=== PATIENT | female | born 1950 | race Caucasian/White ===

== ENCOUNTER 2017-08-21 15:46 | Inpatient (IN) ==
--- NOTE | 2017-08-21 16:45 | DR.GENAD ---
HPI - PCP Primary Care Physician: FREDDY SILVESTRE - Complaint/Symptoms Chief Complaint Doctors Comments: Patient is complaining of right sided weakness onset last night. Spouse states she had problems last night talking out of her head like she was "crazy". Stats they have been for 30 years and she has never had problems like that before. she went to the emergency room last night and they gave her some IV fluids and something for a headache and told her she was not having a stroke according to the spouse. Patient states she has had a problem with migraines before and has headaches worst that this one. States she has been having problems moving her right hand and legs. States she has been dragging her right leg and it feels like it is not there and the right side is not working. She denies chest pain, soB, nausea or vomiting. She denies tobacco or alcohol usage. She has been having dizziness and problems swallowing last night. Chief Complaint:: PT. C/O RIGHT SIDED WEAKNESS AND A HEADACHE. PT. STATES SHE WAS SEEN IN [facility] LAST NIGHT FOR A HEADACHE. THE RIGHT SIDED WEAKNESS IS A NEW SYMPTOM. - Nurses notes reviewed Nurses Notes Review: Yes - Source History Provided: Patient - Mode of Arrival Mode of Arrival: Wheelchair - Timing Onset of Chief Complaint: 08/20/17 Came on: Gradually - Duration Duration: Constant How lon Duration: Days - Location Location: right side weakness - Severity Severity: Severe - Modifying Factors Worsens:: nothing Improves:: nothing PMH - PMH Past Medical History: Yes Past Medical History: Headaches, Hypertension Past Medical History Comment: MS, FIBROMYALGIA Past Surgical History: Yes Surgical History: Appendectomy, Cholecystectomy, Hysterectomy, Ortho Surgery, Tonsillectomy, Other - Family History History of Family Medical Conditions: No - Social History Does patient currently use any type of tobacco product: No Have you used tobacco products in the last 12 months: No Type of Tobacco Use: None Does any household member use tobacco: No Alcohol Use: None Do you use any recreational Drugs:: No Lives With: Spouse Lives Where: Home - infectious screening In the last 2 months have you had wt loss of >10#?: NO Have you had fever, night sweats or hemotysis?: No Have you traveled outside the country in the last 6 months?: No Isolation: Standard ROS - Review of Systems Constitutional: No Symptoms Reported, Weakness (right side weakness) Eyes: No Symptoms Reported ENTM: No Symptoms Reported Respiratoy: No Symptoms Reported. negative: See HPI, Productive Cough, Non- Productive Cough, Moist Cough, Dry Cough, Hacking Cough, Barking Cough, Brassy Cough, Orthopnea, Short of Breath, Stridor, Wheezing, Hemoptysis, Other Cardiovascular: No Symptoms Reported. negative: See HPI, Chest Pain, Edema, Palpitations, Syncope, Cyanosis, Skin Mottling, Other Gastrointestinal/Abdominal: No Symptoms Reported. negative: See HPI, Abdominal Pain, Constipation, Diarrhea, Nausea, Vomiting, Food Intolerance, Other Genitourinary: No Symptoms Reported Neurological: No Symptoms Reported, Headache, Numbness (right side), Paresthesia , Dizziness, Problems Walking (dragging right leg) Musculoskeletal: No Symptoms Reported Integumentary: No Symptoms Reported. negative: See HPI, Change in Color, Change in Hair/Nails, Dryness, Lesions, Lumps, Rash, Itching, Wound, Bruises, Juandice, Other Hematologic/Lymphatic: No Symptoms Reported. negative: See HPI, Anemia, Blood Clots, Easy Bleeding, Easy Bruising, Swollen Glands, Lymphadenopathy, Other Endocrine: No Symptoms Reported Psychiatric: No Symptoms Reported. negative: See HPI, Anxiety, Depression, Hallucinations, Excessive crying, Suicidal, Other PE - General Limitations: No Limitations General Appearance: Alert, In Distress (moderate) - Head Head Exam: Normal Inspection, Atraumatic, Normocephalic (right carotid bruit 3+) - Eyes Eye exam: Normal Appearance, PERRL, EOMI. negative: Scleral Icterus, Conjunctival Injection, Nystagmus, Miosis, Mydrasis, Periorbital Swelling, Periorbital Tenderness, Other - ENT ENT Exam: Normal Exam, Normal Oropharynx, Normal External Ear Exam, Mucous Membranes Moist, TM's Normal Bilaterally External Ear Exam: Normal External Inspection TM/Canal Exam: Bilateral Normal Nose Exam: Normal Nose Exam Mouth Exam: Normal Inspection. negative: Drooling (tongue protrude to the right side), Trismus, Lip Swelling, Tongue Elevation, Tongue Swelling, Laceration, Other Throat Exam: Normal Inspection - Neck Neck Exam: Normal Inspection, Full ROM, Trachea Midline - Chest Chest Inspection: Normal Inspection, Symmetric Chest Wall Rise - Respiratory Respiratory Exam: Normal Lung Sounds Bilat Respiratory Exam: Bilateral Clear to Auscultation - Cardiovascular Cardiovascular Exam: Regular Rate, Normal Rhythm, Normal Heart Sounds - Abdominal Exam Abdominal Exam: Normal Inspection, Normal Bowel Sounds, Soft Abdominal Tenderness: negative: RUQ, RLQ, LUQ, LLQ, Epigastrium, Suprapubic, Diffuse, Mild, Moderate, Severe, Other - Extremities Extremities Exam: Normal Inspection, Full ROM, Normal Capillary Refill. negative: Tenderness (right sided weakness) - Back Back Exam: Normal Inspection, Full ROM. negative: Tenderness, (R) CVA Tenderness, (L) CVA Tenderness, Muscle Spasm, Paraspinal Tenderness, Vertebral Tenderness, Rashes, (R) Sciatic Notch Tenderness, (L) Sciatic Notch Tendern, (R ) Straight Leg Raise, (L) Straight Leg Raise, Other - Neurologic Neurological Exam: Alert, Oriented X3, Motor Sensory Deficit (decreased pin prick right leg). negative: CN II-XII Intact (right hemiplegia; decreased sensation right legs; abnormal propriception right leg), Normal Gait (gait not tested), Reflexes Normal - Psychiatric Psychiatric Exam: Normal Affect, Normal Mood - Skin Skin Exam: Warm, Dry, Intact, Normal Color - Vital Signs Vitals: Temperature 98.7 F Pulse Rate [Left Brachial] 63 Pulse Rate 66 Respiratory Rate 20 Blood Pressure [Right Arm] 116/61 Blood Pressure [Left Arm] 141/65 Blood Pressure 182/87 O2 Sat by Pulse Oximetry 98 Course - Consultation Called: 19:07 Call Returned: 19:07 (Dr. Rawls to admit) - Education/Counseling Education/Counseling: Patient, Family Educated On: Treatment, Diagnosis, Needs for Follow Up ROR - Labs Reviewed Laboratory Results Reviewed?: Yes (All labs and x-ray results reviewed and discussed with patient and spouse ) Result Diagrams: 08/21/17 16:48 08/21/17 16:48 - XRAY XRAY Interpreted by: Radiologist (CT head: No acute intracranial process can be identified.) - EKG Rate: 66 [place]: Normal Rhythm: NSR Hypertrophy: LAE ST: Old, Inf, Infarct - Labs Reviewed Laboratory: WBC 11.1 X10^3/uL (3.6-10.0) H 08/21/17 16:48 RBC 4.33 X10^6/uL (3.5-5.4) 08/21/17 16:48 Hgb 13.8 g/dL (12.0-16.0) 08/21/17 16:48 Hct 40.3 % (36.0-47.0) 08/21/17 16:48 MCV 93.1 fL (80.0-100.0) 08/21/17 16:48 MCH 31.9 pg (27.0-34.0) 08/21/17 16:48 MCHC 34.3 g/dL (33.0-35.0) 08/21/17 16:48 RDW 12.5 % (11.6-16.5) 08/21/17 16:48 Plt Count 288 X10^3/uL (150.0-450.0) 08/21/17 16:48 MPV 8.8 fL (7.4-11.0) 08/21/17 16:48 Neut % (Auto) 74.1 % (42.0-75.0) 08/21/17 16:48 Lymph % (Auto) 17.1 % (21.0-51.0) L 08/21/17 16:48 [place] % (Auto) 8.5 % (0.0-13.0) 08/21/17 16:48 Eos % (Auto) 0.1 % (0.9-2.9) L 08/21/17 16:48 Baso % (Auto) 0.2 % (0.2-1.0) 08/21/17 16:48 Neut # (Auto) 8.2 x10^3/uL (2.2-4.8) H 08/21/17 16:48 Lymph # (Auto) 1.9 X10^3/uL (1.3-2.9) 08/21/17 16:48 [place] # (Auto) 0.9 x10^3/uL (0.3-0.8) H 08/21/17 16:48 Eos # (Auto) 0.0 x10^3/uL (0.0-0.2) 08/21/17 16:48 Baso # (Auto) 0.0 X10^3/uL (0.0-0.1) 08/21/17 16:48 Absolute Nucleated RBC 0.0 /100WBC 08/21/17 16:48 INR Target Range - 08/21/17 16:48 INR 0.93 (0.8-1.3) 08/21/17 16:48 APTT 23.1 SECONDS (22.9-36.5) 08/21/17 16:48 PTT Comment - 08/21/17 16:48 Sodium 139 mmol/L (136-145) 08/21/17 16:48 Corrected Sodium TNP 08/21/17 16:48 Potassium 4.2 mmol/L (3.5-5.1) 08/21/17 16:48 Chloride 105 mmol/L (98-107) 08/21/17 16:48 Carbon Dioxide 25.5 mmol/L (21-32) 08/21/17 16:48 BUN 12 mg/dL (7-18) 08/21/17 16:48 Creatinine 0.90 mg/dL (0.55-1.02) 08/21/17 16:48 Est GFR (MDRD) Af Amer > 60 (>60) 08/21/17 16:48 Est GFR (MDRD) Non-Af > 60 (>60) 08/21/17 16:48 Glucose 102 mg/dL (65-99) H 08/21/17 16:48 Calcium 9.6 mg/dL (8.5-10.1) 08/21/17 16:48 Corrected Calcium TNP 08/21/17 16:48 Magnesium 1.9 mg/dL (1.7-2.9) 08/21/17 16:48 Total Bilirubin 0.30 mg/dL (0.2-1.0) 08/21/17 16:48 AST 24 Units/L (15-37) 08/21/17 16:48 ALT 18 Units/L (12-78) 08/21/17 16:48 Alkaline Phosphatase 87 Units/L (46-116) 08/21/17 16:48 Creatine Kinase 77 Units/L (26-192) 08/21/17 16:48 CK-MB (CK-2) < 1.0 ng/mL (0-4.0) 08/21/17 16:48 CK/CKMB % Calc 1.3 % (<4) 08/21/17 16:48 Troponin I < 0.02 ng/mL (0-1.5) 08/21/17 16:48 Total Protein 8.0 g/dL (6.4-8.2) 08/21/17 16:48 Albumin 3.6 g/dL (3.4-5.0) 08/21/17 16:48 Globulin 4.4 g/dL (2.5-4.5) 08/21/17 16:48 Albumin/Globulin Ratio 0.8 Ratio (1.1-2.1) L 08/21/17 16:48 - Diagnosis Discharge Problem: Acute CVA (cerebrovascular accident), Right hemiparesis, Old inferior wall myocardial infarction, Multiple sclerosis Headache Qualifiers: Headache chronicity pattern: acute headache - Discharge Plan Disposition: ADMITTED INPATIENT Condition: Stable - Follow ups/Referrals Follow ups/Referrals: CORINA DUARTE [Primary Care Provider] - 3 days - Instructions
[2017-08-21 16:57] LABS: BASOPHILS % (AUTO) 0.2 % (0.2-1.0); EOSINOPHILS % (AUTO) 0.1 % (0.9-2.9); HEMATOCRIT 40.3 % (36.0-47.0); HEMOGLOBIN 13.8 g/dL (12.0-16.0); LYMPHOCYTES # (AUTO) 1.9 X10^3/uL (1.3-2.9); LYMPHOCYTES % (AUTO) 17.1 % (21.0-51.0); MEAN CORPUSCULAR HEMOGLOBIN 31.9 pg (27.0-34.0); MEAN CORPUSCULAR HGB CONC 34.3 g/dL (33.0-35.0); MEAN CORPUSCULAR VOLUME 93.1 fL (80.0-100.0); MEAN PLATELET VOLUME 8.8 fL (7.4-11.0); MONOCYTES # (AUTO) 0.9 x10^3/uL (0.3-0.8); MONOCYTES % (AUTO) 8.5 % (0.0-13.0); NEUTROPHILS # (AUTO) 8.2 x10^3/uL (2.2-4.8); NEUTROPHILS % (AUTO) 74.1 % (42.0-75.0); PLATELET COUNT 288 X10^3/uL (150.0-450.0); RED BLOOD COUNT 4.33 X10^6/uL (3.5-5.4); RED CELL DISTRIBUTION WIDTH 12.5 % (11.6-16.5); WHITE BLOOD COUNT 11.1 X10^3/uL (3.6-10.0)
--- NOTE | 2017-08-21 17:14 | CT ---
HISTORY: Right hemiplegia. Study: CT brain without contrast. Comparison: MR brain dated 11/24/2015. Technique: Multiple axial images of the brain were obtained from the skull base to the vertex without administra tion of IV contrast. Findings: No acute intraparenchymal hemorrhage or mass can be identified. No extra-axial fluid collections are seen. No alteration in the attenuation of the brain parenchyma can be identified to suggest acute o r subacute ischemic change. The ventricular system is symmetric and nondilated. The extracranial st ructures are grossly unremarkable. IMPRESSION: No acute intracranial process can be identified. Reported By:
--- NOTE | 2017-08-21 17:15 | RAD ---
HISTORY: Chest pain. Study: Single-view chest. Comparison: None. Findings: The trachea is midline. The cardiac silhouette is within normal limits. The lungs are clear without focal infiltrate or effusion. The bony thorax is unremarkable. IMPRESSION: No acute cardiopulmonary disease. Reported By:
[2017-08-21 17:21] LABS: BLOOD UREA NITROGEN 12 mg/dL (7-18); CALCIUM 9.6 mg/dL (8.5-10.1); CARBON DIOXIDE 25.5 mmol/L (21-32); CHLORIDE 105 mmol/L (98-107); SODIUM 139 mmol/L (136-145); TROPONIN I < 0.02 ng/mL (0-1.5); eGFR NON BLACK RACES > 60 (>60)
[2017-08-21 17:25] LABS: ALANINE AMINOTRANSFERASE 18 Units/L (12-78); ALBUMIN 3.6 g/dL (3.4-5.0); ALKALINE PHOSPHATASE 87 Units/L (46-116); ASPARTATE AMINO TRANSFERASE 24 Units/L (15-37); CREATINE KINASE 77 Units/L (26-192); CREATINE KINASE MB < 1.0 ng/mL (0-4.0); MAGNESIUM 1.9 mg/dL (1.7-2.9)
[2017-08-21 17:27] LABS: CKMB % 1.3 % (<4)
[2017-08-21] MEDS ORDERED: MORPHINE SULFATE INJ 2 MG INJ IVP ONE (18:35)
[2017-08-21] MEDS ORDERED: MORPHINE SULFATE INJ 2 MG INJ ONE (18:42)
[2017-08-21] MEDS: NS 1000 ML 1,000 ML IV SCH (18:51)
[2017-08-21] MEDS ORDERED: MORPHINE SULFATE INJ 2 MG INJ IVP PRN (19:10)
[2017-08-21 20:11] LABS: ALANINE AMINOTRANSFERASE 16 Units/L (12-78); ALBUMIN 3.2 g/dL (3.4-5.0); ALKALINE PHOSPHATASE 79 Units/L (46-116); ASPARTATE AMINO TRANSFERASE 13 Units/L (15-37); BLOOD UREA NITROGEN 12 mg/dL (7-18); CALCIUM 9.2 mg/dL (8.5-10.1); CARBON DIOXIDE 25.6 mmol/L (21-32); CHLORIDE 106 mmol/L (98-107); CHOL/HDL RATIO 8.5 (0.0-5.0); CHOLESTEROL 281 mg/dL (0-200); COR CA(FOR HYPOALB) 9.8 mg/dL (8.5-10.1); CREATININE 0.89 mg/dL (0.55-1.02); HDL CHOLESTEROL 33 mg/dL (40-60); SODIUM 141 mmol/L (136-145); TOTAL PROTEIN 7.3 g/dL (6.4-8.2); TRIGLYCERIDES 156 mg/dL (0-150); eGFR NON BLACK RACES > 60 (>60)
[2017-08-21 20:19] LABS: CREATINE KINASE 66 Units/L (26-192); CREATINE KINASE MB < 1.0 ng/mL (0-4.0); TROPONIN I < 0.02 ng/mL (0-1.5)
[2017-08-21 20:21] LABS: CKMB % 1.5 % (<4)
[2017-08-21] MEDS: PLAVIX PO SCH (20:28)
[2017-08-21 23:35] LABS: BILIRUBIN,URINE NEGATIVE (NEGATIVE); BLOOD/HEMOGLOBIN,URINE NEGATIVE (NEGATIVE); GLUCOSE, URINE NEGATIVE (NEGATIVE); KETONES,URINE NEGATIVE (NEGATIVE); LEUKOCYTE ESTERASE ,URINE NEGATIVE (NEGATIVE); NITRITES,URINE NEGATIVE (NEGATIVE); PROTEIN,URINE NEGATIVE (NEGATIVE); UROBILINOGEN,URINE NORMAL (NORMAL)
[2017-08-21 23:46] LABS: APPEARANCE,URINE CLEAR (CLEAR); COLOR,URINE PALE YELLOW (YELLOW)
[2017-08-22] MEDS ORDERED: ULTRAM ONE (00:29)
[2017-08-22] MEDS: ULTRAM PO PRN (00:34)
[2017-08-22 01:52] LABS: CKMB % 1.8 % (<4); CREATINE KINASE 55 Units/L (26-192); CREATINE KINASE MB < 1.0 ng/mL (0-4.0); TROPONIN I < 0.02 ng/mL (0-1.5)
[2017-08-22] MEDS: NORCO 5/325 MG TAB PO PRN (02:16)
[2017-08-22] MEDS ORDERED: IMITREX TAB PO ONE (03:50)
[2017-08-22] MEDS ORDERED: ZOFRAN INJ 4 MG VIAL IVP PRN (07:21)
[2017-08-22] MEDS: NS 1000 ML 1,000 ML IV SCH ×2 (07:36→20:23)
[2017-08-22] MEDS: VISTARIL PO PRN ×2 (07:37→20:24)
[2017-08-22 07:44] LABS: BASOPHILS # (AUTO) 0.1 X10^3/uL (0.0-0.1); BASOPHILS % (AUTO) 0.7 % (0.2-1.0); EOSINOPHILS # (AUTO) 0.1 x10^3/uL (0.0-0.2); EOSINOPHILS % (AUTO) 0.8 % (0.9-2.9); HEMATOCRIT 37.5 % (36.0-47.0); HEMOGLOBIN 12.9 g/dL (12.0-16.0); LYMPHOCYTES # (AUTO) 2.4 X10^3/uL (1.3-2.9); LYMPHOCYTES % (AUTO) 26.9 % (21.0-51.0); MEAN CORPUSCULAR HEMOGLOBIN 32.4 pg (27.0-34.0); MEAN CORPUSCULAR HGB CONC 34.4 g/dL (33.0-35.0); MEAN CORPUSCULAR VOLUME 94.2 fL (80.0-100.0); MEAN PLATELET VOLUME 8.5 fL (7.4-11.0); MONOCYTES # (AUTO) 0.8 x10^3/uL (0.3-0.8); MONOCYTES % (AUTO) 8.9 % (0.0-13.0); NEUTROPHILS # (AUTO) 5.5 x10^3/uL (2.2-4.8); NEUTROPHILS % (AUTO) 62.7 % (42.0-75.0); PLATELET COUNT 236 X10^3/uL (150.0-450.0); RED BLOOD COUNT 3.98 X10^6/uL (3.5-5.4); RED CELL DISTRIBUTION WIDTH 12.8 % (11.6-16.5); WHITE BLOOD COUNT 8.8 X10^3/uL (3.6-10.0)
[2017-08-22] MEDS: ASPIRIN PO SCH (08:39)
[2017-08-22] MEDS: PLAVIX PO SCH (08:39)
[2017-08-22] MEDS ORDERED: PROTONIX INJ 40 MG VIAL IVP SCH (09:00)
[2017-08-22 10:43] LABS: CKMB % 1.1 % (<4); CREATINE KINASE 53 Units/L (26-192); CREATINE KINASE MB 0.6 ng/mL (0-4.0)
[2017-08-22 12:44] LABS: CHOL/HDL RATIO 9.6 (0.0-5.0)
[2017-08-22 14:08] LABS: TROPONIN I < 0.02 ng/mL (0-1.5)
[2017-08-22] MEDS ORDERED: FIORICET TAB PO PRN (17:13)
[2017-08-22] MEDS ORDERED: PHENERGAN TAB 25 MG PO PRN (17:13)
[2017-08-22] MEDS: FIORICET TAB PO PRN (19:02)
[2017-08-22] MEDS: LIORESAL PO SCH (20:24)
[2017-08-22] MEDS: ZANTAC PO SCH (20:24)
[2017-08-22] MEDS: DESMOPRESSIN PO SCH (20:24)
--- NOTE | 2017-08-22 22:18 | DR.H&P ---
H&P - History & Physical for Day of: H&P Date: 08/21/17 - Chief Complaint Chief Complaint: PT. C/O RIGHT SIDED WEAKNESS AND A HEADACHE. PT. STATES SHE WAS SEEN IN [facility] ER LAST NIGHT FOR A HEADACHE. - History of Present Illness History of Present Illness: Patient is complaining of right sided weakness onset last night. Spouse states she had problems last night talking out of her head like she was "crazy". Stats they have been for 30 years and she has never had problems like that before. she went to the emergency room last night and they gave her some IV fluids and something for a headache and told her she was not having a stroke according to the spouse. Patient states she has had a problem with migraines before and has headaches worst that this one. States she has been having problems moving her right hand and legs. States she has been dragging her right leg and it feels like it is not there and the right side is not working. She denies chest pain, sob, nausea or vomiting. She denies tobacco or alcohol usage. She has been having dizziness and problems swallowing last night. - Past Medical History Past Medical History: Headaches, Hypertension Additional Medical History: Multiple Sclerosis, Fibromyalgia - Past Surgical History Surgical History: Appendectomy, Cholecystectomy, Hysterectomy, Ortho Surgery, Tonsillectomy, Other Additional Surgical History: Back surgery x 3 - Social History Does patient currently use any type of tobacco product: No Have you used tobacco products in the last 12 months: No Type of Tobacco Use: None Does any household member use tobacco: No Alcohol Use: None Drug Use: None - Medications Home Medications: No Known Drug Allergies Allergy (Verified 08/21/17 17:43) CONTINUE taking the following medications [id number] 1 tab PO Q4-6H PRN 08/21/17 [History] desmopressin 1 tab PO BID 08/21/17 [History] ergocalciferol (vitamin D2) 1 tab PO WEEKLY 08/21/17 [History] escitalopram oxalate 1 tab PO DAILY 08/21/17 [History] estradiol 1 tab PO DAILY 08/21/17 [History] promethazine 1 tab PO Q4-6H PRN 08/21/17 [History] ranitidine HCl 1 tab PO BID 08/21/17 [History] - Review of Systems Constitutional: Weakness Eyes: Vision Change (blurred vision) ENT: No Symptoms Reported Respiratory: No Symptoms Reported Cardiovascular: No Symptoms Reported Gastrointestinal: No Symptoms Reported Genitourinary: No Symptoms Reported Musculoskeletal: See HPI Skin: No Symptoms Reported Neurological: Weakness, Numbness, Incoordination, Confusion - Physical Exam Vital Signs: Temperature 97.5 F Pulse Rate [Left Brachial] 56 Pulse Rate 66 Respiratory Rate 18 Blood Pressure [Right Arm] 116/61 Blood Pressure [Left Arm] 173/72 Blood Pressure 182/87 O2 Sat by Pulse Oximetry 100 Oriented: Normal Eyes: Normal Ear: Normal Nose: Normal Throat: Normal Respiratory: Clear Throughout Cardiovascular: Normal : Normal Auscultation: Bowel Sounds: Normal Palpation: Normal Tenderness: Normal Skin: Normal Musculoskeletal: Right, Arm, Leg, Motor Deficit Psychiatric: Normal Mood Description: Calm, Flat Affect: Normal Speech Pattern: Clear - Assessment/Plan (1) Multiple sclerosis Status: Chronic Plan: Assist with ADLS, Monitor. (2) Acute CVA (cerebrovascular accident) Status: Acute Plan: Neuro checks, Lipid (3) Right hemiparesis Status: Acute Plan: Neuro checks, PT (4) Headache Qualifiers: Headache chronicity pattern: acute headache Status: Acute Plan: Medicate as needed (5) Hypertension Qualifiers: Hypertension type: essential hypertension Qualified Code(s): I10 - Essential (primary) hypertension Status: Chronic Plan: Monitor BP and administer Home meds. - Allergies Allergies/Adverse Reactions: Allergies Allergy/AdvReac Type Severity Reaction Status Date / Time No Known Drug Allergies Allergy Verified 08/21/17 17:43
--- NOTE | 2017-08-22 22:27 | PCM.PROG ---
Progress Note - Progress Note for Day of Date of Exam: 08/22/17 - Subjective Subjective: 66YO WF ADMITTED WITH ACUTE CVA. PATIENT ALERT AND ANSWERS QUESTIONS APPROPRIATELY. IS UNABLE TO MOVE RIGHT ARM OR LEG. IS NOTED TO LIFT RIGHT RING FINGER. COMPLAINS OF HEADACHE TO TOP OF HEAD AND BLURRED VISION. AND GRANDDAUGHTER PRESENT. DOES ASK NUMEROUS QUESTIONS REGARDING CAUSE AND PROGNOSIS. PATIENT STATES THAT SHE LOSS CONTROL OF HER RIGHT ARM AND IT WAS "JUST HANGING." DENIES DYSPHAGIA. NOTE: GRANDDAUGHTER CAME TO DESK ASKING IF HAND COULD MOVE UNINTENTIONALLY. STATES EARLIER TODAY SHE WAS ABLE TO PICK TAPE OF HER LEFT FINGERS USING HER RIGHT HAND. DOES ADMIT TO HIST OF PSYCH ISSUES. DOES NOT KNOW DIAGNOSIS OTHER THAN DEPRESSION. STATES THAT PATIENT IS NORMALLY VERY ACTIVE WITH A KENNEL. - Past Medical Family Social History Past Med/Fam/Surg Hx: No changes since H&P Allergies: Allergies No Known Drug Allergies Allergy (Verified 08/21/17 17:43) - Review of Systems ROS: No change since H&P - Vital Signs and I&O's Vital Signs: Temperature 97.5 F Pulse Rate [Left Brachial] 56 Pulse Rate 66 Respiratory Rate 18 Blood Pressure [Right Arm] 116/61 Blood Pressure [Left Arm] 173/72 Blood Pressure 182/87 O2 Sat by Pulse Oximetry 100 Intake and Output: Intake & Output 08/20/17 08/21/17 08/22/17 08/23/17 11:59 11:59 11:59 11:59 Intake Total 1342 / 1342 1335 / 1335 Output Total 1100 / 1100 Balance 1342 / 1342 235 / 235 - Physical Exam Oriented: Normal Eyes: Normal Ear: Normal Nose: Normal Throat: Normal Respiratory: Normal Cardiovascular: Normal : Normal Auscultation: Bowel Sounds: Normal Palpation: Normal Tenderness: Normal Skin: Normal Musculoskeletal: Right, Arm, Leg, Motor Deficit Psychiatric: Normal Mood Description: Calm, Flat Affect: Normal Speech Pattern: Clear - Laboratory and Diagnostics Result Diagrams: 08/22/17 07:32 08/21/17 19:35 Labs: Laboratory WBC 8.8 X10^3/uL (3.6-10.0) 08/22/17 07:32 RBC 3.98 X10^6/uL (3.5-5.4) 08/22/17 07:32 Hgb 12.9 g/dL (12.0-16.0) 08/22/17 07:32 Hct 37.5 % (36.0-47.0) 08/22/17 07:32 MCV 94.2 fL (80.0-100.0) 08/22/17 07:32 MCH 32.4 pg (27.0-34.0) 08/22/17 07:32 MCHC 34.4 g/dL (33.0-35.0) 08/22/17 07:32 RDW 12.8 % (11.6-16.5) 08/22/17 07:32 Plt Count 236 X10^3/uL (150.0-450.0) 08/22/17 07:32 MPV 8.5 fL (7.4-11.0) 08/22/17 07:32 Neut % (Auto) 62.7 % (42.0-75.0) 08/22/17 07:32 Lymph % (Auto) 26.9 % (21.0-51.0) 08/22/17 07:32 [place] % (Auto) 8.9 % (0.0-13.0) 08/22/17 07:32 Eos % (Auto) 0.8 % (0.9-2.9) L 08/22/17 07:32 Baso % (Auto) 0.7 % (0.2-1.0) 08/22/17 07:32 Neut # (Auto) 5.5 x10^3/uL (2.2-4.8) H 08/22/17 07:32 Lymph # (Auto) 2.4 X10^3/uL (1.3-2.9) 08/22/17 07:32 [place] # (Auto) 0.8 x10^3/uL (0.3-0.8) 08/22/17 07:32 Eos # (Auto) 0.1 x10^3/uL (0.0-0.2) 08/22/17 07:32 Baso # (Auto) 0.1 X10^3/uL (0.0-0.1) 08/22/17 07:32 Absolute Nucleated RBC 0.1 /100WBC 08/22/17 07:32 INR Target Range - 08/21/17 16:48 INR 0.93 (0.8-1.3) 08/21/17 16:48 APTT 23.1 SECONDS (22.9-36.5) 08/21/17 16:48 PTT Comment - 08/21/17 16:48 Fibrinogen 261 mg/dL (239-489) 08/21/17 19:35 Sodium 141 mmol/L (136-145) 08/21/17 19:35 Corrected Sodium TNP 08/21/17 19:35 Potassium 3.7 mmol/L (3.5-5.1) 08/21/17 19:35 Chloride 106 mmol/L (98-107) 08/21/17 19:35 Carbon Dioxide 25.6 mmol/L (21-32) 08/21/17 19:35 BUN 12 mg/dL (7-18) 08/21/17 19:35 Creatinine 0.89 mg/dL (0.55-1.02) 08/21/17 19:35 Est GFR (MDRD) Af Amer > 60 (>60) 08/21/17 19:35 Est GFR (MDRD) Non-Af > 60 (>60) 08/21/17 19:35 Glucose 94 mg/dL (65-99) 08/21/17 19:35 Calcium 9.2 mg/dL (8.5-10.1) 08/21/17 19:35 Corrected Calcium 9.8 mg/dL (8.5-10.1) 08/21/17 19:35 Magnesium 1.9 mg/dL (1.7-2.9) 08/21/17 16:48 Total Bilirubin 0.40 mg/dL (0.2-1.0) 08/21/17 19:35 AST 13 Units/L (15-37) L 08/21/17 19:35 ALT 16 Units/L (12-78) 08/21/17 19:35 Alkaline Phosphatase 79 Units/L (46-116) 08/21/17 19:35 Creatine Kinase 53 Units/L (26-192) 08/22/17 07:32 CK-MB (CK-2) 0.6 ng/mL (0-4.0) 08/22/17 07:32 CK/CKMB % Calc 1.1 % (<4) 08/22/17 07:32 Troponin I < 0.02 ng/mL (0-1.5) 08/22/17 07:32 Total Protein 7.3 g/dL (6.4-8.2) 08/21/17 19:35 Albumin 3.2 g/dL (3.4-5.0) L 08/21/17 19:35 Globulin 4.1 g/dL (2.5-4.5) 08/21/17 19:35 Albumin/Globulin Ratio 0.8 Ratio (1.1-2.1) L 08/21/17 19:35 Triglycerides 219 mg/dL (0-150) H 08/22/17 07:32 Cholesterol 277 mg/dL (0-200) H 08/22/17 07:32 LDL Cholesterol, Calc 204 mg/dL (0-100) H 08/22/17 07:32 HDL Cholesterol 29 mg/dL (40-60) L 08/22/17 07:32 Cholesterol/HDL Ratio 9.6 (0.0-5.0) H 08/22/17 07:32 Specimen Type Catherized urine 08/21/17 22:37 Urine Color Pale yellow (YELLOW) 08/21/17 22:37 Urine Appearance Clear (CLEAR) 08/21/17 22:37 Urine pH 6.0 (5.0 - 8.0) 08/21/17 22:37 Ur Specific [place] 1.015 (1.000-1.030) 08/21/17 22:37 Urine Protein Negative (NEGATIVE) 08/21/17 22:37 Urine Glucose (UA) Negative (NEGATIVE) 08/21/17 22:37 Urine Ketones Negative (NEGATIVE) 08/21/17 22:37 Urine Occult Blood Negative (NEGATIVE) 08/21/17 22:37 Urine Nitrite Negative (NEGATIVE) 08/21/17 22:37 Urine Bilirubin Negative (NEGATIVE) 08/21/17 22:37 Urine Urobilinogen Normal (NORMAL) 08/21/17 22:37 Ur Leukocyte Esterase Negative (NEGATIVE) 08/21/17 22:37 - Plan (1) Multiple sclerosis Status: Chronic Plan: Assist with ADLS, Monitor. (2) Acute CVA (cerebrovascular accident) Status: Acute Plan: Neuro checks, MRI BRAIN, CAROTID US (3) Right hemiparesis Status: Acute Plan: Neuro checks, PT (4) Headache Status: Acute Qualifiers: Headache chronicity pattern: acute headache Plan: Medicate as needed (5) Hypertension Status: Chronic Qualifiers: Hypertension type: essential hypertension Qualified Code(s): I10 - Essential (primary) hypertension Plan: Monitor BP and administer Home meds. (6) Dyslipidemia Status: Acute Plan: LOW FAT DIET. ADD ZOCOR.
[2017-08-23] MEDS: FIORICET TAB PO PRN (04:46)
[2017-08-23 05:14] LABS: BASOPHILS # (AUTO) 0.1 X10^3/uL (0.0-0.1); BASOPHILS % (AUTO) 1.2 % (0.2-1.0); EOSINOPHILS # (AUTO) 0.1 x10^3/uL (0.0-0.2); EOSINOPHILS % (AUTO) 1.6 % (0.9-2.9); HEMATOCRIT 36.2 % (36.0-47.0); HEMOGLOBIN 12.4 g/dL (12.0-16.0); LYMPHOCYTES # (AUTO) 2.3 X10^3/uL (1.3-2.9); LYMPHOCYTES % (AUTO) 34.6 % (21.0-51.0); MEAN CORPUSCULAR HEMOGLOBIN 32.3 pg (27.0-34.0); MEAN CORPUSCULAR HGB CONC 34.4 g/dL (33.0-35.0); MONOCYTES # (AUTO) 0.6 x10^3/uL (0.3-0.8); MONOCYTES % (AUTO) 8.7 % (0.0-13.0); NEUTROPHILS # (AUTO) 3.6 x10^3/uL (2.2-4.8); NEUTROPHILS % (AUTO) 53.9 % (42.0-75.0); PLATELET COUNT 229 X10^3/uL (150.0-450.0); RED BLOOD COUNT 3.85 X10^6/uL (3.5-5.4); RED CELL DISTRIBUTION WIDTH 12.9 % (11.6-16.5); WHITE BLOOD COUNT 6.6 X10^3/uL (3.6-10.0)
[2017-08-23 05:41] LABS: ALANINE AMINOTRANSFERASE 35 Units/L (12-78); ALBUMIN 2.8 g/dL (3.4-5.0); ALKALINE PHOSPHATASE 77 Units/L (46-116); ASPARTATE AMINO TRANSFERASE 29 Units/L (15-37); BLOOD UREA NITROGEN 11 mg/dL (7-18); CALCIUM 7.9 mg/dL (8.5-10.1); CARBON DIOXIDE 25.5 mmol/L (21-32); CHLORIDE 107 mmol/L (98-107); COR CA(FOR HYPOALB) 8.9 mg/dL (8.5-10.1); CREATININE 0.78 mg/dL (0.55-1.02); SODIUM 140 mmol/L (136-145); TOTAL PROTEIN 6.4 g/dL (6.4-8.2); eGFR NON BLACK RACES > 60 (>60)
[2017-08-23] MEDS ORDERED: POTASSIUM CHLORIDE LIQ 20 MEQ UDC PO PRN (06:41)
[2017-08-23] MEDS ORDERED: POTASSIUM CHL 40 MEQ/NS 0.45% 500 ML IV PRN (06:41)
[2017-08-23] MEDS ORDERED: POTASSIUM CHL 60 MEQ/NS 0.45% 500 ML IV PRN (06:41)
[2017-08-23] MEDS ORDERED: K-RIDER 10 MEQ/NS 100 ML 10 MEQ/100 ML BAG IV PRN (06:41)
[2017-08-23] MEDS ORDERED: MAGNESIUM SULFATE 1 GRAM/100 mL PREMIX 1 GM/100 ML BAG IV PRN (06:41)
[2017-08-23 08:13] VITALS: BMI 26.3
[2017-08-23] MEDS ORDERED: LEXAPRO ONE (08:42)
[2017-08-23] MEDS: ASPIRIN PO SCH (08:52)
[2017-08-23] MEDS: ESTRACE PO SCH (08:52)
[2017-08-23] MEDS: PLAVIX PO SCH (08:52)
[2017-08-23] MEDS: PROTONIX TAB 40 MG PO SCH (08:53)
[2017-08-23] MEDS: LEXAPRO PO SCH (08:53)
[2017-08-23] MEDS: ZANTAC PO SCH ×2 (08:53→20:31)
[2017-08-23] MEDS ORDERED: PATIENT'S HOME MEDICATION (Escitalopram Oxalate [Escitalopram Oxalate] 1 TAB) PO SCH (09:00)
[2017-08-23] MEDS ORDERED: ESTRADIOL PO SCH (09:00)
[2017-08-23] MEDS: VITAMIN D (1.25MG) PO SCH (09:01)
[2017-08-23] MEDS: DESMOPRESSIN PO SCH ×2 (09:01→20:32)
[2017-08-23] MEDS: NS 1000 ML 1,000 ML IV SCH ×2 (09:52→11:46)
--- NOTE | 2017-08-23 13:00 | MRI ---
HISTORY: Acute CVA symptoms, right sided weakness Study: MRI brain without contrast Comparison: CT performed on 08/21/2017 Technique: Multisequence, multiplanar imaging of the brain was performed without the administration o f IV contrast. Findings: Imaging of the brain demonstrates focal restricted diffusion within the posterior limb of the left in ternal capsule, consistent with acute to early subacute infarct. Small acute to early subacute infarc ts are also identified scattered within the left occipital lobe. There is also an acute to early suba cute infarct present medial to the occipital and temporal horns of the left lateral ventricle. The re stricted diffusion appears to possibly extends into the left lateral ventricle for which a small chor oid plexus infarct cannot be excluded. There is no intracranial hemorrhage, mass effect, or midline s hift. The ventricular system is nondilated. No extra-axial fluid collection is identified. The basila r cisterns are patent. The bilateral cerebellopontine angles are unremarkable. IMPRESSION: 1. Acute to early subacute infarcts as described above. Reported By:
--- NOTE | 2017-08-23 13:03 | MRI ---
HISTORY: CVA, right hemiparesis, slurred speech Study: MRA neck without contrast Comparison: None Technique: 2-D and 3-D [id number] imaging of the cervical carotid and vertebral arteries was perf ormed. Findings: MRA of the neck demonstrates no flow limiting stenosis within the bilateral internal carotid arteries . There is suggestion of atherosclerotic plaque within the left carotid bulb without significant sten osis. Normal flow related signal is identified within the bilateral vertebral arteries. No occlusion or significant stenosis is identified. IMPRESSION: 1. Unremarkable MRA of the neck Reported By:
[2017-08-23] MEDS: NORCO 5/325 MG TAB PO PRN ×2 (15:54→22:37)
--- NOTE | 2017-08-23 20:21 | PCM.PROG ---
Progress Note - Progress Note for Day of Date of Exam: 08/23/17 - Subjective Subjective: WAS ADMITTED FOR A SUSPECTED LEFT SIDED CVA. TODAY, SHE IS ALERT AND ORIENTED, SITTING UP IN BED ON MORNING ROUNDS. SHE COMPLAINTS OF RIGHT SIDED WEAKNESS TODAY. SHE REPORTS THAT SHE IS UNABLE TO MOVE HER RIGHT ARM OR LEG. SHE DOES SLIGHTLY MOVE HER FINGERS ON THE RIGHT HAND. NO SPEECH DEFICITS OR DYSPHAGIA NOTED. ON EXAMINATION, HEART IS REGULAR IN RATE AND RHYTHM. BILATERAL LUNGS ARE CLEAR TO AUSCULTATION. ABDOMEN IS ROUND, SOFT, AND NON-TENDER WITH NORMAL BOWEL SOUNDS NOTED IN ALL QUADRANTS. HER VITALS TODAY ARE 97.4-60-17-95%-174/76. SHE IS HEMODYNAMICALLY STABLE TODAY. CARDIAC ENZYMES AND EKGS WITHIN NORMAL LIMITS. YESTERDAYS LABS REVEALED TRIGLYCERIDES 219, CHOLESTEROL 277, LDL 204, HDL 29, CHOLESTEROL 9.6. SHE WAS STARTED ON ZOCOR YESTERDAY. WE WILL DISCONTINUE THE ZOCOR TODAY AND START CRESTOR 20MG PO AT BEDTIME. SHE IS SCHEDULED FOR A BRAIN MRI AND A NECK MRI/MRA TODAY. OTHERWISE, WE WILL FOLLOW UP WITH AM LABS AND CONTINUE TO MONITOR NEURO CHECKS. - Past Medical Family Social History Past Med/Fam/Surg Hx: No changes since H&P Allergies: Allergies No Known Drug Allergies Allergy (Verified 08/21/17 17:43) - Review of Systems ROS: No change since H&P - Vital Signs and I&O's Vital Signs: Temperature 97.5 F Pulse Rate [Left Brachial] 67 Pulse Rate 66 Respiratory Rate 18 Blood Pressure [Right Arm] 116/61 Blood Pressure [Left Arm] 178/76 Blood Pressure 182/87 O2 Sat by Pulse Oximetry 98 Intake and Output: Intake & Output 08/21/17 08/22/17 08/23/17 08/24/17 11:59 11:59 11:59 11:59 Intake Total 1342 / 1342 2805 / 2805 1374 / 1374 Output Total 3000 / 3000 1300 / 1300 Balance 1342 / 1342 -195 / -195 74 / 74 - Physical Exam Oriented: Normal Eyes: Normal Ear: Normal Nose: Normal Throat: Normal Respiratory: Normal Cardiovascular: Normal : Normal Auscultation: Bowel Sounds: Normal Palpation: Normal Tenderness: Normal Skin: Normal Musculoskeletal: Right, Arm, Leg, Motor Deficit Psychiatric: Normal Mood Description: Calm Affect: Normal Speech Pattern: Clear, Appropriate - Laboratory and Diagnostics Result Diagrams: 08/23/17 04:30 08/23/17 04:30 Labs: Laboratory WBC 6.6 X10^3/uL (3.6-10.0) 08/23/17 04:30 RBC 3.85 X10^6/uL (3.5-5.4) 08/23/17 04:30 Hgb 12.4 g/dL (12.0-16.0) 08/23/17 04:30 Hct 36.2 % (36.0-47.0) 08/23/17 04:30 MCV 94.0 fL (80.0-100.0) 08/23/17 04:30 MCH 32.3 pg (27.0-34.0) 08/23/17 04:30 MCHC 34.4 g/dL (33.0-35.0) 08/23/17 04:30 RDW 12.9 % (11.6-16.5) 08/23/17 04:30 Plt Count 229 X10^3/uL (150.0-450.0) 08/23/17 04:30 MPV 9.0 fL (7.4-11.0) 08/23/17 04:30 Neut % (Auto) 53.9 % (42.0-75.0) 08/23/17 04:30 Lymph % (Auto) 34.6 % (21.0-51.0) 08/23/17 04:30 [place] % (Auto) 8.7 % (0.0-13.0) 08/23/17 04:30 Eos % (Auto) 1.6 % (0.9-2.9) 08/23/17 04:30 Baso % (Auto) 1.2 % (0.2-1.0) H 08/23/17 04:30 Neut # (Auto) 3.6 x10^3/uL (2.2-4.8) 08/23/17 04:30 Lymph # (Auto) 2.3 X10^3/uL (1.3-2.9) 08/23/17 04:30 [place] # (Auto) 0.6 x10^3/uL (0.3-0.8) 08/23/17 04:30 Eos # (Auto) 0.1 x10^3/uL (0.0-0.2) 08/23/17 04:30 Baso # (Auto) 0.1 X10^3/uL (0.0-0.1) 08/23/17 04:30 Absolute Nucleated RBC 0.3 /100WBC 08/23/17 04:30 INR Target Range - 08/21/17 16:48 INR 0.93 (0.8-1.3) 08/21/17 16:48 APTT 23.1 SECONDS (22.9-36.5) 08/21/17 16:48 PTT Comment - 08/21/17 16:48 Fibrinogen 261 mg/dL (239-489) 08/21/17 19:35 Sodium 140 mmol/L (136-145) 08/23/17 04:30 Corrected Sodium TNP 08/23/17 04:30 Potassium 3.6 mmol/L (3.5-5.1) 08/23/17 04:30 Chloride 107 mmol/L (98-107) 08/23/17 04:30 Carbon Dioxide 25.5 mmol/L (21-32) 08/23/17 04:30 BUN 11 mg/dL (7-18) 08/23/17 04:30 Creatinine 0.78 mg/dL (0.55-1.02) 08/23/17 04:30 Est GFR (MDRD) Af Amer > 60 (>60) 08/23/17 04:30 Est GFR (MDRD) Non-Af > 60 (>60) 08/23/17 04:30 Glucose 89 mg/dL (65-99) 08/23/17 04:30 Calcium 7.9 mg/dL (8.5-10.1) L 08/23/17 04:30 Corrected Calcium 8.9 mg/dL (8.5-10.1) 08/23/17 04:30 Magnesium 1.9 mg/dL (1.7-2.9) 08/23/17 04:30 Total Bilirubin 0.30 mg/dL (0.2-1.0) 08/23/17 04:30 AST 29 Units/L (15-37) 08/23/17 04:30 ALT 35 Units/L (12-78) 08/23/17 04:30 Alkaline Phosphatase 77 Units/L (46-116) 08/23/17 04:30 Creatine Kinase 53 Units/L (26-192) 08/22/17 07:32 CK-MB (CK-2) 0.6 ng/mL (0-4.0) 08/22/17 07:32 CK/CKMB % Calc 1.1 % (<4) 08/22/17 07:32 Troponin I < 0.02 ng/mL (0-1.5) 08/22/17 07:32 Total Protein 6.4 g/dL (6.4-8.2) 08/23/17 04:30 Albumin 2.8 g/dL (3.4-5.0) L 08/23/17 04:30 Globulin 3.6 g/dL (2.5-4.5) 08/23/17 04:30 Albumin/Globulin Ratio 0.8 Ratio (1.1-2.1) L 08/23/17 04:30 Triglycerides 219 mg/dL (0-150) H 08/22/17 07:32 Cholesterol 277 mg/dL (0-200) H 08/22/17 07:32 LDL Cholesterol, Calc 204 mg/dL (0-100) H 08/22/17 07:32 HDL Cholesterol 29 mg/dL (40-60) L 08/22/17 07:32 Cholesterol/HDL Ratio 9.6 (0.0-5.0) H 08/22/17 07:32 Specimen Type Catherized urine 08/21/17 22:37 Urine Color Pale yellow (YELLOW) 08/21/17 22:37 Urine Appearance Clear (CLEAR) 08/21/17 22:37 Urine pH 6.0 (5.0 - 8.0) 08/21/17 22:37 Ur Specific [place] 1.015 (1.000-1.030) 08/21/17 22:37 Urine Protein Negative (NEGATIVE) 08/21/17 22:37 Urine Glucose (UA) Negative (NEGATIVE) 08/21/17 22:37 Urine Ketones Negative (NEGATIVE) 08/21/17 22:37 Urine Occult Blood Negative (NEGATIVE) 08/21/17 22:37 Urine Nitrite Negative (NEGATIVE) 08/21/17 22:37 Urine Bilirubin Negative (NEGATIVE) 08/21/17 22:37 Urine Urobilinogen Normal (NORMAL) 08/21/17 22:37 Ur Leukocyte Esterase Negative (NEGATIVE) 08/21/17 22:37
[2017-08-23] MEDS: CRESTOR TAB 10 MG PO SCH (20:31)
[2017-08-23] MEDS: LIORESAL PO SCH (20:31)
[2017-08-23] MEDS: COLACE CAP 100 MG PO SCH (20:31)
[2017-08-23] MEDS: VISTARIL PO PRN (20:32)
[2017-08-23] MEDS ORDERED: ZOCOR TAB 40 MG PO SCH (21:00)
[2017-08-24] MEDS: ULTRAM PO PRN ×3 (00:59→17:00)
[2017-08-24] MEDS: FIORICET TAB PO PRN ×3 (02:37→19:21)
[2017-08-24] MEDS: NS 1000 ML 1,000 ML IV SCH ×2 (04:07→15:05)
[2017-08-24] MEDS: NORCO 5/325 MG TAB PO PRN (05:30)
[2017-08-24 06:14] LABS: BASOPHILS # (AUTO) 0.1 X10^3/uL (0.0-0.1); BASOPHILS % (AUTO) 1.3 % (0.2-1.0); EOSINOPHILS # (AUTO) 0.2 x10^3/uL (0.0-0.2); EOSINOPHILS % (AUTO) 2.3 % (0.9-2.9); HEMATOCRIT 35.9 % (36.0-47.0); HEMOGLOBIN 12.5 g/dL (12.0-16.0); LYMPHOCYTES # (AUTO) 2.4 X10^3/uL (1.3-2.9); MEAN CORPUSCULAR HEMOGLOBIN 32.4 pg (27.0-34.0); MEAN CORPUSCULAR HGB CONC 34.8 g/dL (33.0-35.0); MEAN CORPUSCULAR VOLUME 93.2 fL (80.0-100.0); MEAN PLATELET VOLUME 8.9 fL (7.4-11.0); MONOCYTES # (AUTO) 0.7 x10^3/uL (0.3-0.8); MONOCYTES % (AUTO) 10.4 % (0.0-13.0); NEUTROPHILS # (AUTO) 3.5 x10^3/uL (2.2-4.8); PLATELET COUNT 243 X10^3/uL (150.0-450.0); RED BLOOD COUNT 3.85 X10^6/uL (3.5-5.4); RED CELL DISTRIBUTION WIDTH 12.7 % (11.6-16.5); WHITE BLOOD COUNT 6.9 X10^3/uL (3.6-10.0)
[2017-08-24 06:45] LABS: ALANINE AMINOTRANSFERASE 25 Units/L (12-78); ALBUMIN 2.8 g/dL (3.4-5.0); ALKALINE PHOSPHATASE 90 Units/L (46-116); ASPARTATE AMINO TRANSFERASE 16 Units/L (15-37); BLOOD UREA NITROGEN 12 mg/dL (7-18); CARBON DIOXIDE 24.4 mmol/L (21-32); CHLORIDE 100 mmol/L (98-107); CREATININE 0.68 mg/dL (0.55-1.02); SODIUM 133 mmol/L (136-145); TOTAL PROTEIN 6.5 g/dL (6.4-8.2); eGFR NON BLACK RACES > 60 (>60)
[2017-08-24] MEDS ORDERED: LEXAPRO ONE (08:16)
[2017-08-24] MEDS: LEXAPRO PO SCH (08:31)
[2017-08-24] MEDS: ZANTAC PO SCH ×2 (08:31→20:17)
[2017-08-24] MEDS: PROTONIX TAB 40 MG PO SCH (08:31)
[2017-08-24] MEDS: ASPIRIN PO SCH (08:31)
[2017-08-24] MEDS: ESTRACE PO SCH (08:32)
[2017-08-24] MEDS: PLAVIX PO SCH (08:32)
[2017-08-24] MEDS: DESMOPRESSIN PO SCH ×2 (09:47→20:19)
[2017-08-24] MEDS: XARELTO PO SCH ×2 (09:58→20:18)
[2017-08-24] MEDS: ZOFRAN INJ 4 MG VIAL IVP PRN (10:00)
[2017-08-24] MEDS: COLACE CAP 100 MG PO SCH (20:17)
[2017-08-24] MEDS: LIORESAL PO SCH (20:18)
[2017-08-24] MEDS: CRESTOR TAB 10 MG PO SCH (20:18)
[2017-08-25] MEDS: ULTRAM PO PRN ×2 (01:30→09:21)
[2017-08-25] MEDS: NS 1000 ML 1,000 ML IV SCH ×2 (05:33→23:06)
[2017-08-25] MEDS: ZOFRAN INJ 4 MG VIAL IVP PRN ×2 (05:53→11:03)
[2017-08-25] MEDS: FIORICET TAB PO PRN (05:54)
[2017-08-25 06:02] LABS: BASOPHILS # (AUTO) 0.1 X10^3/uL (0.0-0.1); BASOPHILS % (AUTO) 1.4 % (0.2-1.0); EOSINOPHILS # (AUTO) 0.1 x10^3/uL (0.0-0.2); EOSINOPHILS % (AUTO) 2.1 % (0.9-2.9); HEMATOCRIT 35.1 % (36.0-47.0); HEMOGLOBIN 12.4 g/dL (12.0-16.0); LYMPHOCYTES % (AUTO) 29.5 % (21.0-51.0); MEAN CORPUSCULAR HEMOGLOBIN 32.4 pg (27.0-34.0); MEAN CORPUSCULAR HGB CONC 35.4 g/dL (33.0-35.0); MEAN CORPUSCULAR VOLUME 91.5 fL (80.0-100.0); MEAN PLATELET VOLUME 9.1 fL (7.4-11.0); MONOCYTES # (AUTO) 0.6 x10^3/uL (0.3-0.8); MONOCYTES % (AUTO) 8.9 % (0.0-13.0); NEUTROPHILS # (AUTO) 3.8 x10^3/uL (2.2-4.8); NEUTROPHILS % (AUTO) 58.1 % (42.0-75.0); PLATELET COUNT 243 X10^3/uL (150.0-450.0); RED BLOOD COUNT 3.84 X10^6/uL (3.5-5.4); RED CELL DISTRIBUTION WIDTH 12.5 % (11.6-16.5); WHITE BLOOD COUNT 6.6 X10^3/uL (3.6-10.0)
[2017-08-25 06:32] LABS: ALANINE AMINOTRANSFERASE 23 Units/L (12-78); ALBUMIN 2.9 g/dL (3.4-5.0); ALKALINE PHOSPHATASE 78 Units/L (46-116); ASPARTATE AMINO TRANSFERASE 17 Units/L (15-37); BLOOD UREA NITROGEN 8 mg/dL (7-18); CALCIUM 7.8 mg/dL (8.5-10.1); CARBON DIOXIDE 24.9 mmol/L (21-32); CHLORIDE 93 mmol/L (98-107); COR CA(FOR HYPOALB) 8.7 mg/dL (8.5-10.1); CREATININE 0.65 mg/dL (0.55-1.02); TOTAL PROTEIN 6.5 g/dL (6.4-8.2); eGFR NON BLACK RACES > 60 (>60)
[2017-08-25 06:43] LABS: SODIUM 124 mmol/L (136-145)
[2017-08-25] MEDS ORDERED: LEXAPRO ONE (08:58)
[2017-08-25] MEDS: ASPIRIN PO SCH (09:21)
[2017-08-25] MEDS: LEXAPRO PO SCH (09:22)
[2017-08-25] MEDS: DESMOPRESSIN PO SCH ×2 (09:22→20:43)
[2017-08-25] MEDS: ESTRACE PO SCH (09:22)
[2017-08-25] MEDS: PROTONIX TAB 40 MG PO SCH (09:23)
[2017-08-25] MEDS: PLAVIX PO SCH (09:23)
[2017-08-25] MEDS: XARELTO PO SCH ×2 (09:23→20:44)
[2017-08-25] MEDS: ZANTAC PO SCH ×2 (09:24→20:45)
[2017-08-25 10:24] LABS: BILIRUBIN,URINE NEGATIVE (NEGATIVE); BLOOD/HEMOGLOBIN,URINE 1+ (NEGATIVE); GLUCOSE, URINE NEGATIVE (NEGATIVE); KETONES,URINE NEGATIVE (NEGATIVE); LEUKOCYTE ESTERASE ,URINE NEGATIVE (NEGATIVE); NITRITES,URINE NEGATIVE (NEGATIVE); PROTEIN,URINE NEGATIVE (NEGATIVE); UROBILINOGEN,URINE NORMAL (NORMAL)
[2017-08-25 10:25] LABS: APPEARANCE,URINE CLEAR (CLEAR); COLOR,URINE YELLOW (YELLOW)
[2017-08-25 10:42] LABS: BACTERIA,URINE TRACE /HPF (NEGATIVE); SQUAMOUS EPITHELIAL CELL,UR FEW /HPF (NEGATIVE)
--- NOTE | 2017-08-25 11:26 | PCM.PROG ---
Progress Note - Progress Note for Day of Date of Exam: 08/24/17 - Subjective Subjective: WAS ADMITTED SUSPECTED LEFT SIDED CVA. A BRAIN MRI WAS OBTAINED YESTERDAY AND REVEALED: Imaging of the brain demonstrates focal restricted diffusion within the posterior limb of the left internal capsule, consistent with acute to early subacute infarct. Small acute to early subacute infarcts are also identified scattered within the left occipital lobe. There is also an acute to early subacute infarct present medial to the occipital and temporal horns of the left lateral ventricle. TODAY, SHE IS LYING IN BED WITH EYES CLOSED ON MORNING ROUNDS. SHE IS DIFFICULT TO AROUSE, BUT DOES MOAN TO PAINFUL STIMULI. SPOUSE REPORTS THAT SHE WAS SHOWING SIGNS OF IMPROVEMENT YESTERDAY AND WAS ABLE TO TRANSFER TO THE BEDSIDE COMMODE AND PLACE WEIGHT ON HER RIGHT LEG WITH ASSISTANCE. HOWEVER, HE REPORTS THAT FOR THE PAST FEW HOURS, SHE HAS BEEN DROWSY AND WILL NOT WAKE UP. ON EXAMINATION, HEART IS REGULAR IN RATE AND RHYTHM. BILATERAL LUNGS ARE CLEAR TO AUSCULTATION. ABDOMEN IS ROUND, SOFT, AND NON-TENDER WITH NORMAL BOWEL SOUNDS NOTED IN ALL QUADRANTS. HER VITALS TODAY ARE 97.5-66-20-97%-137/61. LABS WERE OBTAINED. ABNORMAL LAB VALUES INCLUDE THE FOLLOWING: HCT 35.9, SODIUM 133, POTASSIUM 3.2, CALCIUM 8.0, ALBUMIN 2.8. YESTERDAYS LABS REVEALED TRIGLYCERIDES 219, CHOLESTEROL 277, LDL 204, HDL 29, CHOLESTEROL 9.6. TODAY, WE WILL START XARELTO 10MG PO BID, OBTAIN AN ECHOCARDIOGRAM, AND PERFORM NEURO CHECKS EVERY TWO HOURS. OTHERWISE, WE WILL FOLLOW UP WITH AM LABS AND CONTINUE TO MONITOR PATIENT. - Past Medical Family Social History Past Med/Fam/Surg Hx: No changes since H&P Allergies: Allergies No Known Drug Allergies Allergy (Verified 08/21/17 17:43) - Review of Systems ROS: No change since H&P - Vital Signs and I&O's Vital Signs: Temperature 97.8 F Pulse Rate [Left Brachial] 54 Pulse Rate 66 Respiratory Rate 15 Blood Pressure [Right Arm] 116/61 Blood Pressure [Left Arm] 175/81 Blood Pressure 182/87 O2 Sat by Pulse Oximetry 97 Intake and Output: Intake & Output 08/22/17 08/23/17 08/24/17 08/25/17 11:59 11:59 11:59 11:59 Intake Total 1342 / 1342 2805 / 2805 2482 / 2482 2695 / 2695 Output Total 3000 / 3000 2200 / 2200 1999 / 1999 Balance 1342 / 1342 -195 / -195 282 / 282 695 / 695 - Physical Exam Oriented: Normal Eyes: Normal Ear: Normal Nose: Normal Throat: Normal Respiratory: Normal Cardiovascular: Normal : Normal Auscultation: Bowel Sounds: Normal Palpation: Normal Tenderness: Normal Skin: Normal Musculoskeletal: Right, Arm, Leg, Motor Deficit Psychiatric: Normal Mood Description: Calm Affect: Normal Speech Pattern: Clear - Laboratory and Diagnostics Result Diagrams: 08/25/17 05:23 08/25/17 05:32 Labs: Laboratory WBC 6.6 X10^3/uL (3.6-10.0) 08/25/17 05:23 RBC 3.84 X10^6/uL (3.5-5.4) 08/25/17 05:23 Hgb 12.4 g/dL (12.0-16.0) 08/25/17 05:23 Hct 35.1 % (36.0-47.0) L 08/25/17 05:23 MCV 91.5 fL (80.0-100.0) 08/25/17 05:23 MCH 32.4 pg (27.0-34.0) 08/25/17 05:23 MCHC 35.4 g/dL (33.0-35.0) H 08/25/17 05:23 RDW 12.5 % (11.6-16.5) 08/25/17 05:23 Plt Count 243 X10^3/uL (150.0-450.0) 08/25/17 05:23 MPV 9.1 fL (7.4-11.0) 08/25/17 05:23 Neut % (Auto) 58.1 % (42.0-75.0) 08/25/17 05:23 Lymph % (Auto) 29.5 % (21.0-51.0) 08/25/17 05:23 [place] % (Auto) 8.9 % (0.0-13.0) 08/25/17 05:23 Eos % (Auto) 2.1 % (0.9-2.9) 08/25/17 05:23 Baso % (Auto) 1.4 % (0.2-1.0) H 08/25/17 05:23 Neut # (Auto) 3.8 x10^3/uL (2.2-4.8) 08/25/17 05:23 Lymph # (Auto) 2.0 X10^3/uL (1.3-2.9) 08/25/17 05:23 [place] # (Auto) 0.6 x10^3/uL (0.3-0.8) 08/25/17 05:23 Eos # (Auto) 0.1 x10^3/uL (0.0-0.2) 08/25/17 05:23 Baso # (Auto) 0.1 X10^3/uL (0.0-0.1) 08/25/17 05:23 Absolute Nucleated RBC 0.0 /100WBC 08/25/17 05:23 INR Target Range - 08/21/17 16:48 INR 0.93 (0.8-1.3) 08/21/17 16:48 APTT 23.1 SECONDS (22.9-36.5) 08/21/17 16:48 PTT Comment - 08/21/17 16:48 Fibrinogen 261 mg/dL (239-489) 08/21/17 19:35 Sodium 124 mmol/L (136-145) L* 08/25/17 05:32 Corrected Sodium TNP 08/25/17 05:32 Potassium 3.6 mmol/L (3.5-5.1) 08/25/17 05:32 Chloride 93 mmol/L (98-107) L 08/25/17 05:32 Carbon Dioxide 24.9 mmol/L (21-32) 08/25/17 05:32 BUN 8 mg/dL (7-18) 08/25/17 05:32 Creatinine 0.65 mg/dL (0.55-1.02) 08/25/17 05:32 Est GFR (MDRD) Af Amer > 60 (>60) 08/25/17 05:32 Est GFR (MDRD) Non-Af > 60 (>60) 08/25/17 05:32 Glucose 97 mg/dL (65-99) 08/25/17 05:32 Calcium 7.8 mg/dL (8.5-10.1) L 08/25/17 05:32 Corrected Calcium 8.7 mg/dL (8.5-10.1) 08/25/17 05:32 Magnesium 1.9 mg/dL (1.7-2.9) 08/23/17 04:30 Total Bilirubin 0.40 mg/dL (0.2-1.0) 08/25/17 05:32 AST 17 Units/L (15-37) 08/25/17 05:32 ALT 23 Units/L (12-78) 08/25/17 05:32 Alkaline Phosphatase 78 Units/L (46-116) 08/25/17 05:32 Creatine Kinase 53 Units/L (26-192) 08/22/17 07:32 CK-MB (CK-2) 0.6 ng/mL (0-4.0) 08/22/17 07:32 CK/CKMB % Calc 1.1 % (<4) 08/22/17 07:32 Troponin I < 0.02 ng/mL (0-1.5) 08/22/17 07:32 Total Protein 6.5 g/dL (6.4-8.2) 08/25/17 05:32 Albumin 2.9 g/dL (3.4-5.0) L 08/25/17 05:32 Globulin 3.6 g/dL (2.5-4.5) 08/25/17 05:32 Albumin/Globulin Ratio 0.8 Ratio (1.1-2.1) L 08/25/17 05:32 Triglycerides 219 mg/dL (0-150) H 08/22/17 07:32 Cholesterol 277 mg/dL (0-200) H 08/22/17 07:32 LDL Cholesterol, Calc 204 mg/dL (0-100) H 08/22/17 07:32 HDL Cholesterol 29 mg/dL (40-60) L 08/22/17 07:32 Cholesterol/HDL Ratio 9.6 (0.0-5.0) H 08/22/17 07:32 Specimen Type Clean catch urine 08/25/17 09:43 Urine Color Yellow (YELLOW) 08/25/17 09:43 Urine Appearance Clear (CLEAR) 08/25/17 09:43 Urine pH 7.0 (5.0 - 8.0) 08/25/17 09:43 Ur Specific [place] 1.010 (1.000-1.030) 08/25/17 09:43 Urine Protein Negative (NEGATIVE) 08/25/17 09:43 Urine Glucose (UA) Negative (NEGATIVE) 08/25/17 09:43 Urine Ketones Negative (NEGATIVE) 08/25/17 09:43 Urine Occult Blood 1+ (NEGATIVE) 08/25/17 09:43 Urine Nitrite Negative (NEGATIVE) 08/25/17 09:43 Urine Bilirubin Negative (NEGATIVE) 08/25/17 09:43 Urine Urobilinogen Normal (NORMAL) 08/25/17 09:43 Ur Leukocyte Esterase Negative (NEGATIVE) 08/25/17 09:43 Urine RBC 3-5 /HPF (NONE SEEN) 08/25/17 09:43 Urine WBC 0-2 /HPF (NONE SEEN) 08/25/17 09:43 Ur Squamous Epith Cells Few /HPF (NEGATIVE) 08/25/17 09:43 Urine Bacteria Trace /HPF (NEGATIVE) 08/25/17 09:43 Ur Culture Indicated? No/not indicated 08/25/17 09:43 - Plan (1) Acute CVA (cerebrovascular accident) Status: Acute Plan: Neuro checks, OBTAIN ECHO, XARELTO 10MG PO BID, ASPIRIN, PLAVIX, CONTINUE TO MONITOR
--- NOTE | 2017-08-25 19:40 | PCM.PROG ---
Progress Note - Progress Note for Day of Date of Exam: 08/25/17 - Subjective Subjective: IS BEING TREATED FOR AN ACUTE CVA. PATIENTS SPOUSE REPORTS THAT SHE HAD A GOOD DAY YESTERDAY AND WAS ABLE TO PUT WEIGHT ON RIGHT LEG AND ARM, BUT REPORTS THAT SHE WENT TO SLEEP AND IS NOW DIFFICULT TO AROUSE. ON EXAMINATION, HEART IS REGULAR IN RATE AND RHYTHM. BILATERAL LUNGS ARE CLEAR TO AUSCULTATION. ABDOMEN IS ROUND, SOFT, AND NON-TENDER WITH NORMAL BOWEL SOUNDS NOTED IN ALL QUADRANTS. HER VITALS TODAY ARE 97.5-50-13-96%-179/77. LABS WERE OBTAINED. ABNORMAL LAB VALUES INCLUDE THE FOLLOWING: HCT 35.1, SODIUM 124, CHLORIDE 93, CALCIUM 7.8, ALBUMIN 2.9. AN ECHO WAS OBTAINED YESTERDAY AND REVEALED AN EJECTION FRACTION OF 73%. PHYSICAL THERAPY REPORTS THAT PATIENT REQUIRES EXTENSIVE ASSISTANCE WITH FUNCTIONAL MOBILITY TASKS. SPOUSE REQUEST THAT PATIENT RECEIVE EXTENDED PHYSICAL THERAPY IN [place], [place] AFTER DISCHARGE. WE WILL DISCUSS THIS WITH CASE MANAGEMENT. WE WILL CONTINUE WITH PHYSICAL THERAPY AND CURRENT PLAN OF CARE TODAY. OTHERWISE, WE WILL FOLLOW UP WITH AM LABS AND CONTINUE TO MONITOR PATIENT. - Past Medical Family Social History Past Med/Fam/Surg Hx: No changes since H&P Allergies: Allergies No Known Drug Allergies Allergy (Verified 08/21/17 17:43) - Review of Systems ROS: No change since H&P - Vital Signs and I&O's Vital Signs: Temperature 97.3 F Pulse Rate [Left Brachial] 61 Pulse Rate 66 Respiratory Rate 19 Blood Pressure [Right Arm] 116/61 Blood Pressure [Left Arm] 131/77 Blood Pressure 182/87 O2 Sat by Pulse Oximetry 96 Intake and Output: Intake & Output 08/23/17 08/24/17 08/25/17 08/26/17 11:59 11:59 11:59 11:59 Intake Total 2805 / 2805 2482 / 2482 2695 / 2695 939 / 939 Output Total 3000 / 3000 2200 / 2200 1999 / 1999 1850 / 1850 Balance -195 / -195 282 / 282 695 / 695 -911 / -911 - Physical Exam Oriented: Unable to test Eyes: Normal Ear: Normal Nose: Normal Throat: Normal Respiratory: Normal Cardiovascular: Normal : Normal Auscultation: Bowel Sounds: Normal Palpation: Normal Tenderness: Normal Skin: Normal Musculoskeletal: Right, Arm, Leg, Motor Deficit Psychiatric: Normal Mood Description: Calm Affect: Normal Speech Pattern: Clear - Laboratory and Diagnostics Result Diagrams: 08/25/17 05:23 08/25/17 05:32 Labs: Laboratory WBC 6.6 X10^3/uL (3.6-10.0) 08/25/17 05:23 RBC 3.84 X10^6/uL (3.5-5.4) 08/25/17 05:23 Hgb 12.4 g/dL (12.0-16.0) 08/25/17 05:23 Hct 35.1 % (36.0-47.0) L 08/25/17 05:23 MCV 91.5 fL (80.0-100.0) 08/25/17 05:23 MCH 32.4 pg (27.0-34.0) 08/25/17 05:23 MCHC 35.4 g/dL (33.0-35.0) H 08/25/17 05:23 RDW 12.5 % (11.6-16.5) 08/25/17 05:23 Plt Count 243 X10^3/uL (150.0-450.0) 08/25/17 05:23 MPV 9.1 fL (7.4-11.0) 08/25/17 05:23 Neut % (Auto) 58.1 % (42.0-75.0) 08/25/17 05:23 Lymph % (Auto) 29.5 % (21.0-51.0) 08/25/17 05:23 [place] % (Auto) 8.9 % (0.0-13.0) 08/25/17 05:23 Eos % (Auto) 2.1 % (0.9-2.9) 08/25/17 05:23 Baso % (Auto) 1.4 % (0.2-1.0) H 08/25/17 05:23 Neut # (Auto) 3.8 x10^3/uL (2.2-4.8) 08/25/17 05:23 Lymph # (Auto) 2.0 X10^3/uL (1.3-2.9) 08/25/17 05:23 [place] # (Auto) 0.6 x10^3/uL (0.3-0.8) 08/25/17 05:23 Eos # (Auto) 0.1 x10^3/uL (0.0-0.2) 08/25/17 05:23 Baso # (Auto) 0.1 X10^3/uL (0.0-0.1) 08/25/17 05:23 Absolute Nucleated RBC 0.0 /100WBC 08/25/17 05:23 INR Target Range - 08/21/17 16:48 INR 0.93 (0.8-1.3) 08/21/17 16:48 APTT 23.1 SECONDS (22.9-36.5) 08/21/17 16:48 PTT Comment - 08/21/17 16:48 Fibrinogen 261 mg/dL (239-489) 08/21/17 19:35 Sodium 124 mmol/L (136-145) L* 08/25/17 05:32 Corrected Sodium TNP 08/25/17 05:32 Potassium 3.6 mmol/L (3.5-5.1) 08/25/17 05:32 Chloride 93 mmol/L (98-107) L 08/25/17 05:32 Carbon Dioxide 24.9 mmol/L (21-32) 08/25/17 05:32 BUN 8 mg/dL (7-18) 08/25/17 05:32 Creatinine 0.65 mg/dL (0.55-1.02) 08/25/17 05:32 Est GFR (MDRD) Af Amer > 60 (>60) 08/25/17 05:32 Est GFR (MDRD) Non-Af > 60 (>60) 08/25/17 05:32 Glucose 97 mg/dL (65-99) 08/25/17 05:32 Calcium 7.8 mg/dL (8.5-10.1) L 08/25/17 05:32 Corrected Calcium 8.7 mg/dL (8.5-10.1) 08/25/17 05:32 Magnesium 1.9 mg/dL (1.7-2.9) 08/23/17 04:30 Total Bilirubin 0.40 mg/dL (0.2-1.0) 08/25/17 05:32 AST 17 Units/L (15-37) 08/25/17 05:32 ALT 23 Units/L (12-78) 08/25/17 05:32 Alkaline Phosphatase 78 Units/L (46-116) 08/25/17 05:32 Creatine Kinase 53 Units/L (26-192) 08/22/17 07:32 CK-MB (CK-2) 0.6 ng/mL (0-4.0) 08/22/17 07:32 CK/CKMB % Calc 1.1 % (<4) 08/22/17 07:32 Troponin I < 0.02 ng/mL (0-1.5) 08/22/17 07:32 Total Protein 6.5 g/dL (6.4-8.2) 08/25/17 05:32 Albumin 2.9 g/dL (3.4-5.0) L 08/25/17 05:32 Globulin 3.6 g/dL (2.5-4.5) 08/25/17 05:32 Albumin/Globulin Ratio 0.8 Ratio (1.1-2.1) L 08/25/17 05:32 Triglycerides 219 mg/dL (0-150) H 08/22/17 07:32 Cholesterol 277 mg/dL (0-200) H 08/22/17 07:32 LDL Cholesterol, Calc 204 mg/dL (0-100) H 08/22/17 07:32 HDL Cholesterol 29 mg/dL (40-60) L 08/22/17 07:32 Cholesterol/HDL Ratio 9.6 (0.0-5.0) H 08/22/17 07:32 Specimen Type Clean catch urine 08/25/17 09:43 Urine Color Yellow (YELLOW) 08/25/17 09:43 Urine Appearance Clear (CLEAR) 08/25/17 09:43 Urine pH 7.0 (5.0 - 8.0) 08/25/17 09:43 Ur Specific [place] 1.010 (1.000-1.030) 08/25/17 09:43 Urine Protein Negative (NEGATIVE) 08/25/17 09:43 Urine Glucose (UA) Negative (NEGATIVE) 08/25/17 09:43 Urine Ketones Negative (NEGATIVE) 08/25/17 09:43 Urine Occult Blood 1+ (NEGATIVE) 08/25/17 09:43 Urine Nitrite Negative (NEGATIVE) 08/25/17 09:43 Urine Bilirubin Negative (NEGATIVE) 08/25/17 09:43 Urine Urobilinogen Normal (NORMAL) 08/25/17 09:43 Ur Leukocyte Esterase Negative (NEGATIVE) 08/25/17 09:43 Urine RBC 3-5 /HPF (NONE SEEN) 08/25/17 09:43 Urine WBC 0-2 /HPF (NONE SEEN) 08/25/17 09:43 Ur Squamous Epith Cells Few /HPF (NEGATIVE) 08/25/17 09:43 Urine Bacteria Trace /HPF (NEGATIVE) 08/25/17 09:43 Ur Culture Indicated? No/not indicated 08/25/17 09:43 - Plan (1) Acute CVA (cerebrovascular accident) Status: Acute Plan: Neuro checks, OBTAIN ECHO, XARELTO 10MG PO BID, ASPIRIN, PLAVIX, CONTINUE TO MONITOR
[2017-08-25] MEDS: CRESTOR TAB 10 MG PO SCH (20:42)
[2017-08-25] MEDS: COLACE CAP 100 MG PO SCH (20:42)
[2017-08-25] MEDS: LIORESAL PO SCH (20:44)
[2017-08-26 06:10] LABS: BASOPHILS # (AUTO) 0.1 X10^3/uL (0.0-0.1); BASOPHILS % (AUTO) 1.1 % (0.2-1.0); EOSINOPHILS # (AUTO) 0.1 x10^3/uL (0.0-0.2); EOSINOPHILS % (AUTO) 1.3 % (0.9-2.9); HEMATOCRIT 37.1 % (36.0-47.0); HEMOGLOBIN 12.9 g/dL (12.0-16.0); LYMPHOCYTES # (AUTO) 1.5 X10^3/uL (1.3-2.9); LYMPHOCYTES % (AUTO) 24.9 % (21.0-51.0); MEAN CORPUSCULAR HEMOGLOBIN 32.2 pg (27.0-34.0); MEAN CORPUSCULAR HGB CONC 34.9 g/dL (33.0-35.0); MEAN CORPUSCULAR VOLUME 92.4 fL (80.0-100.0); MONOCYTES # (AUTO) 0.7 x10^3/uL (0.3-0.8); MONOCYTES % (AUTO) 12.2 % (0.0-13.0); NEUTROPHILS # (AUTO) 3.7 x10^3/uL (2.2-4.8); NEUTROPHILS % (AUTO) 60.5 % (42.0-75.0); PLATELET COUNT 257 X10^3/uL (150.0-450.0); RED BLOOD COUNT 4.02 X10^6/uL (3.5-5.4); RED CELL DISTRIBUTION WIDTH 12.6 % (11.6-16.5); WHITE BLOOD COUNT 6.1 X10^3/uL (3.6-10.0)
[2017-08-26 06:29] LABS: ALANINE AMINOTRANSFERASE 21 Units/L (12-78); ALKALINE PHOSPHATASE 80 Units/L (46-116); ASPARTATE AMINO TRANSFERASE 14 Units/L (15-37); BLOOD UREA NITROGEN 7 mg/dL (7-18); CALCIUM 8.6 mg/dL (8.5-10.1); CARBON DIOXIDE 24.3 mmol/L (21-32); CHLORIDE 108 mmol/L (98-107); COR CA(FOR HYPOALB) 9.4 mg/dL (8.5-10.1); CREATININE 0.67 mg/dL (0.55-1.02); SODIUM 140 mmol/L (136-145); TOTAL PROTEIN 6.7 g/dL (6.4-8.2); eGFR NON BLACK RACES > 60 (>60)
[2017-08-26] MEDS ORDERED: LEXAPRO ONE (09:11)
[2017-08-26] MEDS: PLAVIX PO SCH (09:18)
[2017-08-26] MEDS: XARELTO PO SCH ×2 (09:18→20:28)
[2017-08-26] MEDS: PROTONIX TAB 40 MG PO SCH (09:18)
[2017-08-26] MEDS: ASPIRIN PO SCH (09:18)
[2017-08-26] MEDS: ESTRACE PO SCH (09:19)
[2017-08-26] MEDS: LEXAPRO PO SCH ×2 (09:19→09:20)
[2017-08-26] MEDS: ZANTAC PO SCH ×2 (09:19→20:30)
[2017-08-26] MEDS: DESMOPRESSIN PO SCH ×2 (09:20→20:29)
[2017-08-26] MEDS: ULTRAM PO PRN ×2 (09:22→13:03)
[2017-08-26] MEDS: FIORICET TAB PO PRN ×2 (10:19→20:28)
[2017-08-26] MEDS: NS 1000 ML 1,000 ML IV SCH (11:21)
--- NOTE | 2017-08-26 16:40 | MRI ---
MRI brain without contrast Indication: Worsened right-sided weakness, recent acute CVA Comparison: 08/23/2017 Technique: Multiplanar multi sequence MR images of the brain were obtained without contrast. Findings: Multiple sequences were degraded by motion. There are stable to slightly less conspicuous a reas of restricted diffusion within the left thalamus, medial left temporal lobe, and left occipital lobe. There is no new area of abnormal restricted diffusion. There is edema in these regions of subac [place] infarct, without evidence for acute bleed. The major intracranial flow voids are noted. The ventr icles are not significantly dilated. Impression: Subacute left-sided infarcts as above. No evidence for hemorrhagic transformation or new infarct sinc e the previous MRI. Reported By:
[2017-08-26] MEDS: ZOFRAN INJ 4 MG VIAL IVP PRN (16:57)
[2017-08-26] MEDS: CRESTOR TAB 10 MG PO SCH (20:27)
[2017-08-26] MEDS: COLACE CAP 100 MG PO SCH (20:28)
[2017-08-26] MEDS: LIORESAL PO SCH (20:28)
[2017-08-27] MEDS: NS 1000 ML 1,000 ML IV SCH ×2 (02:44→15:59)
[2017-08-27 06:21] LABS: BASOPHILS # (AUTO) 0.1 X10^3/uL (0.0-0.1); EOSINOPHILS # (AUTO) 0.1 x10^3/uL (0.0-0.2); EOSINOPHILS % (AUTO) 1.9 % (0.9-2.9); HEMATOCRIT 33.3 % (36.0-47.0); HEMOGLOBIN 11.7 g/dL (12.0-16.0); LYMPHOCYTES # (AUTO) 2.1 X10^3/uL (1.3-2.9); LYMPHOCYTES % (AUTO) 33.9 % (21.0-51.0); MEAN CORPUSCULAR HEMOGLOBIN 32.7 pg (27.0-34.0); MEAN CORPUSCULAR VOLUME 93.4 fL (80.0-100.0); MONOCYTES # (AUTO) 0.9 x10^3/uL (0.3-0.8); MONOCYTES % (AUTO) 14.2 % (0.0-13.0); PLATELET COUNT 226 X10^3/uL (150.0-450.0); RED BLOOD COUNT 3.57 X10^6/uL (3.5-5.4); RED CELL DISTRIBUTION WIDTH 13.1 % (11.6-16.5); WHITE BLOOD COUNT 6.2 X10^3/uL (3.6-10.0)
[2017-08-27 06:29] LABS: ALANINE AMINOTRANSFERASE 17 Units/L (12-78); ALBUMIN 2.6 g/dL (3.4-5.0); ALKALINE PHOSPHATASE 77 Units/L (46-116); ASPARTATE AMINO TRANSFERASE 14 Units/L (15-37); BLOOD UREA NITROGEN 11 mg/dL (7-18); CALCIUM 8.1 mg/dL (8.5-10.1); CARBON DIOXIDE 24.1 mmol/L (21-32); CHLORIDE 108 mmol/L (98-107); COR CA(FOR HYPOALB) 9.2 mg/dL (8.5-10.1); CREATININE 0.67 mg/dL (0.55-1.02); SODIUM 140 mmol/L (136-145); TOTAL PROTEIN 6.1 g/dL (6.4-8.2); eGFR NON BLACK RACES > 60 (>60)
[2017-08-27] MEDS: ULTRAM PO PRN (07:30)
[2017-08-27] MEDS ORDERED: LEXAPRO ONE (08:41)
[2017-08-27] MEDS: PROTONIX TAB 40 MG PO SCH (09:39)
[2017-08-27] MEDS: ZANTAC PO SCH ×2 (09:39→21:19)
[2017-08-27] MEDS: ESTRACE PO SCH (09:39)
[2017-08-27] MEDS: ASPIRIN PO SCH (09:40)
[2017-08-27] MEDS: PLAVIX PO SCH (09:40)
[2017-08-27] MEDS: XARELTO PO SCH ×2 (09:40→21:19)
[2017-08-27] MEDS: DESMOPRESSIN PO SCH ×2 (09:41→21:19)
[2017-08-27] MEDS: LEXAPRO PO SCH (09:41)
[2017-08-27] MEDS: NORVASC TAB 5 MG PO SCH (11:19)
[2017-08-27] MEDS: ZOFRAN INJ 4 MG VIAL IVP PRN (11:20)
[2017-08-27] MEDS: FIORICET TAB PO PRN ×2 (11:20→22:01)
[2017-08-27] MEDS: COLACE CAP 100 MG PO SCH (21:18)
[2017-08-27] MEDS: CRESTOR TAB 10 MG PO SCH (21:18)
[2017-08-27] MEDS: LIORESAL PO SCH (21:19)
[2017-08-27] MEDS: K-LYTE EFFERVESCENT PO PRN (21:21)
[2017-08-28] MEDS: FIORICET TAB PO PRN ×4 (05:39→23:44)
[2017-08-28] MEDS: ZOFRAN INJ 4 MG VIAL IVP PRN ×3 (05:40→19:30)
[2017-08-28] MEDS: NS 1000 ML 1,000 ML IV SCH ×2 (05:45→19:03)
[2017-08-28 06:39] LABS: BASOPHILS # (AUTO) 0.1 X10^3/uL (0.0-0.1); BASOPHILS % (AUTO) 1.3 % (0.2-1.0); EOSINOPHILS # (AUTO) 0.1 x10^3/uL (0.0-0.2); EOSINOPHILS % (AUTO) 1.6 % (0.9-2.9); HEMOGLOBIN 12.8 g/dL (12.0-16.0); LYMPHOCYTES # (AUTO) 2.3 X10^3/uL (1.3-2.9); LYMPHOCYTES % (AUTO) 26.4 % (21.0-51.0); MEAN CORPUSCULAR HEMOGLOBIN 32.4 pg (27.0-34.0); MEAN CORPUSCULAR HGB CONC 34.7 g/dL (33.0-35.0); MEAN CORPUSCULAR VOLUME 93.5 fL (80.0-100.0); MEAN PLATELET VOLUME 9.2 fL (7.4-11.0); MONOCYTES # (AUTO) 0.9 x10^3/uL (0.3-0.8); MONOCYTES % (AUTO) 10.8 % (0.0-13.0); NEUTROPHILS # (AUTO) 5.2 x10^3/uL (2.2-4.8); NEUTROPHILS % (AUTO) 59.9 % (42.0-75.0); PLATELET COUNT 255 X10^3/uL (150.0-450.0); RED BLOOD COUNT 3.96 X10^6/uL (3.5-5.4); RED CELL DISTRIBUTION WIDTH 12.7 % (11.6-16.5); WHITE BLOOD COUNT 8.6 X10^3/uL (3.6-10.0)
[2017-08-28 06:49] LABS: ALANINE AMINOTRANSFERASE 23 Units/L (12-78); ALBUMIN 3.1 g/dL (3.4-5.0); ALKALINE PHOSPHATASE 79 Units/L (46-116); ASPARTATE AMINO TRANSFERASE 15 Units/L (15-37); BLOOD UREA NITROGEN 9 mg/dL (7-18); CALCIUM 8.6 mg/dL (8.5-10.1); CARBON DIOXIDE 27.6 mmol/L (21-32); CHLORIDE 104 mmol/L (98-107); COR CA(FOR HYPOALB) 9.3 mg/dL (8.5-10.1); CREATININE 0.81 mg/dL (0.55-1.02); SODIUM 139 mmol/L (136-145); TOTAL PROTEIN 6.9 g/dL (6.4-8.2); eGFR NON BLACK RACES > 60 (>60)
[2017-08-28] MEDS ORDERED: LEXAPRO ONE (09:18)
[2017-08-28] MEDS: ASPIRIN PO SCH (09:21)
[2017-08-28] MEDS: ESTRACE PO SCH (09:21)
[2017-08-28] MEDS: NORVASC TAB 5 MG PO SCH (09:22)
[2017-08-28] MEDS: LEXAPRO PO SCH ×2 (09:22→09:39)
[2017-08-28] MEDS: XARELTO PO SCH ×2 (09:23→21:13)
[2017-08-28] MEDS: PLAVIX PO SCH (09:23)
[2017-08-28] MEDS: PROTONIX TAB 40 MG PO SCH (09:23)
[2017-08-28] MEDS: ZANTAC PO SCH ×2 (09:23→21:12)
[2017-08-28] MEDS: K-LYTE EFFERVESCENT PO PRN (09:24)
[2017-08-28] MEDS: DESMOPRESSIN PO SCH ×2 (09:56→22:55)
[2017-08-28] MEDS: ULTRAM PO PRN (11:53)
--- NOTE | 2017-08-28 16:26 | PCM.PROG ---
Progress Note - Progress Note for Day of Date of Exam: 08/26/17 - Subjective Subjective: IS BEING TREATED FOR AN ACUTE CVA. PATIENTS CONDITION REMAINS UNCHANGED FROM YESTERDAY. 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 SHE DOES MOAN TO PAINFUL STIMULI. ON EXAMINATION, HEART IS REGULAR IN RATE AND RHYTHM. BILATERAL LUNGS ARE CLEAR TO AUSCULTATION. ABDOMEN IS ROUND, SOFT, AND NON-TENDER WITH NORMAL BOWEL SOUNDS NOTED IN ALL QUADRANTS. HER VITALS TODAY ARE 97.2-61-22-98%-165/70. LABS WERE OBTAINED. SHE IS HEMODYNAMICALLY STABLE TODAY. PHYSICAL THERAPY REPORTS THAT PATIENT CONTINUES TO REQUIRE EXTENSIVE ASSISTANCE WITH FUNCTIONAL MOBILITY TASKS. WE WILL CONTINUE WITH PHYSICAL THERAPY AND CURRENT PLAN OF CARE TODAY. WE PLAN TO OBTAIN A REPEAT BRAIN MRI. OTHERWISE, WE WILL FOLLOW UP WITH AM LABS AND CONTINUE TO MONITOR PATIENT. - Past Medical Family Social History Past Med/Fam/Surg Hx: No changes since H&P Allergies: Allergies No Known Drug Allergies Allergy (Verified 08/21/17 17:43) - Review of Systems ROS: No change since H&P - Vital Signs and I&O's Vital Signs: Temperature 97.5 F Pulse Rate [Left Brachial] 53 Pulse Rate 66 Respiratory Rate 14 Blood Pressure [Right Arm] 116/61 Blood Pressure [Left Arm] 128/61 Blood Pressure 182/87 O2 Sat by Pulse Oximetry 95 Intake and Output: Intake & Output 08/26/17 08/27/17 08/28/17 08/29/17 11:59 11:59 11:59 11:59 Intake Total 1684 / 1684 2424 / 2424 2795 / 2795 1311 / 1311 Output Total 3750 / 3750 1350 / 1350 5600 / 5600 1000 / 1000 Balance -2066 / -2066 1074 / 1074 -2805 / -2805 311 / 311 - Physical Exam Oriented: Unable to test Eyes: Normal Ear: Normal Nose: Normal Throat: Normal Respiratory: Normal Cardiovascular: Normal : Normal Auscultation: Bowel Sounds: Normal Palpation: Normal Tenderness: Normal Skin: Normal Musculoskeletal: Right, Arm, Leg, Motor Deficit Psychiatric: Normal Mood Description: Calm Affect: Normal Speech Pattern: Clear, Appropriate - Laboratory and Diagnostics Result Diagrams: 08/28/17 06:05 08/28/17 06:05 Labs: Laboratory WBC 8.6 X10^3/uL (3.6-10.0) 08/28/17 06:05 RBC 3.96 X10^6/uL (3.5-5.4) 08/28/17 06:05 Hgb 12.8 g/dL (12.0-16.0) 08/28/17 06:05 Hct 37.0 % (36.0-47.0) 08/28/17 06:05 MCV 93.5 fL (80.0-100.0) 08/28/17 06:05 MCH 32.4 pg (27.0-34.0) 08/28/17 06:05 MCHC 34.7 g/dL (33.0-35.0) 08/28/17 06:05 RDW 12.7 % (11.6-16.5) 08/28/17 06:05 Plt Count 255 X10^3/uL (150.0-450.0) 08/28/17 06:05 MPV 9.2 fL (7.4-11.0) 08/28/17 06:05 Neut % (Auto) 59.9 % (42.0-75.0) 08/28/17 06:05 Lymph % (Auto) 26.4 % (21.0-51.0) 08/28/17 06:05 [place] % (Auto) 10.8 % (0.0-13.0) 08/28/17 06:05 Eos % (Auto) 1.6 % (0.9-2.9) 08/28/17 06:05 Baso % (Auto) 1.3 % (0.2-1.0) H 08/28/17 06:05 Neut # (Auto) 5.2 x10^3/uL (2.2-4.8) H 08/28/17 06:05 Lymph # (Auto) 2.3 X10^3/uL (1.3-2.9) 08/28/17 06:05 [place] # (Auto) 0.9 x10^3/uL (0.3-0.8) H 08/28/17 06:05 Eos # (Auto) 0.1 x10^3/uL (0.0-0.2) 08/28/17 06:05 Baso # (Auto) 0.1 X10^3/uL (0.0-0.1) 08/28/17 06:05 Absolute Nucleated RBC 0.1 /100WBC 08/28/17 06:05 INR Target Range - 08/21/17 16:48 INR 0.93 (0.8-1.3) 08/21/17 16:48 APTT 23.1 SECONDS (22.9-36.5) 08/21/17 16:48 PTT Comment - 08/21/17 16:48 Fibrinogen 261 mg/dL (239-489) 08/21/17 19:35 Sodium 139 mmol/L (136-145) 08/28/17 06:05 Corrected Sodium TNP 08/28/17 06:05 Potassium 3.6 mmol/L (3.5-5.1) 08/28/17 06:05 Chloride 104 mmol/L (98-107) 08/28/17 06:05 Carbon Dioxide 27.6 mmol/L (21-32) 08/28/17 06:05 BUN 9 mg/dL (7-18) 08/28/17 06:05 Creatinine 0.81 mg/dL (0.55-1.02) 08/28/17 06:05 Est GFR (MDRD) Af Amer > 60 (>60) 08/28/17 06:05 Est GFR (MDRD) Non-Af > 60 (>60) 08/28/17 06:05 Glucose 92 mg/dL (65-99) 08/28/17 06:05 Calcium 8.6 mg/dL (8.5-10.1) 08/28/17 06:05 Corrected Calcium 9.3 mg/dL (8.5-10.1) 08/28/17 06:05 Magnesium 1.9 mg/dL (1.7-2.9) 08/23/17 04:30 Total Bilirubin 0.20 mg/dL (0.2-1.0) 08/28/17 06:05 AST 15 Units/L (15-37) 08/28/17 06:05 ALT 23 Units/L (12-78) 08/28/17 06:05 Alkaline Phosphatase 79 Units/L (46-116) 08/28/17 06:05 Creatine Kinase 53 Units/L (26-192) 08/22/17 07:32 CK-MB (CK-2) 0.6 ng/mL (0-4.0) 08/22/17 07:32 CK/CKMB % Calc 1.1 % (<4) 08/22/17 07:32 Troponin I < 0.02 ng/mL (0-1.5) 08/22/17 07:32 Total Protein 6.9 g/dL (6.4-8.2) 08/28/17 06:05 Albumin 3.1 g/dL (3.4-5.0) L 08/28/17 06:05 Globulin 3.8 g/dL (2.5-4.5) 08/28/17 06:05 Albumin/Globulin Ratio 0.8 Ratio (1.1-2.1) L 08/28/17 06:05 Triglycerides 219 mg/dL (0-150) H 08/22/17 07:32 Cholesterol 277 mg/dL (0-200) H 08/22/17 07:32 LDL Cholesterol, Calc 204 mg/dL (0-100) H 08/22/17 07:32 HDL Cholesterol 29 mg/dL (40-60) L 08/22/17 07:32 Cholesterol/HDL Ratio 9.6 (0.0-5.0) H 08/22/17 07:32 Specimen Type Clean catch urine 08/25/17 09:43 Urine Color Yellow (YELLOW) 08/25/17 09:43 Urine Appearance Clear (CLEAR) 08/25/17 09:43 Urine pH 7.0 (5.0 - 8.0) 08/25/17 09:43 Ur Specific [place] 1.010 (1.000-1.030) 08/25/17 09:43 Urine Protein Negative (NEGATIVE) 08/25/17 09:43 Urine Glucose (UA) Negative (NEGATIVE) 08/25/17 09:43 Urine Ketones Negative (NEGATIVE) 08/25/17 09:43 Urine Occult Blood 1+ (NEGATIVE) 08/25/17 09:43 Urine Nitrite Negative (NEGATIVE) 08/25/17 09:43 Urine Bilirubin Negative (NEGATIVE) 08/25/17 09:43 Urine Urobilinogen Normal (NORMAL) 08/25/17 09:43 Ur Leukocyte Esterase Negative (NEGATIVE) 08/25/17 09:43 Urine RBC 3-5 /HPF (NONE SEEN) 08/25/17 09:43 Urine WBC 0-2 /HPF (NONE SEEN) 08/25/17 09:43 Ur Squamous Epith Cells Few /HPF (NEGATIVE) 08/25/17 09:43 Urine Bacteria Trace /HPF (NEGATIVE) 08/25/17 09:43 Ur Culture Indicated? No/not indicated 08/25/17 09:43 - Plan (1) Acute CVA (cerebrovascular accident) Status: Acute Plan: REPEAT BRAIN MRI, Neuro checks, XARELTO 10MG PO BID, ASPIRIN, PLAVIX, CONTINUE TO MONITOR
--- NOTE | 2017-08-28 18:42 | PCM.PROG ---
Progress Note - Progress Note for Day of Date of Exam: 08/27/17 - Subjective Subjective: IS BEING TREATED FOR AN ACUTE CVA. SHE IS MORE ALERT TODAY THAN SHE HAS BEEN. SHE IS SHOWING SLIGHT IMPROVEMENT TODAY WITH STRENGTH TO RIGHT HAND. SHE IS ABLE TO SLIGHTLY STARCH DUMPER. ON EXAMINATION, HEART IS REGULAR IN RATE AND RHYTHM. BILATERAL LUNGS ARE CLEAR TO AUSCULTATION. ABDOMEN IS ROUND , SOFT, AND NON-TENDER WITH NORMAL BOWEL SOUNDS NOTED IN ALL QUADRANTS. HER VITALS TODAY ARE 98.2-60-19-97%-164/72. LABS WERE OBTAINED. SHE IS HEMODYNAMICALLY STABLE TODAY. A REPEAT BRAIN MRI WAS OBTAINED AND REVEALED: Multiple sequences were degraded by motion. There are stable to slightly less conspicuous areas of restricted diffusion within the left thalamus, medial left temporal lobe, and left occipital lobe. There is no new area of abnormal restricted diffusion. There is edema in these regions of subacute infarct, without evidence for acute bleed. The major intracranial flow voids are noted. The ventricles are not significantly dilated. PHYSICAL THERAPY REPORTS THAT PATIENT CONTINUES TO REQUIRE EXTENSIVE ASSISTANCE WITH FUNCTIONAL MOBILITY TASKS. WE WILL CONTINUE WITH PHYSICAL THERAPY AND CURRENT PLAN OF CARE TODAY. WE WILL ALSO START AMLODIPINE 5MG PO DAILY FOR INCREASED BLOOD PRESSURE AND XARELTO 15MG PO BID. CASE MANAGEMENT IS ARRANGING OPTIONS FOR PHYSICAL THERAPY FOLLOWING DISCHARGE. OTHERWISE, WE WILL FOLLOW UP WITH AM LABS AND CONTINUE TO MONITOR PATIENT. - Past Medical Family Social History Past Med/Fam/Surg Hx: No changes since H&P Allergies: Allergies No Known Drug Allergies Allergy (Verified 08/21/17 17:43) - Review of Systems ROS: No change since H&P - Vital Signs and I&O's Vital Signs: Temperature 97.5 F Pulse Rate [Left Brachial] 60 Pulse Rate 66 Respiratory Rate 27 Blood Pressure [Right Arm] 116/61 Blood Pressure [Left Arm] 141/67 Blood Pressure 182/87 O2 Sat by Pulse Oximetry 96 Intake and Output: Intake & Output 08/26/17 08/27/17 08/28/17 08/29/17 11:59 11:59 11:59 11:59 Intake Total 1684 / 1684 2424 / 2424 2795 / 2795 1311 / 1311 Output Total 3750 / 3750 1350 / 1350 5600 / 5600 1000 / 1000 Balance -2066 / -2066 1074 / 1074 -2805 / -2805 311 / 311 - Physical Exam Oriented: Unable to test Eyes: Normal Ear: Normal Nose: Normal Throat: Normal Respiratory: Normal Cardiovascular: Normal : Normal Auscultation: Bowel Sounds: Normal Palpation: Normal Tenderness: Normal Skin: Normal Musculoskeletal: Right, Arm, Leg, Motor Deficit Psychiatric: Normal Mood Description: Calm Affect: Normal Speech Pattern: Clear, Appropriate - Laboratory and Diagnostics Result Diagrams: 08/28/17 06:05 08/28/17 06:05 Labs: Laboratory WBC 8.6 X10^3/uL (3.6-10.0) 08/28/17 06:05 RBC 3.96 X10^6/uL (3.5-5.4) 08/28/17 06:05 Hgb 12.8 g/dL (12.0-16.0) 08/28/17 06:05 Hct 37.0 % (36.0-47.0) 08/28/17 06:05 MCV 93.5 fL (80.0-100.0) 08/28/17 06:05 MCH 32.4 pg (27.0-34.0) 08/28/17 06:05 MCHC 34.7 g/dL (33.0-35.0) 08/28/17 06:05 RDW 12.7 % (11.6-16.5) 08/28/17 06:05 Plt Count 255 X10^3/uL (150.0-450.0) 08/28/17 06:05 MPV 9.2 fL (7.4-11.0) 08/28/17 06:05 Neut % (Auto) 59.9 % (42.0-75.0) 08/28/17 06:05 Lymph % (Auto) 26.4 % (21.0-51.0) 08/28/17 06:05 [place] % (Auto) 10.8 % (0.0-13.0) 08/28/17 06:05 Eos % (Auto) 1.6 % (0.9-2.9) 08/28/17 06:05 Baso % (Auto) 1.3 % (0.2-1.0) H 08/28/17 06:05 Neut # (Auto) 5.2 x10^3/uL (2.2-4.8) H 08/28/17 06:05 Lymph # (Auto) 2.3 X10^3/uL (1.3-2.9) 08/28/17 06:05 [place] # (Auto) 0.9 x10^3/uL (0.3-0.8) H 08/28/17 06:05 Eos # (Auto) 0.1 x10^3/uL (0.0-0.2) 08/28/17 06:05 Baso # (Auto) 0.1 X10^3/uL (0.0-0.1) 08/28/17 06:05 Absolute Nucleated RBC 0.1 /100WBC 08/28/17 06:05 INR Target Range - 08/21/17 16:48 INR 0.93 (0.8-1.3) 08/21/17 16:48 APTT 23.1 SECONDS (22.9-36.5) 08/21/17 16:48 PTT Comment - 08/21/17 16:48 Fibrinogen 261 mg/dL (239-489) 08/21/17 19:35 Sodium 139 mmol/L (136-145) 08/28/17 06:05 Corrected Sodium TNP 08/28/17 06:05 Potassium 3.6 mmol/L (3.5-5.1) 08/28/17 06:05 Chloride 104 mmol/L (98-107) 08/28/17 06:05 Carbon Dioxide 27.6 mmol/L (21-32) 08/28/17 06:05 BUN 9 mg/dL (7-18) 08/28/17 06:05 Creatinine 0.81 mg/dL (0.55-1.02) 08/28/17 06:05 Est GFR (MDRD) Af Amer > 60 (>60) 08/28/17 06:05 Est GFR (MDRD) Non-Af > 60 (>60) 08/28/17 06:05 Glucose 92 mg/dL (65-99) 08/28/17 06:05 Calcium 8.6 mg/dL (8.5-10.1) 08/28/17 06:05 Corrected Calcium 9.3 mg/dL (8.5-10.1) 08/28/17 06:05 Magnesium 1.9 mg/dL (1.7-2.9) 08/23/17 04:30 Total Bilirubin 0.20 mg/dL (0.2-1.0) 08/28/17 06:05 AST 15 Units/L (15-37) 08/28/17 06:05 ALT 23 Units/L (12-78) 08/28/17 06:05 Alkaline Phosphatase 79 Units/L (46-116) 08/28/17 06:05 Creatine Kinase 53 Units/L (26-192) 08/22/17 07:32 CK-MB (CK-2) 0.6 ng/mL (0-4.0) 08/22/17 07:32 CK/CKMB % Calc 1.1 % (<4) 08/22/17 07:32 Troponin I < 0.02 ng/mL (0-1.5) 08/22/17 07:32 Total Protein 6.9 g/dL (6.4-8.2) 08/28/17 06:05 Albumin 3.1 g/dL (3.4-5.0) L 08/28/17 06:05 Globulin 3.8 g/dL (2.5-4.5) 08/28/17 06:05 Albumin/Globulin Ratio 0.8 Ratio (1.1-2.1) L 08/28/17 06:05 Triglycerides 219 mg/dL (0-150) H 08/22/17 07:32 Cholesterol 277 mg/dL (0-200) H 08/22/17 07:32 LDL Cholesterol, Calc 204 mg/dL (0-100) H 08/22/17 07:32 HDL Cholesterol 29 mg/dL (40-60) L 08/22/17 07:32 Cholesterol/HDL Ratio 9.6 (0.0-5.0) H 08/22/17 07:32 Specimen Type Clean catch urine 08/25/17 09:43 Urine Color Yellow (YELLOW) 08/25/17 09:43 Urine Appearance Clear (CLEAR) 08/25/17 09:43 Urine pH 7.0 (5.0 - 8.0) 08/25/17 09:43 Ur Specific [place] 1.010 (1.000-1.030) 08/25/17 09:43 Urine Protein Negative (NEGATIVE) 08/25/17 09:43 Urine Glucose (UA) Negative (NEGATIVE) 08/25/17 09:43 Urine Ketones Negative (NEGATIVE) 08/25/17 09:43 Urine Occult Blood 1+ (NEGATIVE) 08/25/17 09:43 Urine Nitrite Negative (NEGATIVE) 08/25/17 09:43 Urine Bilirubin Negative (NEGATIVE) 08/25/17 09:43 Urine Urobilinogen Normal (NORMAL) 08/25/17 09:43 Ur Leukocyte Esterase Negative (NEGATIVE) 08/25/17 09:43 Urine RBC 3-5 /HPF (NONE SEEN) 08/25/17 09:43 Urine WBC 0-2 /HPF (NONE SEEN) 08/25/17 09:43 Ur Squamous Epith Cells Few /HPF (NEGATIVE) 08/25/17 09:43 Urine Bacteria Trace /HPF (NEGATIVE) 08/25/17 09:43 Ur Culture Indicated? No/not indicated 08/25/17 09:43 - Plan (1) Acute CVA (cerebrovascular accident) Status: Acute Plan: Neuro checks, XARELTO 15MG PO BID, ASPIRIN, PLAVIX, CONTINUE TO MONITOR (2) Right hemiparesis Status: Acute Plan: Neuro checks, PT (3) Hypertension Status: Chronic Qualifiers: Hypertension type: essential hypertension Qualified Code(s): I10 - Essential (primary) hypertension Plan: Monitor BP, CONTINUE HOME MEDS, START AMLODIPINE 5MG PO DAILY.
[2017-08-28] MEDS: CRESTOR TAB 10 MG PO SCH (21:12)
[2017-08-28] MEDS: LIORESAL PO SCH (21:12)
[2017-08-28] MEDS: COLACE CAP 100 MG PO SCH (21:12)
--- NOTE | 2017-08-29 00:40 | PCM.PROG ---
Progress Note - Progress Note for Day of Date of Exam: 08/28/17 - Subjective Subjective: IS BEING TREATED FOR AN ACUTE CVA. 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 ON EXAMINATION, HEART IS REGULAR IN RATE AND RHYTHM. BILATERAL LUNGS ARE CLEAR TO AUSCULTATION. ABDOMEN IS ROUND, SOFT, AND NON-TENDER WITH NORMAL BOWEL SOUNDS NOTED IN ALL QUADRANTS. HER VITALS TODAY ARE 97.6-53-12-98%-147/67. LABS WERE OBTAINED. SHE REMAINS HEMODYNAMICALLY STABLE TODAY. PHYSICAL THERAPY CONTINUES TO WORK WITH PATIENT. SHE CONTINUES TO REQUIRE EXTENSIVE ASSISTANCE FOR ADLS. WE WILL CONTINUE WITH PHYSICAL THERAPY AND CURRENT PLAN OF CARE TODAY. OTHERWISE, WE WILL FOLLOW UP WITH AM LABS AND CONTINUE TO MONITOR PATIENT. - Past Medical Family Social History Past Med/Fam/Surg Hx: No changes since H&P Allergies: Allergies No Known Drug Allergies Allergy (Verified 08/21/17 17:43) - Review of Systems ROS: No change since H&P - Vital Signs and I&O's Vital Signs: Temperature 97.9 F Pulse Rate [Left Brachial] 56 Pulse Rate 66 Respiratory Rate 15 Blood Pressure [Right Arm] 116/61 Blood Pressure [Left Arm] 168/77 Blood Pressure 182/87 O2 Sat by Pulse Oximetry 96 Intake and Output: Intake & Output 08/26/17 08/27/17 08/28/17 08/29/17 11:59 11:59 11:59 11:59 Intake Total 1684 / 1684 2424 / 2424 2795 / 2795 2220 / 2220 Output Total 3750 / 3750 1350 / 1350 5600 / 5600 2500 / 2500 Balance -2066 / -2066 1074 / 1074 -2805 / -2805 -280 / -280 - Physical Exam Oriented: Normal Eyes: Normal Ear: Normal Nose: Normal Throat: Normal Respiratory: Normal Cardiovascular: Normal : Normal Auscultation: Bowel Sounds: Normal Tenderness: Normal Skin: Normal Musculoskeletal: Right, Arm, Leg, Motor Deficit Psychiatric: Normal Mood Description: Calm Affect: Normal Speech Pattern: Clear, Appropriate - Laboratory and Diagnostics Result Diagrams: 08/28/17 06:05 08/28/17 06:05 Labs: Laboratory WBC 8.6 X10^3/uL (3.6-10.0) 08/28/17 06:05 RBC 3.96 X10^6/uL (3.5-5.4) 08/28/17 06:05 Hgb 12.8 g/dL (12.0-16.0) 08/28/17 06:05 Hct 37.0 % (36.0-47.0) 08/28/17 06:05 MCV 93.5 fL (80.0-100.0) 08/28/17 06:05 MCH 32.4 pg (27.0-34.0) 08/28/17 06:05 MCHC 34.7 g/dL (33.0-35.0) 08/28/17 06:05 RDW 12.7 % (11.6-16.5) 08/28/17 06:05 Plt Count 255 X10^3/uL (150.0-450.0) 08/28/17 06:05 MPV 9.2 fL (7.4-11.0) 08/28/17 06:05 Neut % (Auto) 59.9 % (42.0-75.0) 08/28/17 06:05 Lymph % (Auto) 26.4 % (21.0-51.0) 08/28/17 06:05 [place] % (Auto) 10.8 % (0.0-13.0) 08/28/17 06:05 Eos % (Auto) 1.6 % (0.9-2.9) 08/28/17 06:05 Baso % (Auto) 1.3 % (0.2-1.0) H 08/28/17 06:05 Neut # (Auto) 5.2 x10^3/uL (2.2-4.8) H 08/28/17 06:05 Lymph # (Auto) 2.3 X10^3/uL (1.3-2.9) 08/28/17 06:05 [place] # (Auto) 0.9 x10^3/uL (0.3-0.8) H 08/28/17 06:05 Eos # (Auto) 0.1 x10^3/uL (0.0-0.2) 08/28/17 06:05 Baso # (Auto) 0.1 X10^3/uL (0.0-0.1) 08/28/17 06:05 Absolute Nucleated RBC 0.1 /100WBC 08/28/17 06:05 INR Target Range - 08/21/17 16:48 INR 0.93 (0.8-1.3) 08/21/17 16:48 APTT 23.1 SECONDS (22.9-36.5) 08/21/17 16:48 PTT Comment - 08/21/17 16:48 Fibrinogen 261 mg/dL (239-489) 08/21/17 19:35 Sodium 139 mmol/L (136-145) 08/28/17 06:05 Corrected Sodium TNP 08/28/17 06:05 Potassium 3.6 mmol/L (3.5-5.1) 08/28/17 06:05 Chloride 104 mmol/L (98-107) 08/28/17 06:05 Carbon Dioxide 27.6 mmol/L (21-32) 08/28/17 06:05 BUN 9 mg/dL (7-18) 08/28/17 06:05 Creatinine 0.81 mg/dL (0.55-1.02) 08/28/17 06:05 Est GFR (MDRD) Af Amer > 60 (>60) 08/28/17 06:05 Est GFR (MDRD) Non-Af > 60 (>60) 08/28/17 06:05 Glucose 92 mg/dL (65-99) 08/28/17 06:05 Calcium 8.6 mg/dL (8.5-10.1) 08/28/17 06:05 Corrected Calcium 9.3 mg/dL (8.5-10.1) 08/28/17 06:05 Magnesium 1.9 mg/dL (1.7-2.9) 08/23/17 04:30 Total Bilirubin 0.20 mg/dL (0.2-1.0) 08/28/17 06:05 AST 15 Units/L (15-37) 08/28/17 06:05 ALT 23 Units/L (12-78) 08/28/17 06:05 Alkaline Phosphatase 79 Units/L (46-116) 08/28/17 06:05 Creatine Kinase 53 Units/L (26-192) 08/22/17 07:32 CK-MB (CK-2) 0.6 ng/mL (0-4.0) 08/22/17 07:32 CK/CKMB % Calc 1.1 % (<4) 08/22/17 07:32 Troponin I < 0.02 ng/mL (0-1.5) 08/22/17 07:32 Total Protein 6.9 g/dL (6.4-8.2) 08/28/17 06:05 Albumin 3.1 g/dL (3.4-5.0) L 08/28/17 06:05 Globulin 3.8 g/dL (2.5-4.5) 08/28/17 06:05 Albumin/Globulin Ratio 0.8 Ratio (1.1-2.1) L 08/28/17 06:05 Triglycerides 219 mg/dL (0-150) H 08/22/17 07:32 Cholesterol 277 mg/dL (0-200) H 08/22/17 07:32 LDL Cholesterol, Calc 204 mg/dL (0-100) H 08/22/17 07:32 HDL Cholesterol 29 mg/dL (40-60) L 08/22/17 07:32 Cholesterol/HDL Ratio 9.6 (0.0-5.0) H 08/22/17 07:32 Specimen Type Clean catch urine 08/25/17 09:43 Urine Color Yellow (YELLOW) 08/25/17 09:43 Urine Appearance Clear (CLEAR) 08/25/17 09:43 Urine pH 7.0 (5.0 - 8.0) 08/25/17 09:43 Ur Specific [place] 1.010 (1.000-1.030) 08/25/17 09:43 Urine Protein Negative (NEGATIVE) 08/25/17 09:43 Urine Glucose (UA) Negative (NEGATIVE) 08/25/17 09:43 Urine Ketones Negative (NEGATIVE) 08/25/17 09:43 Urine Occult Blood 1+ (NEGATIVE) 08/25/17 09:43 Urine Nitrite Negative (NEGATIVE) 08/25/17 09:43 Urine Bilirubin Negative (NEGATIVE) 08/25/17 09:43 Urine Urobilinogen Normal (NORMAL) 08/25/17 09:43 Ur Leukocyte Esterase Negative (NEGATIVE) 08/25/17 09:43 Urine RBC 3-5 /HPF (NONE SEEN) 08/25/17 09:43 Urine WBC 0-2 /HPF (NONE SEEN) 08/25/17 09:43 Ur Squamous Epith Cells Few /HPF (NEGATIVE) 08/25/17 09:43 Urine Bacteria Trace /HPF (NEGATIVE) 08/25/17 09:43 Ur Culture Indicated? No/not indicated 08/25/17 09:43 - Plan (1) Acute CVA (cerebrovascular accident) Status: Acute Plan: Neuro checks, XARELTO 15MG PO BID, ASPIRIN, PLAVIX, CONTINUE TO MONITOR (2) Right hemiparesis Status: Acute Plan: Neuro checks, PT (3) Hypertension Status: Chronic Qualifiers: Hypertension type: essential hypertension Qualified Code(s): I10 - Essential (primary) hypertension Plan: Monitor BP, CONTINUE HOME MEDS, START AMLODIPINE 5MG PO DAILY.
[2017-08-29] MEDS: NS 1000 ML 1,000 ML IV SCH ×4 (05:59→20:48)
[2017-08-29] MEDS: ULTRAM PO PRN (06:18)
[2017-08-29 06:21] LABS: BASOPHILS # (AUTO) 0.1 X10^3/uL (0.0-0.1); BASOPHILS % (AUTO) 0.9 % (0.2-1.0); EOSINOPHILS # (AUTO) 0.2 x10^3/uL (0.0-0.2); EOSINOPHILS % (AUTO) 2.1 % (0.9-2.9); HEMATOCRIT 36.4 % (36.0-47.0); HEMOGLOBIN 12.6 g/dL (12.0-16.0); LYMPHOCYTES # (AUTO) 2.1 X10^3/uL (1.3-2.9); LYMPHOCYTES % (AUTO) 28.6 % (21.0-51.0); MEAN CORPUSCULAR HEMOGLOBIN 32.3 pg (27.0-34.0); MEAN CORPUSCULAR HGB CONC 34.5 g/dL (33.0-35.0); MEAN CORPUSCULAR VOLUME 93.7 fL (80.0-100.0); MEAN PLATELET VOLUME 9.3 fL (7.4-11.0); MONOCYTES # (AUTO) 0.7 x10^3/uL (0.3-0.8); MONOCYTES % (AUTO) 9.4 % (0.0-13.0); NEUTROPHILS # (AUTO) 4.4 x10^3/uL (2.2-4.8); PLATELET COUNT 253 X10^3/uL (150.0-450.0); RED BLOOD COUNT 3.89 X10^6/uL (3.5-5.4); RED CELL DISTRIBUTION WIDTH 12.9 % (11.6-16.5); WHITE BLOOD COUNT 7.4 X10^3/uL (3.6-10.0)
[2017-08-29 07:19] LABS: ALANINE AMINOTRANSFERASE 23 Units/L (12-78); ALKALINE PHOSPHATASE 76 Units/L (46-116); ASPARTATE AMINO TRANSFERASE 20 Units/L (15-37); BLOOD UREA NITROGEN 13 mg/dL (7-18); CALCIUM 8.7 mg/dL (8.5-10.1); CARBON DIOXIDE 24.9 mmol/L (21-32); CHLORIDE 104 mmol/L (98-107); COR CA(FOR HYPOALB) 9.5 mg/dL (8.5-10.1); SODIUM 138 mmol/L (136-145); TOTAL PROTEIN 6.7 g/dL (6.4-8.2); eGFR NON BLACK RACES > 60 (>60)
[2017-08-29] MEDS: ZOFRAN INJ 4 MG VIAL IVP PRN (07:50)
[2017-08-29] MEDS: ESTRACE PO SCH (09:24)
[2017-08-29] MEDS: NORVASC TAB 5 MG PO SCH (09:24)
[2017-08-29] MEDS: PLAVIX PO SCH (09:24)
[2017-08-29] MEDS: ZANTAC PO SCH ×2 (09:24→21:05)
[2017-08-29] MEDS: ASPIRIN PO SCH (09:24)
[2017-08-29] MEDS: PROTONIX TAB 40 MG PO SCH (09:24)
[2017-08-29] MEDS: XARELTO PO SCH ×2 (09:24→21:05)
[2017-08-29] MEDS: DESMOPRESSIN PO SCH ×2 (09:27→23:05)
[2017-08-29] MEDS: LEXAPRO PO SCH (09:27)
--- NOTE | 2017-08-29 17:22 | PCM.PROG ---
Progress Note - Progress Note for Day of Date of Exam: 08/29/17 - Subjective Subjective: IS BEING TREATED FOR AN ACUTE CVA. ON MORNING ROUNDS, SHE IS HOLDING HER PHONE AND OPERATING IT WITH THE RIGHT HAND. SHE CONTINUES TO REPORT ONLY MINIMAL MOVEMENT OF THE RIGHT LEG. ON EXAMINATION, HEART IS REGULAR IN RATE AND RHYTHM. BILATERAL LUNGS ARE CLEAR TO AUSCULTATION. ABDOMEN IS ROUND , SOFT, AND NON-TENDER WITH NORMAL BOWEL SOUNDS NOTED IN ALL QUADRANTS. HER VITALS TODAY ARE 97.5-73-27-96%-136/63. LABS WERE OBTAINED. SHE REMAINS HEMODYNAMICALLY STABLE TODAY. PHYSICAL THERAPY CONTINUES TO WORK WITH PATIENT. WE WILL CONTINUE WITH PHYSICAL THERAPY AND CURRENT PLAN OF CARE TODAY. OTHERWISE , WE WILL FOLLOW UP WITH AM LABS AND CONTINUE TO MONITOR PATIENT. - Past Medical Family Social History Past Med/Fam/Surg Hx: No changes since H&P Allergies: Allergies No Known Drug Allergies Allergy (Verified 08/21/17 17:43) - Review of Systems ROS: No change since H&P - Vital Signs and I&O's Vital Signs: Temperature 97.9 F Pulse Rate [Left Brachial] 55 Pulse Rate 66 Respiratory Rate 17 Blood Pressure [Right Arm] 116/61 Blood Pressure [Left Arm] 139/65 Blood Pressure 182/87 O2 Sat by Pulse Oximetry 96 Intake and Output: Intake & Output 08/27/17 08/28/17 08/29/17 08/30/17 11:59 11:59 11:59 11:59 Intake Total 2424 / 2424 2795 / 2795 3226 / 3226 800 / 800 Output Total 1350 / 1350 5600 / 5600 4000 / 4000 Balance 1074 / 1074 -2805 / -2805 -774 / -774 800 / 800 - Physical Exam Oriented: Normal Eyes: Normal Ear: Normal Nose: Normal Throat: Normal Respiratory: Normal Cardiovascular: Normal : Normal Auscultation: Bowel Sounds: Normal Tenderness: Normal Skin: Normal Musculoskeletal: Right, Arm, Leg, Motor Deficit Psychiatric: Normal Mood Description: Calm Affect: Normal Speech Pattern: Clear, Appropriate - Laboratory and Diagnostics Result Diagrams: 08/29/17 05:43 08/29/17 05:43 Labs: Laboratory WBC 7.4 X10^3/uL (3.6-10.0) 08/29/17 05:43 RBC 3.89 X10^6/uL (3.5-5.4) 08/29/17 05:43 Hgb 12.6 g/dL (12.0-16.0) 08/29/17 05:43 Hct 36.4 % (36.0-47.0) 08/29/17 05:43 MCV 93.7 fL (80.0-100.0) 08/29/17 05:43 MCH 32.3 pg (27.0-34.0) 08/29/17 05:43 MCHC 34.5 g/dL (33.0-35.0) 08/29/17 05:43 RDW 12.9 % (11.6-16.5) 08/29/17 05:43 Plt Count 253 X10^3/uL (150.0-450.0) 08/29/17 05:43 MPV 9.3 fL (7.4-11.0) 08/29/17 05:43 Neut % (Auto) 59.0 % (42.0-75.0) 08/29/17 05:43 Lymph % (Auto) 28.6 % (21.0-51.0) 08/29/17 05:43 [place] % (Auto) 9.4 % (0.0-13.0) 08/29/17 05:43 Eos % (Auto) 2.1 % (0.9-2.9) 08/29/17 05:43 Baso % (Auto) 0.9 % (0.2-1.0) 08/29/17 05:43 Neut # (Auto) 4.4 x10^3/uL (2.2-4.8) 08/29/17 05:43 Lymph # (Auto) 2.1 X10^3/uL (1.3-2.9) 08/29/17 05:43 [place] # (Auto) 0.7 x10^3/uL (0.3-0.8) 08/29/17 05:43 Eos # (Auto) 0.2 x10^3/uL (0.0-0.2) 08/29/17 05:43 Baso # (Auto) 0.1 X10^3/uL (0.0-0.1) 08/29/17 05:43 Absolute Nucleated RBC 0.1 /100WBC 08/29/17 05:43 INR Target Range - 08/21/17 16:48 INR 0.93 (0.8-1.3) 08/21/17 16:48 APTT 23.1 SECONDS (22.9-36.5) 08/21/17 16:48 PTT Comment - 08/21/17 16:48 Fibrinogen 261 mg/dL (239-489) 08/21/17 19:35 Sodium 138 mmol/L (136-145) 08/29/17 05:43 Corrected Sodium TNP 08/29/17 05:43 Potassium 3.9 mmol/L (3.5-5.1) 08/29/17 05:43 Chloride 104 mmol/L (98-107) 08/29/17 05:43 Carbon Dioxide 24.9 mmol/L (21-32) 08/29/17 05:43 BUN 13 mg/dL (7-18) 08/29/17 05:43 Creatinine 0.80 mg/dL (0.55-1.02) 08/29/17 05:43 Est GFR (MDRD) Af Amer > 60 (>60) 08/29/17 05:43 Est GFR (MDRD) Non-Af > 60 (>60) 08/29/17 05:43 Glucose 93 mg/dL (65-99) 08/29/17 05:43 Calcium 8.7 mg/dL (8.5-10.1) 08/29/17 05:43 Corrected Calcium 9.5 mg/dL (8.5-10.1) 08/29/17 05:43 Magnesium 1.9 mg/dL (1.7-2.9) 08/23/17 04:30 Total Bilirubin 0.20 mg/dL (0.2-1.0) 08/29/17 05:43 AST 20 Units/L (15-37) 08/29/17 05:43 ALT 23 Units/L (12-78) 08/29/17 05:43 Alkaline Phosphatase 76 Units/L (46-116) 08/29/17 05:43 Creatine Kinase 53 Units/L (26-192) 08/22/17 07:32 CK-MB (CK-2) 0.6 ng/mL (0-4.0) 08/22/17 07:32 CK/CKMB % Calc 1.1 % (<4) 08/22/17 07:32 Troponin I < 0.02 ng/mL (0-1.5) 08/22/17 07:32 Total Protein 6.7 g/dL (6.4-8.2) 08/29/17 05:43 Albumin 3.0 g/dL (3.4-5.0) L 08/29/17 05:43 Globulin 3.7 g/dL (2.5-4.5) 08/29/17 05:43 Albumin/Globulin Ratio 0.8 Ratio (1.1-2.1) L 08/29/17 05:43 Triglycerides 219 mg/dL (0-150) H 08/22/17 07:32 Cholesterol 277 mg/dL (0-200) H 08/22/17 07:32 LDL Cholesterol, Calc 204 mg/dL (0-100) H 08/22/17 07:32 HDL Cholesterol 29 mg/dL (40-60) L 08/22/17 07:32 Cholesterol/HDL Ratio 9.6 (0.0-5.0) H 08/22/17 07:32 Specimen Type Clean catch urine 08/25/17 09:43 Urine Color Yellow (YELLOW) 08/25/17 09:43 Urine Appearance Clear (CLEAR) 08/25/17 09:43 Urine pH 7.0 (5.0 - 8.0) 08/25/17 09:43 Ur Specific [place] 1.010 (1.000-1.030) 08/25/17 09:43 Urine Protein Negative (NEGATIVE) 08/25/17 09:43 Urine Glucose (UA) Negative (NEGATIVE) 08/25/17 09:43 Urine Ketones Negative (NEGATIVE) 08/25/17 09:43 Urine Occult Blood 1+ (NEGATIVE) 08/25/17 09:43 Urine Nitrite Negative (NEGATIVE) 08/25/17 09:43 Urine Bilirubin Negative (NEGATIVE) 08/25/17 09:43 Urine Urobilinogen Normal (NORMAL) 08/25/17 09:43 Ur Leukocyte Esterase Negative (NEGATIVE) 08/25/17 09:43 Urine RBC 3-5 /HPF (NONE SEEN) 08/25/17 09:43 Urine WBC 0-2 /HPF (NONE SEEN) 08/25/17 09:43 Ur Squamous Epith Cells Few /HPF (NEGATIVE) 08/25/17 09:43 Urine Bacteria Trace /HPF (NEGATIVE) 08/25/17 09:43 Ur Culture Indicated? No/not indicated 08/25/17 09:43 - Plan (1) Acute CVA (cerebrovascular accident) Status: Acute Plan: Neuro checks, XARELTO 15MG PO BID, ASPIRIN, PLAVIX, CONTINUE TO MONITOR (2) Right hemiparesis Status: Acute Plan: Neuro checks, PT (3) Hypertension Status: Chronic Qualifiers: Hypertension type: essential hypertension Qualified Code(s): I10 - Essential (primary) hypertension Plan: Monitor BP, CONTINUE HOME MEDS, START AMLODIPINE 5MG PO DAILY.
[2017-08-29] MEDS: CRESTOR TAB 10 MG PO SCH (21:04)
[2017-08-29] MEDS: COLACE CAP 100 MG PO SCH (21:04)
[2017-08-29] MEDS: LIORESAL PO SCH (21:05)
[2017-08-30 05:53] LABS: BASOPHILS # (AUTO) 0.1 X10^3/uL (0.0-0.1); EOSINOPHILS # (AUTO) 0.2 x10^3/uL (0.0-0.2); EOSINOPHILS % (AUTO) 2.2 % (0.9-2.9); HEMATOCRIT 36.6 % (36.0-47.0); HEMOGLOBIN 12.7 g/dL (12.0-16.0); LYMPHOCYTES # (AUTO) 2.2 X10^3/uL (1.3-2.9); LYMPHOCYTES % (AUTO) 27.8 % (21.0-51.0); MEAN CORPUSCULAR HEMOGLOBIN 32.3 pg (27.0-34.0); MEAN CORPUSCULAR HGB CONC 34.5 g/dL (33.0-35.0); MEAN CORPUSCULAR VOLUME 93.4 fL (80.0-100.0); MEAN PLATELET VOLUME 9.3 fL (7.4-11.0); MONOCYTES # (AUTO) 0.9 x10^3/uL (0.3-0.8); MONOCYTES % (AUTO) 11.5 % (0.0-13.0); NEUTROPHILS # (AUTO) 4.6 x10^3/uL (2.2-4.8); NEUTROPHILS % (AUTO) 57.5 % (42.0-75.0); PLATELET COUNT 252 X10^3/uL (150.0-450.0); RED BLOOD COUNT 3.92 X10^6/uL (3.5-5.4); RED CELL DISTRIBUTION WIDTH 13.1 % (11.6-16.5); WHITE BLOOD COUNT 8.1 X10^3/uL (3.6-10.0)
[2017-08-30 06:17] LABS: ALANINE AMINOTRANSFERASE 18 Units/L (12-78); ALBUMIN 3.1 g/dL (3.4-5.0); ALKALINE PHOSPHATASE 82 Units/L (46-116); ASPARTATE AMINO TRANSFERASE 12 Units/L (15-37); BLOOD UREA NITROGEN 16 mg/dL (7-18); CALCIUM 8.6 mg/dL (8.5-10.1); CARBON DIOXIDE 25.1 mmol/L (21-32); CHLORIDE 105 mmol/L (98-107); COR CA(FOR HYPOALB) 9.3 mg/dL (8.5-10.1); CREATININE 0.87 mg/dL (0.55-1.02); SODIUM 139 mmol/L (136-145); TOTAL PROTEIN 6.8 g/dL (6.4-8.2); eGFR NON BLACK RACES > 60 (>60)
[2017-08-30] MEDS: NS 1000 ML 1,000 ML IV SCH ×3 (06:27→21:00)
[2017-08-30] MEDS ORDERED: LEXAPRO ONE (08:46)
[2017-08-30] MEDS: ESTRACE PO SCH (09:04)
[2017-08-30] MEDS: ZANTAC PO SCH ×2 (09:04→21:04)
[2017-08-30] MEDS: PROTONIX TAB 40 MG PO SCH (09:04)
[2017-08-30] MEDS: LEXAPRO PO SCH ×2 (09:04→09:05)
[2017-08-30] MEDS: ASPIRIN PO SCH (09:05)
[2017-08-30] MEDS: XARELTO PO SCH ×2 (09:06→21:04)
[2017-08-30] MEDS: NORVASC TAB 5 MG PO SCH (09:06)
[2017-08-30] MEDS: DESMOPRESSIN PO SCH ×2 (09:06→21:03)
[2017-08-30] MEDS: VITAMIN D (1.25MG) PO SCH ×2 (09:07→21:02)
[2017-08-30] MEDS: PLAVIX PO SCH (09:11)
[2017-08-30] MEDS: ULTRAM PO PRN ×2 (09:36→17:09)
--- NOTE | 2017-08-30 10:33 | RAD ---
HISTORY: Shortness of breath. Cough. Study: AP portable chest Comparison: 08/21/2017 Findings: The lungs are clear. The heart size is normal. No acute bony abnormalities are identified. IMPRESSION: 1. No radiographic evidence of acute cardiopulmonary disease or significant change is noted when co mpared to the prior examination. Reported By:
[2017-08-30] MEDS: MILK OF MAGNESIA PO PRN (21:00)
[2017-08-30] MEDS: K-LYTE EFFERVESCENT PO PRN (21:01)
[2017-08-30] MEDS: LIORESAL PO SCH (21:02)
[2017-08-30] MEDS: CRESTOR TAB 10 MG PO SCH (21:03)
[2017-08-30] MEDS: FIORICET TAB PO PRN (21:04)
[2017-08-30] MEDS: COLACE CAP 100 MG PO SCH (21:04)
[2017-08-31] MEDS: ZOFRAN INJ 4 MG VIAL IVP PRN ×2 (01:20→23:10)
[2017-08-31] MEDS: NS 1000 ML 1,000 ML IV SCH ×3 (01:20→21:31)
[2017-08-31 06:11] LABS: BASOPHILS # (AUTO) 0.1 X10^3/uL (0.0-0.1); BASOPHILS % (AUTO) 0.9 % (0.2-1.0); EOSINOPHILS # (AUTO) 0.2 x10^3/uL (0.0-0.2); HEMATOCRIT 36.1 % (36.0-47.0); HEMOGLOBIN 12.4 g/dL (12.0-16.0); LYMPHOCYTES # (AUTO) 2.1 X10^3/uL (1.3-2.9); LYMPHOCYTES % (AUTO) 27.5 % (21.0-51.0); MEAN CORPUSCULAR HEMOGLOBIN 32.3 pg (27.0-34.0); MEAN CORPUSCULAR HGB CONC 34.4 g/dL (33.0-35.0); MEAN PLATELET VOLUME 9.4 fL (7.4-11.0); MONOCYTES # (AUTO) 0.9 x10^3/uL (0.3-0.8); MONOCYTES % (AUTO) 12.1 % (0.0-13.0); NEUTROPHILS # (AUTO) 4.4 x10^3/uL (2.2-4.8); NEUTROPHILS % (AUTO) 57.5 % (42.0-75.0); PLATELET COUNT 239 X10^3/uL (150.0-450.0); RED BLOOD COUNT 3.85 X10^6/uL (3.5-5.4); RED CELL DISTRIBUTION WIDTH 12.9 % (11.6-16.5); WHITE BLOOD COUNT 7.6 X10^3/uL (3.6-10.0)
[2017-08-31 06:42] LABS: ALANINE AMINOTRANSFERASE 22 Units/L (12-78); ALKALINE PHOSPHATASE 82 Units/L (46-116); ASPARTATE AMINO TRANSFERASE 18 Units/L (15-37); BLOOD UREA NITROGEN 12 mg/dL (7-18); CALCIUM 8.3 mg/dL (8.5-10.1); CARBON DIOXIDE 26.8 mmol/L (21-32); CHLORIDE 105 mmol/L (98-107); COR CA(FOR HYPOALB) 9.1 mg/dL (8.5-10.1); SODIUM 137 mmol/L (136-145); TOTAL PROTEIN 6.6 g/dL (6.4-8.2); eGFR NON BLACK RACES > 60 (>60)
[2017-08-31] MEDS ORDERED: LEXAPRO ONE (07:48)
--- NOTE | 2017-08-31 08:20 | PCM.PROG ---
Progress Note - Progress Note for Day of Date of Exam: 08/30/17 - Subjective Subjective: IS BEING TREATED FOR AN ACUTE CVA. SHE IS ALERT AND ORIENTED, LYING IN BED ON MORNING ROUNDS. SHE DENIES COMPLAINTS THIS MORNING. SHE CONTINUES WITH RIGHT SIDED WEAKNESS, BUT CONTINUES TO SHOW DAILY IMPROVEMENT. HAND FURNACE FILLER IS SLIGHTLY STRONGER TODAY. ON EXAMINATION, HEART IS REGULAR IN RATE AND RHYTHM. BILATERAL LUNGS ARE CLEAR TO AUSCULTATION. ABDOMEN IS ROUND, SOFT, AND NON-TENDER WITH NORMAL BOWEL SOUNDS NOTED IN ALL QUADRANTS. HER VITALS TODAY ARE 97.2-69-20-95%-129/61. LABS WERE OBTAINED. SHE REMAINS HEMODYNAMICALLY STABLE TODAY. PHYSICAL THERAPY CONTINUES TO WORK WITH PATIENT AND REPORTS Pt requires frequent redirection to task at hand as well as to improve overall safety awareness. Pt exhibits narrow FRANCIA with standing and ambulation requiring VC/TC for increased FRANCIA to decrease fall risk. Noted increased quad contraction this date. Pt exhibits 3+/5 quads this date. Pt has no increased c/o during or after Rx. WE WILL CONTINUE WITH PHYSICAL THERAPY AND CURRENT PLAN OF CARE TODAY. OTHERWISE, WE WILL FOLLOW UP WITH AM LABS AND CONTINUE TO MONITOR PATIENT. - Past Medical Family Social History Past Med/Fam/Surg Hx: No changes since H&P Allergies: Allergies No Known Drug Allergies Allergy (Verified 08/21/17 17:43) - Review of Systems ROS: No change since H&P - Vital Signs and I&O's Vital Signs: Temperature 97.3 F Pulse Rate [Left Brachial] 57 Pulse Rate 66 Respiratory Rate 21 Blood Pressure [Right Arm] 116/61 Blood Pressure [Left Arm] 124/59 Blood Pressure 182/87 O2 Sat by Pulse Oximetry 97 Intake and Output: Intake & Output 08/28/17 08/29/17 08/30/17 08/31/17 11:59 11:59 11:59 11:59 Intake Total 2795 / 2795 3226 / 3226 2570 / 2570 2605 / 2605 Output Total 5600 / 5600 4000 / 4000 2300 / 2300 2600 / 2600 Balance -2805 / -2805 -774 / -774 270 / 270 5 / 5 - Physical Exam Oriented: Normal Eyes: Normal Ear: Normal Nose: Normal Throat: Normal Respiratory: Normal Cardiovascular: Normal : Normal Auscultation: Bowel Sounds: Normal Tenderness: Normal Skin: Normal Musculoskeletal: Right, Arm, Leg, Motor Deficit Psychiatric: Normal Mood Description: Calm Affect: Normal Speech Pattern: Clear, Appropriate - Laboratory and Diagnostics Result Diagrams: 08/31/17 05:30 08/31/17 05:30 Labs: Laboratory WBC 7.6 X10^3/uL (3.6-10.0) 08/31/17 05:30 RBC 3.85 X10^6/uL (3.5-5.4) 08/31/17 05:30 Hgb 12.4 g/dL (12.0-16.0) 08/31/17 05:30 Hct 36.1 % (36.0-47.0) 08/31/17 05:30 MCV 94.0 fL (80.0-100.0) 08/31/17 05:30 MCH 32.3 pg (27.0-34.0) 08/31/17 05:30 MCHC 34.4 g/dL (33.0-35.0) 08/31/17 05:30 RDW 12.9 % (11.6-16.5) 08/31/17 05:30 Plt Count 239 X10^3/uL (150.0-450.0) 08/31/17 05:30 MPV 9.4 fL (7.4-11.0) 08/31/17 05:30 Neut % (Auto) 57.5 % (42.0-75.0) 08/31/17 05:30 Lymph % (Auto) 27.5 % (21.0-51.0) 08/31/17 05:30 Adams % (Auto) 12.1 % (0.0-13.0) 08/31/17 05:30 Eos % (Auto) 2.0 % (0.9-2.9) 08/31/17 05:30 Baso % (Auto) 0.9 % (0.2-1.0) 08/31/17 05:30 Neut # (Auto) 4.4 x10^3/uL (2.2-4.8) 08/31/17 05:30 Lymph # (Auto) 2.1 X10^3/uL (1.3-2.9) 08/31/17 05:30 Adams # (Auto) 0.9 x10^3/uL (0.3-0.8) H 08/31/17 05:30 Eos # (Auto) 0.2 x10^3/uL (0.0-0.2) 08/31/17 05:30 Baso # (Auto) 0.1 X10^3/uL (0.0-0.1) 08/31/17 05:30 Absolute Nucleated RBC 0.0 /100WBC 08/31/17 05:30 INR Target Range - 08/21/17 16:48 INR 0.93 (0.8-1.3) 08/21/17 16:48 APTT 23.1 SECONDS (22.9-36.5) 08/21/17 16:48 PTT Comment - 08/21/17 16:48 Fibrinogen 261 mg/dL (239-489) 08/21/17 19:35 Sodium 137 mmol/L (136-145) 08/31/17 05:30 Corrected Sodium TNP 08/31/17 05:30 Potassium 4.1 mmol/L (3.5-5.1) 08/31/17 05:30 Chloride 105 mmol/L (98-107) 08/31/17 05:30 Carbon Dioxide 26.8 mmol/L (21-32) 08/31/17 05:30 BUN 12 mg/dL (7-18) 08/31/17 05:30 Creatinine 0.80 mg/dL (0.55-1.02) 08/31/17 05:30 Est GFR (MDRD) Af Amer > 60 (>60) 08/31/17 05:30 Est GFR (MDRD) Non-Af > 60 (>60) 08/31/17 05:30 Glucose 90 mg/dL (65-99) 08/31/17 05:30 Calcium 8.3 mg/dL (8.5-10.1) L 08/31/17 05:30 Corrected Calcium 9.1 mg/dL (8.5-10.1) 08/31/17 05:30 Magnesium 2.1 mg/dL (1.7-2.9) 08/30/17 05:15 Total Bilirubin 0.20 mg/dL (0.2-1.0) 08/31/17 05:30 AST 18 Units/L (15-37) 08/31/17 05:30 ALT 22 Units/L (12-78) 08/31/17 05:30 Alkaline Phosphatase 82 Units/L (46-116) 08/31/17 05:30 Creatine Kinase 53 Units/L (26-192) 08/22/17 07:32 CK-MB (CK-2) 0.6 ng/mL (0-4.0) 08/22/17 07:32 CK/CKMB % Calc 1.1 % (<4) 08/22/17 07:32 Troponin I < 0.02 ng/mL (0-1.5) 08/22/17 07:32 Total Protein 6.6 g/dL (6.4-8.2) 08/31/17 05:30 Albumin 3.0 g/dL (3.4-5.0) L 08/31/17 05:30 Globulin 3.6 g/dL (2.5-4.5) 08/31/17 05:30 Albumin/Globulin Ratio 0.8 Ratio (1.1-2.1) L 08/31/17 05:30 Triglycerides 219 mg/dL (0-150) H 08/22/17 07:32 Cholesterol 277 mg/dL (0-200) H 08/22/17 07:32 LDL Cholesterol, Calc 204 mg/dL (0-100) H 08/22/17 07:32 HDL Cholesterol 29 mg/dL (40-60) L 08/22/17 07:32 Cholesterol/HDL Ratio 9.6 (0.0-5.0) H 08/22/17 07:32 Specimen Type Clean catch urine 08/25/17 09:43 Urine Color Yellow (YELLOW) 08/25/17 09:43 Urine Appearance Clear (CLEAR) 08/25/17 09:43 Urine pH 7.0 (5.0 - 8.0) 08/25/17 09:43 Ur Specific [place] 1.010 (1.000-1.030) 08/25/17 09:43 Urine Protein Negative (NEGATIVE) 08/25/17 09:43 Urine Glucose (UA) Negative (NEGATIVE) 08/25/17 09:43 Urine Ketones Negative (NEGATIVE) 08/25/17 09:43 Urine Occult Blood 1+ (NEGATIVE) 08/25/17 09:43 Urine Nitrite Negative (NEGATIVE) 08/25/17 09:43 Urine Bilirubin Negative (NEGATIVE) 08/25/17 09:43 Urine Urobilinogen Normal (NORMAL) 08/25/17 09:43 Ur Leukocyte Esterase Negative (NEGATIVE) 08/25/17 09:43 Urine RBC 3-5 /HPF (NONE SEEN) 08/25/17 09:43 Urine WBC 0-2 /HPF (NONE SEEN) 08/25/17 09:43 Ur Squamous Epith Cells Few /HPF (NEGATIVE) 08/25/17 09:43 Urine Bacteria Trace /HPF (NEGATIVE) 08/25/17 09:43 Ur Culture Indicated? No/not indicated 08/25/17 09:43 - Plan (1) Acute CVA (cerebrovascular accident) Status: Acute Plan: Neuro checks, XARELTO 15MG PO BID, ASPIRIN, PLAVIX, CONTINUE TO MONITOR (2) Right hemiparesis Status: Acute Plan: Neuro checks, PT (3) Hypertension Status: Chronic Qualifiers: Hypertension type: essential hypertension Qualified Code(s): I10 - Essential (primary) hypertension Plan: Monitor BP, CONTINUE HOME MEDS, START AMLODIPINE 5MG PO DAILY.
[2017-08-31] MEDS: ASPIRIN PO SCH (08:32)
[2017-08-31] MEDS: DESMOPRESSIN PO SCH ×2 (08:32→21:30)
[2017-08-31] MEDS: ESTRACE PO SCH (08:32)
[2017-08-31] MEDS: NORVASC TAB 5 MG PO SCH (08:34)
[2017-08-31] MEDS: LEXAPRO PO SCH (08:34)
[2017-08-31] MEDS: PLAVIX PO SCH (08:35)
[2017-08-31] MEDS: XARELTO PO SCH ×2 (08:36→21:25)
[2017-08-31] MEDS: PROTONIX TAB 40 MG PO SCH (08:36)
[2017-08-31] MEDS: ZANTAC PO SCH ×2 (08:36→21:26)
[2017-08-31] MEDS: FIORICET TAB PO PRN ×2 (09:35→21:32)
[2017-08-31] MEDS ORDERED: MILK OF MAGNESIA PO PRN (19:54)
[2017-08-31] MEDS: COLACE CAP 100 MG PO SCH (21:25)
[2017-08-31] MEDS: MILK OF MAGNESIA PO PRN (21:25)
[2017-08-31] MEDS: LIORESAL PO SCH (21:25)
[2017-08-31] MEDS: CRESTOR TAB 10 MG PO SCH (21:26)
[2017-09-01] MEDS ORDERED: ROBITUSSIN DM PO PRN (05:21)
[2017-09-01 05:26] LABS: BASOPHILS # (AUTO) 0.1 X10^3/uL (0.0-0.1); BASOPHILS % (AUTO) 0.8 % (0.2-1.0); EOSINOPHILS # (AUTO) 0.2 x10^3/uL (0.0-0.2); HEMATOCRIT 35.3 % (36.0-47.0); HEMOGLOBIN 12.2 g/dL (12.0-16.0); LYMPHOCYTES # (AUTO) 2.3 X10^3/uL (1.3-2.9); LYMPHOCYTES % (AUTO) 28.4 % (21.0-51.0); MEAN CORPUSCULAR HEMOGLOBIN 32.5 pg (27.0-34.0); MEAN CORPUSCULAR HGB CONC 34.5 g/dL (33.0-35.0); MEAN CORPUSCULAR VOLUME 94.2 fL (80.0-100.0); MEAN PLATELET VOLUME 9.3 fL (7.4-11.0); MONOCYTES # (AUTO) 0.9 x10^3/uL (0.3-0.8); MONOCYTES % (AUTO) 11.2 % (0.0-13.0); NEUTROPHILS # (AUTO) 4.7 x10^3/uL (2.2-4.8); NEUTROPHILS % (AUTO) 57.6 % (42.0-75.0); PLATELET COUNT 237 X10^3/uL (150.0-450.0); RED BLOOD COUNT 3.75 X10^6/uL (3.5-5.4); RED CELL DISTRIBUTION WIDTH 12.9 % (11.6-16.5); WHITE BLOOD COUNT 8.1 X10^3/uL (3.6-10.0)
[2017-09-01 05:44] LABS: ALANINE AMINOTRANSFERASE 30 Units/L (12-78); ALKALINE PHOSPHATASE 84 Units/L (46-116); ASPARTATE AMINO TRANSFERASE 24 Units/L (15-37); BLOOD UREA NITROGEN 12 mg/dL (7-18); CALCIUM 8.3 mg/dL (8.5-10.1); CARBON DIOXIDE 27.9 mmol/L (21-32); CHLORIDE 105 mmol/L (98-107); COR CA(FOR HYPOALB) 9.1 mg/dL (8.5-10.1); CREATININE 0.77 mg/dL (0.55-1.02); SODIUM 137 mmol/L (136-145); TOTAL PROTEIN 6.6 g/dL (6.4-8.2); eGFR NON BLACK RACES > 60 (>60)
[2017-09-01] MEDS: FIORICET TAB PO PRN ×2 (05:55→19:20)
[2017-09-01] MEDS: NS 1000 ML 1,000 ML IV SCH ×3 (05:58→20:34)
[2017-09-01] MEDS ORDERED: LEXAPRO ONE (08:55)
[2017-09-01] MEDS: NORVASC TAB 5 MG PO SCH (09:52)
[2017-09-01] MEDS: LEXAPRO PO SCH ×2 (09:52→09:55)
[2017-09-01] MEDS: ZANTAC PO SCH ×2 (09:53→20:35)
[2017-09-01] MEDS: ASPIRIN PO SCH (09:53)
[2017-09-01] MEDS: ESTRACE PO SCH (09:53)
[2017-09-01] MEDS: PROTONIX TAB 40 MG PO SCH (09:53)
[2017-09-01] MEDS: XARELTO PO SCH ×2 (09:56→20:35)
[2017-09-01] MEDS: DESMOPRESSIN PO SCH ×2 (09:56→22:00)
[2017-09-01] MEDS: PLAVIX PO SCH (10:01)
[2017-09-01] MEDS: ZOFRAN INJ 4 MG VIAL IVP PRN (19:25)
--- NOTE | 2017-09-01 19:57 | PCM.PROG ---
Progress Note - Progress Note for Day of Date of Exam: 08/31/17 - Subjective Subjective: IS BEING TREATED FOR AN ACUTE CVA. TODAY, SHE IS ALERT AND ORIENTED, LYING IN BED ON MORNING ROUNDS. SHE DENIES COMPLAINTS THIS MORNING. SHE CONTINUES TO SHOW PROGRESS WITH SLIGHTLY MORE MOVEMENT TO RIGHT ARM AND LEG. HAND NURSE WOUND CARE IS SLIGHTLY STRONGER TODAY. ON EXAMINATION, HEART IS REGULAR IN RATE AND RHYTHM. BILATERAL LUNGS ARE CLEAR TO AUSCULTATION. ABDOMEN IS ROUND, SOFT, AND NON-TENDER WITH NORMAL BOWEL SOUNDS NOTED IN ALL QUADRANTS. HER VITALS TODAY ARE 97.6-62-12-95%-146/71. LABS WERE OBTAINED. SHE REMAINS HEMODYNAMICALLY STABLE TODAY. PHYSICAL THERAPY CONTINUES TO WORK WITH PATIENT AND REPORTS THAT PATIENT IS MAKING GOOD PROGRESS. [facility] IN [place], [place] HAS ACCEPTED PATIENT, PENDING PRECERT. WE WILL CONTINUE WITH PHYSICAL THERAPY AND CURRENT PLAN OF CARE TODAY. OTHERWISE, WE WILL FOLLOW UP WITH AM LABS AND CONTINUE TO MONITOR PATIENT. - Past Medical Family Social History Past Med/Fam/Surg Hx: No changes since H&P Allergies: Allergies No Known Drug Allergies Allergy (Verified 08/21/17 17:43) - Review of Systems ROS: No change since H&P - Vital Signs and I&O's Vital Signs: Temperature 98.1 F Pulse Rate [Right Brachial] 64 Pulse Rate [Left Brachial] 67 Pulse Rate 66 Respiratory Rate 20 Blood Pressure [Right Arm] 134/64 Blood Pressure [Left Arm] 141/60 Blood Pressure 182/87 O2 Sat by Pulse Oximetry 94 Intake and Output: Intake & Output 08/30/17 08/31/17 09/01/17 09/02/17 11:59 11:59 11:59 11:59 Intake Total 2570 / 2570 2605 / 2605 2160 / 2160 1260 / 1260 Output Total 2300 / 2300 2600 / 2600 Balance 270 / 270 5 / 5 2160 / 2160 1260 / 1260 - Physical Exam Oriented: Normal Eyes: Normal Ear: Normal Nose: Normal Throat: Normal Respiratory: Normal Cardiovascular: Normal : Normal Auscultation: Bowel Sounds: Normal Palpation: Normal Tenderness: Normal Skin: Normal Musculoskeletal: Right, Arm, Leg, Motor Deficit Psychiatric: Normal Mood Description: Calm Affect: Normal Speech Pattern: Clear, Appropriate - Laboratory and Diagnostics Result Diagrams: 09/01/17 04:30 07/18/18 04:30 Labs: Laboratory WBC 8.1 X10^3/uL (3.6-10.0) 09/01/17 04:30 RBC 3.75 X10^6/uL (3.5-5.4) 09/01/17 04:30 Hgb 12.2 g/dL (12.0-16.0) 09/01/17 04:30 Hct 35.3 % (36.0-47.0) L 09/01/17 04:30 MCV 94.2 fL (80.0-100.0) 09/01/17 04:30 MCH 32.5 pg (27.0-34.0) 09/01/17 04:30 MCHC 34.5 g/dL (33.0-35.0) 09/01/17 04:30 RDW 12.9 % (11.6-16.5) 09/01/17 04:30 Plt Count 237 X10^3/uL (150.0-450.0) 09/01/17 04:30 MPV 9.3 fL (7.4-11.0) 09/01/17 04:30 Neut % (Auto) 57.6 % (42.0-75.0) 09/01/17 04:30 Lymph % (Auto) 28.4 % (21.0-51.0) 09/01/17 04:30 Dane % (Auto) 11.2 % (0.0-13.0) 09/01/17 04:30 Eos % (Auto) 2.0 % (0.9-2.9) 09/01/17 04:30 Baso % (Auto) 0.8 % (0.2-1.0) 09/01/17 04:30 Neut # (Auto) 4.7 x10^3/uL (2.2-4.8) 09/01/17 04:30 Lymph # (Auto) 2.3 X10^3/uL (1.3-2.9) 09/01/17 04:30 Dane # (Auto) 0.9 x10^3/uL (0.3-0.8) H 09/01/17 04:30 Eos # (Auto) 0.2 x10^3/uL (0.0-0.2) 09/01/17 04:30 Baso # (Auto) 0.1 X10^3/uL (0.0-0.1) 09/01/17 04:30 Absolute Nucleated RBC 0.0 /100WBC 09/01/17 04:30 INR Target Range - 08/21/17 16:48 INR 0.93 (0.8-1.3) 08/21/17 16:48 APTT 23.1 SECONDS (22.9-36.5) 08/21/17 16:48 PTT Comment - 08/21/17 16:48 Fibrinogen 261 mg/dL (239-489) 08/21/17 19:35 Sodium 137 mmol/L (136-145) 09/01/17 04:30 Corrected Sodium TNP 09/01/17 04:30 Potassium 4.0 mmol/L (3.5-5.1) 09/01/17 04:30 Chloride 105 mmol/L (98-107) 09/01/17 04:30 Carbon Dioxide 27.9 mmol/L (21-32) 09/01/17 04:30 BUN 12 mg/dL (7-18) 09/01/17 04:30 Creatinine 0.77 mg/dL (0.55-1.02) 09/01/17 04:30 Est GFR (MDRD) Af Amer > 60 (>60) 09/01/17 04:30 Est GFR (MDRD) Non-Af > 60 (>60) 09/01/17 04:30 Glucose 91 mg/dL (65-99) 09/01/17 04:30 Calcium 8.3 mg/dL (8.5-10.1) L 09/01/17 04:30 Corrected Calcium 9.1 mg/dL (8.5-10.1) 09/01/17 04:30 Magnesium 2.1 mg/dL (1.7-2.9) 08/30/17 05:15 Total Bilirubin 0.20 mg/dL (0.2-1.0) 09/01/17 04:30 AST 24 Units/L (15-37) 09/01/17 04:30 ALT 30 Units/L (12-78) 09/01/17 04:30 Alkaline Phosphatase 84 Units/L (46-116) 09/01/17 04:30 Creatine Kinase 53 Units/L (26-192) 08/22/17 07:32 CK-MB (CK-2) 0.6 ng/mL (0-4.0) 08/22/17 07:32 CK/CKMB % Calc 1.1 % (<4) 08/22/17 07:32 Troponin I < 0.02 ng/mL (0-1.5) 08/22/17 07:32 Total Protein 6.6 g/dL (6.4-8.2) 09/01/17 04:30 Albumin 3.0 g/dL (3.4-5.0) L 09/01/17 04:30 Globulin 3.6 g/dL (2.5-4.5) 09/01/17 04:30 Albumin/Globulin Ratio 0.8 Ratio (1.1-2.1) L 09/01/17 04:30 Triglycerides 219 mg/dL (0-150) H 08/22/17 07:32 Cholesterol 277 mg/dL (0-200) H 08/22/17 07:32 LDL Cholesterol, Calc 204 mg/dL (0-100) H 08/22/17 07:32 HDL Cholesterol 29 mg/dL (40-60) L 08/22/17 07:32 Cholesterol/HDL Ratio 9.6 (0.0-5.0) H 08/22/17 07:32 Specimen Type Clean catch urine 08/25/17 09:43 Urine Color Yellow (YELLOW) 08/25/17 09:43 Urine Appearance Clear (CLEAR) 08/25/17 09:43 Urine pH 7.0 (5.0 - 8.0) 08/25/17 09:43 Ur Specific [place] 1.010 (1.000-1.030) 08/25/17 09:43 Urine Protein Negative (NEGATIVE) 08/25/17 09:43 Urine Glucose (UA) Negative (NEGATIVE) 08/25/17 09:43 Urine Ketones Negative (NEGATIVE) 08/25/17 09:43 Urine Occult Blood 1+ (NEGATIVE) 08/25/17 09:43 Urine Nitrite Negative (NEGATIVE) 08/25/17 09:43 Urine Bilirubin Negative (NEGATIVE) 08/25/17 09:43 Urine Urobilinogen Normal (NORMAL) 08/25/17 09:43 Ur Leukocyte Esterase Negative (NEGATIVE) 08/25/17 09:43 Urine RBC 3-5 /HPF (NONE SEEN) 08/25/17 09:43 Urine WBC 0-2 /HPF (NONE SEEN) 08/25/17 09:43 Ur Squamous Epith Cells Few /HPF (NEGATIVE) 08/25/17 09:43 Urine Bacteria Trace /HPF (NEGATIVE) 08/25/17 09:43 Ur Culture Indicated? No/not indicated 08/25/17 09:43 - Plan (1) Acute CVA (cerebrovascular accident) Status: Acute Plan: Neuro checks, XARELTO 15MG PO BID, ASPIRIN, PLAVIX, CONTINUE TO MONITOR (2) Right hemiparesis Status: Acute Plan: Neuro checks, PT (3) Hypertension Status: Chronic Qualifiers: Hypertension type: essential hypertension Qualified Code(s): I10 - Essential (primary) hypertension Plan: Monitor BP, CONTINUE HOME MEDS, START AMLODIPINE 5MG PO DAILY.
[2017-09-01] MEDS: CRESTOR TAB 10 MG PO SCH (20:34)
[2017-09-01] MEDS: COLACE CAP 100 MG PO SCH (20:35)
[2017-09-01] MEDS: LIORESAL PO SCH (20:35)
[2017-09-02] MEDS: FIORICET TAB PO PRN ×3 (01:59→16:13)
[2017-09-02] MEDS: ULTRAM PO PRN (05:09)
[2017-09-02 05:22] LABS: BASOPHILS # (AUTO) 0.1 X10^3/uL (0.0-0.1); BASOPHILS % (AUTO) 0.9 % (0.2-1.0); EOSINOPHILS # (AUTO) 0.2 x10^3/uL (0.0-0.2); EOSINOPHILS % (AUTO) 2.2 % (0.9-2.9); HEMATOCRIT 35.3 % (36.0-47.0); HEMOGLOBIN 12.3 g/dL (12.0-16.0); LYMPHOCYTES % (AUTO) 24.1 % (21.0-51.0); MEAN CORPUSCULAR HEMOGLOBIN 32.7 pg (27.0-34.0); MEAN CORPUSCULAR HGB CONC 34.9 g/dL (33.0-35.0); MEAN CORPUSCULAR VOLUME 93.8 fL (80.0-100.0); MEAN PLATELET VOLUME 9.5 fL (7.4-11.0); MONOCYTES # (AUTO) 0.8 x10^3/uL (0.3-0.8); MONOCYTES % (AUTO) 9.6 % (0.0-13.0); NEUTROPHILS # (AUTO) 5.3 x10^3/uL (2.2-4.8); NEUTROPHILS % (AUTO) 63.2 % (42.0-75.0); PLATELET COUNT 240 X10^3/uL (150.0-450.0); RED BLOOD COUNT 3.77 X10^6/uL (3.5-5.4); RED CELL DISTRIBUTION WIDTH 12.8 % (11.6-16.5); WHITE BLOOD COUNT 8.4 X10^3/uL (3.6-10.0)
[2017-09-02 05:29] LABS: ALANINE AMINOTRANSFERASE 25 Units/L (12-78); ALBUMIN 3.1 g/dL (3.4-5.0); ALKALINE PHOSPHATASE 76 Units/L (46-116); ASPARTATE AMINO TRANSFERASE 18 Units/L (15-37); BLOOD UREA NITROGEN 9 mg/dL (7-18); CALCIUM 8.4 mg/dL (8.5-10.1); CARBON DIOXIDE 24.7 mmol/L (21-32); CHLORIDE 104 mmol/L (98-107); COR CA(FOR HYPOALB) 9.1 mg/dL (8.5-10.1); CREATININE 0.76 mg/dL (0.55-1.02); SODIUM 137 mmol/L (136-145); TOTAL PROTEIN 6.7 g/dL (6.4-8.2); eGFR NON BLACK RACES > 60 (>60)
[2017-09-02] MEDS ORDERED: LEXAPRO ONE (08:41)
[2017-09-02] MEDS: XARELTO PO SCH (08:43)
[2017-09-02] MEDS: NORVASC TAB 5 MG PO SCH (08:43)
[2017-09-02] MEDS: PROTONIX TAB 40 MG PO SCH (08:43)
[2017-09-02] MEDS: ESTRACE PO SCH (08:43)
[2017-09-02] MEDS: ZANTAC PO SCH (08:43)
[2017-09-02] MEDS: LEXAPRO PO SCH ×2 (08:43→08:45)
[2017-09-02] MEDS: ASPIRIN PO SCH (08:43)
[2017-09-02] MEDS: PLAVIX PO SCH (08:44)
[2017-09-02] MEDS: DESMOPRESSIN PO SCH ×2 (08:44→09:38)
[2017-09-02 16:35] VITALS: BP 116/60
--- NOTE | 2017-09-08 11:07 | DR.CARTERD ---
- Discharge Summary for: Discharge Summary for Date of:: 09/02/17 - Admission Date Date of Admission: 08/21/17 - Admission Diagnoses Admission Diagnosis: (1) Acute CVA (cerebrovascular accident) (2) Right hemiparesis (3) Headache (4) Multiple sclerosis (5) Hypertension - Discharge Date Discharge Date: 09/02/17 - Discharge Diagnoses Discharge Diagnosis: (1) Acute CVA (cerebrovascular accident) (2) Right hemiparesis (3) Headache (4) Multiple sclerosis (5) Hypertension - Hospital Course Hospital Course: DAY ONE, MS. ALVAREZ PRESENTED TO THE EMERGENCY ROOM WITH COMPLAINTS OF RIGHT SIDED WEAKNESS. PATIENT REPORTED SYMPTOMS STARTED OVERNIGHT. PATIENT'S CAREGIVER STATED SHE HAD BEEN TALKING OUT OF HER HEAD AND WAS TAKEN TO THE [facility] EMERGENCY ROOM WITH COMPLAINTS OF SEVERE HEADACHE AND DISCHARGED HOME. SPOUSE REPORTED SYMPTOMS WORSENED AFTER RETURNING HOME AND PRESENTED TO OUR EMERGENCY ROOM WITH NEW ONSET RIGHT SIDED WEAKNESS ALONG WITH HEADACHE. UPON NEURO EXAM PATIENT NOTED WITH MOTOR SENSORY DEFICIT TO RIGHT LEG. PATIENT REPORTED SEVERE HEADACHE AND HAD RECEIVED MORPHINE SULFATE 2MG IV X2. CT OF HEAD OBTAINED WHICH REVEALED NO ACUTE INTRACRANIAL PROCESS. 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 PATIENT STARTED ON IV FLUIDS ALSO. WE CONTINUED TO MONITOR. DAY TWO, PATIENT CONTINUED TREATMENT FOR ACUTE CVA. PATIENT ALERT AND ANSWERED QUESTIONS APPROPRIATELY. SHE WAS UNABLE TO MOVE RIGHT ARM OR LEG. SHE WAS NOTED TO LIFT RIGHT RING FINGER. PATIENT COMPLAINED OF HEADACHE TO TOP OF HEAD AND BLURRED VISION. AND GRANDDAUGHTER PRESENT. ASKED NUMEROUS QUESTIONS REGARDING CAUSE AND PROGNOSIS. PATIENT STATED THAT SHE LOST CONTROL OF HER RIGHT ARM AND IT WAS "JUST HANGING." SHE DENIED DYSPHAGIA. GRANDDAUGHTER CAME TO DESK ASKING IF HAND COULD MOVE UNINTENTIONALLY. GRANDDAUGHTER STATED EARLIER, PATIENT WAS ABLE TO PICK TAPE OF HER LEFT FINGERS USING HER RIGHT HAND. PATIENT ADMITTED TO HISTORY OF PSYCH ISSUES. SHE DID NOT KNOW DIAGNOSIS OTHER THAN DEPRESSION. GRANDDAUGHTER STATED THAT PATIENT WAS NORMALLY VERY ACTIVE WITH A KENNEL. DAY THREE, SHE WAS ALERT AND ORIENTED, SITTING UP IN BED ON MORNING ROUNDS. SHE COMPLAINED OF RIGHT SIDED WEAKNESS. SHE REPORTED THAT SHE WAS UNABLE TO MOVE HER RIGHT ARM OR LEG. SHE DID SLIGHTLY MOVE HER FINGERS ON THE RIGHT HAND. NO SPEECH DEFICITS OR DYSPHAGIA NOTED. ON EXAMINATION, HEART WAS REGULAR IN RATE AND RHYTHM. BILATERAL LUNGS WERE CLEAR TO AUSCULTATION. ABDOMEN WAS ROUND, SOFT , AND NON-TENDER WITH NORMAL BOWEL SOUNDS NOTED IN ALL QUADRANTS. HER VITALS WERE 97.4-60-17-95%-174/76. LABS NORMAL. CARDIAC ENZYMES AND EKGS WITHIN NORMAL LIMITS. FASTING LIPID PANEL REVEALED TRIGLYCERIDES 219, CHOLESTEROL 277, LDL 204 , HDL 29, CHOLESTEROL 9.6. SHE WAS STARTED ON ZOCOR THE DAY BEFORE. WE DISCONTINUED THE ZOCOR AND STARTED CRESTOR 20MG PO AT BEDTIME. WE CONTINUE TO MONITOR NEURO CHECKS. DAY FOUR, A BRAIN MRI WAS OBTAINED AND REVEALED: IMAGING OF THE BRAIN DEMONSTRATES FOCAL RESTRICTED DIFFUSION WITHIN THE POSTERIOR LIMB OF THE LEFT INTERNAL CAPSULE, CONSISTENT WITH ACUTE TO EARLY SUBACUTE INFARCT; SMALL ACUTE TO EARLY SUBACUTE INFARCTS ARE ALSO IDENTIFIED SCATTERED WITHIN THE LEFT OCCIPITAL LOBE; THERE WAS ALSO AN ACUTE TO EARLY SUBACUTE INFARCT PRESENT MEDIAL TO THE OCCIPITAL AND TEMPORAL HORNS OF THE LEFT LATERAL VENTRICLE. PATIENT WAS LYING IN BED WITH EYES CLOSED ON MORNING ROUNDS. SHE WAS DIFFICULT TO AROUSE, BUT MOANED TO PAINFUL STIMULI. SPOUSE REPORTED THAT SHE WAS SHOWING SIGNS OF IMPROVEMENT THE DAY BEFORE AND WAS ABLE TO TRANSFER TO THE BEDSIDE COMMODE AND PLACED WEIGHT ON HER RIGHT LEG WITH ASSISTANCE. HOWEVER, HE REPORTED THAT FOR THE PAST FEW HOURS, SHE HAD BEEN DROWSY AND WOULDN'T WAKE UP. ON EXAMINATION, HEART WAS REGULAR IN RATE AND RHYTHM. BILATERAL LUNGS WERE CLEAR TO AUSCULTATION. ABDOMEN WAS ROUND, SOFT, AND NON-TENDER WITH NORMAL BOWEL SOUNDS NOTED IN ALL QUADRANTS. HER VITALS WERE 97.5-66-20-97%-137/61. LABS WERE OBTAINED. ABNORMAL LAB VALUES INCLUDED THE FOLLOWING: HCT 35.9, SODIUM 133, POTASSIUM 3.2, CALCIUM 8.0, ALBUMIN 2.8. WE STARTED XARELTO 10MG PO BID AND PERFORMED NEURO CHECKS EVERY TWO HOURS. DAY FIVE, CONTINUED TREATMENT FOR AN ACUTE CVA. PATIENTS SPOUSE REPORTED THAT SHE HAD A GOOD DAY THE DAY BEFORE AND WAS ABLE TO PUT WEIGHT ON RIGHT LEG AND ARM, BUT REPORTED THAT SHE WENT TO SLEEP AND WAS DIFFICULT TO AROUSE. ON EXAMINATION, HEART WAS REGULAR IN RATE AND RHYTHM. BILATERAL LUNGS WERE CLEAR TO AUSCULTATION. ABDOMEN WAS ROUND, SOFT, AND NON-TENDER WITH NORMAL BOWEL SOUNDS NOTED IN ALL QUADRANTS. HER VITALS WERE 97.5-50-13-96%-179/77. LABS WERE OBTAINED. ABNORMAL LAB VALUES INCLUDED THE FOLLOWING: HCT 35.1, SODIUM 124, CHLORIDE 93, CALCIUM 7.8, ALBUMIN 2.9. AN ECHO WAS OBTAINED AND REVEALED AN EJECTION FRACTION OF 73%. PHYSICAL THERAPY REPORTED THAT PATIENT REQUIRED EXTENSIVE ASSISTANCE WITH FUNCTIONAL MOBILITY TASKS. SPOUSE REQUESTED THAT PATIENT RECEIVE EXTENDED PHYSICAL THERAPY IN [place], [place] AFTER DISCHARGE. WE DISCUSSED THIS WITH CASE MANAGEMENT. WE CONTINUED WITH PHYSICAL THERAPY AND TREATMENT. DAY SIX, PATIENTS CONDITION REMAINED UNCHANGED. SHE WAS DROWSY AND DID NOT OPTICAL FABRICATOR HANDS WHEN INSTRUCTED TO. SHE DID MOAN TO PAINFUL STIMULI. ON EXAMINATION, HEART WAS REGULAR IN RATE AND RHYTHM. BILATERAL LUNGS WERE CLEAR TO AUSCULTATION. ABDOMEN WAS ROUND, SOFT, AND NON-TENDER WITH NORMAL BOWEL SOUNDS NOTED IN ALL QUADRANTS. HER VITALS WERE 97.2-61-22-98%-165/70. LABS NORMAL. PHYSICAL THERAPY REPORTED THAT PATIENT CONTINUED TO REQUIRE EXTENSIVE ASSISTANCE WITH FUNCTIONAL MOBILITY TASKS. WE CONTINUED WITH PHYSICAL THERAPY AND TREATMENT. DAY SEVEN, SHE WAS MORE ALERT THAN SHE HAD BEEN. SHE WAS SHOWING SLIGHT IMPROVEMENT WITH STRENGTH TO RIGHT HAND. SHE WAS ABLE TO SLIGHTLY OPTICAL FABRICATOR. ON EXAMINATION, HEART WAS REGULAR IN RATE AND RHYTHM. BILATERAL LUNGS WERE CLEAR TO AUSCULTATION. ABDOMEN WAS ROUND, SOFT, AND NON-TENDER WITH NORMAL BOWEL SOUNDS NOTED IN ALL QUADRANTS. HER VITALS WERE 98.2-60-19-97%-164/72. LABS NORMAL. A REPEAT BRAIN MRI WAS OBTAINED AND REVEALED: MULTIPLE SEQUENCES WERE DEGRADED BY MOTION; THERE ARE STABLE TO SLIGHTLY LESS CONSPICUOUS AREAS OF RESTRICTED DIFFUSION WITHIN THE LEFT THALAMUS, MEDIAL LEFT TEMPORAL LOBE, AND LEFT OCCIPITAL LOBE; THERE WAS NO NEW AREA OF ABNORMAL RESTRICTED DIFFUSION; THERE WAS EDEMA IN THESE REGIONS OF SUBACUTE INFARCT, WITHOUT EVIDENCE FOR ACUTE BLEED; THE MAJOR INTRACRANIAL FLOW VOIDS WERE NOTED; THE VENTRICLES WERE NOT SIGNIFICANTLY DILATED. PHYSICAL THERAPY REPORTED THAT PATIENT CONTINUED TO REQUIRE EXTENSIVE ASSISTANCE WITH FUNCTIONAL MOBILITY TASKS. WE CONTINUED WITH PHYSICAL THERAPY AND TREATMENT. WE ALSO STARTED AMLODIPINE 5MG PO DAILY FOR INCREASED BLOOD PRESSURE AND XARELTO 15MG PO BID. CASE MANAGEMENT WAS ARRANGING OPTIONS FOR PHYSICAL THERAPY FOLLOWING DISCHARGE. 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 ON EXAMINATION, HEART WAS REGULAR IN RATE AND RHYTHM. BILATERAL LUNGS WERE CLEAR TO AUSCULTATION. ABDOMEN WAS ROUND, SOFT, AND NON-TENDER WITH NORMAL BOWEL SOUNDS NOTED IN ALL QUADRANTS. HER VITALS WERE 97.6-53-12-98%-147/ 67. LABS NORMAL. PHYSICAL THERAPY CONTINUED TO WORK WITH PATIENT. SHE CONTINUED TO REQUIRE EXTENSIVE ASSISTANCE FOR ADLS. WE CONTINUE WITH TREATMENT AND CONTINUED TO MONITOR PATIENT. DAY NINE, ON MORNING ROUNDS, SHE WAS HOLDING HER PHONE AND OPERATING IT WITH THE RIGHT HAND. SHE CONTINUED TO REPORT ONLY MINIMAL MOVEMENT OF THE RIGHT LEG. ON EXAMINATION, HEART WAS REGULAR IN RATE AND RHYTHM. BILATERAL LUNGS WERE CLEAR TO AUSCULTATION. ABDOMEN WAS ROUND, SOFT, AND NON-TENDER WITH NORMAL BOWEL SOUNDS NOTED IN ALL QUADRANTS. HER VITALS WERE 97.5-73-27-96%-136/63. LABS NORMAL. PHYSICAL THERAPY CONTINUED TO WORK WITH PATIENT. WE CONTINUE TREATMENT AND CONTINUED TO MONITOR PATIENT. DAY TEN, SHE WAS ALERT AND ORIENTED, LYING IN BED ON MORNING ROUNDS. SHE DENIED COMPLAINTS. SHE CONTINUED WITH RIGHT SIDED WEAKNESS, BUT CONTINUED TO SHOW DAILY IMPROVEMENT. HAND OPTICAL FABRICATOR WAS SLIGHTLY STRONGER. ON EXAMINATION, HEART WAS REGULAR IN RATE AND RHYTHM. BILATERAL LUNGS WERE CLEAR TO AUSCULTATION. ABDOMEN WAS ROUND, SOFT, AND NON-TENDER WITH NORMAL BOWEL SOUNDS NOTED IN ALL QUADRANTS. HER VITALS WERE 97.2-69-20-95%-129/61. PHYSICAL THERAPY CONTINUED TO WORK WITH PATIENT AND REPORTED Pt requires frequent redirection to task at hand as well as to improve overall safety awareness. Pt exhibits narrow FRANCIA with standing and ambulation requiring VC/TC for increased FRANCIA to decrease fall risk. Noted increased quad contraction this date. Pt exhibits 3+/5 quads this date. Pt has no increased c/o during or after Rx. WE CONTINUED WITH PHYSICAL THERAPY. WE CONTINUED TO MONITOR PATIENT. DAY ELEVEN AND TWELVE, SHE WAS ALERT AND ORIENTED, LYING IN BED ON MORNING ROUNDS. SHE DENIED COMPLAINTS. SHE CONTINUED TO SHOW PROGRESS WITH SLIGHTLY MORE MOVEMENT TO RIGHT ARM AND LEG. HAND OPTICAL FABRICATOR WAS SLIGHTLY STRONGER. ON EXAMINATION, HEART WAS REGULAR IN RATE AND RHYTHM. BILATERAL LUNGS WERE CLEAR TO AUSCULTATION. ABDOMEN WAS ROUND, SOFT, AND NON-TENDER WITH NORMAL BOWEL SOUNDS NOTED IN ALL QUADRANTS. HER VITALS WERE 97.6-62-12-95%-146/71. PHYSICAL THERAPY CONTINUED TO WORK WITH PATIENT. PATIENT WAS MAKING GOOD PROGRESS. [facility] IN [place], [place] HAS ACCEPTED PATIENT, PENDING PRECERT. WE CONTINUED WITH PHYSICAL THERAPY. DAY THIRTEEN, PATIENT CONTINUED TO DO WELL WITH PHYSICAL THERAPY. PATIENT REPORTED SHE WAS FEELING WELL. VITAL SIGNS STABLE. LABS NORMAL. WE PLANNED FOR DISCHARGE. INSTRUCTIONS FOR MEDICATIONS AND FOLLOW UP WERE DISCUSSED WITH PATIENT AND FAMILY, BOTH VOICED UNDERSTANDING. PATIENT DISCHARGED TO [facility] IN [place], [place] IN STABLE CONDITION WITH EMS. - Discharge Medications Discharge Medications: Home Medication List desmopressin 1 tab PO BID 08/21/17 [History] ergocalciferol (vitamin D2) 1 tab PO WEEKLY 08/21/17 [History] escitalopram oxalate 1 tab PO DAILY 08/21/17 [History] estradiol 1 tab PO DAILY 08/21/17 [History] promethazine 1 tab PO Q4-6H PRN 08/21/17 [History] ranitidine HCl 1 tab PO BID 08/21/17 [History] aspirin 325 mg PO DAILY tab 09/02/17 [Rx] clopidogrel [Plavix] 75 mg PO DAILY tab 09/02/17 [Rx] docusate sodium 200 mg PO HS cap 09/02/17 [Rx] rivaroxaban [Xarelto] 15 mg PO BID tab 09/02/17 [Rx] rosuvastatin [Crestor] 20 mg PO HS tab 09/02/17 [Rx] Prescriptions: Home medications baclofen 1 tab PO HS 12/01/15 [id number] 1 tab PO Q4-6H PRN 12/01/15 pantoprazole [Protonix] 40 mg PO DAILY #30 tab 12/06/15 - Discharge Disposition Discharge Disposition: PATIENT IS TO FOLLOW UP IN OUR OFFICE IN ONE WEEK.
--- NOTE | 2017-10-28 19:27 | PCM.PROG ---
Progress Note - Progress Note for Day of Date of Exam: 09/01/17 - Subjective Subjective: IS BEING TREATED FOR AN ACUTE CVA. TODAY, SHE IS ALERT AND ORIENTED, LYING IN BED ON MORNING ROUNDS. SHE DENIES COMPLAINTS THIS MORNING. SHE CONTINUES TO SHOW PROGRESS WITH SLIGHTLY MORE MOVEMENT TO RIGHT ARM AND LEG. HAND SCIENCE LIAISON IS SLIGHTLY STRONGER TODAY. ON EXAMINATION, HEART IS REGULAR IN RATE AND RHYTHM. BILATERAL LUNGS ARE CLEAR TO AUSCULTATION. ABDOMEN IS ROUND, SOFT, AND NON-TENDER WITH NORMAL BOWEL SOUNDS NOTED IN ALL QUADRANTS. HER VITALS TODAY ARE 98.1-68-20-96%-134/64. LABS WERE OBTAINED. SHE REMAINS HEMODYNAMICALLY STABLE TODAY. PHYSICAL THERAPY CONTINUES TO WORK WITH PATIENT AND REPORTS THAT PATIENT IS MAKING GOOD PROGRESS. [facility] IN [place], [place] HAS ACCEPTED PATIENT, PENDING PRECERT. WE WILL CONTINUE WITH PHYSICAL THERAPY AND CURRENT PLAN OF CARE TODAY. OTHERWISE, WE WILL FOLLOW UP WITH AM LABS AND CONTINUE TO MONITOR PATIENT. - Past Medical Family Social History Past Med/Fam/Surg Hx: No changes since H&P Allergies: Allergies No Known Drug Allergies Allergy (Verified 10/25/17 16:57) - Review of Systems ROS: No change since H&P - Vital Signs and I&O's Vital Signs: Temperature 98.5 F Pulse Rate [Right Brachial] 61 Pulse Rate [Left Brachial] 63 Pulse Rate 66 Respiratory Rate 20 Blood Pressure [Right Arm] 116/60 Blood Pressure [Left Arm] 162/68 Blood Pressure 182/87 O2 Sat by Pulse Oximetry 98 - Physical Exam Oriented: Normal Eyes: Normal Ear: Normal Nose: Normal Throat: Normal Respiratory: Normal Cardiovascular: Normal : Normal Auscultation: Bowel Sounds: Normal Tenderness: Normal Skin: Normal Musculoskeletal: Right, Arm, Leg, Motor Deficit Psychiatric: Normal Mood Description: Calm Affect: Normal Speech Pattern: Clear, Appropriate - Laboratory and Diagnostics Result Diagrams: 09/02/17 04:30 09/02/17 04:30 Labs: Laboratory WBC 8.4 X10^3/uL (3.6-10.0) 09/02/17 04:30 RBC 3.77 X10^6/uL (3.5-5.4) 09/02/17 04:30 Hgb 12.3 g/dL (12.0-16.0) 09/02/17 04:30 Hct 35.3 % (36.0-47.0) L 09/02/17 04:30 MCV 93.8 fL (80.0-100.0) 09/02/17 04:30 MCH 32.7 pg (27.0-34.0) 09/02/17 04:30 MCHC 34.9 g/dL (33.0-35.0) 09/02/17 04:30 RDW 12.8 % (11.6-16.5) 09/02/17 04:30 Plt Count 240 X10^3/uL (150.0-450.0) 09/02/17 04:30 MPV 9.5 fL (7.4-11.0) 09/02/17 04:30 Neut % (Auto) 63.2 % (42.0-75.0) 09/02/17 04:30 Lymph % (Auto) 24.1 % (21.0-51.0) 09/02/17 04:30 [place] % (Auto) 9.6 % (0.0-13.0) 09/02/17 04:30 Eos % (Auto) 2.2 % (0.9-2.9) 09/02/17 04:30 Baso % (Auto) 0.9 % (0.2-1.0) 09/02/17 04:30 Neut # (Auto) 5.3 x10^3/uL (2.2-4.8) H 09/02/17 04:30 Lymph # (Auto) 2.0 X10^3/uL (1.3-2.9) 09/02/17 04:30 [place] # (Auto) 0.8 x10^3/uL (0.3-0.8) 09/02/17 04:30 Eos # (Auto) 0.2 x10^3/uL (0.0-0.2) 09/02/17 04:30 Baso # (Auto) 0.1 X10^3/uL (0.0-0.1) 09/02/17 04:30 Absolute Nucleated RBC 0.0 /100WBC 09/02/17 04:30 INR Target Range - 08/21/17 16:48 INR 0.93 (0.8-1.3) 08/21/17 16:48 APTT 23.1 SECONDS (22.9-36.5) 08/21/17 16:48 PTT Comment - 08/21/17 16:48 Fibrinogen 261 mg/dL (239-489) 08/21/17 19:35 Sodium 137 mmol/L (136-145) 09/02/17 04:30 Corrected Sodium TNP 09/02/17 04:30 Potassium 4.2 mmol/L (3.5-5.1) 09/02/17 04:30 Chloride 104 mmol/L (98-107) 09/02/17 04:30 Carbon Dioxide 24.7 mmol/L (21-32) 09/02/17 04:30 BUN 9 mg/dL (7-18) 09/02/17 04:30 Creatinine 0.76 mg/dL (0.55-1.02) 09/02/17 04:30 Est GFR (MDRD) Af Amer > 60 (>60) 09/02/17 04:30 Est GFR (MDRD) Non-Af > 60 (>60) 09/02/17 04:30 Glucose 102 mg/dL (65-99) H 09/02/17 04:30 Calcium 8.4 mg/dL (8.5-10.1) L 09/02/17 04:30 Corrected Calcium 9.1 mg/dL (8.5-10.1) 09/02/17 04:30 Magnesium 2.1 mg/dL (1.7-2.9) 08/30/17 05:15 Total Bilirubin 0.10 mg/dL (0.2-1.0) L 09/02/17 04:30 AST 18 Units/L (15-37) 09/02/17 04:30 ALT 25 Units/L (12-78) 09/02/17 04:30 Alkaline Phosphatase 76 Units/L (46-116) 09/02/17 04:30 Creatine Kinase 53 Units/L (26-192) 08/22/17 07:32 CK-MB (CK-2) 0.6 ng/mL (0-4.0) 08/22/17 07:32 CK/CKMB % Calc 1.1 % (<4) 08/22/17 07:32 Troponin I < 0.02 ng/mL (0-1.5) 08/22/17 07:32 Total Protein 6.7 g/dL (6.4-8.2) 09/02/17 04:30 Albumin 3.1 g/dL (3.4-5.0) L 09/02/17 04:30 Globulin 3.6 g/dL (2.5-4.5) 09/02/17 04:30 Albumin/Globulin Ratio 0.9 Ratio (1.1-2.1) L 09/02/17 04:30 Triglycerides 219 mg/dL (0-150) H 08/22/17 07:32 Cholesterol 277 mg/dL (0-200) H 08/22/17 07:32 LDL Cholesterol, Calc 204 mg/dL (0-100) H 08/22/17 07:32 HDL Cholesterol 29 mg/dL (40-60) L 08/22/17 07:32 Cholesterol/HDL Ratio 9.6 (0.0-5.0) H 08/22/17 07:32 Specimen Type Clean catch urine 08/25/17 09:43 Urine Color Yellow (YELLOW) 08/25/17 09:43 Urine Appearance Clear (CLEAR) 08/25/17 09:43 Urine pH 7.0 (5.0 - 8.0) 08/25/17 09:43 Ur Specific [place] 1.010 (1.000-1.030) 08/25/17 09:43 Urine Protein Negative (NEGATIVE) 08/25/17 09:43 Urine Glucose (UA) Negative (NEGATIVE) 08/25/17 09:43 Urine Ketones Negative (NEGATIVE) 08/25/17 09:43 Urine Occult Blood 1+ (NEGATIVE) 08/25/17 09:43 Urine Nitrite Negative (NEGATIVE) 08/25/17 09:43 Urine Bilirubin Negative (NEGATIVE) 08/25/17 09:43 Urine Urobilinogen Normal (NORMAL) 08/25/17 09:43 Ur Leukocyte Esterase Negative (NEGATIVE) 08/25/17 09:43 Urine RBC 3-5 /HPF (NONE SEEN) 08/25/17 09:43 Urine WBC 0-2 /HPF (NONE SEEN) 08/25/17 09:43 Ur Squamous Epith Cells Few /HPF (NEGATIVE) 08/25/17 09:43 Urine Bacteria Trace /HPF (NEGATIVE) 08/25/17 09:43 Ur Culture Indicated? No/not indicated 08/25/17 09:43 - Plan (1) Acute CVA (cerebrovascular accident) Status: Acute Plan: Neuro checks, XARELTO 15MG PO BID, ASPIRIN, PLAVIX, CONTINUE TO MONITOR (2) Right hemiparesis Status: Acute Plan: Neuro checks, PT (3) Hypertension Status: Chronic Qualifiers: Hypertension type: essential hypertension Qualified Code(s): I10 - Essential (primary) hypertension Plan: Monitor BP, CONTINUE HOME MEDS, START AMLODIPINE 5MG PO DAILY.
== END 2017-09-02 18:27 | DRG 65 ==
LOC: ICU 15:46 → ER 15:46 → ICU 19:47 → MED/SURG 08-31 14:18
PROVIDERS: ADMIT Internal Medicine; ATTEND Internal Medicine
DX: G81.91 Hemiplegia, unspecified affecting right dominant side; R42 Dizziness and giddiness; I63.8 Other cerebral infarction; R13.11 Dysphagia, oral phase; G35 Multiple sclerosis; R94.31 Abnormal electrocardiogram [ECG] [EKG]; E78.2 Mixed hyperlipidemia; M79.7 Fibromyalgia; R53.1 Weakness; I10 Essential (primary) hypertension; R51 Headache
CPT/HCPCS: 36415; 70450; 70547; 70551; 71010; 71045; 80053; 80061; 81001; 81003; 82550; 82553; 83735; 84484; 85025; 85384; 85610; 85730; 92507; 92523; 93005; 93010; 93306; 96365; 97110; 97112; 97116; 97163; 97167; 97530; 97535; 99218; 99284; A4216; A4222; C9113; Q0169; Q0177; G0378; J2270; J2405; J3480; J7030; J8499

== ENCOUNTER 2018-01-31 14:57 | Observation (INO) ==
[2018-01-31 18:34] LABS: BASOPHILS # (AUTO) 0.1 X10^3/uL (0.0-0.1); BASOPHILS % (AUTO) 0.9 % (0.2-1.0); EOSINOPHILS # (AUTO) 0.2 x10^3/uL (0.0-0.2); EOSINOPHILS % (AUTO) 2.5 % (0.9-2.9); HEMATOCRIT 39.1 % (36.0-47.0); HEMOGLOBIN 13.4 g/dL (12.0-16.0); LYMPHOCYTES # (AUTO) 2.3 X10^3/uL (1.3-2.9); LYMPHOCYTES % (AUTO) 31.7 % (21.0-51.0); MEAN CORPUSCULAR HGB CONC 34.4 g/dL (33.0-35.0); MEAN CORPUSCULAR VOLUME 92.9 fL (80.0-100.0); MEAN PLATELET VOLUME 8.9 fL (7.4-11.0); MONOCYTES # (AUTO) 0.8 x10^3/uL (0.3-0.8); MONOCYTES % (AUTO) 11.3 % (0.0-13.0); NEUTROPHILS # (AUTO) 3.8 x10^3/uL (2.2-4.8); NEUTROPHILS % (AUTO) 53.6 % (42.0-75.0); PLATELET COUNT 248 X10^3/uL (150.0-450.0); RED CELL DISTRIBUTION WIDTH 12.9 % (11.6-16.5); WHITE BLOOD COUNT 7.1 X10^3/uL (3.6-10.0)
[2018-01-31 19:00] LABS: ALANINE AMINOTRANSFERASE 38 Units/L (12-78); ALBUMIN 3.9 g/dL (3.4-5.0); ALKALINE PHOSPHATASE 91 Units/L (46-116); ASPARTATE AMINO TRANSFERASE 29 Units/L (15-37); BLOOD UREA NITROGEN 14 mg/dL (7-18); CALCIUM 9.3 mg/dL (8.5-10.1); CARBON DIOXIDE 24.9 mmol/L (21-32); CHLORIDE 108 mmol/L (98-107); CKMB % 1.3 % (<4); CREATINE KINASE 77 Units/L (26-192); CREATINE KINASE MB < 1.0 ng/mL (0-4.0); CREATININE 1.01 mg/dL (0.55-1.02); SODIUM 143 mmol/L (136-145); TROPONIN I < 0.02 ng/mL (0-1.5); eGFR NON BLACK RACES 58 (>60)
[2018-01-31] MEDS: NORCO 5/325 MG TAB PO PRN (19:57)
[2018-01-31] MEDS: NS 1000 ML 1,000 ML IV SCH (21:46)
[2018-01-31 22:37] LABS: CKMB % 1.4 % (<4); CREATINE KINASE 72 Units/L (26-192); CREATINE KINASE MB < 1.0 ng/mL (0-4.0); TROPONIN I < 0.02 ng/mL (0-1.5)
--- NOTE | 2018-01-31 22:53 | RAD ---
HISTORY: Shortness of breath, cough Study: Single-view of the chest Comparison: August 30, 2017 Findings: The patient is rotated. The cardiac silhouette is unremarkable. Mild interstitial changes are again seen within both lungs predominantly the lower lobes similar to prior exam. No evidence of focal consolidation is appreciated. IMPRESSION: 1. No acute cardiopulmonary disease. Reported By:
[2018-01-31 23:38] VITALS: BMI 25.2
[2018-02-01] MEDS: NORCO 5/325 MG TAB PO PRN ×4 (02:58→23:41)
[2018-02-01 03:15] LABS: CKMB % 1.7 % (<4); CREATINE KINASE 58 Units/L (26-192); CREATINE KINASE MB < 1.0 ng/mL (0-4.0); TROPONIN I < 0.02 ng/mL (0-1.5)
[2018-02-01 06:14] LABS: BASOPHILS # (AUTO) 0.1 X10^3/uL (0.0-0.1); BASOPHILS % (AUTO) 1.1 % (0.2-1.0); EOSINOPHILS # (AUTO) 0.2 x10^3/uL (0.0-0.2); EOSINOPHILS % (AUTO) 3.7 % (0.9-2.9); HEMATOCRIT 36.2 % (36.0-47.0); HEMOGLOBIN 12.3 g/dL (12.0-16.0); LYMPHOCYTES # (AUTO) 2.4 X10^3/uL (1.3-2.9); LYMPHOCYTES % (AUTO) 47.7 % (21.0-51.0); MEAN CORPUSCULAR HEMOGLOBIN 31.5 pg (27.0-34.0); MEAN CORPUSCULAR VOLUME 92.6 fL (80.0-100.0); MEAN PLATELET VOLUME 8.9 fL (7.4-11.0); MONOCYTES # (AUTO) 0.6 x10^3/uL (0.3-0.8); MONOCYTES % (AUTO) 11.1 % (0.0-13.0); NEUTROPHILS # (AUTO) 1.9 x10^3/uL (2.2-4.8); NEUTROPHILS % (AUTO) 36.4 % (42.0-75.0); PLATELET COUNT 217 X10^3/uL (150.0-450.0); RED BLOOD COUNT 3.92 X10^6/uL (3.5-5.4); RED CELL DISTRIBUTION WIDTH 13.1 % (11.6-16.5); WHITE BLOOD COUNT 5.1 X10^3/uL (3.6-10.0)
[2018-02-01 06:20] LABS: ALANINE AMINOTRANSFERASE 32 Units/L (12-78); ALBUMIN 3.2 g/dL (3.4-5.0); ALKALINE PHOSPHATASE 80 Units/L (46-116); ASPARTATE AMINO TRANSFERASE 22 Units/L (15-37); BLOOD UREA NITROGEN 13 mg/dL (7-18); CALCIUM 8.7 mg/dL (8.5-10.1); CARBON DIOXIDE 25.7 mmol/L (21-32); CHLORIDE 108 mmol/L (98-107); COR CA(FOR HYPOALB) 9.3 mg/dL (8.5-10.1); CREATININE 0.86 mg/dL (0.55-1.02); SODIUM 142 mmol/L (136-145); TOTAL PROTEIN 6.8 g/dL (6.4-8.2); eGFR NON BLACK RACES > 60 (>60)
[2018-02-01] MEDS ORDERED: POTASSIUM CHL 40 MEQ/NS 0.45% 500 ML IV PRN (10:08)
[2018-02-01] MEDS ORDERED: K-RIDER 10 MEQ/NS 100 ML 10 MEQ/100 ML BAG IV PRN (10:08)
[2018-02-01] MEDS ORDERED: KLOR-CON PO PRN (10:08)
[2018-02-01] MEDS ORDERED: MICRO K EXTEN CAP 10 MEQ PO PRN (10:08)
[2018-02-01] MEDS ORDERED: POTASSIUM CHLORIDE LIQ 20 MEQ UDC PO PRN (10:08)
[2018-02-01] MEDS ORDERED: K-DUR TAB 20 MEQ PO PRN (10:08)
[2018-02-01] MEDS ORDERED: POTASSIUM CHL 60 MEQ/NS 0.45% 500 ML IV PRN (10:08)
[2018-02-01] MEDS ORDERED: MAGNESIUM SULFATE 1 GRAM/100 mL PREMIX 1 GM/100 ML BAG IV PRN (10:09)
[2018-02-01] MEDS: NS 1000 ML 1,000 ML IV SCH ×2 (10:44→22:24)
[2018-02-01] MEDS ORDERED: LEXAPRO ONE (11:30)
[2018-02-01] MEDS: XARELTO PO SCH ×2 (11:32→21:05)
[2018-02-01] MEDS: ZANTAC PO SCH ×2 (11:32→21:04)
[2018-02-01] MEDS: LEXAPRO PO SCH (11:32)
[2018-02-01] MEDS: FIORICET TAB PO PRN ×2 (13:50→19:08)
[2018-02-01] MEDS ORDERED: ASPIRIN EC 81 MG PO SCH (21:00)
[2018-02-01] MEDS ORDERED: CRESTOR TAB 10 MG PO SCH (21:00)
[2018-02-01] MEDS ORDERED: LIORESAL PO SCH (21:00)
[2018-02-01] MEDS ORDERED: DESMOPRESSIN 0.1 MG PO SCH (21:00)
[2018-02-01] MEDS ORDERED: PROTONIX TAB 40 MG PO SCH (21:00)
[2018-02-01] MEDS: ANTIVERT TAB 25 MG PO PRN (21:15)
[2018-02-02] MEDS: FIORICET TAB PO PRN ×2 (05:02→08:24)
[2018-02-02 05:20] LABS: BASOPHILS # (AUTO) 0.1 X10^3/uL (0.0-0.1); BASOPHILS % (AUTO) 1.4 % (0.2-1.0); EOSINOPHILS # (AUTO) 0.2 x10^3/uL (0.0-0.2); EOSINOPHILS % (AUTO) 3.3 % (0.9-2.9); HEMATOCRIT 39.4 % (36.0-47.0); HEMOGLOBIN 13.3 g/dL (12.0-16.0); LYMPHOCYTES # (AUTO) 2.5 X10^3/uL (1.3-2.9); LYMPHOCYTES % (AUTO) 44.7 % (21.0-51.0); MEAN CORPUSCULAR HEMOGLOBIN 31.8 pg (27.0-34.0); MEAN CORPUSCULAR HGB CONC 33.6 g/dL (33.0-35.0); MEAN CORPUSCULAR VOLUME 94.4 fL (80.0-100.0); MEAN PLATELET VOLUME 9.3 fL (7.4-11.0); MONOCYTES # (AUTO) 0.5 x10^3/uL (0.3-0.8); MONOCYTES % (AUTO) 9.8 % (0.0-13.0); NEUTROPHILS # (AUTO) 2.3 x10^3/uL (2.2-4.8); NEUTROPHILS % (AUTO) 40.8 % (42.0-75.0); PLATELET COUNT 215 X10^3/uL (150.0-450.0); RED BLOOD COUNT 4.17 X10^6/uL (3.5-5.4); RED CELL DISTRIBUTION WIDTH 13.1 % (11.6-16.5); WHITE BLOOD COUNT 5.6 X10^3/uL (3.6-10.0)
[2018-02-02 05:21] LABS: ALANINE AMINOTRANSFERASE 30 Units/L (12-78); ALBUMIN 3.4 g/dL (3.4-5.0); ALKALINE PHOSPHATASE 90 Units/L (46-116); ASPARTATE AMINO TRANSFERASE 19 Units/L (15-37); BLOOD UREA NITROGEN 15 mg/dL (7-18); CALCIUM 8.7 mg/dL (8.5-10.1); CARBON DIOXIDE 26.6 mmol/L (21-32); CHLORIDE 109 mmol/L (98-107); MAGNESIUM 2.2 mg/dL (1.7-2.9); SODIUM 144 mmol/L (136-145); TOTAL PROTEIN 7.2 g/dL (6.4-8.2); eGFR NON BLACK RACES > 60 (>60)
[2018-02-02] MEDS ORDERED: LEXAPRO ONE (08:11)
[2018-02-02] MEDS: ZANTAC PO SCH (08:22)
[2018-02-02] MEDS: XARELTO PO SCH (08:22)
[2018-02-02] MEDS: LEXAPRO PO SCH (08:22)
[2018-02-02] MEDS: ANTIVERT TAB 25 MG PO PRN (11:17)
[2018-02-02] MEDS: NORCO 5/325 MG TAB PO PRN (11:24)
--- NOTE | 2018-02-02 12:09 | CT ---
HISTORY: Severe headache, history of CVA Study: CT brain without contrast Comparison: 08/26/2017 Technique: Multiple axial images of the brain were obtained from the skull base to the vertex without administration of IV contrast. Findings: Imaging of the brain demonstrates no intracranial hemorrhage, mass effect, or midline shift. No extra-axial fluid collection is identified. There is no CT evidence to suggest acute or early subacute infarct. Prior remote small infarct is identified within the posterior limb of the left internal capsule. There is mild global atrophy. The ventricular system is nondilated. The basilar cisterns are patent. The bony structures are intact. IMPRESSION: 1. No acute intracranial process evident. 2. Prior remote infarct involving the posterior limb of the left internal capsule. Reported By:
[2018-02-02] MEDS ORDERED: TYLENOL 325 MG TAB PO PRN (12:43)
[2018-02-02 12:52] VITALS: BP 152/70
[2018-02-03] MEDS ORDERED: XARELTO PO SCH (09:00)
--- NOTE | 2018-02-15 22:36 | PCM.PROG ---
Progress Note - Progress Note for Day of Date of Exam: 02/01/18 - Subjective Subjective: WAS ADMITTED FOR CHEST PAIN, SHORTNESS OF BREATH, AND FATIGUE. TODAY, SHE IS ALERT AND ORIENTED, LYING IN BED ON MORNING ROUNDS. SHE CONTINUES WITH COMPLAINTS OF SHORTNESS OF BREATH AND WEAKNESS. SHE ALSO REPORTS A HEADACHE TODAY. ON EXAMINATION, HEART IS REGULAR IN RHYTHM, SHE IS SLIGHTLY BRADYCARDIC. BILATERAL LUNGS ARE NOTED WITH DIMINISHED LUNG SOUNDS THROUGHOUT. ABDOMEN IS ROUND, SOFT, AND NON-TENDER WITH NORMAL BOWEL SOUNDS NOTED IN ALL QUADRANTS. HER VITALS THIS MORNING ARE 97.4-52-20-97%-129/59. LABS WERE OBTAINED. ABNORMAL LAB VALUES INCLUDE THE FOLLOWING: CHLORIDE 108, ALBUMIN 3.2. CARDIAC ENZYMES HAVE BEEN WITHIN NORMAL LIMITS. MOST RECENT EKG REVEALS SINUS BRADYCARDIA WITH HR 46. WE OBTAINED HER MOST RECENT ECHO FROM THE OFFICE TODAY. IT REVEALED AN EJECTION FRACTION OF 73%. MITRAL VALVE THICKENED WITH A TRACE OF MITRAL REGURGITATION. MILD PULMONARY HTN. TODAY, WE WILL CONTINUE WITH CURRENT PLAN OF CARE AND CONTINUE TO MONITOR. OTHERWISE, WE WILL FOLLOW UP WITH AM LABS AND CONTINUE TO MONITOR. - Past Medical Family Social History Past Med/Fam/Surg Hx: No changes since H&P Allergies: Allergies No Known Drug Allergies Allergy (Verified 10/25/17 16:57) - Review of Systems ROS: No change since H&P - Vital Signs and I&O's Vital Signs: Temperature 98.0 F Pulse Rate [Left Radial] 53 Respiratory Rate 20 Blood Pressure [Right Arm] 174/73 Blood Pressure [Left Arm] 152/70 Blood Pressure 126/60 O2 Sat by Pulse Oximetry 97 - Physical Exam Oriented: Normal Eyes: Normal Ear: Normal Nose: Normal Throat: Normal Respiratory: Normal Cardiovascular: Bradycardia. negative: S3, S4, Murmur : Normal Auscultation: Bowel Sounds: Normal Palpation: Normal Tenderness: Normal Skin: Normal Musculoskeletal: Normal Psychiatric: Normal Mood Description: Calm Affect: Normal Speech Pattern: Clear, Appropriate - Laboratory and Diagnostics Result Diagrams: 02/02/18 04:45 02/02/18 04:45 Labs: Laboratory WBC 5.6 X10^3/uL (3.6-10.0) 02/02/18 04:45 RBC 4.17 X10^6/uL (3.5-5.4) 02/02/18 04:45 Hgb 13.3 g/dL (12.0-16.0) 02/02/18 04:45 Hct 39.4 % (36.0-47.0) 02/02/18 04:45 MCV 94.4 fL (80.0-100.0) 02/02/18 04:45 MCH 31.8 pg (27.0-34.0) 02/02/18 04:45 MCHC 33.6 g/dL (33.0-35.0) 02/02/18 04:45 RDW 13.1 % (11.6-16.5) 02/02/18 04:45 Plt Count 215 X10^3/uL (150.0-450.0) 02/02/18 04:45 MPV 9.3 fL (7.4-11.0) 02/02/18 04:45 Neut % (Auto) 40.8 % (42.0-75.0) L 02/02/18 04:45 Lymph % (Auto) 44.7 % (21.0-51.0) 02/02/18 04:45 [place] % (Auto) 9.8 % (0.0-13.0) 02/02/18 04:45 Eos % (Auto) 3.3 % (0.9-2.9) H 02/02/18 04:45 Baso % (Auto) 1.4 % (0.2-1.0) H 02/02/18 04:45 Neut # (Auto) 2.3 x10^3/uL (2.2-4.8) 02/02/18 04:45 Lymph # (Auto) 2.5 X10^3/uL (1.3-2.9) 02/02/18 04:45 [place] # (Auto) 0.5 x10^3/uL (0.3-0.8) 02/02/18 04:45 Eos # (Auto) 0.2 x10^3/uL (0.0-0.2) 02/02/18 04:45 Baso # (Auto) 0.1 X10^3/uL (0.0-0.1) 02/02/18 04:45 Absolute Nucleated RBC 0.1 /100WBC 02/02/18 04:45 Sodium 144 mmol/L (136-145) 02/02/18 04:45 Corrected Sodium TNP 02/02/18 04:45 Potassium 4.5 mmol/L (3.5-5.1) 02/02/18 04:45 Chloride 109 mmol/L (98-107) H 02/02/18 04:45 Carbon Dioxide 26.6 mmol/L (21-32) 02/02/18 04:45 BUN 15 mg/dL (7-18) 02/02/18 04:45 Creatinine 0.90 mg/dL (0.55-1.02) 02/02/18 04:45 Est GFR (MDRD) Af Amer > 60 (>60) 02/02/18 04:45 Est GFR (MDRD) Non-Af > 60 (>60) 02/02/18 04:45 Glucose 95 mg/dL (65-99) 02/02/18 04:45 Calcium 8.7 mg/dL (8.5-10.1) 02/02/18 04:45 Corrected Calcium TNP 02/02/18 04:45 Magnesium 2.2 mg/dL (1.7-2.9) 02/02/18 04:45 Total Bilirubin 0.10 mg/dL (0.2-1.0) L 02/02/18 04:45 AST 19 Units/L (15-37) 02/02/18 04:45 ALT 30 Units/L (12-78) 02/02/18 04:45 Alkaline Phosphatase 90 Units/L (46-116) 02/02/18 04:45 Creatine Kinase 58 Units/L (26-192) 02/01/18 02:45 CK-MB (CK-2) < 1.0 ng/mL (0-4.0) 02/01/18 02:45 CK/CKMB % Calc 1.7 % (<4) 02/01/18 02:45 Troponin I < 0.02 ng/mL (0-1.5) 02/01/18 02:45 Total Protein 7.2 g/dL (6.4-8.2) 02/02/18 04:45 Albumin 3.4 g/dL (3.4-5.0) 02/02/18 04:45 Globulin 3.8 g/dL (2.5-4.5) 02/02/18 04:45 Albumin/Globulin Ratio 0.9 Ratio (1.1-2.1) L 02/02/18 04:45 - Plan (1) Chest pain Status: Acute Qualifiers: Chest pain type: unspecified Qualified Code(s): R07.9 - Chest pain, unspec ified Plan: TELEMETRY, SUPPLEMENTAL OXYGEN, CONTINUE TO MONITOR (2) Fatigue Status: Acute Qualifiers: Fatigue type: unspecified Qualified Code(s): R53.83 - Other fatigue (3) Shortness of breath Status: Acute Plan: SUPPLEMENTAL OXYGEN, CONTINUE TO MONITOR
== END 2018-02-02 15:07 | disposition home or self-care (01) ==
LOC: MED/SURG
PROVIDERS: ADMIT Internal Medicine; ATTEND Internal Medicine
DX: R06.02 Shortness of breath; R53.83 Other fatigue; R51 Headache; Z86.73 Personal history of transient ischemic attack (TIA), and cerebral infarction without residual deficits; R07.89 Other chest pain
CPT/HCPCS: 36415; 70450; 71010; 71045; 80053; 82550; 82553; 83735; 84132; 84484; 85025; 93005; 96367; 96374; A4222; G0378; J3475; J3490; J7030

== ENCOUNTER 2018-06-29 14:55 | Observation (INO) ==
[2018-06-29 17:14] LABS: BASOPHILS # (AUTO) 0.1 X10^3/uL (0.0-0.1); BASOPHILS % (AUTO) 1.9 % (0.2-1.0); EOSINOPHILS # (AUTO) 0.1 x10^3/uL (0.0-0.2); EOSINOPHILS % (AUTO) 2.1 % (0.9-2.9); HEMATOCRIT 40.2 % (36.0-47.0); HEMOGLOBIN 13.6 g/dL (12.0-16.0); LYMPHOCYTES # (AUTO) 1.1 X10^3/uL (1.3-2.9); LYMPHOCYTES % (AUTO) 25.5 % (21.0-51.0); MEAN CORPUSCULAR HEMOGLOBIN 31.5 pg (27.0-34.0); MEAN CORPUSCULAR HGB CONC 33.9 g/dL (33.0-35.0); MEAN PLATELET VOLUME 8.2 fL (7.4-11.0); MONOCYTES # (AUTO) 0.5 x10^3/uL (0.3-0.8); MONOCYTES % (AUTO) 10.2 % (0.0-13.0); NEUTROPHILS # (AUTO) 2.7 x10^3/uL (2.2-4.8); NEUTROPHILS % (AUTO) 60.3 % (42.0-75.0); PLATELET COUNT 290 X10^3/uL (150.0-450.0); RED BLOOD COUNT 4.32 X10^6/uL (3.5-5.4); RED CELL DISTRIBUTION WIDTH 13.2 % (11.6-16.5); WHITE BLOOD COUNT 4.5 X10^3/uL (3.6-10.0)
[2018-06-29 17:27] LABS: ALANINE AMINOTRANSFERASE 36 Units/L (12-78); ALBUMIN 4.2 g/dL (3.4-5.0); ALKALINE PHOSPHATASE 114 Units/L (46-116); ASPARTATE AMINO TRANSFERASE 32 Units/L (15-37); BLOOD UREA NITROGEN 16 mg/dL (7-18); CALCIUM 10.1 mg/dL (8.5-10.1); CARBON DIOXIDE 27.2 mmol/L (21-32); CHLORIDE 103 mmol/L (98-107); CREATININE 1.13 mg/dL (0.55-1.02); SODIUM 139 mmol/L (136-145); TOTAL PROTEIN 8.6 g/dL (6.4-8.2); eGFR NON BLACK RACES 51 (>60)
--- NOTE | 2018-06-29 17:41 | CT ---
CT HEAD WITHOUT CONTRAST CLINICAL HISTORY: 67-year-old female with headache and nausea. Prior stroke. COMPARISON: CT head 02/02/2018. TECHNIQUE: Multiple, non-contrasted axial CT images were obtained from the skull base to the cranial vertex. Coronal and sagittal reformats were performed. Dose reduction techniques including Automated Exposure Control (AEC) and adjustment of mA and kV were utilized. FINDINGS: There are no abnormal intra- or extra-axial fluid collections, midline shift, or mass effect. Hennessy-white differentiation is normal. Global cortical involutional changes are present that are advanced for the patient's stated age. The ventricular system is mildly enlarged but commensurate with the degree of sulcal prominence. Chronic infarction posterior limb left internal capsule. Periventricular and supraventricular white matter hypodensity is present that is nonspecific in appearance, but most likely to represent microvascular ischemic changes. Atherosclerotic vascular calcification is present within the carotid siphons and distal vertebral arteries. Arrested pneumatization of the frontal sinuses. The remaining imaged paranasal sinuses, mastoid air cells, and tympanic spaces are clear. IMPRESSION: 1. No definite evidence of an acute intracranial process. If clinical concern persists for acute stroke and it would alter patient management, consider MRI/MRA brain. 2. Chronic ischemic insult posterior limb left internal capsule. 3. Mild microvascular white matter ischemic changes, with associated volume loss. Reported By:
[2018-06-29] MEDS ORDERED: ZOFRAN INJ 4 MG VIAL IVP ONE ×2 (18:23→18:54)
[2018-06-29] MEDS ORDERED: NUBAIN INJ 10 IVP ONE (18:23)
[2018-06-29] MEDS ORDERED: ZOFRAN INJ 4 MG VIAL ONE (18:34)
--- NOTE | 2018-06-29 18:34 | DR.HEADACH ---
HPI Time Seen Time Seen by Provider: 06/29/18 18:00 Primary Care Physician Primary Care Physician: Brenda DUARTE STONEMASON SUPERVISOR Complaint/Symptoms Chief Complaint Doctors Comments: A 67 y/o female presenting with Rt. sided h/a onset about 1 week ago. It is throbbing in nature. She has photophobia and sound sensitivity + nausea. She saw her PCP 2 days ago and was given some IM meds in the office. Her neurologist is titrating her Topamax upwards. Chief Complaint:: PT C/O SIMMONS, AND NOT FEELING WELL PT HAS HX OF STROKE WITH BLEED, PT HAS HX OF MIGRAINES PT CALLED HER PCP AND SHE WAS TOLD TO COME TO THE ER,BR Pertinent History: Headache and Nausea/Vomitting Self Treatment fo Chief Complaint: PT WAS GIVEN IVF PER HER PCP ON WEDNESDAY,,BR Reviewed Nurses Notes Reviewed: Yes Source History Provided: Patient Mode of Arrival Mode of Arrival: Ambulatory Timing Onset of Chief Complaint: 06/22/18 Duration How lon Duration: Weeks Location Headache Location: Temporal Quality Quality: Throbbing Severity Headache Severity: Moderate and Severe Context Headache Onset Circumstances: Spontaneous History of: None Prior Work Up: CT and Neurologist Modifying Factors Improves With: Nothing Worsens: Light Associated Signs and Symptoms Associated Symptoms: Nausea and Photophobia PMH PMH Past Medical History: Yes Past Medical History: Headaches and Hypertension Past Medical History Comment: CVA Past Surgical History: Yes Surgical History: Appendectomy, Cholecystectomy, Hysterectomy and Tonsillectomy Family History History of Family Medical Conditions: Yes Social History Does patient currently use any type of tobacco product: No Have you used tobacco products in the last 12 months: No Type of Tobacco Use: None Does any household member use tobacco: No Alcohol Use: None Do you use any recreational Drugs:: No Lives With: Family Lives Where: Home infectious screening In the last 2 months have you had wt loss of >10#?: NO Have you had fever, night sweats or hemotysis?: No Have you traveled outside the country in the last 6 months?: No Isolation: Standard ROS Review of Systems Constitutional: No Symptoms Reported Eyes: No Symptoms Reported ENTM: No Symptoms Reported Respiratoy: No Symptoms Reported Cardiovascular: No Symptoms Reported Gastrointestinal/Abdominal: Nausea Genitourinary: No Symptoms Reported Neurological: Headache Musculoskeletal: No Symptoms Reported Integumentary: No Symptoms Reported Hematologic/Lymphatic: No Symptoms Reported Endocrine: No Symptoms Reported Psychiatric: No Symptoms Reported PE Vital Signs Vitals: Temperature 98.0 F Pulse Rate [Left] 55 Pulse Rate 70 Respiratory Rate 18 Blood Pressure [Right Arm] 174/73 Blood Pressure [Left Arm] 140/62 Blood Pressure 147/70 O2 Sat by Pulse Oximetry 98 General Limitations: No Limitations General Appearance: Alert and In No Apparent Distress Head Head Exam: Normal Inspection, Atraumatic and Normocephalic Eyes Eye exam: Normal Appearance, PERRL and EOMI ENT ENT Exam: Normal Oropharynx and Mucous Membranes Moist Neck Neck Exam: Normal Inspection, Full ROM and Trachea Midline Chest Chest Inspection: Normal Inspection and Symmetric Chest Wall Rise Respiratory Respiratory Exam: Normal Lung Sounds Bilat Cardiovascular Cardiovascular Exam: Regular Rate, Normal Rhythm, +S1 and +S2 Abdominal Exam Abdominal Exam: Normal Inspection, Normal Bowel Sounds and Soft Extremities Extremities Exam: Normal Inspection Back Back Exam: Normal Inspection Neurologic Neurological Exam: Alert and Oriented X3 Psychiatric Psychiatric Exam: Normal Affect and Normal Mood Skin Skin Exam: Warm, Dry and Normal Color COURSE Education/Counseling Education/Counseling: Patient, Family, Education and Counseling Educated On: Treatment, Diagnosis, Prognosis and Needs for Follow Up ROR Labs Reviewed Laboratory Results Reviewed?: Yes Result Diagrams: 06/29/18 17:06 06/29/18 17:06 Laboratory: WBC 4.5 X10^3/uL (3.6-10.0) 06/29/18 17:06 RBC 4.32 X10^6/uL (3.5-5.4) 06/29/18 17:06 Hgb 13.6 g/dL (12.0-16.0) 06/29/18 17:06 Hct 40.2 % (36.0-47.0) 06/29/18 17:06 MCV 93.0 fL (80.0-100.0) 06/29/18 17:06 MCH 31.5 pg (27.0-34.0) 06/29/18 17:06 MCHC 33.9 g/dL (33.0-35.0) 06/29/18 17:06 RDW 13.2 % (11.6-16.5) 06/29/18 17:06 Plt Count 290 X10^3/uL (150.0-450.0) 06/29/18 17:06 MPV 8.2 fL (7.4-11.0) 06/29/18 17:06 Neut % (Auto) 60.3 % (42.0-75.0) 06/29/18 17:06 Lymph % (Auto) 25.5 % (21.0-51.0) 06/29/18 17:06 [place] % (Auto) 10.2 % (0.0-13.0) 06/29/18 17:06 Eos % (Auto) 2.1 % (0.9-2.9) 06/29/18 17:06 Baso % (Auto) 1.9 % (0.2-1.0) H 06/29/18 17:06 Neut # (Auto) 2.7 x10^3/uL (2.2-4.8) 06/29/18 17:06 Lymph # (Auto) 1.1 X10^3/uL (1.3-2.9) L 06/29/18 17:06 [place] # (Auto) 0.5 x10^3/uL (0.3-0.8) 06/29/18 17:06 Eos # (Auto) 0.1 x10^3/uL (0.0-0.2) 06/29/18 17:06 Baso # (Auto) 0.1 X10^3/uL (0.0-0.1) 06/29/18 17:06 Absolute Nucleated RBC 0.0 /100WBC 06/29/18 17:06 Sodium 139 mmol/L (136-145) 06/29/18 17:06 Corrected Sodium TNP 06/29/18 17:06 Potassium 4.0 mmol/L (3.5-5.1) 06/29/18 17:06 Chloride 103 mmol/L (98-107) 06/29/18 17:06 Carbon Dioxide 27.2 mmol/L (21-32) 06/29/18 17:06 BUN 16 mg/dL (7-18) 06/29/18 17:06 Creatinine 1.13 mg/dL (0.55-1.02) H 06/29/18 17:06 Est GFR (MDRD) Af Amer > 60 (>60) 06/29/18 17:06 Est GFR (MDRD) Non-Af 51 (>60) L 06/29/18 17:06 Glucose 88 mg/dL (65-99) 06/29/18 17:06 Calcium 10.1 mg/dL (8.5-10.1) 06/29/18 17:06 Corrected Calcium TNP 06/29/18 17:06 Total Bilirubin 1.00 mg/dL (0.2-1.0) 06/29/18 17:06 AST 32 Units/L (15-37) 06/29/18 17:06 ALT 36 Units/L (12-78) 06/29/18 17:06 Alkaline Phosphatase 114 Units/L (46-116) 06/29/18 17:06 Total Protein 8.6 g/dL (6.4-8.2) H 06/29/18 17:06 Albumin 4.2 g/dL (3.4-5.0) 06/29/18 17:06 Globulin 4.4 g/dL (2.5-4.5) 06/29/18 17:06 Albumin/Globulin Ratio 1.0 Ratio (1.1-2.1) L 06/29/18 17:06 Other Results Comments: Report of CT head w/o contrast: No definite evidence of an acute intracranial process. Chronic ischemic insult posterior limb of left internal capsule. Diagnosis Discharge Problem: Benign essential HTN Intractable migraine Qualifiers: Migraine type: without aura Status migrainosus presence: with status migrainosus Qualified Code(s): G43.011 - Migraine without aura, intractable, with status migrainosus Depression Qualifiers: Depression Type: major depressive disorder Major depression recurrence: unspecified whether recurrent Active/Remission status: remission status unspecified Qualified Code(s): F32.9 - Major depressive disorder, single episode, unspecified
[2018-06-29] MEDS ORDERED: NUBAIN INJ 10 ONE (18:35)
[2018-06-29] MEDS ORDERED: NUBAIN INJ 10 IM ONE (18:54)
[2018-06-29] MEDS ORDERED: ZOFRAN INJ 4 MG VIAL IM ONE (18:54)
[2018-06-29] MEDS ORDERED: ZOFRAN INJ 4 MG VIAL IVP PRN (20:47)
[2018-06-29 21:32] VITALS: BMI 25.2
[2018-06-29] MEDS: ZANTAC PO SCH (22:00)
[2018-06-29] MEDS: CRESTOR TAB 10 MG PO SCH (22:00)
[2018-06-29] MEDS: TOPAMAX PO SCH (22:00)
[2018-06-30 05:21] LABS: BASOPHILS # (AUTO) 0.1 X10^3/uL (0.0-0.1); BASOPHILS % (AUTO) 1.7 % (0.2-1.0); EOSINOPHILS # (AUTO) 0.1 x10^3/uL (0.0-0.2); EOSINOPHILS % (AUTO) 2.4 % (0.9-2.9); HEMATOCRIT 36.9 % (36.0-47.0); HEMOGLOBIN 12.5 g/dL (12.0-16.0); LYMPHOCYTES # (AUTO) 1.7 X10^3/uL (1.3-2.9); LYMPHOCYTES % (AUTO) 36.8 % (21.0-51.0); MEAN CORPUSCULAR HEMOGLOBIN 31.7 pg (27.0-34.0); MEAN CORPUSCULAR HGB CONC 33.9 g/dL (33.0-35.0); MEAN CORPUSCULAR VOLUME 93.6 fL (80.0-100.0); MEAN PLATELET VOLUME 9.1 fL (7.4-11.0); MONOCYTES # (AUTO) 0.7 x10^3/uL (0.3-0.8); NEUTROPHILS % (AUTO) 43.1 % (42.0-75.0); PLATELET COUNT 262 X10^3/uL (150.0-450.0); RED BLOOD COUNT 3.95 X10^6/uL (3.5-5.4); RED CELL DISTRIBUTION WIDTH 13.2 % (11.6-16.5); WHITE BLOOD COUNT 4.7 X10^3/uL (3.6-10.0)
[2018-06-30 05:32] LABS: ALANINE AMINOTRANSFERASE 27 Units/L (12-78); ALBUMIN 3.4 g/dL (3.4-5.0); ALKALINE PHOSPHATASE 93 Units/L (46-116); ASPARTATE AMINO TRANSFERASE 22 Units/L (15-37); BLOOD UREA NITROGEN 16 mg/dL (7-18); CALCIUM 9.5 mg/dL (8.5-10.1); CARBON DIOXIDE 27.8 mmol/L (21-32); CHLORIDE 106 mmol/L (98-107); CREATININE 1.04 mg/dL (0.55-1.02); SODIUM 142 mmol/L (136-145); TOTAL PROTEIN 7.1 g/dL (6.4-8.2); eGFR NON BLACK RACES 57 (>60)
[2018-06-30] MEDS: TOPAMAX PO SCH ×4 (05:51→21:02)
[2018-06-30] MEDS ORDERED: LEXAPRO ONE (08:43)
[2018-06-30] MEDS: LEXAPRO PO SCH (08:54)
[2018-06-30] MEDS: XARELTO PO SCH (08:56)
[2018-06-30] MEDS: CATAPRES TAB 0.1 MG PO SCH (08:56)
[2018-06-30] MEDS: ASPIRIN 81 MG CHEWTAB PO SCH (08:56)
[2018-06-30] MEDS: DILAUDID INJ IVP PRN ×2 (08:57→15:01)
[2018-06-30] MEDS ORDERED: LIORESAL PO SCH ×2 (09:00→21:00)
[2018-06-30] MEDS ORDERED: XARELTO PO SCH (09:00)
[2018-06-30] MEDS: PROPRANOLOL 60 MG PO SCH (09:03)
[2018-06-30] MEDS ORDERED: PHENERGAN INJ 25 MG IM PRN (11:04)
--- NOTE | 2018-06-30 11:15 | DR.H&P ---
H&P - History & Physical for Day of: H&P Date: 06/29/18 - Chief Complaint Chief Complaint: SEVERE HEADACHE - History of Present Illness History of Present Illness: IS A 67 YEAR OLD PATIENT OF OURS WHO PRESENTED TO THE ER WITH COMPLAINTS OF SEVERE HEADACHE. SHE REPORTS A RIGHT SIDED, THROBBING HEADACHE THAT HAS BEEN PRESENT X 1 WEEK. SHE HAS PHOTOPHOBIA AND SOUND SENSITIVITY WITH NAUSEA. SHE HAS BEEN FOLLOWED BY A NEUROLOGIST WHO IS TIRATING HER TOPAMAX UPWARDS. SHE HAS A HISTORY OF A CVA. ON ARRIVAL, VITALS WERE 98.0-70-20-98%-147/70. LABS WERE OBTAINED. ABNORMAL LAB VALUES INCLUDE THE FOLLOWING: CREATININE 1.13, GFR 51, TOTAL PROTEIN 8.6. A BRAIN CT WAS OBTAINED AND REVEALED: No definite evidence of an acute intracranial process. If clinical concern persists for acute stroke and it would alter patient management, consid er MRI/MRA brain. Chronic ischemic insult posterior limb left internal capsule. Mild microvascular white matter ischemic changes, with associated volume loss. SHE WAS GIVEN ZOFRAN 4MG IV X 1 AND NUBAIN 10MG IM X 1. NO SIGNIFICANT IMPROVEMENT IN SYMPTOMS NOTED. SHE WAS ADMITTED FOR INTRACTABLE HEADACHE. SHE WAS STARTED ON DILAUDID 2MG IV Q4H PRN, ZOFRAN 4MG IV Q4H PRN, AND HOME MEDICATIONS WERE RESUMED. WE PLAN TO FOLLOW UP WITH AM LABS AND CONTINUE TO MONITOR. - Past Medical History Past Medical History: Hypertension, Headaches Additional Medical History: Multiple Sclerosis, Fibromyalgia - Past Surgical History Surgical History: Appendectomy, Cholecystectomy, Hysterectomy, Tonsillectomy Additional Surgical History: Back surgery x 3 - Social History Does patient currently use any type of tobacco product: No Have you used tobacco products in the last 12 months: No Type of Tobacco Use: None Does any household member use tobacco: No Alcohol Use: None Drug Use: None - Medications Home Medications: No Known Drug Allergies Allergy (Verified 06/29/18 15:07) CONTINUE taking the following medications aspirin 81 mg PO DAILY 06/29/18 [History] baclofen 20 mg PO DAILY 06/29/18 [History] clonidine HCl 0.1 mg PO DAILY 06/29/18 [History] escitalopram oxalate 10 mg PO DAILY 06/29/18 [History] propranolol 60 mg PO DAILY 06/29/18 [History] ranitidine HCl 150 mg PO BID 06/29/18 [History] rivaroxaban [Xarelto] 20 mg PO DAILY 06/29/18 [History] rosuvastatin 20 mg PO HS 06/29/18 [History] topiramate 25 mg PO TID 06/29/18 [History] - Review of Systems Constitutional: Weakness Eyes: No Symptoms Reported ENT: No Symptoms Reported Respiratory: No Symptoms Reported Cardiovascular: No Symptoms Reported Gastrointestinal: No Symptoms Reported Genitourinary: No Symptoms Reported Musculoskeletal: No Symptoms Reported Skin: No Symptoms Reported Neurological: See HPI, Weakness, Other (SEVERE HEADACHE ) - Physical Exam Vital Signs: Temperature 97.7 F Pulse Rate [Left] 55 Pulse Rate 70 Respiratory Rate 18 Blood Pressure [Right Arm] 174/73 Blood Pressure [Left Arm] 98/54 Blood Pressure 147/70 O2 Sat by Pulse Oximetry 98 Oriented: Normal Eyes: Normal Ear: Normal Nose: Normal Throat: Normal Respiratory: Diminished Throughout Cardiovascular: Normal. negative: S3, S4, Murmur : Normal Auscultation: Bowel Sounds: Normal Palpation: Normal Tenderness: Normal Skin: Normal Musculoskeletal: Normal Psychiatric: Normal Mood Description: Calm Affect: Normal Speech Pattern: Clear - Assessment/Plan (1) Intractable migraine Qualifiers: Migraine type: without aura Status migrainosus presence: with status migrainosus Qualified Code(s): G43.011 - Migraine without aura, intractable, with status migrainosus Status: Acute Plan: DILAUDID 2MG IV Q4H PRN, CONTINUE HOME MEDS - Allergies Allergies/Adverse Reactions: Allergies Allergy/AdvReac Type Severity Reaction Status Date / Time No Known Drug Allergies Allergy Verified 06/29/18 15:07
[2018-06-30] MEDS: CRESTOR TAB 10 MG PO SCH (21:01)
[2018-06-30] MEDS: ZANTAC PO SCH (21:02)
[2018-07-01 05:24] LABS: BASOPHILS # (AUTO) 0.1 X10^3/uL (0.0-0.1); BASOPHILS % (AUTO) 1.1 % (0.2-1.0); EOSINOPHILS # (AUTO) 0.1 x10^3/uL (0.0-0.2); EOSINOPHILS % (AUTO) 2.2 % (0.9-2.9); HEMATOCRIT 37.3 % (36.0-47.0); HEMOGLOBIN 12.6 g/dL (12.0-16.0); LYMPHOCYTES # (AUTO) 1.6 X10^3/uL (1.3-2.9); LYMPHOCYTES % (AUTO) 23.9 % (21.0-51.0); MEAN CORPUSCULAR HEMOGLOBIN 31.8 pg (27.0-34.0); MEAN CORPUSCULAR HGB CONC 33.8 g/dL (33.0-35.0); MEAN CORPUSCULAR VOLUME 94.2 fL (80.0-100.0); MONOCYTES % (AUTO) 15.2 % (0.0-13.0); NEUTROPHILS # (AUTO) 3.9 x10^3/uL (2.2-4.8); NEUTROPHILS % (AUTO) 57.6 % (42.0-75.0); PLATELET COUNT 285 X10^3/uL (150.0-450.0); RED BLOOD COUNT 3.96 X10^6/uL (3.5-5.4); RED CELL DISTRIBUTION WIDTH 13.4 % (11.6-16.5); WHITE BLOOD COUNT 6.7 X10^3/uL (3.6-10.0)
[2018-07-01 05:40] LABS: ALANINE AMINOTRANSFERASE 24 Units/L (12-78); ALBUMIN 3.4 g/dL (3.4-5.0); ALKALINE PHOSPHATASE 112 Units/L (46-116); ASPARTATE AMINO TRANSFERASE 17 Units/L (15-37); BLOOD UREA NITROGEN 18 mg/dL (7-18); CALCIUM 9.3 mg/dL (8.5-10.1); CHLORIDE 107 mmol/L (98-107); COR NA(FOR HYPERGLY) 143 mmol/L (136-145); CREATININE 1.18 mg/dL (0.55-1.02); SODIUM 142 mmol/L (136-145); TOTAL PROTEIN 7.3 g/dL (6.4-8.2); eGFR NON BLACK RACES 49 (>60)
[2018-07-01] MEDS: TOPAMAX PO SCH ×2 (05:59→13:28)
[2018-07-01] MEDS: DILAUDID INJ IVP PRN (07:35)
[2018-07-01] MEDS ORDERED: MILK OF MAGNESIA PO PRN (07:52)
[2018-07-01] MEDS ORDERED: LEXAPRO ONE (08:39)
[2018-07-01] MEDS: ASPIRIN 81 MG CHEWTAB PO SCH (08:57)
[2018-07-01] MEDS: XARELTO PO SCH (08:58)
[2018-07-01] MEDS: PROPRANOLOL 60 MG PO SCH (08:58)
[2018-07-01] MEDS: CATAPRES TAB 0.1 MG PO SCH (08:58)
[2018-07-01] MEDS: LEXAPRO PO SCH (08:59)
[2018-07-01 12:01] VITALS: BP 120/60
[2018-07-01] MEDS ORDERED: COLACE CAP 100 MG PO SCH (21:00)
== END 2018-07-01 13:30 | disposition home or self-care (01) ==
LOC: MED/SURG 15:02 → ER 15:02 → MED/SURG 21:09
PROVIDERS: ADMIT Internal Medicine; ATTEND Internal Medicine
DX: G43.011 Migraine without aura, intractable, with status migrainosus; I10 Essential (primary) hypertension; Z86.73 Personal history of transient ischemic attack (TIA), and cerebral infarction without residual deficits; F32.89 Other specified depressive episodes; R53.1 Weakness; Z79.899 Other long term (current) drug therapy; R26.89 Other abnormalities of gait and mobility
CPT/HCPCS: 36415; 70450; 80053; 85025; 96365; 96372; 96374; 97162; 97166; 99284; A4222; G0378; J1170; J2300; J2405; J2550

== ENCOUNTER 2018-09-08 16:12 | Observation (INO) ==
[2018-09-08] MEDS ORDERED: NS 1000 ML ONE (23:05)
[2018-09-09] MEDS ORDERED: NORCO 5/325 MG TAB PO PRN (05:52)
[2018-09-09 06:10] LABS: BASOPHILS # (AUTO) 0.1 X10^3/uL (0.0-0.1); BASOPHILS % (AUTO) 1.1 % (0.2-1.0); EOSINOPHILS % (AUTO) 0.8 % (0.9-2.9); HEMATOCRIT 34.5 % (36.0-47.0); HEMOGLOBIN 11.8 g/dL (12.0-16.0); LYMPHOCYTES % (AUTO) 31.8 % (21.0-51.0); MEAN CORPUSCULAR HEMOGLOBIN 31.5 pg (27.0-34.0); MEAN CORPUSCULAR HGB CONC 34.2 g/dL (33.0-35.0); MEAN CORPUSCULAR VOLUME 92.2 fL (80.0-100.0); MEAN PLATELET VOLUME 9.4 fL (7.4-11.0); MONOCYTES # (AUTO) 0.8 x10^3/uL (0.3-0.8); MONOCYTES % (AUTO) 12.7 % (0.0-13.0); NEUTROPHILS # (AUTO) 3.4 x10^3/uL (2.2-4.8); NEUTROPHILS % (AUTO) 53.6 % (42.0-75.0); PLATELET COUNT 213 X10^3/uL (150.0-450.0); RED BLOOD COUNT 3.74 X10^6/uL (3.5-5.4); RED CELL DISTRIBUTION WIDTH 12.8 % (11.6-16.5); WHITE BLOOD COUNT 6.4 X10^3/uL (3.6-10.0)
[2018-09-09 06:20] LABS: ALANINE AMINOTRANSFERASE 7 Units/L (12-78); ALBUMIN 3.2 g/dL (3.4-5.0); ALKALINE PHOSPHATASE 63 Units/L (46-116); ASPARTATE AMINO TRANSFERASE 17 Units/L (15-37); BLOOD UREA NITROGEN 22 mg/dL (7-18); CALCIUM 8.6 mg/dL (8.5-10.1); CARBON DIOXIDE 24.6 mmol/L (21-32); CHLORIDE 110 mmol/L (98-107); COR CA(FOR HYPOALB) 9.2 mg/dL (8.5-10.1); COR NA(FOR HYPERGLY) 143 mmol/L (136-145); SODIUM 142 mmol/L (136-145); TOTAL PROTEIN 6.7 g/dL (6.4-8.2); eGFR NON BLACK RACES 59 (>60)
[2018-09-09 10:03] LABS: BLOOD UREA NITROGEN 28 mg/dL (7-18); CARBON DIOXIDE 19.5 mmol/L (21-32); CHLORIDE 102 mmol/L (98-107); SODIUM 138 mmol/L (136-145)
[2018-09-09 10:04] LABS: CALCIUM 9.4 mg/dL (8.5-10.1); CREATININE 1.18 mg/dL (0.55-1.02); LACTIC ACID 1.7 mmol/L (0.4-2.0); MAGNESIUM 1.8 mg/dL (1.7-2.9); eGFR NON BLACK RACES 49 (>60)
[2018-09-09 10:05] LABS: BASOPHILS # (AUTO) 0.1 X10^3/uL (0.0-0.1); BASOPHILS % (AUTO) 0.7 % (0.2-1.0); EOSINOPHILS % (AUTO) 0.1 % (0.9-2.9); HEMATOCRIT 39.7 % (36.0-47.0); HEMOGLOBIN 13.7 g/dL (12.0-16.0); LYMPHOCYTES # (AUTO) 1.2 X10^3/uL (1.3-2.9); LYMPHOCYTES % (AUTO) 12.1 % (21.0-51.0); MEAN CORPUSCULAR HEMOGLOBIN 31.7 pg (27.0-34.0); MEAN CORPUSCULAR HGB CONC 34.5 g/dL (33.0-35.0); MEAN CORPUSCULAR VOLUME 91.9 fL (80.0-100.0); MEAN PLATELET VOLUME 8.9 fL (7.4-11.0); MONOCYTES # (AUTO) 0.8 x10^3/uL (0.3-0.8); MONOCYTES % (AUTO) 8.1 % (0.0-13.0); NEUTROPHILS # (AUTO) 7.6 x10^3/uL (2.2-4.8); PLATELET COUNT 240 X10^3/uL (150.0-450.0); RED BLOOD COUNT 4.32 X10^6/uL (3.5-5.4); RED CELL DISTRIBUTION WIDTH 12.9 % (11.6-16.5); WHITE BLOOD COUNT 9.6 X10^3/uL (3.6-10.0)
[2018-09-09] MEDS ORDERED: DILAUDID INJ IVP PRN (11:03)
[2018-09-09] MEDS: NS 1000 ML 1,000 ML IV SCH ×2 (13:57→16:55)
[2018-09-09] MEDS: ELAVIL PO SCH (13:57)
[2018-09-09] MEDS: XARELTO PO SCH (13:57)
[2018-09-09] MEDS: ZANTAC PO SCH ×2 (13:58→20:36)
[2018-09-09] MEDS: DILAUDID INJ IVP PRN (16:30)
--- NOTE | 2018-09-09 18:04 | PCM.PROG ---
Progress Note - Progress Note for Day of Date of Exam: 09/09/18 - Subjective Subjective: the patient is a 68-year-old white female who presented to the emergency department secondary to a syncopal episode that occurred earlier in the day. Patient was directed by Dr. Maynard's office. Patient gives a one-week history of nausea and vomiting and diarrhea. States that she is not able to keep anything down. Patient does complain on headache as well. States that she gets migraines frequently. Does ask for Dilaudid. Denies maintenance medications for migraines. Patient denies any other complaints. - Past Medical Family Social History Past Med/Fam/Surg Hx: No changes since H&P Allergies: Allergies No Known Drug Allergies Allergy (Verified 06/29/18 15:07) - Review of Systems ROS: No change since H&P - Vital Signs and I&O's Vital Signs: Temperature 99.1 F Respiratory Rate 22 Blood Pressure [Right Arm] 137/76 Blood Pressure [Left Arm] 103/50 Blood Pressure 120/60 O2 Sat by Pulse Oximetry 95 Intake and Output: Intake & Output 09/06/18 09/07/18 09/08/18 09/09/18 23:59 23:59 23:59 23:59 Intake Total 600 / 600 Balance 600 / 600 - Physical Exam Oriented: Normal Eyes: Normal Ear: Normal Nose: Normal Throat: Normal Respiratory: Normal Cardiovascular: Normal : Normal Auscultation: Bowel Sounds: Normal Palpation: Normal Tenderness: Diffuse Skin: Normal Musculoskeletal: Normal Psychiatric: Normal Mood Description: Calm Affect: Depressed Speech Pattern: Clear - Laboratory and Diagnostics Result Diagrams: 09/09/18 04:11 09/09/18 04:11 Labs: Laboratory WBC 6.4 X10^3/uL (3.6-10.0) 09/09/18 04:11 RBC 3.74 X10^6/uL (3.5-5.4) 09/09/18 04:11 Hgb 11.8 g/dL (12.0-16.0) L 09/09/18 04:11 Hct 34.5 % (36.0-47.0) L 09/09/18 04:11 MCV 92.2 fL (80.0-100.0) 09/09/18 04:11 MCH 31.5 pg (27.0-34.0) 09/09/18 04:11 MCHC 34.2 g/dL (33.0-35.0) 09/09/18 04:11 RDW 12.8 % (11.6-16.5) 09/09/18 04:11 Plt Count 213 X10^3/uL (150.0-450.0) 09/09/18 04:11 MPV 9.4 fL (7.4-11.0) 09/09/18 04:11 Neut % (Auto) 53.6 % (42.0-75.0) 09/09/18 04:11 Lymph % (Auto) 31.8 % (21.0-51.0) 09/09/18 04:11 Bureau % (Auto) 12.7 % (0.0-13.0) 09/09/18 04:11 Eos % (Auto) 0.8 % (0.9-2.9) L 09/09/18 04:11 Baso % (Auto) 1.1 % (0.2-1.0) H 09/09/18 04:11 Neut # (Auto) 3.4 x10^3/uL (2.2-4.8) 09/09/18 04:11 Lymph # (Auto) 2.0 X10^3/uL (1.3-2.9) 09/09/18 04:11 Bureau # (Auto) 0.8 x10^3/uL (0.3-0.8) 09/09/18 04:11 Eos # (Auto) 0.0 x10^3/uL (0.0-0.2) 09/09/18 04:11 Baso # (Auto) 0.1 X10^3/uL (0.0-0.1) 09/09/18 04:11 Absolute Nucleated RBC 0.2 /100WBC 09/09/18 04:11 INR Target Range - 09/08/18 17:12 INR 1.09 (0.8-1.3) 09/08/18 17:12 APTT 25.3 SECONDS (22.9-36.5) 09/08/18 17:12 PTT Comment - 09/08/18 17:12 Sodium 142 mmol/L (136-145) 09/09/18 04:11 Corrected Sodium 143 mmol/L (136-145) 09/09/18 04:11 Potassium 3.6 mmol/L (3.5-5.1) 09/09/18 04:11 Chloride 110 mmol/L (98-107) H 09/09/18 04:11 Carbon Dioxide 24.6 mmol/L (21-32) 09/09/18 04:11 BUN 22 mg/dL (7-18) H 09/09/18 04:11 Creatinine 1.00 mg/dL (0.55-1.02) 09/09/18 04:11 Est GFR (MDRD) Af Amer > 60 (>60) 09/09/18 04:11 Est GFR (MDRD) Non-Af 59 (>60) 09/09/18 04:11 Glucose 126 mg/dL (65-99) H 09/09/18 04:11 Lactic Acid 1.7 mmol/L (0.4-2.0) 09/08/18 17:12 Calcium 8.6 mg/dL (8.5-10.1) 09/09/18 04:11 Corrected Calcium 9.2 mg/dL (8.5-10.1) 09/09/18 04:11 Magnesium 1.8 mg/dL (1.7-2.9) 09/08/18 17:12 Total Bilirubin 0.60 mg/dL (0.2-1.0) 09/09/18 04:11 AST 17 Units/L (15-37) 09/09/18 04:11 ALT 7 Units/L (12-78) L 09/09/18 04:11 Alkaline Phosphatase 63 Units/L (46-116) 09/09/18 04:11 Total Protein 6.7 g/dL (6.4-8.2) 09/09/18 04:11 Albumin 3.2 g/dL (3.4-5.0) L 09/09/18 04:11 Globulin 3.5 g/dL (2.5-4.5) 09/09/18 04:11 Albumin/Globulin Ratio 0.9 Ratio (1.1-2.1) L 09/09/18 04:11 - Plan (1) Near syncope Status: Acute Plan: Monitor BP (2) Dehydration Status: Acute Plan: IV hydration (3) Headache Status: Acute Qualifiers: Headache chronicity pattern: acute headache Intractability: intractable Plan: Dilaudid 0.5mg IV Q 6hrs prn
--- NOTE | 2018-09-09 18:07 | DR.H&P ---
H&P - History & Physical for Day of: H&P Date: 09/08/18 - Chief Complaint Chief Complaint: Near syncopal episode - History of Present Illness History of Present Illness: the patient is a 68-year-old white female who presented to the emergency department secondary to a syncopal episode that occurred earlier in the day. Patient was directed by Dr. Maynard's office to the ED. Patient states she passed out in the bathroom. Patient gives a one-week history of nausea and vomiting and diarrhea. States that she is not able to keep anything down. Denies fever. - Past Medical History Past Medical History: Hypertension, Headaches Additional Medical History: Multiple Sclerosis, Fibromyalgia - Past Surgical History Surgical History: Appendectomy, Cholecystectomy, Hysterectomy, Tonsillectomy Additional Surgical History: Back surgery x 3 - Family History Family Medical History: denies: Diabetes Mellitus, Cancer, [place], Coronary Artery Disease, Heart Failure, Sudden Cardiac , Hypertension - Social History Does patient currently use any type of tobacco product: No Have you used tobacco products in the last 12 months: No Type of Tobacco Use: None Does any household member use tobacco: No Alcohol Use: None Drug Use: None - Medications Home Medications: No Known Drug Allergies Allergy (Verified 06/29/18 15:07) CONTINUE taking the following medications amitriptyline 20 mg PO DAILY 09/09/18 [History] baclofen 20 mg PO HS 09/09/18 [History] clonidine HCl 0.1 mg PO HS 09/09/18 [History] ranitidine HCl 150 mg PO BID 09/09/18 [History] rivaroxaban [Xarelto] 20 mg PO DAILY 09/09/18 [History] rosuvastatin [Crestor] 20 mg PO HS 09/09/18 [History] - Review of Systems Constitutional: Weakness, Malaise Eyes: No Symptoms Reported ENT: No Symptoms Reported Respiratory: No Symptoms Reported Cardiovascular: No Symptoms Reported Gastrointestinal: Nausea, Vomiting, Abdominal Pain, Diarrhea Genitourinary: No Symptoms Reported Musculoskeletal: No Symptoms Reported Skin: No Symptoms Reported Neurological: No Symptoms Reported - Physical Exam Vital Signs: Temperature 99.1 F Respiratory Rate 22 Blood Pressure [Right Arm] 137/76 Blood Pressure [Left Arm] 103/50 Blood Pressure 120/60 O2 Sat by Pulse Oximetry 95 Oriented: Normal Eyes: Normal Ear: Normal Nose: Normal Throat: Normal Respiratory: Clear Throughout Cardiovascular: Normal : Normal Auscultation: Bowel Sounds: Normal Palpation: Normal Tenderness: Diffuse, Epigastric Skin: Normal Musculoskeletal: Normal Psychiatric: Normal Mood Description: Calm Affect: Depressed Speech Pattern: Clear - Assessment/Plan (1) Near syncope Status: Acute Plan: Monitor BP, IV Hydration (2) Dehydration Status: Acute Plan: IV hydration. Labs (3) Headache Qualifiers: Headache chronicity pattern: acute headache Intractability: intractable Status: Acute - Allergies Allergies/Adverse Reactions: Allergies Allergy/AdvReac Type Severity Reaction Status Date / Time No Known Drug Allergies Allergy Verified 06/29/18 15:07
[2018-09-09] MEDS: ZOFRAN INJ 4 MG VIAL IVP PRN (20:36)
[2018-09-09] MEDS ORDERED: LIORESAL PO SCH (21:00)
[2018-09-09] MEDS ORDERED: CRESTOR TAB 10 MG PO SCH (21:00)
[2018-09-09] MEDS ORDERED: DILAUDID INJ ONE (23:44)
[2018-09-10] MEDS: NS 1000 ML 1,000 ML IV SCH ×2 (01:33→12:43)
[2018-09-10 05:20] LABS: BASOPHILS # (AUTO) 0.1 X10^3/uL (0.0-0.1); BASOPHILS % (AUTO) 1.1 % (0.2-1.0); EOSINOPHILS # (AUTO) 0.1 x10^3/uL (0.0-0.2); EOSINOPHILS % (AUTO) 1.8 % (0.9-2.9); HEMATOCRIT 34.3 % (36.0-47.0); HEMOGLOBIN 11.7 g/dL (12.0-16.0); LYMPHOCYTES % (AUTO) 27.6 % (21.0-51.0); MEAN CORPUSCULAR HEMOGLOBIN 32.1 pg (27.0-34.0); MEAN CORPUSCULAR VOLUME 94.5 fL (80.0-100.0); MEAN PLATELET VOLUME 9.5 fL (7.4-11.0); MONOCYTES % (AUTO) 13.5 % (0.0-13.0); PLATELET COUNT 201 X10^3/uL (150.0-450.0); RED BLOOD COUNT 3.63 X10^6/uL (3.5-5.4); RED CELL DISTRIBUTION WIDTH 13.1 % (11.6-16.5); WHITE BLOOD COUNT 7.2 X10^3/uL (3.6-10.0)
[2018-09-10 05:28] LABS: ALANINE AMINOTRANSFERASE 14 Units/L (12-78); ALBUMIN 3.3 g/dL (3.4-5.0); ALKALINE PHOSPHATASE 76 Units/L (46-116); ASPARTATE AMINO TRANSFERASE 12 Units/L (15-37); BLOOD UREA NITROGEN 11 mg/dL (7-18); CALCIUM 8.6 mg/dL (8.5-10.1); CHLORIDE 111 mmol/L (98-107); COR CA(FOR HYPOALB) 9.2 mg/dL (8.5-10.1); COR NA(FOR HYPERGLY) 148 mmol/L (136-145); CREATININE 1.06 mg/dL (0.55-1.02); SODIUM 147 mmol/L (136-145); TOTAL PROTEIN 6.7 g/dL (6.4-8.2); eGFR NON BLACK RACES 55 (>60)
[2018-09-10] MEDS ORDERED: POTASSIUM CHLORIDE LIQ 20 MEQ UDC PO PRN (05:50)
[2018-09-10] MEDS ORDERED: K-RIDER 10 MEQ/NS 100 ML 10 MEQ/100 ML BAG IV PRN (05:50)
[2018-09-10] MEDS ORDERED: MICRO K EXTEN CAP 10 MEQ PO PRN (05:50)
[2018-09-10] MEDS ORDERED: K-DUR TAB 20 MEQ PO PRN (05:50)
[2018-09-10] MEDS ORDERED: POTASSIUM CHL 60 MEQ/NS 0.45% 500 ML IV PRN (05:50)
[2018-09-10] MEDS ORDERED: POTASSIUM CHL 40 MEQ/NS 0.45% 500 ML IV PRN (05:50)
[2018-09-10] MEDS ORDERED: KLOR-CON PO PRN (05:50)
[2018-09-10] MEDS ORDERED: MAGNESIUM SULFATE 1 GRAM/100 mL PREMIX 1 G/100 ML BAG IV ONE (06:22)
[2018-09-10] MEDS: MAGNESIUM SULFATE 1 GRAM/100 mL PREMIX 1 GM/100 ML BAG IV PRN ×2 (06:39→09:09)
[2018-09-10] MEDS: DILAUDID INJ IVP PRN ×2 (06:41→12:43)
[2018-09-10] MEDS: ELAVIL PO SCH (08:27)
[2018-09-10] MEDS: ZANTAC PO SCH (08:27)
[2018-09-10] MEDS: XARELTO PO SCH (08:28)
[2018-09-10 12:02] VITALS: BP 145/59
[2018-09-10] MEDS: ZOFRAN INJ 4 MG VIAL IVP PRN (12:43)
[2018-09-10] MEDS ORDERED: NS 1000 ML IV ONE ×2 (15:42)
[2018-09-10] MEDS ORDERED: TYLENOL 325 MG TAB PO ONE (15:42)
[2018-09-10] MEDS ORDERED: ZOFRAN INJ 4 MG VIAL IVP ONE (20:12)
== END 2018-09-10 15:40 | disposition home or self-care (01) ==
LOC: ER 16:12 → MED/SURG 16:12 → OBS 21:36 → MED/SURG 21:37 → UNDODISOB 09-10 15:40
PROVIDERS: ADMIT Internal Medicine; ATTEND Internal Medicine
DX: R19.7 Diarrhea, unspecified; F32.89 Other specified depressive episodes; E78.2 Mixed hyperlipidemia; I10 Essential (primary) hypertension; R55 Syncope and collapse; E86.0 Dehydration; R51 Headache; I95.89 Other hypotension; G35 Multiple sclerosis; M79.7 Fibromyalgia; R26.89 Other abnormalities of gait and mobility; F41.8 Other specified anxiety disorders
CPT/HCPCS: 36415; 70450; 71010; 71045; 80048; 80053; 82270; 83605; 83735; 85025; 85610; 85730; 93005; 96365; 96367; 96374; 97162; 99284; A4222; G0378; J1170; J2405; J3475; J3490; J7030

== ENCOUNTER 2019-02-23 15:00 | Inpatient (IN) ==
--- NOTE | 2019-02-23 15:42 | CT ---
HISTORYHEADACHE AND VISION CHANGES. HX OF A BRAIN BLEEDSTUDYBRAIN W/O CONCOMPARISONJuly 2018TECHNIQUESerial axial images were obtained from the skull base to the vertex without infusion of IV contrast. Coronal and sagittal images were also submitted. Dose reduction techniques including Automated Exposure Control (AEC) and adjustment of mA and kV were utilized.FINDINGSNo definite evidence of acute intracranial hemorrhage or mass is identified. The ventricles, sulci, and cisterns demonstrate an appearance consistent with a mild degree of generalized atrophy. Patchy areas of decreased attenuation within the periventricular, subcortical, and subinsular white matter suggest changes of chronic small vessel ischemic disease.. No evidence of significant midline shift is identified. No definite abnormal extra axial fluid collections are appreciated. The visualized paranasal sinuses are grossly unremarkable. If symptoms or clinical concerns persist recommend continued follow up for further evaluation.IMPRESSIONNo CT evidence of acute intracranial abnormality is appreciated.Mild generalized atrophy with findings consistent with changes of chronic small vessel ischemic disease.Electronically signed by: BK MACIEL (Feb 23, 2019 15:40:57)
--- NOTE | 2019-02-23 16:08 | DR.HEADACH ---
HPI Time Seen Time Seen by Provider: 02/23/19 15:52 Primary Care Physician Primary Care Physician: KATIE HPI Comment HPI Comment: left sided headache. 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 Complaint/Symptoms Chief Complaint Doctors Comments: She says some weakness on right side, same as with CVA. This sometimes occurs but not frequently. Pt not a very good historian. Medically anisa. No known hx of hemiplegic migraines as best I can elicit. Chief Complaint:: HEADACHE THAT STARTED WEDNESDAY NIGHT GRADUALLY AND HAS INCREASED AND RIGHT SIDE IS DRAGGING MORE AND HAS INCREASED NUMBNESS. PT HAS A HX OF CVA AND TAKES XARELTO DAILY AND SHE HAS TAKEN IT TODAY. 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 Pertinent History: Headache and Hypertension Reviewed Nurses Notes Reviewed: Yes Source History Provided: Patient and Significant Other Mode of Arrival Mode of Arrival: Ambulatory Timing Onset of Chief Complaint: 02/21/19 Duration Since Onset: Since Onset Location Headache Location: Temporal (left sided) Quality Quality: Sharp Severity Headache Severity: Severe and Like Previous Headaches Context Headache Onset Circumstances: Spontaneous History of: Hypertension and Bleeding Diathesis Prior Work Up: CT Modifying Factors Improves With: Nothing Worsens: Nothing Associated Signs and Symptoms Associated Symptoms: Weakness and Blurred Vision Other History Other History: Today she felt the headache was getting worse so came to the hospital. PMH PMH Past Medical History: Yes Past Medical History: CVA, Dyslipidemia, Headaches and Hypertension Past Medical History Comment: migraines. Past Surgical History: Yes Surgical History: Appendectomy, Cholecystectomy, Hysterectomy and Tonsillectomy Past Surgical History Comment: BACK X 3 Family History History of Family Medical Conditions: No (PT WAS ADOPTED) Social History Does patient currently use any type of tobacco product: No Does any household member use tobacco: No Alcohol Use: None Do you use any recreational Drugs:: No Lives With: Spouse and Family Lives Where: Home infectious screening In the last 2 months have you had wt loss of >10#?: NO Have you had fever, night sweats or hemotysis?: No Have you traveled outside the country in the last 6 months?: No Isolation: Standard ROS Review of Systems Constitutional: No Symptoms Reported; negative Fever Eyes: Blurred Vision Respiratoy: No Symptoms Reported Cardiovascular: No Symptoms Reported Gastrointestinal/Abdominal: See HPI; negative Vomiting Neurological: See HPI, Weakness, Dizziness and Other (weaknwess right arm and leg) Musculoskeletal: No Symptoms Reported Integumentary: negative Rash All Other Systems: Reviewed and Negative PE Vital Signs Vitals: Temperature 97.6 F Pulse Rate 70 Respiratory Rate 16 Blood Pressure [Right Arm] 145/59 Blood Pressure [Left Arm] 147/76 Blood Pressure 131/65 O2 Sat by Pulse Oximetry 96 General Limitations: No Limitations General Appearance: Alert, In No Apparent Distress and Anxious Head Head Exam: Normal Inspection Eyes Eye exam: Normal Appearance and EOMI; negative Scleral Icterus and Nystagmus Neck Neck Exam: Normal Inspection and Full ROM; negative Tenderness and Meningismus Chest Chest Inspection: Normal Inspection Respiratory Respiratory Exam: Normal Lung Sounds Bilat Cardiovascular Cardiovascular Exam: Regular Rate, Normal Rhythm and Normal Heart Sounds Abdominal Exam Abdominal Exam: Normal Inspection; negative Tenderness Extremities Extremities Exam: Full ROM Neurologic Neurological Exam: Alert, Oriented X3 and Other (weak solar site assessment specialist on right. no drift. Weakness right leg. No clonus, neg babinski) Psychiatric Psychiatric Exam: Normal Affect and Anxious Skin Skin Exam: Warm and Normal Color; negative Rash and Diaphoresis MDM Additional Information Obtained Additional Information Obtained From: Old Records and PCP Differential Diagnosis Differential Diagnosis: Considerations may include:: Migraine, CVA, Intracerebral Hemorrhage and Mass Lesion Differential Diagnosis Comment: Pt initially said she had ICH in past. PCP says no, CVA instead. ROR Labs Reviewed Result Diagrams: 02/23/19 17:34 02/23/19 17:34 Laboratory: WBC 7.1 X10^3/uL (3.6-10.0) 02/23/19 17:34 RBC 4.10 X10^6/uL (3.5-5.4) 02/23/19 17:34 Hgb 13.3 g/dL (12.0-16.0) 02/23/19 17:34 Hct 38.5 % (36.0-47.0) 02/23/19 17:34 MCV 94.0 fL (80.0-100.0) 02/23/19 17:34 MCH 32.4 pg (27.0-34.0) 02/23/19 17:34 MCHC 34.5 g/dL (33.0-35.0) 02/23/19 17:34 RDW 12.9 % (11.6-16.5) 02/23/19 17:34 Plt Count 269 X10^3/uL (150.0-450.0) 02/23/19 17:34 MPV 8.4 fL (7.4-11.0) 02/23/19 17:34 Neut % (Auto) 57.5 % (42.0-75.0) 02/23/19 17:34 Lymph % (Auto) 28.8 % (21.0-51.0) 02/23/19 17:34 Glenn % (Auto) 11.1 % (0.0-13.0) 02/23/19 17:34 Eos % (Auto) 1.4 % (0.9-2.9) 02/23/19 17:34 Baso % (Auto) 1.2 % (0.2-1.0) H 02/23/19 17:34 Neut # (Auto) 4.1 x10^3/uL (2.2-4.8) 02/23/19 17:34 Lymph # (Auto) 2.0 X10^3/uL (1.3-2.9) 02/23/19 17:34 Glenn # (Auto) 0.8 x10^3/uL (0.3-0.8) 02/23/19 17:34 Eos # (Auto) 0.1 x10^3/uL (0.0-0.2) 02/23/19 17:34 Baso # (Auto) 0.1 X10^3/uL (0.0-0.1) 02/23/19 17:34 Absolute Nucleated RBC 0.0 /100WBC 02/23/19 17:34 XRAY XRAY Interpreted by: Radiologist XRAY Findings: CT brain shows no bleed or acute CVA Opioid Opioid Risk Tool Age (Flo box if 16-45): No History of Preadolescent Sexual Abuse: No Total: 0 Total Score Risk Category: Low Risk Copyright: [facility] predicting aberrant behaviors Diagnosis Discharge Problem: Intractable migraine Qualifiers: Migraine type: unspecified Status migrainosus presence: with status migrainosus Qualified Code(s): G43.911 - Migraine, unspecified, intractable, with status migrainosus CVA (cerebral vascular accident) Qualifiers: CVA mechanism: unspecified Qualified Code(s): I63.9 - Cerebral infarction, unspecified Instructions Forms: Excuse From Work Patient Portal
[2019-02-23] MEDS ORDERED: TORADOL 30 MG VIAL IVP ONE (17:35)
[2019-02-23 17:49] LABS: BASOPHILS # (AUTO) 0.1 X10^3/uL (0.0-0.1); BASOPHILS % (AUTO) 1.2 % (0.2-1.0); EOSINOPHILS # (AUTO) 0.1 x10^3/uL (0.0-0.2); EOSINOPHILS % (AUTO) 1.4 % (0.9-2.9); HEMATOCRIT 38.5 % (36.0-47.0); HEMOGLOBIN 13.3 g/dL (12.0-16.0); LYMPHOCYTES % (AUTO) 28.8 % (21.0-51.0); MEAN CORPUSCULAR HEMOGLOBIN 32.4 pg (27.0-34.0); MEAN CORPUSCULAR HGB CONC 34.5 g/dL (33.0-35.0); MEAN PLATELET VOLUME 8.4 fL (7.4-11.0); MONOCYTES # (AUTO) 0.8 x10^3/uL (0.3-0.8); MONOCYTES % (AUTO) 11.1 % (0.0-13.0); NEUTROPHILS # (AUTO) 4.1 x10^3/uL (2.2-4.8); NEUTROPHILS % (AUTO) 57.5 % (42.0-75.0); PLATELET COUNT 269 X10^3/uL (150.0-450.0); RED CELL DISTRIBUTION WIDTH 12.9 % (11.6-16.5); WHITE BLOOD COUNT 7.1 X10^3/uL (3.6-10.0)
[2019-02-23] MEDS ORDERED: TORADOL 30 MG VIAL ONE (17:54)
[2019-02-23] MEDS ORDERED: NS 1000 ML 1,000 ML ONE (17:55)
[2019-02-23 18:01] LABS: ALANINE AMINOTRANSFERASE 21 Units/L (12-78); ALBUMIN 3.7 g/dL (3.4-5.0); ALKALINE PHOSPHATASE 101 Units/L (46-116); ASPARTATE AMINO TRANSFERASE 16 Units/L (15-37); BLOOD UREA NITROGEN 13 mg/dL (7-18); CHLORIDE 105 mmol/L (98-107); CREATININE 0.99 mg/dL (0.55-1.02); SODIUM 141 mmol/L (136-145); TOTAL PROTEIN 7.5 g/dL (6.4-8.2); eGFR NON BLACK RACES 60 (>60)
[2019-02-23] MEDS: NS 1000 ML 1,000 ML IV SCH (18:03)
[2019-02-23] MEDS ORDERED: ZOFRAN INJ 4 MG VIAL ONE (20:08)
[2019-02-23] MEDS ORDERED: DEMEROL INJ ONE (20:08)
[2019-02-23] MEDS: DEMEROL INJ IVP PRN (20:30)
[2019-02-23] MEDS: ZOFRAN INJ 4 MG VIAL IVP PRN (20:53)
[2019-02-23] MEDS ORDERED: POTASSIUM CHLORIDE LIQ 20 MEQ UDC PO PRN (21:22)
[2019-02-23] MEDS ORDERED: K-DUR TAB 20 MEQ PO PRN (21:22)
[2019-02-23] MEDS ORDERED: POTASSIUM CHL 40 MEQ/NS 0.45% 500 ML IV PRN (21:22)
[2019-02-23] MEDS ORDERED: MICRO K EXTEN CAP 10 MEQ PO PRN (21:22)
[2019-02-23] MEDS ORDERED: POTASSIUM CHL 60 MEQ/NS 0.45% 500 ML IV PRN (21:22)
[2019-02-23] MEDS ORDERED: KLOR-CON PO PRN (21:22)
[2019-02-23] MEDS ORDERED: K-RIDER 10 MEQ/NS 100 ML 10 MEQ/100 ML BAG IV PRN (21:22)
[2019-02-23] MEDS ORDERED: MICRO K EXTEN CAP 10 MEQ PO ONE (21:30)
[2019-02-24 00:12] VITALS: BMI 25.0
[2019-02-24] MEDS: NS 1000 ML 1,000 ML IV SCH ×4 (02:35→19:05)
[2019-02-24] MEDS ORDERED: DEMEROL INJ ONE ×3 (02:38→14:49)
[2019-02-24] MEDS: DEMEROL INJ IVP PRN ×3 (02:40→15:04)
[2019-02-24 05:29] LABS: BASOPHILS # (AUTO) 0.1 X10^3/uL (0.0-0.1); BASOPHILS % (AUTO) 1.3 % (0.2-1.0); EOSINOPHILS # (AUTO) 0.1 x10^3/uL (0.0-0.2); EOSINOPHILS % (AUTO) 2.3 % (0.9-2.9); HEMATOCRIT 33.8 % (36.0-47.0); HEMOGLOBIN 11.6 g/dL (12.0-16.0); LYMPHOCYTES # (AUTO) 1.8 X10^3/uL (1.3-2.9); LYMPHOCYTES % (AUTO) 35.7 % (21.0-51.0); MEAN CORPUSCULAR HEMOGLOBIN 32.7 pg (27.0-34.0); MEAN CORPUSCULAR HGB CONC 34.4 g/dL (33.0-35.0); MEAN CORPUSCULAR VOLUME 95.2 fL (80.0-100.0); MEAN PLATELET VOLUME 8.3 fL (7.4-11.0); MONOCYTES # (AUTO) 0.7 x10^3/uL (0.3-0.8); MONOCYTES % (AUTO) 12.7 % (0.0-13.0); NEUTROPHILS # (AUTO) 2.5 x10^3/uL (2.2-4.8); PLATELET COUNT 231 X10^3/uL (150.0-450.0); RED BLOOD COUNT 3.55 X10^6/uL (3.5-5.4); WHITE BLOOD COUNT 5.1 X10^3/uL (3.6-10.0)
[2019-02-24 05:41] LABS: ALANINE AMINOTRANSFERASE 21 Units/L (12-78); ALKALINE PHOSPHATASE 85 Units/L (46-116); ASPARTATE AMINO TRANSFERASE 17 Units/L (15-37); BLOOD UREA NITROGEN 15 mg/dL (7-18); CARBON DIOXIDE 29.4 mmol/L (21-32); CHLORIDE 109 mmol/L (98-107); COR CA(FOR HYPOALB) 8.8 mg/dL (8.5-10.1); CREATININE 0.98 mg/dL (0.55-1.02); SODIUM 143 mmol/L (136-145); TOTAL PROTEIN 6.2 g/dL (6.4-8.2); eGFR NON BLACK RACES > 60 (>60)
--- NOTE | 2019-02-24 10:25 | DR.H&P ---
H&P - History & Physical for Day of: H&P Date: 02/23/19 - Chief Complaint Chief Complaint: HEADACHE, RIGHT SIDED FACIAL DROOPING, RIGHT SIDED WEAKNESS - History of Present Illness History of Present Illness: IS A 68 YEAR OLD PATIENT OF OURS WHO PRESENTED TO THE ER WITH COMPLAINTS OF A HEADACHE THAT STARTED TWO DAYS PRIOR AND HAS PROGRESSIVELY GOTTEN WORSE. FAMILY REPORTS RIGHT SIDED FACIAL DROOPING AND RIGHT SIDED NUMBNESS. PATIENT HAS A PMH OF A HTN AND CVA AND IS CURRENTLY ON XARELTO DAILY. ON ARRIVAL, VITALS WERE 97.6-70-16-96%-131/65. LABS WERE OBTAINED. SHE IS HEMODYNAMICALLY STABLE. A BRAIN CT WAS OBTAINED AND REVEALED: No CT evidence of acute intracranial abnormality is appreciated. Mild generalized atrophy with findings consistent with changes of chronic small vessel ischemic disease. SHE WAS GIVEN TORADOL 30MG IV X 1 DOSE IN THE ER. SHE WAS ADMITTED TO THE HOSPITAL FOR FURTHER EVALUATION AND TREATMENT TO RULE OUT CVA. SHE WAS STARTED ON DEMEROL 25MG IV Q6H PRN PAIN, ZOFRAN 4MG IV Q8H PRN NAUSEA, NORMAL SALINE AT 125ML/HR, AND THE POTASSIUM PROTOCOL. WE WILL REVIEW HER HOME MEDICATIONS. WE PLAN TO OBTAIN A BRAIN MRI WITH AND WITHOUT CONTRAST. OTHERWISE, WE WILL FOLLOW UP WITH AM LABS AND CONTINUE TO MONITOR. - Past Medical History Past Medical History: Hypertension, Dyslipidemia, CVA, Headaches Additional Medical History: Multiple Sclerosis, Fibromyalgia - Past Surgical History Surgical History: Appendectomy, Cholecystectomy, Hysterectomy, Tonsillectomy Additional Surgical History: Back surgery x 3 - Family History Family Medical History: denies: Diabetes Mellitus, Cancer, [place], Coronary Artery Disease, Heart Failure, Sudden Cardiac , Hypertension - Social History Does patient currently use any type of tobacco product: No Have you used tobacco products in the last 12 months: No Type of Tobacco Use: None Does any household member use tobacco: No Alcohol Use: None Drug Use: None Prescription drug monitoring program results: PDMP was not reviewed - Medications Home Medications: No Known Drug Allergies Allergy (Verified 02/23/19 15:04) - Review of Systems Constitutional: Weakness Eyes: No Symptoms Reported ENT: No Symptoms Reported Respiratory: No Symptoms Reported Cardiovascular: No Symptoms Reported Gastrointestinal: No Symptoms Reported Genitourinary: No Symptoms Reported Musculoskeletal: No Symptoms Reported Skin: No Symptoms Reported Neurological: See HPI, Weakness, Numbness, Other (RIGHT SIDED FACIAL DROPPING ) - Physical Exam Vital Signs: Temperature 98.0 F Pulse Rate [Brachial] 53 Pulse Rate 70 Respiratory Rate 22 Blood Pressure [Right Arm] 156/70 Blood Pressure [Left Arm] 158/72 Blood Pressure 131/65 O2 Sat by Pulse Oximetry 97 Oriented: Normal Eyes: Normal Ear: Normal Nose: Normal Throat: Normal Respiratory: Diminished Throughout Cardiovascular: Normal : Normal Auscultation: Bowel Sounds: Normal Palpation: Normal Tenderness: Normal Skin: Normal Musculoskeletal: Normal Psychiatric: Normal Mood Description: Calm Affect: Normal Speech Pattern: Clear - Assessment/Plan (1) Intractable migraine Qualifiers: Migraine type: unspecified Status migrainosus presence: with status migrainosus Qualified Code(s): G43.911 - Migraine, unspecified, intractable, with status migrainosus Status: Acute Plan: OBTAIN BRAIN MRI WITH AND WITHOUT CONTRAST, DEMEROL 25MG IV Q6H PRN PAIN, ZOFRAN 4MG IV Q8H PRN NAUSEA, NORMAL SALINE AT 125ML/HR (2) Right sided weakness Status: Acute (3) History of CVA (cerebrovascular accident) Status: Acute - Allergies Allergies/Adverse Reactions: Allergies Allergy/AdvReac Type Severity Reaction Status Date / Time No Known Drug Allergies Allergy Verified 02/23/19 15:04
[2019-02-24] MEDS ORDERED: TORADOL 30 MG VIAL ONE (10:41)
[2019-02-24] MEDS: TORADOL 30 MG VIAL IVP PRN ×2 (10:50→21:40)
--- NOTE | 2019-02-24 12:57 | MRI ---
BRAIN W W/O CONCLINICAL INDICATION: Headache and vision changes.TECHNIQUE: Pre-contrast T1-w, T2, and diffusion-w sequences of the brain with ADC maps.COMPARISON:NoneFINDINGS:There is no abnormal brain parenchymal signal . There is no mass or mass-effect, or abnormal extra-axial fluid collection . Diffusion imaging shows no hyperacute, acute, or early subacute infarction . The ventricles are normal in size, shape and position . There are normal signal voids in the larger intracranial vessels . The paranasal sinuses and mastoid air cells are predominantly clear . The marrow signal pattern is within normal limits .IMPRESSION:1. No acute intracranial abnormality.Electronically signed by: BAR ORTIZ (Feb 24, 2019 12:55:57)
--- NOTE | 2019-02-24 13:07 | DR.HEADACH ---
HPI Time Seen Time Seen by Provider: 02/23/19 15:52 Primary Care Physician Primary Care Physician: DEBORAH TURNER HPI Comment HPI Comment: HEADACHE THAT STARTED YANA NIGHT GRADUALLY AND HAS INCREASED AND RIGHT SIDE IS DRAGGING MORE AND HAS INCREASED NUMBNESS. PT HAS A HX OF CVA in August 2017. 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 She is on Xarelto DAILY AND SHE HAS TAKEN IT TODAY. 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 Also weak right leg. Pt is poor historian, medically naive. Complaint/Symptoms Chief Complaint Doctors Comments: she initially told us she had 3 head bleeds in August 2017. She also has significant hx of frequent migraines and says her headache today feels like a migraine. She admits to being stressed out. Chief Complaint:: HEADACHE THAT STARTED YANA NIGHT GRADUALLY AND HAS INCREASED AND RIGHT SIDE IS DRAGGING MORE AND HAS INCREASED NUMBNESS. PT HAS A HX OF CVA AND TAKES XARELTO DAILY AND SHE HAS TAKEN IT TODAY. 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 Pertinent History: Headache, Hypertension and Stroke/TIA Self Treatment fo Chief Complaint: migraines Reviewed Nurses Notes Reviewed: Yes Source History Provided: Patient, Significant Other and Other (PCP Deborah Turner) Mode of Arrival Mode of Arrival: Ambulatory Timing Onset of Chief Complaint: 02/21/19 Location Headache Location: Temporal (left sided) Quality Quality: Throbbing and Aching Severity Headache Severity: Severe and Like Previous Headaches Context Headache Onset Circumstances: Spontaneous and Recent Stress Known headache disorder (dx):: migraine Prior Work Up: CT and MRI Modifying Factors Improves With: Nothing Worsens: Nothing Associated Signs and Symptoms Associated Symptoms: Nausea, Photophobia and Blurred Vision; denies Fever and Vomitting PMH PMH Past Medical History: Yes Past Medical History: CVA, Depression, Dyslipidemia, Migraines and Hypertension Past Medical History Comment: MS Past Surgical History: Yes Surgical History: Appendectomy, Cholecystectomy, Hysterectomy and Tonsillectomy Past Surgical History Comment: BACK X 3 Family History History of Family Medical Conditions: No (PT WAS ADOPTED) Social History Does patient currently use any type of tobacco product: No Have you used tobacco products in the last 12 months: No Type of Tobacco Use: None Does any household member use tobacco: No Alcohol Use: None Do you use any recreational Drugs:: No Lives With: Spouse Lives Where: Home infectious screening In the last 2 months have you had wt loss of >10#?: NO Have you had fever, night sweats or hemotysis?: No Have you traveled outside the country in the last 6 months?: No Isolation: Standard ROS Review of Systems Constitutional: No Symptoms Reported; negative Chills, Diaphoresis and Fever Eyes: Blurred Vision ENTM: No Symptoms Reported Respiratoy: No Symptoms Reported Cardiovascular: No Symptoms Reported Gastrointestinal/Abdominal: Nausea; negative Abdominal Pain Neurological: Depressed, Headache, Weakness and Problems Walking Musculoskeletal: No Symptoms Reported Integumentary: No Symptoms Reported; negative Rash All Other Systems: Reviewed and Negative PE Vital Signs Vitals: Temperature 97.6 F Pulse Rate 70 Respiratory Rate 20 Blood Pressure [Right Arm] 145/59 Blood Pressure [Left Arm] 147/76 Blood Pressure 131/65 O2 Sat by Pulse Oximetry 96 General Limitations: Other (not a good historian. 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 weak right leg, can't hold it up w/o drift to bed) Psychiatric Psychiatric Exam: Anxious Skin Skin Exam: Warm and Normal Color; negative Rash MDM Additional Information Obtained Additional Information Obtained From: PCP Additional Findings:: This is likely a CVA plus migraine. Or hemiplegic migraine Differential Diagnosis Differential Diagnosis: Considerations may include:: Migraine, CVA and Intracerebral Hemorrhage Differential Diagnosis Comment: if CT normal, will admit for MRI in am. COURSE Treatment Treatment: IV pain meds and antiemetics. Reevaluation 1st: Unchanged Consultation Consultation Comments: admit for MRI in am. Dr. Caesar HANEY Labs Reviewed Laboratory Results Reviewed?: Yes Result Diagrams: 02/24/19 05:20 02/24/19 05:20 Laboratory: WBC 7.1 X10^3/uL (3.6-10.0) 02/23/19 17:34 RBC 4.10 X10^6/uL (3.5-5.4) 02/23/19 17:34 Hgb 13.3 g/dL (12.0-16.0) 02/23/19 17:34 Hct 38.5 % (36.0-47.0) 02/23/19 17:34 MCV 94.0 fL (80.0-100.0) 02/23/19 17:34 MCH 32.4 pg (27.0-34.0) 02/23/19 17:34 MCHC 34.5 g/dL (33.0-35.0) 02/23/19 17:34 RDW 12.9 % (11.6-16.5) 02/23/19 17:34 Plt Count 269 X10^3/uL (150.0-450.0) 02/23/19 17:34 MPV 8.4 fL (7.4-11.0) 02/23/19 17:34 Neut % (Auto) 57.5 % (42.0-75.0) 02/23/19 17:34 Lymph % (Auto) 28.8 % (21.0-51.0) 02/23/19 17:34 [place] % (Auto) 11.1 % (0.0-13.0) 02/23/19 17:34 Eos % (Auto) 1.4 % (0.9-2.9) 02/23/19 17:34 Baso % (Auto) 1.2 % (0.2-1.0) H 02/23/19 17:34 Neut # (Auto) 4.1 x10^3/uL (2.2-4.8) 02/23/19 17:34 Lymph # (Auto) 2.0 X10^3/uL (1.3-2.9) 02/23/19 17:34 [place] # (Auto) 0.8 x10^3/uL (0.3-0.8) 02/23/19 17:34 Eos # (Auto) 0.1 x10^3/uL (0.0-0.2) 02/23/19 17:34 Baso # (Auto) 0.1 X10^3/uL (0.0-0.1) 02/23/19 17:34 Absolute Nucleated RBC 0.0 /100WBC 02/23/19 17:34 Sodium 141 mmol/L (136-145) 02/23/19 17:34 Corrected Sodium TNP 02/23/19 17:34 Potassium 3.7 mmol/L (3.5-5.1) 02/23/19 17:34 Chloride 105 mmol/L (98-107) 02/23/19 17:34 Carbon Dioxide 29.0 mmol/L (21-32) 02/23/19 17:34 BUN 13 mg/dL (7-18) 02/23/19 17:34 Creatinine 0.99 mg/dL (0.55-1.02) 02/23/19 17:34 Est GFR (MDRD) Af Amer > 60 (>60) 02/23/19 17:34 Est GFR (MDRD) Non-Af 60 (>60) 02/23/19 17:34 Glucose 100 mg/dL (65-99) H 02/23/19 17:34 Calcium 9.0 mg/dL (8.5-10.1) 02/23/19 17:34 Corrected Calcium TNP 02/23/19 17:34 Magnesium 2.2 mg/dL (1.7-2.9) 02/23/19 17:34 Total Bilirubin 0.30 mg/dL (0.2-1.0) 02/23/19 17:34 AST 16 Units/L (15-37) 02/23/19 17:34 ALT 21 Units/L (12-78) 02/23/19 17:34 Alkaline Phosphatase 101 Units/L (46-116) 02/23/19 17:34 Total Protein 7.5 g/dL (6.4-8.2) 02/23/19 17:34 Albumin 3.7 g/dL (3.4-5.0) 02/23/19 17:34 Globulin 3.8 g/dL (2.5-4.5) 02/23/19 17:34 Albumin/Globulin Ratio 1.0 Ratio (1.1-2.1) L 02/23/19 17:34 XRAY XRAY Interpreted by: Radiologist XRAY Findings: CT brain shows no bleed or acute infarct. CXR normal Opioid Opioid Risk Tool Age (Flo box if 16-45): No History of Preadolescent Sexual Abuse: No Total: 0 Total Score Risk Category: Low Risk Copyright: Davi BAEZA predicting aberrant behaviors Diagnosis Discharge Problem: Intractable migraine Qualifiers: Migraine type: unspecified Status migrainosus presence: with status migrainosus Qualified Code(s): G43.911 - Migraine, unspecified, intractable, with status migrainosus CVA (cerebral vascular accident) Qualifiers: CVA mechanism: unspecified Qualified Code(s): I63.9 - Cerebral infarction, unspecified Instructions Forms: Excuse From Work Patient Portal ADDITIONAL NOTES Additional Notes Additional Notes: This could be a hemiplegic migraine or a migraine plus a stroke. She needs an MRI which will be obtained tomorrow. Will place in obs
[2019-02-24] MEDS ORDERED: XARELTO PO ONE (17:38)
[2019-02-24] MEDS: ELAVIL PO SCH (17:45)
[2019-02-24] MEDS: XARELTO PO SCH (17:45)
[2019-02-24] MEDS: ZANTAC PO SCH (21:40)
[2019-02-24] MEDS: ZOFRAN INJ 4 MG VIAL IVP PRN (21:40)
[2019-02-24] MEDS: CRESTOR TAB 10 MG PO SCH (21:40)
[2019-02-24] MEDS: CATAPRES TAB 0.1 MG PO SCH (21:40)
[2019-02-24] MEDS: LIORESAL PO SCH (21:40)
[2019-02-25] MEDS: NS 1000 ML 1,000 ML IV SCH ×4 (02:41→21:00)
[2019-02-25] MEDS ORDERED: DEMEROL INJ ONE (02:46)
[2019-02-25] MEDS: DEMEROL INJ IVP PRN ×2 (02:50→20:59)
[2019-02-25 06:30] LABS: BASOPHILS # (AUTO) 0.1 X10^3/uL (0.0-0.1); BASOPHILS % (AUTO) 1.4 % (0.2-1.0); EOSINOPHILS # (AUTO) 0.1 x10^3/uL (0.0-0.2); EOSINOPHILS % (AUTO) 2.5 % (0.9-2.9); HEMATOCRIT 32.1 % (36.0-47.0); LYMPHOCYTES # (AUTO) 1.8 X10^3/uL (1.3-2.9); MEAN CORPUSCULAR HEMOGLOBIN 32.9 pg (27.0-34.0); MEAN CORPUSCULAR HGB CONC 34.2 g/dL (33.0-35.0); MEAN CORPUSCULAR VOLUME 96.2 fL (80.0-100.0); MEAN PLATELET VOLUME 8.9 fL (7.4-11.0); MONOCYTES # (AUTO) 0.7 x10^3/uL (0.3-0.8); MONOCYTES % (AUTO) 11.8 % (0.0-13.0); NEUTROPHILS # (AUTO) 2.8 x10^3/uL (2.2-4.8); NEUTROPHILS % (AUTO) 51.3 % (42.0-75.0); PLATELET COUNT 210 X10^3/uL (150.0-450.0); RED BLOOD COUNT 3.33 X10^6/uL (3.5-5.4); RED CELL DISTRIBUTION WIDTH 12.8 % (11.6-16.5); WHITE BLOOD COUNT 5.5 X10^3/uL (3.6-10.0)
[2019-02-25 06:41] LABS: ALANINE AMINOTRANSFERASE 20 Units/L (12-78); ALBUMIN 2.8 g/dL (3.4-5.0); ALKALINE PHOSPHATASE 96 Units/L (46-116); ASPARTATE AMINO TRANSFERASE 12 Units/L (15-37); BLOOD UREA NITROGEN 15 mg/dL (7-18); CALCIUM 8.1 mg/dL (8.5-10.1); CARBON DIOXIDE 28.6 mmol/L (21-32); CHLORIDE 110 mmol/L (98-107); COR CA(FOR HYPOALB) 9.1 mg/dL (8.5-10.1); CREATININE 0.87 mg/dL (0.55-1.02); SODIUM 142 mmol/L (136-145); TOTAL PROTEIN 5.9 g/dL (6.4-8.2); eGFR NON BLACK RACES > 60 (>60)
[2019-02-25] MEDS: XARELTO PO SCH (10:00)
[2019-02-25] MEDS: MILK OF MAGNESIA PO SCH (10:00)
[2019-02-25] MEDS: ZANTAC PO SCH ×2 (10:00→21:00)
[2019-02-25] MEDS: ELAVIL PO SCH (13:40)
[2019-02-25] MEDS: CYMBALTA PO SCH (13:42)
[2019-02-25] MEDS: NEURONTIN CAP 300 MG PO SCH ×2 (13:42→20:59)
[2019-02-25] MEDS: LIORESAL PO SCH (20:59)
[2019-02-25] MEDS: CRESTOR TAB 10 MG PO SCH (20:59)
[2019-02-25] MEDS: COLACE CAP 100 MG PO SCH (20:59)
[2019-02-25] MEDS: CATAPRES TAB 0.1 MG PO SCH (21:00)
[2019-02-25] MEDS: TORADOL 30 MG VIAL IVP PRN (23:43)
[2019-02-26] MEDS: DEMEROL INJ IVP PRN ×2 (03:06→15:43)
[2019-02-26] MEDS: NS 1000 ML 1,000 ML IV SCH ×6 (04:44→22:48)
[2019-02-26 05:49] LABS: ALANINE AMINOTRANSFERASE 20 Units/L (12-78); ALBUMIN 3.1 g/dL (3.4-5.0); ALKALINE PHOSPHATASE 114 Units/L (46-116); ASPARTATE AMINO TRANSFERASE 15 Units/L (15-37); BLOOD UREA NITROGEN 15 mg/dL (7-18); CALCIUM 8.2 mg/dL (8.5-10.1); CARBON DIOXIDE 29.4 mmol/L (21-32); CHLORIDE 110 mmol/L (98-107); COR CA(FOR HYPOALB) 8.9 mg/dL (8.5-10.1); CREATININE 0.89 mg/dL (0.55-1.02); SODIUM 145 mmol/L (136-145); TOTAL PROTEIN 6.7 g/dL (6.4-8.2); eGFR NON BLACK RACES > 60 (>60)
[2019-02-26 06:07] LABS: BASOPHILS # (AUTO) 0.1 X10^3/uL (0.0-0.1); BASOPHILS % (AUTO) 1.1 % (0.2-1.0); EOSINOPHILS # (AUTO) 0.2 x10^3/uL (0.0-0.2); EOSINOPHILS % (AUTO) 2.4 % (0.9-2.9); HEMATOCRIT 34.2 % (36.0-47.0); HEMOGLOBIN 11.7 g/dL (12.0-16.0); LYMPHOCYTES % (AUTO) 28.1 % (21.0-51.0); MEAN CORPUSCULAR HEMOGLOBIN 32.9 pg (27.0-34.0); MEAN CORPUSCULAR HGB CONC 34.2 g/dL (33.0-35.0); MEAN CORPUSCULAR VOLUME 95.9 fL (80.0-100.0); MEAN PLATELET VOLUME 9.1 fL (7.4-11.0); MONOCYTES # (AUTO) 0.8 x10^3/uL (0.3-0.8); MONOCYTES % (AUTO) 10.9 % (0.0-13.0); NEUTROPHILS % (AUTO) 57.5 % (42.0-75.0); PLATELET COUNT 218 X10^3/uL (150.0-450.0); RED BLOOD COUNT 3.56 X10^6/uL (3.5-5.4); RED CELL DISTRIBUTION WIDTH 13.2 % (11.6-16.5); WHITE BLOOD COUNT 6.9 X10^3/uL (3.6-10.0)
[2019-02-26] MEDS: ELAVIL PO SCH ×2 (08:20→21:12)
[2019-02-26] MEDS: XARELTO PO SCH (08:20)
[2019-02-26] MEDS: ZANTAC PO SCH ×2 (08:20→22:30)
[2019-02-26] MEDS: CYMBALTA PO SCH (08:20)
[2019-02-26] MEDS: NEURONTIN CAP 300 MG PO SCH ×2 (08:21→21:11)
[2019-02-26] MEDS: MILK OF MAGNESIA PO SCH (08:21)
[2019-02-26] MEDS: TORADOL 30 MG VIAL IVP PRN ×2 (08:28→20:20)
[2019-02-26] MEDS: TUSSIONEX PENNKINETIC SUSP PO SCH (13:56)
--- NOTE | 2019-02-26 19:24 | PCM.PROG ---
Progress Note - Progress Note for Day of Date of Exam: 02/25/19 - Subjective Subjective: WAS ADMITTED FOR INTRACTABLE MIGRAINES, RIGHT SIDED WEAKNESS, AND RULE OUT CVA. TODAY, SHE IS ALERT AND ORIENTED, LYING IN BED ON MORNING ROUNDS. SHE CONTINUES WITH COMPLAINTS OF A SEVERE HEADACHE TODAY. ON EXAMINATION, HEART IS REGULAR IN RATE AND RHYTHM. BILATERAL LUNGS ARE CLEAR TO AUSCULTATION. ABDOMEN IS ROUND, SOFT, AND NON-TENDER WITH NORMAL BOWEL SOUNDS NOTED IN ALL QUADRANTS. HER VITALS THIS MORNING ARE: 97.5-55-18-97%-129/60. LABS WERE OBTAINED. ABNORMAL LAB VALUES INCLUDE THE FOLLOWING: RBC 3.33, HGB 11.0, HCT 32.1, CHLORIDE 110, GLUCOSE 106, CALCIUM 8.1, TOTAL BILI <0.10, AST 12, TOTAL PROTEIN 5.9, ALBUMIN 2.8. A BRAIN MRI WAS OBTAINED YESTERDAY AND REVEALED: NO ACUTE INTRACRANIAL ABNORMALITY. SHE IS CURRENTLY RECEIVING NORMAL SALINE AT 125ML/HR, THE POTASSIUM AND MAGNESIUM PROTOCOLS, DEMEROL 25MG IV Q6H PRN, AND HOME MEDICATIONS WERE RESUMED. TODAY, WE WILL ADD GABAPENTIN 300MG PO BID AND TORADOL 30MG IV Q8H PRN. OTHERWISE, WE WILL CONTINUE WITH CURRENT PLAN OF CARE TODAY. WE PLAN TO FOLLOW UP WITH AM LABS AND CONTINUE TO MONITOR. - Past Medical Family Social History Past Med/Fam/Surg Hx: No changes since H&P Allergies: Allergies No Known Drug Allergies Allergy (Verified 02/23/19 15:04) - Review of Systems ROS: No change since H&P - Vital Signs and I&O's Vital Signs: Temperature 99.4 F Pulse Rate [Brachial] 104 Pulse Rate 70 Respiratory Rate 16 Blood Pressure [Right Arm] 179/74 Blood Pressure [Left Arm] 136/58 Blood Pressure 131/65 O2 Sat by Pulse Oximetry 94 Intake and Output: Intake & Output 02/24/19 02/25/19 02/26/19 02/27/19 11:59 11:59 11:59 11:59 Intake Total 1248 / 1248 3650 / 3650 2960 / 2960 1820 / 1820 Balance 1248 / 1248 3650 / 3650 2960 / 2960 1820 / 1820 - Physical Exam Oriented: Normal Eyes: Normal Ear: Normal Nose: Normal Throat: Normal Respiratory: Normal Cardiovascular: Normal : Normal Auscultation: Bowel Sounds: Normal Palpation: Normal Tenderness: Normal Skin: Normal Musculoskeletal: Normal Psychiatric: Normal Mood Description: Calm Affect: Normal Speech Pattern: Clear - Laboratory and Diagnostics Result Diagrams: 02/26/19 04:20 02/26/19 04:20 Labs: Laboratory WBC 6.9 X10^3/uL (3.6-10.0) 02/26/19 04:20 RBC 3.56 X10^6/uL (3.5-5.4) 02/26/19 04:20 Hgb 11.7 g/dL (12.0-16.0) L 02/26/19 04:20 Hct 34.2 % (36.0-47.0) L 02/26/19 04:20 MCV 95.9 fL (80.0-100.0) 02/26/19 04:20 MCH 32.9 pg (27.0-34.0) 02/26/19 04:20 MCHC 34.2 g/dL (33.0-35.0) 02/26/19 04:20 RDW 13.2 % (11.6-16.5) 02/26/19 04:20 Plt Count 218 X10^3/uL (150.0-450.0) 02/26/19 04:20 MPV 9.1 fL (7.4-11.0) 02/26/19 04:20 Neut % (Auto) 57.5 % (42.0-75.0) 02/26/19 04:20 Lymph % (Auto) 28.1 % (21.0-51.0) 02/26/19 04:20 [place] % (Auto) 10.9 % (0.0-13.0) 02/26/19 04:20 Eos % (Auto) 2.4 % (0.9-2.9) 02/26/19 04:20 Baso % (Auto) 1.1 % (0.2-1.0) H 02/26/19 04:20 Neut # (Auto) 4.0 x10^3/uL (2.2-4.8) 02/26/19 04:20 Lymph # (Auto) 2.0 X10^3/uL (1.3-2.9) 02/26/19 04:20 [place] # (Auto) 0.8 x10^3/uL (0.3-0.8) 02/26/19 04:20 Eos # (Auto) 0.2 x10^3/uL (0.0-0.2) 02/26/19 04:20 Baso # (Auto) 0.1 X10^3/uL (0.0-0.1) 02/26/19 04:20 Absolute Nucleated RBC 0.1 /100WBC 02/26/19 04:20 ESR 5 MM/HOUR (0-20) 02/26/19 11:59 Sodium 145 mmol/L (136-145) 02/26/19 04:20 Corrected Sodium TNP 02/26/19 04:20 Potassium 4.3 mmol/L (3.5-5.1) 02/26/19 04:20 Chloride 110 mmol/L (98-107) H 02/26/19 04:20 Carbon Dioxide 29.4 mmol/L (21-32) 02/26/19 04:20 BUN 15 mg/dL (7-18) 02/26/19 04:20 Creatinine 0.89 mg/dL (0.55-1.02) 02/26/19 04:20 Est GFR (MDRD) Af Amer > 60 (>60) 02/26/19 04:20 Est GFR (MDRD) Non-Af > 60 (>60) 02/26/19 04:20 Glucose 108 mg/dL (65-99) H 02/26/19 04:20 Calcium 8.2 mg/dL (8.5-10.1) L 02/26/19 04:20 Corrected Calcium 8.9 mg/dL (8.5-10.1) 02/26/19 04:20 Magnesium 2.2 mg/dL (1.7-2.9) 02/23/19 17:34 Total Bilirubin 0.10 mg/dL (0.2-1.0) L 02/26/19 04:20 AST 15 Units/L (15-37) 02/26/19 04:20 ALT 20 Units/L (12-78) 02/26/19 04:20 Alkaline Phosphatase 114 Units/L (46-116) 02/26/19 04:20 C-Reactive Protein 0.60 mg/L (0-3.0) 02/26/19 11:59 Total Protein 6.7 g/dL (6.4-8.2) 02/26/19 04:20 Albumin 3.1 g/dL (3.4-5.0) L 02/26/19 04:20 Globulin 3.6 g/dL (2.5-4.5) 02/26/19 04:20 Albumin/Globulin Ratio 0.9 Ratio (1.1-2.1) L 02/26/19 04:20 - Plan (1) Intractable migraine Status: Acute Qualifiers: Migraine type: unspecified Status migrainosus presence: with status migrainosus Qualified Code(s): G43.911 - Migraine, unspecified, intractable, with status migrainosus Plan: DEMEROL 25MG IV Q6H PRN PAIN, IV TORADOL PRN, GABAPENTIN 300MG PO BID, ZOFRAN 4MG IV Q8H PRN NAUSEA, NORMAL SALINE AT 125ML/HR (2) Right sided weakness Status: Acute (3) History of CVA (cerebrovascular accident) Status: Acute
--- NOTE | 2019-02-26 19:28 | PCM.PROG ---
Progress Note - Progress Note for Day of Date of Exam: 02/26/19 - Subjective Subjective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ast Medical Family Social History Past Med/Fam/Surg Hx: No changes since H&P Allergies: Allergies No Known Drug Allergies Allergy (Verified 02/23/19 15:04) - Review of Systems ROS: No change since H&P - Vital Signs and I&O's Vital Signs: Temperature 99.4 F Pulse Rate [Brachial] 104 Pulse Rate 70 Respiratory Rate 16 Blood Pressure [Right Arm] 179/74 Blood Pressure [Left Arm] 136/58 Blood Pressure 131/65 O2 Sat by Pulse Oximetry 94 Intake and Output: Intake & Output 02/24/19 02/25/19 02/26/19 02/27/19 11:59 11:59 11:59 11:59 Intake Total 1248 / 1248 3650 / 3650 2960 / 2960 1820 / 1820 Balance 1248 / 1248 3650 / 3650 2960 / 2960 1820 / 1820 - Physical Exam Oriented: Normal Eyes: Normal Ear: Normal Nose: Normal Throat: Normal Respiratory: Normal Cardiovascular: Normal : Normal Auscultation: Bowel Sounds: Normal Tenderness: Normal Skin: Normal Musculoskeletal: Normal Psychiatric: Normal Mood Description: Calm Affect: Normal Speech Pattern: Clear - Laboratory and Diagnostics Result Diagrams: 02/26/19 04:20 02/26/19 04:20 Labs: Laboratory WBC 6.9 X10^3/uL (3.6-10.0) 02/26/19 04:20 RBC 3.56 X10^6/uL (3.5-5.4) 02/26/19 04:20 Hgb 11.7 g/dL (12.0-16.0) L 02/26/19 04:20 Hct 34.2 % (36.0-47.0) L 02/26/19 04:20 MCV 95.9 fL (80.0-100.0) 02/26/19 04:20 MCH 32.9 pg (27.0-34.0) 02/26/19 04:20 MCHC 34.2 g/dL (33.0-35.0) 02/26/19 04:20 RDW 13.2 % (11.6-16.5) 02/26/19 04:20 Plt Count 218 X10^3/uL (150.0-450.0) 02/26/19 04:20 MPV 9.1 fL (7.4-11.0) 02/26/19 04:20 Neut % (Auto) 57.5 % (42.0-75.0) 02/26/19 04:20 Lymph % (Auto) 28.1 % (21.0-51.0) 02/26/19 04:20 [place] % (Auto) 10.9 % (0.0-13.0) 02/26/19 04:20 Eos % (Auto) 2.4 % (0.9-2.9) 02/26/19 04:20 Baso % (Auto) 1.1 % (0.2-1.0) H 02/26/19 04:20 Neut # (Auto) 4.0 x10^3/uL (2.2-4.8) 02/26/19 04:20 Lymph # (Auto) 2.0 X10^3/uL (1.3-2.9) 02/26/19 04:20 [place] # (Auto) 0.8 x10^3/uL (0.3-0.8) 02/26/19 04:20 Eos # (Auto) 0.2 x10^3/uL (0.0-0.2) 02/26/19 04:20 Baso # (Auto) 0.1 X10^3/uL (0.0-0.1) 02/26/19 04:20 Absolute Nucleated RBC 0.1 /100WBC 02/26/19 04:20 ESR 5 MM/HOUR (0-20) 02/26/19 11:59 Sodium 145 mmol/L (136-145) 02/26/19 04:20 Corrected Sodium TNP 02/26/19 04:20 Potassium 4.3 mmol/L (3.5-5.1) 02/26/19 04:20 Chloride 110 mmol/L (98-107) H 02/26/19 04:20 Carbon Dioxide 29.4 mmol/L (21-32) 02/26/19 04:20 BUN 15 mg/dL (7-18) 02/26/19 04:20 Creatinine 0.89 mg/dL (0.55-1.02) 02/26/19 04:20 Est GFR (MDRD) Af Amer > 60 (>60) 02/26/19 04:20 Est GFR (MDRD) Non-Af > 60 (>60) 02/26/19 04:20 Glucose 108 mg/dL (65-99) H 02/26/19 04:20 Calcium 8.2 mg/dL (8.5-10.1) L 02/26/19 04:20 Corrected Calcium 8.9 mg/dL (8.5-10.1) 02/26/19 04:20 Magnesium 2.2 mg/dL (1.7-2.9) 02/23/19 17:34 Total Bilirubin 0.10 mg/dL (0.2-1.0) L 02/26/19 04:20 AST 15 Units/L (15-37) 02/26/19 04:20 ALT 20 Units/L (12-78) 02/26/19 04:20 Alkaline Phosphatase 114 Units/L (46-116) 02/26/19 04:20 C-Reactive Protein 0.60 mg/L (0-3.0) 02/26/19 11:59 Total Protein 6.7 g/dL (6.4-8.2) 02/26/19 04:20 Albumin 3.1 g/dL (3.4-5.0) L 02/26/19 04:20 Globulin 3.6 g/dL (2.5-4.5) 02/26/19 04:20 Albumin/Globulin Ratio 0.9 Ratio (1.1-2.1) L 02/26/19 04:20 - Plan (1) Intractable migraine Status: Acute Qualifiers: Migraine type: unspecified Status migrainosus presence: with status migrainosus Qualified Code(s): G43.911 - Migraine, unspecified, intractable, with status migrainosus Plan: DEMEROL 25MG IV Q6H PRN PAIN, IV TORADOL PRN, GABAPENTIN 300MG PO BID, ZOFRAN 4MG IV Q8H PRN NAUSEA, NORMAL SALINE AT 125ML/HR (2) Right sided weakness Status: Acute (3) History of CVA (cerebrovascular accident) Status: Acute
[2019-02-26] MEDS: CRESTOR TAB 10 MG PO SCH (21:11)
[2019-02-26] MEDS: COLACE CAP 100 MG PO SCH (21:11)
[2019-02-26] MEDS: CATAPRES TAB 0.1 MG PO SCH (21:12)
[2019-02-26] MEDS: LIORESAL PO SCH (21:12)
[2019-02-27] MEDS: TUSSIONEX PENNKINETIC SUSP PO SCH ×2 (00:24→12:05)
[2019-02-27] MEDS: DEMEROL INJ IVP PRN ×3 (02:10→22:00)
[2019-02-27] MEDS: NS 1000 ML 1,000 ML IV SCH ×4 (02:11→17:00)
[2019-02-27] MEDS: TORADOL 30 MG VIAL IVP PRN ×2 (06:01→16:19)
[2019-02-27 06:46] LABS: BASOPHILS # (AUTO) 0.1 X10^3/uL (0.0-0.1); BASOPHILS % (AUTO) 1.3 % (0.2-1.0); EOSINOPHILS # (AUTO) 0.2 x10^3/uL (0.0-0.2); EOSINOPHILS % (AUTO) 2.9 % (0.9-2.9); HEMATOCRIT 32.3 % (36.0-47.0); HEMOGLOBIN 11.1 g/dL (12.0-16.0); LYMPHOCYTES # (AUTO) 1.9 X10^3/uL (1.3-2.9); LYMPHOCYTES % (AUTO) 31.4 % (21.0-51.0); MEAN CORPUSCULAR HEMOGLOBIN 32.8 pg (27.0-34.0); MEAN CORPUSCULAR HGB CONC 34.3 g/dL (33.0-35.0); MEAN CORPUSCULAR VOLUME 95.7 fL (80.0-100.0); MEAN PLATELET VOLUME 8.9 fL (7.4-11.0); MONOCYTES # (AUTO) 0.7 x10^3/uL (0.3-0.8); MONOCYTES % (AUTO) 12.4 % (0.0-13.0); NEUTROPHILS # (AUTO) 3.1 x10^3/uL (2.2-4.8); PLATELET COUNT 203 X10^3/uL (150.0-450.0); RED BLOOD COUNT 3.38 X10^6/uL (3.5-5.4); RED CELL DISTRIBUTION WIDTH 12.8 % (11.6-16.5); WHITE BLOOD COUNT 5.9 X10^3/uL (3.6-10.0)
[2019-02-27 06:47] LABS: ALANINE AMINOTRANSFERASE 17 Units/L (12-78); ALBUMIN 2.8 g/dL (3.4-5.0); ALKALINE PHOSPHATASE 92 Units/L (46-116); ASPARTATE AMINO TRANSFERASE 11 Units/L (15-37); BLOOD UREA NITROGEN 17 mg/dL (7-18); CALCIUM 8.2 mg/dL (8.5-10.1); CARBON DIOXIDE 30.2 mmol/L (21-32); CHLORIDE 111 mmol/L (98-107); COR CA(FOR HYPOALB) 9.2 mg/dL (8.5-10.1); CREATININE 0.85 mg/dL (0.55-1.02); SODIUM 145 mmol/L (136-145); TOTAL PROTEIN 6.1 g/dL (6.4-8.2); eGFR NON BLACK RACES > 60 (>60)
[2019-02-27] MEDS: XARELTO PO SCH (08:48)
[2019-02-27] MEDS: NEURONTIN CAP 300 MG PO SCH ×2 (08:48→21:44)
[2019-02-27] MEDS: CYMBALTA PO SCH (08:48)
[2019-02-27] MEDS: MILK OF MAGNESIA PO SCH (08:49)
[2019-02-27] MEDS: ZANTAC PO SCH ×2 (08:52→21:46)
[2019-02-27] MEDS: PATIENT'S HOME MEDICATION PO SCH (12:04)
--- NOTE | 2019-02-27 20:58 | PCM.PROG ---
Progress Note - Progress Note for Day of Date of Exam: 02/27/19 - Subjective Subjective: WAS ADMITTED FOR INTRACTABLE MIGRAINES, RIGHT SIDED WEAKNESS, AND RULE OUT CVA. TODAY, SHE IS ALERT AND ORIENTED, LYING IN BED ON MORNING ROUNDS. SHE CONTINUES WITH COMPLAINTS OF A SEVERE HEADACHE TODAY. SHE REPORTS THAT SHE HAD SLIGHT IMPROVEMENT BRIEFLY YESTERDAY, BUT PAIN IS BACK TO SEVERE TODAY. ON EXAMINATION, HEART IS REGULAR IN RATE AND RHYTHM. BILATERAL LUNGS ARE CLEAR TO AUSCULTATION. ABDOMEN IS ROUND, SOFT, AND NON-TENDER WITH NORMAL BOWEL SOUNDS NOTED IN ALL QUADRANTS. HER VITALS THIS MORNING ARE: 98.1-66-20-95%-136/90. LABS WERE OBTAINED. ABNORMAL LAB VALUES INCLUDE THE FOLLOWING: RBC 3.38, HGB 11.1, HCT 32.3, CHLORIDE 111, GLUCOSE 104, CALCIUM 8.2, TOTAL BILI 0.10, AST 11, TOTAL PROTEIN 6.1, ALBUMIN 2.8. SHE IS CURRENTLY RECEIVING NORMAL SALINE AT 125ML/HR, THE POTASSIUM AND MAGNESIUM PROTOCOLS, DEMEROL 25MG IV Q6H PRN, GABAPENTIN 300MG PO BID, TORADOL PRN, ELAVIL, TUSSIONEX, AND HOME MEDICATIONS WERE RESUMED. TODAY, WE WILL ADD DEPAKOTE 250MG ER DAILY. OTHERWISE, WE WILL CONTINUE WITH CURRENT PLAN OF CARE TODAY. WE PLAN TO FOLLOW UP WITH AM LABS AND CONTINUE TO MONITOR. - Past Medical Family Social History Past Med/Fam/Surg Hx: No changes since H&P Allergies: Allergies No Known Drug Allergies Allergy (Verified 02/23/19 15:04) - Review of Systems ROS: No change since H&P - Vital Signs and I&O's Vital Signs: Temperature 98.6 F Pulse Rate [Brachial] 74 Pulse Rate 70 Respiratory Rate 16 Blood Pressure [Right Arm] 192/83 Blood Pressure [Left Arm] 133/62 Blood Pressure 131/65 O2 Sat by Pulse Oximetry 98 Intake and Output: Intake & Output 02/25/19 02/26/19 02/27/19 02/28/19 11:59 11:59 11:59 11:59 Intake Total 3650 / 3650 2960 / 2960 3360 / 3360 840 / 840 Balance 3650 / 3650 2960 / 2960 3360 / 3360 840 / 840 - Physical Exam Oriented: Normal Eyes: Normal Ear: Normal Nose: Normal Throat: Normal Respiratory: Normal Cardiovascular: Normal : Normal Auscultation: Bowel Sounds: Normal Tenderness: Normal Skin: Normal Musculoskeletal: Normal Psychiatric: Normal Mood Description: Calm Affect: Normal Speech Pattern: Clear - Laboratory and Diagnostics Result Diagrams: 02/27/19 05:52 02/27/19 05:52 Labs: Laboratory WBC 5.9 X10^3/uL (3.6-10.0) 02/27/19 05:52 RBC 3.38 X10^6/uL (3.5-5.4) L 02/27/19 05:52 Hgb 11.1 g/dL (12.0-16.0) L 02/27/19 05:52 Hct 32.3 % (36.0-47.0) L 02/27/19 05:52 MCV 95.7 fL (80.0-100.0) 02/27/19 05:52 MCH 32.8 pg (27.0-34.0) 02/27/19 05:52 MCHC 34.3 g/dL (33.0-35.0) 02/27/19 05:52 RDW 12.8 % (11.6-16.5) 02/27/19 05:52 Plt Count 203 X10^3/uL (150.0-450.0) 02/27/19 05:52 MPV 8.9 fL (7.4-11.0) 02/27/19 05:52 Neut % (Auto) 52.0 % (42.0-75.0) 02/27/19 05:52 Lymph % (Auto) 31.4 % (21.0-51.0) 02/27/19 05:52 [place] % (Auto) 12.4 % (0.0-13.0) 02/27/19 05:52 Eos % (Auto) 2.9 % (0.9-2.9) 02/27/19 05:52 Baso % (Auto) 1.3 % (0.2-1.0) H 02/27/19 05:52 Neut # (Auto) 3.1 x10^3/uL (2.2-4.8) 02/27/19 05:52 Lymph # (Auto) 1.9 X10^3/uL (1.3-2.9) 02/27/19 05:52 [place] # (Auto) 0.7 x10^3/uL (0.3-0.8) 02/27/19 05:52 Eos # (Auto) 0.2 x10^3/uL (0.0-0.2) 02/27/19 05:52 Baso # (Auto) 0.1 X10^3/uL (0.0-0.1) 02/27/19 05:52 Absolute Nucleated RBC 0.0 /100WBC 02/27/19 05:52 ESR 5 MM/HOUR (0-20) 02/26/19 11:59 Sodium 145 mmol/L (136-145) 02/27/19 05:52 Corrected Sodium TNP 02/27/19 05:52 Potassium 5.0 mmol/L (3.5-5.1) 02/27/19 05:52 Chloride 111 mmol/L (98-107) H 02/27/19 05:52 Carbon Dioxide 30.2 mmol/L (21-32) 02/27/19 05:52 BUN 17 mg/dL (7-18) 02/27/19 05:52 Creatinine 0.85 mg/dL (0.55-1.02) 02/27/19 05:52 Est GFR (MDRD) Af Amer > 60 (>60) 02/27/19 05:52 Est GFR (MDRD) Non-Af > 60 (>60) 02/27/19 05:52 Glucose 104 mg/dL (65-99) H 02/27/19 05:52 Calcium 8.2 mg/dL (8.5-10.1) L 02/27/19 05:52 Corrected Calcium 9.2 mg/dL (8.5-10.1) 02/27/19 05:52 Magnesium 2.2 mg/dL (1.7-2.9) 02/23/19 17:34 Total Bilirubin 0.10 mg/dL (0.2-1.0) L 02/27/19 05:52 AST 11 Units/L (15-37) L 02/27/19 05:52 ALT 17 Units/L (12-78) 02/27/19 05:52 Alkaline Phosphatase 92 Units/L (46-116) 02/27/19 05:52 C-Reactive Protein 0.60 mg/L (0-3.0) 02/26/19 11:59 Total Protein 6.1 g/dL (6.4-8.2) L 02/27/19 05:52 Albumin 2.8 g/dL (3.4-5.0) L 02/27/19 05:52 Globulin 3.3 g/dL (2.5-4.5) 02/27/19 05:52 Albumin/Globulin Ratio 0.8 Ratio (1.1-2.1) L 02/27/19 05:52 - Plan (1) Intractable migraine Status: Acute Qualifiers: Migraine type: unspecified Status migrainosus presence: with status migrainosus Qualified Code(s): G43.911 - Migraine, unspecified, intractable, with status migrainosus Plan: DEMEROL 25MG IV Q6H PRN PAIN, IV TORADOL PRN, GABAPENTIN 300MG PO BID, ZOFRAN 4MG IV Q8H PRN NAUSEA, NORMAL SALINE AT 125ML/HR (2) Right sided weakness Status: Acute (3) History of CVA (cerebrovascular accident) Status: Acute
[2019-02-27] MEDS: COLACE CAP 100 MG PO SCH (21:43)
[2019-02-27] MEDS: ELAVIL PO SCH (21:44)
[2019-02-27] MEDS: CATAPRES TAB 0.1 MG PO SCH (21:44)
[2019-02-27] MEDS: LIORESAL PO SCH (21:44)
[2019-02-27] MEDS: CRESTOR TAB 10 MG PO SCH (21:44)
[2019-02-28] MEDS: NS 1000 ML 1,000 ML IV SCH ×3 (02:00→18:23)
[2019-02-28] MEDS: ZOFRAN INJ 4 MG VIAL IVP PRN ×3 (04:13→16:48)
[2019-02-28] MEDS: DEMEROL INJ IVP PRN ×3 (04:13→21:00)
[2019-02-28 06:25] LABS: BASOPHILS # (AUTO) 0.1 X10^3/uL (0.0-0.1); BASOPHILS % (AUTO) 1.2 % (0.2-1.0); EOSINOPHILS # (AUTO) 0.2 x10^3/uL (0.0-0.2); EOSINOPHILS % (AUTO) 3.5 % (0.9-2.9); HEMATOCRIT 32.4 % (36.0-47.0); HEMOGLOBIN 11.2 g/dL (12.0-16.0); LYMPHOCYTES # (AUTO) 1.9 X10^3/uL (1.3-2.9); MEAN CORPUSCULAR HEMOGLOBIN 33.1 pg (27.0-34.0); MEAN CORPUSCULAR HGB CONC 34.7 g/dL (33.0-35.0); MEAN CORPUSCULAR VOLUME 95.3 fL (80.0-100.0); MEAN PLATELET VOLUME 8.6 fL (7.4-11.0); MONOCYTES # (AUTO) 0.8 x10^3/uL (0.3-0.8); MONOCYTES % (AUTO) 13.1 % (0.0-13.0); NEUTROPHILS # (AUTO) 3.1 x10^3/uL (2.2-4.8); NEUTROPHILS % (AUTO) 51.2 % (42.0-75.0); PLATELET COUNT 200 X10^3/uL (150.0-450.0); RED CELL DISTRIBUTION WIDTH 13.3 % (11.6-16.5); WHITE BLOOD COUNT 6.1 X10^3/uL (3.6-10.0)
[2019-02-28 07:02] LABS: ALANINE AMINOTRANSFERASE 18 Units/L (12-78); ALBUMIN 2.9 g/dL (3.4-5.0); ALKALINE PHOSPHATASE 96 Units/L (46-116); ASPARTATE AMINO TRANSFERASE 14 Units/L (15-37); BLOOD UREA NITROGEN 16 mg/dL (7-18); CARBON DIOXIDE 26.2 mmol/L (21-32); CHLORIDE 108 mmol/L (98-107); COR CA(FOR HYPOALB) 8.9 mg/dL (8.5-10.1); CREATININE 0.89 mg/dL (0.55-1.02); SODIUM 143 mmol/L (136-145); TOTAL PROTEIN 6.2 g/dL (6.4-8.2); eGFR NON BLACK RACES > 60 (>60)
[2019-02-28] MEDS: CYMBALTA PO SCH (08:27)
[2019-02-28] MEDS: MILK OF MAGNESIA PO SCH (08:27)
[2019-02-28] MEDS: XARELTO PO SCH (08:27)
[2019-02-28] MEDS: TORADOL 30 MG VIAL IVP PRN (08:28)
[2019-02-28] MEDS: NEURONTIN CAP 300 MG PO SCH ×2 (08:28→20:56)
[2019-02-28] MEDS: PATIENT'S HOME MEDICATION PO SCH (08:28)
[2019-02-28] MEDS: ZANTAC PO SCH (11:40)
[2019-02-28] MEDS: TORADOL 30 MG VIAL IVP SCH ×3 (11:43→18:24)
[2019-02-28] MEDS: TUSSIONEX PENNKINETIC SUSP PO SCH ×3 (16:49→23:00)
[2019-02-28] MEDS: LIORESAL PO SCH (20:55)
[2019-02-28] MEDS: COLACE CAP 100 MG PO SCH (20:55)
[2019-02-28] MEDS: CRESTOR TAB 10 MG PO SCH (20:56)
[2019-02-28] MEDS: ELAVIL PO SCH (20:56)
[2019-02-28] MEDS: CATAPRES TAB 0.1 MG PO SCH (20:57)
--- NOTE | 2019-02-28 22:07 | PCM.PROG ---
Progress Note - Progress Note for Day of Date of Exam: 02/28/19 - Subjective Subjective: WAS ADMITTED FOR INTRACTABLE MIGRAINES, RIGHT SIDED WEAKNESS, AND RULE OUT CVA. TODAY, SHE IS ALERT AND ORIENTED, LYING IN BED ON MORNING ROUNDS. SHE CONTINUES WITH COMPLAINTS OF HEADACHE TODAY AND NAUSEA. SHE DOES REPORT SLIGHT IMPROVEMENT IN HEADACHE SINCE YESTERDAY. ON EXAMINATION, HEART IS REGULAR IN RATE AND RHYTHM. BILATERAL LUNGS ARE CLEAR TO AUSCULTATION. ABDOMEN IS ROUND, SOFT, AND NON-TENDER WITH NORMAL BOWEL SOUNDS NOTED IN ALL QUADRANTS. HER VITALS THIS MORNING ARE: 98.6-59-18-96%-133/63. LABS WERE OBTAINED. ABNORMAL LAB VALUES INCLUDE THE FOLLOWING: RBC 3.40, HGB 11.2, HCT 32.4, CHLORIDE 108, CALCIUM 8.0, TOTAL BILI 0.10, AST 14, TOTAL PROTEIN 6.2, ALBUMIN 2.9. SHE IS CURRENTLY RECEIVING NORMAL SALINE AT 125ML/HR, THE POTASSIUM AND MAGNESIUM PROTOCOLS, DEMEROL 25MG IV Q6H PRN, GABAPENTIN 300MG PO BID, TORADOL PRN, ELAVIL, TUSSIONEX, DEPAKOTE ER 250MG PO DAILY, AND HOME MEDICATIONS WERE RESUMED. WE WILL CONTINUE WITH CURRENT PLAN OF CARE TODAY. OTHERWISE, WE PLAN TO FOLLOW UP WITH AM LABS AND CONTINUE TO MONITOR. - Past Medical Family Social History Past Med/Fam/Surg Hx: No changes since H&P Allergies: Allergies No Known Drug Allergies Allergy (Verified 02/23/19 15:04) - Review of Systems ROS: No change since H&P - Vital Signs and I&O's Vital Signs: Temperature 99.2 F Pulse Rate [Brachial] 68 Pulse Rate 70 Respiratory Rate 20 Blood Pressure [Right Arm] 151/67 Blood Pressure [Left Arm] 133/63 Blood Pressure 131/65 O2 Sat by Pulse Oximetry 96 Intake and Output: Intake & Output 02/26/19 02/27/19 02/28/19 03/01/19 11:59 11:59 11:59 11:59 Intake Total 2960 / 2960 3360 / 3360 1760 / 1760 820 / 820 Balance 2960 / 2960 3360 / 3360 1760 / 1760 820 / 820 - Physical Exam Oriented: Normal Eyes: Normal Ear: Normal Nose: Normal Throat: Normal Respiratory: Normal Cardiovascular: Normal : Normal Auscultation: Bowel Sounds: Normal Tenderness: Normal Skin: Normal Musculoskeletal: Normal Psychiatric: Normal Mood Description: Calm Affect: Normal Speech Pattern: Clear - Laboratory and Diagnostics Result Diagrams: 02/28/19 06:00 02/28/19 06:00 Labs: Laboratory WBC 6.1 X10^3/uL (3.6-10.0) 02/28/19 06:00 RBC 3.40 X10^6/uL (3.5-5.4) L 02/28/19 06:00 Hgb 11.2 g/dL (12.0-16.0) L 02/28/19 06:00 Hct 32.4 % (36.0-47.0) L 02/28/19 06:00 MCV 95.3 fL (80.0-100.0) 02/28/19 06:00 MCH 33.1 pg (27.0-34.0) 02/28/19 06:00 MCHC 34.7 g/dL (33.0-35.0) 02/28/19 06:00 RDW 13.3 % (11.6-16.5) 02/28/19 06:00 Plt Count 200 X10^3/uL (150.0-450.0) 02/28/19 06:00 MPV 8.6 fL (7.4-11.0) 02/28/19 06:00 Neut % (Auto) 51.2 % (42.0-75.0) 02/28/19 06:00 Lymph % (Auto) 31.0 % (21.0-51.0) 02/28/19 06:00 [place] % (Auto) 13.1 % (0.0-13.0) H 02/28/19 06:00 Eos % (Auto) 3.5 % (0.9-2.9) H 02/28/19 06:00 Baso % (Auto) 1.2 % (0.2-1.0) H 02/28/19 06:00 Neut # (Auto) 3.1 x10^3/uL (2.2-4.8) 02/28/19 06:00 Lymph # (Auto) 1.9 X10^3/uL (1.3-2.9) 02/28/19 06:00 [place] # (Auto) 0.8 x10^3/uL (0.3-0.8) 02/28/19 06:00 Eos # (Auto) 0.2 x10^3/uL (0.0-0.2) 02/28/19 06:00 Baso # (Auto) 0.1 X10^3/uL (0.0-0.1) 02/28/19 06:00 Absolute Nucleated RBC 0.0 /100WBC 02/28/19 06:00 ESR 5 MM/HOUR (0-20) 02/26/19 11:59 Sodium 143 mmol/L (136-145) 02/28/19 06:00 Corrected Sodium TNP 02/28/19 06:00 Potassium 4.2 mmol/L (3.5-5.1) 02/28/19 06:00 Chloride 108 mmol/L (98-107) H 02/28/19 06:00 Carbon Dioxide 26.2 mmol/L (21-32) 02/28/19 06:00 BUN 16 mg/dL (7-18) 02/28/19 06:00 Creatinine 0.89 mg/dL (0.55-1.02) 02/28/19 06:00 Est GFR (MDRD) Af Amer > 60 (>60) 02/28/19 06:00 Est GFR (MDRD) Non-Af > 60 (>60) 02/28/19 06:00 Glucose 95 mg/dL (65-99) 02/28/19 06:00 Calcium 8.0 mg/dL (8.5-10.1) L 02/28/19 06:00 Corrected Calcium 8.9 mg/dL (8.5-10.1) 02/28/19 06:00 Magnesium 2.2 mg/dL (1.7-2.9) 02/23/19 17:34 Total Bilirubin 0.10 mg/dL (0.2-1.0) L 02/28/19 06:00 AST 14 Units/L (15-37) L 02/28/19 06:00 ALT 18 Units/L (12-78) 02/28/19 06:00 Alkaline Phosphatase 96 Units/L (46-116) 02/28/19 06:00 C-Reactive Protein 0.60 mg/L (0-3.0) 02/26/19 11:59 Total Protein 6.2 g/dL (6.4-8.2) L 02/28/19 06:00 Albumin 2.9 g/dL (3.4-5.0) L 02/28/19 06:00 Globulin 3.3 g/dL (2.5-4.5) 02/28/19 06:00 Albumin/Globulin Ratio 0.9 Ratio (1.1-2.1) L 02/28/19 06:00 - Plan (1) Intractable migraine Status: Acute Qualifiers: Migraine type: unspecified Status migrainosus presence: with status migrainosus Qualified Code(s): G43.911 - Migraine, unspecified, intractable, with status migrainosus Plan: DEMEROL 25MG IV Q6H PRN PAIN, IV TORADOL PRN, GABAPENTIN 300MG PO BID, ZOFRAN 4MG IV Q8H PRN NAUSEA, NORMAL SALINE AT 125ML/HR (2) Right sided weakness Status: Acute (3) History of CVA (cerebrovascular accident) Status: Acute
[2019-03-01] MEDS: TORADOL 30 MG VIAL IVP SCH ×2 (02:24→09:10)
[2019-03-01] MEDS: NS 1000 ML 1,000 ML IV SCH ×3 (02:25→19:50)
[2019-03-01] MEDS: DEMEROL INJ IVP PRN (05:52)
[2019-03-01 06:04] LABS: BASOPHILS # (AUTO) 0.1 X10^3/uL (0.0-0.1); BASOPHILS % (AUTO) 1.1 % (0.2-1.0); EOSINOPHILS # (AUTO) 0.2 x10^3/uL (0.0-0.2); EOSINOPHILS % (AUTO) 3.5 % (0.9-2.9); HEMATOCRIT 33.8 % (36.0-47.0); HEMOGLOBIN 11.4 g/dL (12.0-16.0); LYMPHOCYTES # (AUTO) 1.9 X10^3/uL (1.3-2.9); LYMPHOCYTES % (AUTO) 29.2 % (21.0-51.0); MEAN CORPUSCULAR HEMOGLOBIN 32.7 pg (27.0-34.0); MEAN CORPUSCULAR HGB CONC 33.7 g/dL (33.0-35.0); MEAN CORPUSCULAR VOLUME 96.8 fL (80.0-100.0); MONOCYTES % (AUTO) 14.7 % (0.0-13.0); NEUTROPHILS # (AUTO) 3.4 x10^3/uL (2.2-4.8); NEUTROPHILS % (AUTO) 51.5 % (42.0-75.0); PLATELET COUNT 222 X10^3/uL (150.0-450.0); RED BLOOD COUNT 3.49 X10^6/uL (3.5-5.4); RED CELL DISTRIBUTION WIDTH 13.2 % (11.6-16.5); WHITE BLOOD COUNT 6.6 X10^3/uL (3.6-10.0)
[2019-03-01 06:42] LABS: ALANINE AMINOTRANSFERASE 19 Units/L (12-78); ALBUMIN 3.2 g/dL (3.4-5.0); ALKALINE PHOSPHATASE 121 Units/L (46-116); ASPARTATE AMINO TRANSFERASE 11 Units/L (15-37); BLOOD UREA NITROGEN 15 mg/dL (7-18); CALCIUM 8.8 mg/dL (8.5-10.1); CARBON DIOXIDE 30.2 mmol/L (21-32); CHLORIDE 110 mmol/L (98-107); COR CA(FOR HYPOALB) 9.4 mg/dL (8.5-10.1); COR NA(FOR HYPERGLY) 148 mmol/L (136-145); CREATININE 0.99 mg/dL (0.55-1.02); SODIUM 148 mmol/L (136-145); TOTAL PROTEIN 6.7 g/dL (6.4-8.2); eGFR NON BLACK RACES 60 (>60)
[2019-03-01] MEDS: CYMBALTA PO SCH (09:11)
[2019-03-01] MEDS: NEURONTIN CAP 300 MG PO SCH (09:12)
[2019-03-01] MEDS: XARELTO PO SCH (09:12)
[2019-03-01] MEDS: MILK OF MAGNESIA PO SCH ×2 (09:13→21:47)
[2019-03-01] MEDS ORDERED: CYMBALTA PO ONE (09:58)
[2019-03-01] MEDS ORDERED: SOLU-Medrol 125 MG VIAL IVP ONE ×2 (09:59→14:49)
[2019-03-01] MEDS: PATIENT'S HOME MEDICATION PO SCH (10:49)
[2019-03-01] MEDS: TUSSIONEX PENNKINETIC SUSP PO SCH (11:35)
--- NOTE | 2019-03-01 17:04 | PCM.PROG ---
Progress Note - Progress Note for Day of Date of Exam: 03/01/19 - Subjective Subjective: WAS ADMITTED FOR INTRACTABLE MIGRAINES, RIGHT SIDED WEAKNESS, AND RULE OUT CVA. TODAY, SHE IS ALERT AND ORIENTED, LYING IN BED ON MORNING ROUNDS. SHE CONTINUES WITH COMPLAINTS OF HEADACHE TODAY AND NAUSEA.SHE REPORTS THAT HER HEAD IS THROBBING. ON EXAMINATION, HEART IS REGULAR IN RATE AND RHYTHM. BILATERAL LUNGS ARE CLEAR TO AUSCULTATION. ABDOMEN IS ROUND, SOFT, AND NON-TENDER WITH NORMAL BOWEL SOUNDS NOTED IN ALL QUADRANTS. HER VITALS THIS MORNING ARE: 97.8-66-18-96%-150/72. LABS WERE OBTAINED. ABNORMAL LAB VALUES INCLUDE THE FOLLOWING: RBC 3.49, HGB 11.4, HCT 33.8, SODIUM 148, CHLORIDE 110, GLUCOSE 117, TOTAL BILI 0.10, AST 11, ALK PHOS 121, ALBUMIN 3.2. SHE IS CURRENTLY RECEIVING NORMAL SALINE AT 125ML/HR, THE POTASSIUM AND MAGNESIUM PROTOCOLS, DEMEROL 25MG IV Q6H PRN, GABAPENTIN 300MG PO BID, TORADOL PRN, ELAVIL, TUSSIONEX, DEPAKOTE ER 250MG PO DAILY, AND HOME MEDICATIONS WERE RESUMED. TODAY, WE WILL DISCONTINUE THE TORADOL AND DEMEROL. WE WILL CHANGE GABAPENTIN TO 600MG PO HS, INCREASE CYMBALTA TO 60MG PO DAILY, AND ADMINISTER SOLU-MEDROL 125MG IV X 1 DOSE. OTHERWISE, WE PLAN TO FOLLOW UP WITH AM LABS AND CONTINUE TO MONITOR. - Past Medical Family Social History Past Med/Fam/Surg Hx: No changes since H&P Allergies: Allergies No Known Drug Allergies Allergy (Verified 02/23/19 15:04) - Review of Systems ROS: No change since H&P - Vital Signs and I&O's Vital Signs: Temperature 98.5 F Pulse Rate [Left Brachial] 82 Pulse Rate [Brachial] 71 Pulse Rate 70 Respiratory Rate 18 Blood Pressure [Right Arm] 149/71 Blood Pressure [Left Arm] 181/83 Blood Pressure 131/65 O2 Sat by Pulse Oximetry 94 Intake and Output: Intake & Output 02/27/19 02/28/19 03/01/19 03/02/19 11:59 11:59 11:59 11:59 Intake Total 3360 / 3360 1760 / 1760 2119 / 2119 Balance 3360 / 3360 1760 / 1759 - Physical Exam Oriented: Normal Eyes: Normal Ear: Normal Nose: Normal Throat: Normal Respiratory: Normal Cardiovascular: Normal : Normal Auscultation: Bowel Sounds: Normal Palpation: Normal Tenderness: Normal Skin: Normal Musculoskeletal: Normal Psychiatric: Normal Mood Description: Calm Affect: Normal Speech Pattern: Clear - Laboratory and Diagnostics Result Diagrams: 03/01/19 04:53 03/01/19 04:53 Labs: Laboratory WBC 6.6 X10^3/uL (3.6-10.0) 03/01/19 04:53 RBC 3.49 X10^6/uL (3.5-5.4) L 03/01/19 04:53 Hgb 11.4 g/dL (12.0-16.0) L 03/01/19 04:53 Hct 33.8 % (36.0-47.0) L 03/01/19 04:53 MCV 96.8 fL (80.0-100.0) 03/01/19 04:53 MCH 32.7 pg (27.0-34.0) 03/01/19 04:53 MCHC 33.7 g/dL (33.0-35.0) 03/01/19 04:53 RDW 13.2 % (11.6-16.5) 03/01/19 04:53 Plt Count 222 X10^3/uL (150.0-450.0) 03/01/19 04:53 MPV 9.0 fL (7.4-11.0) 03/01/19 04:53 Neut % (Auto) 51.5 % (42.0-75.0) 03/01/19 04:53 Lymph % (Auto) 29.2 % (21.0-51.0) 03/01/19 04:53 [place] % (Auto) 14.7 % (0.0-13.0) H 03/01/19 04:53 Eos % (Auto) 3.5 % (0.9-2.9) H 03/01/19 04:53 Baso % (Auto) 1.1 % (0.2-1.0) H 03/01/19 04:53 Neut # (Auto) 3.4 x10^3/uL (2.2-4.8) 03/01/19 04:53 Lymph # (Auto) 1.9 X10^3/uL (1.3-2.9) 03/01/19 04:53 [place] # (Auto) 1.0 x10^3/uL (0.3-0.8) H 03/01/19 04:53 Eos # (Auto) 0.2 x10^3/uL (0.0-0.2) 03/01/19 04:53 Baso # (Auto) 0.1 X10^3/uL (0.0-0.1) 03/01/19 04:53 Absolute Nucleated RBC 0.0 /100WBC 03/01/19 04:53 ESR 5 MM/HOUR (0-20) 02/26/19 11:59 Sodium 148 mmol/L (136-145) H 03/01/19 04:53 Corrected Sodium 148 mmol/L (136-145) H 03/01/19 04:53 Potassium 4.4 mmol/L (3.5-5.1) 03/01/19 04:53 Chloride 110 mmol/L (98-107) H 03/01/19 04:53 Carbon Dioxide 30.2 mmol/L (21-32) 03/01/19 04:53 BUN 15 mg/dL (7-18) 03/01/19 04:53 Creatinine 0.99 mg/dL (0.55-1.02) 03/01/19 04:53 Est GFR (MDRD) Af Amer > 60 (>60) 03/01/19 04:53 Est GFR (MDRD) Non-Af 60 (>60) 03/01/19 04:53 Glucose 117 mg/dL (65-99) H 03/01/19 04:53 Calcium 8.8 mg/dL (8.5-10.1) 03/01/19 04:53 Corrected Calcium 9.4 mg/dL (8.5-10.1) 03/01/19 04:53 Magnesium 2.2 mg/dL (1.7-2.9) 02/23/19 17:34 Total Bilirubin 0.10 mg/dL (0.2-1.0) L 03/01/19 04:53 AST 11 Units/L (15-37) L 03/01/19 04:53 ALT 19 Units/L (12-78) 03/01/19 04:53 Alkaline Phosphatase 121 Units/L (46-116) H 03/01/19 04:53 C-Reactive Protein 0.60 mg/L (0-3.0) 02/26/19 11:59 Total Protein 6.7 g/dL (6.4-8.2) 03/01/19 04:53 Albumin 3.2 g/dL (3.4-5.0) L 03/01/19 04:53 Globulin 3.5 g/dL (2.5-4.5) 03/01/19 04:53 Albumin/Globulin Ratio 0.9 Ratio (1.1-2.1) L 03/01/19 04:53 - Plan (1) Intractable migraine Status: Acute Qualifiers: Migraine type: unspecified Status migrainosus presence: with status kael rainosus Qualified Code(s): G43.911 - Migraine, unspecified, intractable, with status migrainosus Plan: GABAPENTIN 600MG PO HS, CYMBALTA 60MG PO DAILY, ELAVIL, SOLU-MEDROL 125MG IV X 1, ZOFRAN 4MG IV Q8H PRN NAUSEA, NORMAL SALINE AT 125ML/HR (2) Right sided weakness Status: Acute (3) History of CVA (cerebrovascular accident) Status: Acute
[2019-03-01] MEDS ORDERED: NEURONTIN TAB 600 MG PO SCH (21:00)
[2019-03-01] MEDS: COLACE CAP 100 MG PO SCH (21:46)
[2019-03-01] MEDS: ELAVIL PO SCH (21:46)
[2019-03-01] MEDS: CRESTOR TAB 10 MG PO SCH (21:46)
[2019-03-01] MEDS: LIORESAL PO SCH (21:46)
[2019-03-01] MEDS: CATAPRES TAB 0.1 MG PO SCH (21:46)
[2019-03-02] MEDS: TUSSIONEX PENNKINETIC SUSP PO SCH ×2 (00:33→11:37)
[2019-03-02] MEDS: NS 1000 ML 1,000 ML IV SCH ×2 (03:14→11:37)
[2019-03-02 04:17] VITALS: BP 167/76
[2019-03-02 05:55] LABS: BASOPHILS % (AUTO) 0.3 % (0.2-1.0); HEMATOCRIT 32.8 % (36.0-47.0); HEMOGLOBIN 11.2 g/dL (12.0-16.0); LYMPHOCYTES # (AUTO) 1.1 X10^3/uL (1.3-2.9); LYMPHOCYTES % (AUTO) 7.2 % (21.0-51.0); MEAN CORPUSCULAR HEMOGLOBIN 32.7 pg (27.0-34.0); MEAN CORPUSCULAR HGB CONC 34.1 g/dL (33.0-35.0); MEAN CORPUSCULAR VOLUME 95.6 fL (80.0-100.0); MEAN PLATELET VOLUME 9.3 fL (7.4-11.0); MONOCYTES # (AUTO) 1.1 x10^3/uL (0.3-0.8); MONOCYTES % (AUTO) 7.7 % (0.0-13.0); NEUTROPHILS # (AUTO) 12.6 x10^3/uL (2.2-4.8); NEUTROPHILS % (AUTO) 84.8 % (42.0-75.0); PLATELET COUNT 202 X10^3/uL (150.0-450.0); RED BLOOD COUNT 3.43 X10^6/uL (3.5-5.4); RED CELL DISTRIBUTION WIDTH 13.1 % (11.6-16.5); WHITE BLOOD COUNT 14.9 X10^3/uL (3.6-10.0)
[2019-03-02 06:07] LABS: ALANINE AMINOTRANSFERASE 25 Units/L (12-78); ALBUMIN 3.2 g/dL (3.4-5.0); ALKALINE PHOSPHATASE 112 Units/L (46-116); ASPARTATE AMINO TRANSFERASE 19 Units/L (15-37); BLOOD UREA NITROGEN 13 mg/dL (7-18); CALCIUM 8.4 mg/dL (8.5-10.1); CARBON DIOXIDE 26.2 mmol/L (21-32); CHLORIDE 107 mmol/L (98-107); COR NA(FOR HYPERGLY) 141 mmol/L (136-145); CREATININE 0.86 mg/dL (0.55-1.02); SODIUM 140 mmol/L (136-145); TOTAL PROTEIN 6.8 g/dL (6.4-8.2); eGFR NON BLACK RACES > 60 (>60)
[2019-03-02] MEDS ORDERED: CYMBALTA PO SCH (09:00)
[2019-03-02] MEDS: XARELTO PO SCH (10:08)
[2019-03-02] MEDS: MILK OF MAGNESIA PO SCH (10:09)
[2019-03-02] MEDS: PATIENT'S HOME MEDICATION PO SCH (10:09)
[2019-03-02] MEDS ORDERED: NUBAIN INJ 20 MG AMP IM NR (10:24)
== END 2019-03-02 14:05 | disposition home or self-care (01) | DRG 103 ==
LOC: OBS 15:00 → ER 15:00 → OBS 19:33 → MED/SURG 02-25 15:55
PROVIDERS: ADMIT Internal Medicine; ATTEND Internal Medicine
DX: R26.89 Other abnormalities of gait and mobility; G43.911 Migraine, unspecified, intractable, with status migrainosus; R20.0 Anesthesia of skin; I10 Essential (primary) hypertension; Z86.73 Personal history of transient ischemic attack (TIA), and cerebral infarction without residual deficits; R29.810 Facial weakness; E78.49 Other hyperlipidemia; R53.1 Weakness
CPT/HCPCS: 36415; 70450; 70553; 80053; 83735; 85025; 85652; 86140; 92526; 92610; 96365; 96374; 97110; 97116; 97162; 97165; 99284; A4222; G0378; J1885; J2175; J2405; J2930; J7030

== ENCOUNTER 2019-03-09 12:43 | Observation (INO) ==
[2019-03-09] MEDS ORDERED: NS 1000 ML 1,000 ML ONE ×3 (12:54→15:23)
--- NOTE | 2019-03-09 12:59 | DR.HEADACH ---
HPI Time Seen Time Seen by Provider: 03/09/19 12:55 Primary Care Physician Primary Care Physician: YUE MARCUS Complaint/Symptoms Chief Complaint:: PT C/O MIGRAINE ,, PT STATES " IT NEVER IT WENT AWAY " PT WAS IN IN HOSPITAL FOR MIGRAINES , A FEW WEEKS AGO" PT HAS A FLU WITH NEURLOGIST NOT TILL APRIL ,BR Self Treatment fo Chief Complaint: PT TOOK A FIORCET Source History Provided: Patient Mode of Arrival Mode of Arrival: Ambulatory Timing Onset of Chief Complaint: 03/09/19 PMH PMH Past Medical History: Yes Past Medical History: CVA, Depression, Dyslipidemia, Migraines and Hypertension Past Surgical History: Yes Surgical History: Appendectomy, Cholecystectomy, Hysterectomy and Tonsillectomy Family History History of Family Medical Conditions: Yes Social History Does patient currently use any type of tobacco product: No Have you used tobacco products in the last 12 months: No Type of Tobacco Use: None Does any household member use tobacco: No Alcohol Use: None Do you use any recreational Drugs:: No Lives With: Family Lives Where: Home infectious screening In the last 2 months have you had wt loss of >10#?: NO Have you had fever, night sweats or hemotysis?: No Have you traveled outside the country in the last 6 months?: No Isolation: Standard PE Vital Signs Vitals: Temperature 97.0 F Pulse Rate 53 Respiratory Rate 22 Blood Pressure [Right Arm] 149/71 Blood Pressure [Left Arm] 167/76 Blood Pressure 104/54 O2 Sat by Pulse Oximetry 95 ROR Labs Reviewed Result Diagrams: 03/09/19 12:58 03/09/19 12:58 Laboratory: WBC 5.7 X10^3/uL (3.6-10.0) 03/09/19 12:58 RBC 3.60 X10^6/uL (3.5-5.4) 03/09/19 12:58 Hgb 11.7 g/dL (12.0-16.0) L 03/09/19 12:58 Hct 34.4 % (36.0-47.0) L 03/09/19 12:58 MCV 95.7 fL (80.0-100.0) 03/09/19 12:58 MCH 32.5 pg (27.0-34.0) 03/09/19 12:58 MCHC 34.0 g/dL (33.0-35.0) 03/09/19 12:58 RDW 13.5 % (11.6-16.5) 03/09/19 12:58 Plt Count 236 X10^3/uL (150.0-450.0) 03/09/19 12:58 MPV 9.5 fL (7.4-11.0) 03/09/19 12:58 Neut % (Auto) 47.7 % (42.0-75.0) 03/09/19 12:58 Lymph % (Auto) 34.4 % (21.0-51.0) 03/09/19 12:58 [place] % (Auto) 12.7 % (0.0-13.0) 03/09/19 12:58 Eos % (Auto) 3.9 % (0.9-2.9) H 03/09/19 12:58 Baso % (Auto) 1.3 % (0.2-1.0) H 03/09/19 12:58 Neut # (Auto) 2.7 x10^3/uL (2.2-4.8) 03/09/19 12:58 Lymph # (Auto) 2.0 X10^3/uL (1.3-2.9) 03/09/19 12:58 [place] # (Auto) 0.7 x10^3/uL (0.3-0.8) 03/09/19 12:58 Eos # (Auto) 0.2 x10^3/uL (0.0-0.2) 03/09/19 12:58 Baso # (Auto) 0.1 X10^3/uL (0.0-0.1) 03/09/19 12:58 Absolute Nucleated RBC 0.2 /100WBC 03/09/19 12:58 Sodium 141 mmol/L (136-145) 03/09/19 12:58 Corrected Sodium TNP 03/09/19 12:58 Potassium 4.0 mmol/L (3.5-5.1) 03/09/19 12:58 Chloride 105 mmol/L (98-107) 03/09/19 12:58 Carbon Dioxide 26.6 mmol/L (21-32) 03/09/19 12:58 BUN 18 mg/dL (7-18) 03/09/19 12:58 Creatinine 1.06 mg/dL (0.55-1.02) H 03/09/19 12:58 Est GFR (MDRD) Af Amer > 60 (>60) 03/09/19 12:58 Est GFR (MDRD) Non-Af 55 (>60) L 03/09/19 12:58 Glucose 107 mg/dL (65-99) H 03/09/19 12:58 Lactic Acid 4.3 mmol/L (0.4-2.0) H 03/09/19 12:58 Calcium 9.0 mg/dL (8.5-10.1) 03/09/19 12:58 Corrected Calcium TNP 03/09/19 12:58 Total Bilirubin 0.20 mg/dL (0.2-1.0) 03/09/19 12:58 AST 13 Units/L (15-37) L 03/09/19 12:58 ALT 22 Units/L (12-78) 03/09/19 12:58 Alkaline Phosphatase 106 Units/L (46-116) 03/09/19 12:58 Creatine Kinase 112 Units/L (26-192) 03/09/19 12:58 CK-MB (CK-2) 1.8 ng/mL (0-4.0) 03/09/19 12:58 CK/CKMB % Calc 1.6 % (<4) 03/09/19 12:58 Troponin I < 0.02 ng/mL (0-1.5) 03/09/19 12:58 Total Protein 7.1 g/dL (6.4-8.2) 03/09/19 12:58 Albumin 3.6 g/dL (3.4-5.0) 03/09/19 12:58 Globulin 3.5 g/dL (2.5-4.5) 03/09/19 12:58 Albumin/Globulin Ratio 1.0 Ratio (1.1-2.1) L 03/09/19 12:58 Specimen Type Random urine 03/09/19 16:13 Urine Color Pale yellow (YELLOW) 03/09/19 16:13 Urine Appearance Clear (CLEAR) 03/09/19 16:13 Urine pH 6.0 (5.0 - 8.0) 03/09/19 16:13 Ur Specific [place] 1.010 (1.000-1.030) 03/09/19 16:13 Urine Protein Negative (NEGATIVE) 03/09/19 16:13 Urine Glucose (UA) Negative (NEGATIVE) 03/09/19 16:13 Urine Ketones Negative (NEGATIVE) 03/09/19 16:13 Urine Occult Blood Negative (NEGATIVE) 03/09/19 16:13 Urine Nitrite Negative (NEGATIVE) 03/09/19 16:13 Urine Bilirubin Negative (NEGATIVE) 03/09/19 16:13 Urine Urobilinogen Normal (NORMAL) 03/09/19 16:13 Ur Leukocyte Esterase Negative (NEGATIVE) 03/09/19 16:13 Urine Opiates Screen Negative (NEG=<300) 03/09/19 16:13 Urine Methadone Screen Negative (NEG=<300) 03/09/19 16:13 Ur Barbiturates Screen Positive (NEG=<200) A 03/09/19 16:13 Ur Phencyclidine Scrn Negative (NEG=<25) 03/09/19 16:13 Ur Amphetamines Screen Negative (NEG=<1000) 03/09/19 16:13 U Benzodiazepines Scrn Negative (NEG=<200) 03/09/19 16:13 Urine Cocaine Screen Negative (NEG=<300) 03/09/19 16:13 U Marijuana (THC) Screen Negative (NEG=<50) 03/09/19 16:13 Opioid Opioid Risk Tool Age (Flo box if 16-45): No History of Preadolescent Sexual Abuse: No Total: 0 Total Score Risk Category: Low Risk Copyright: Davi BAEZA predicting aberrant behaviors
[2019-03-09] MEDS ORDERED: NS 1000 ML 1,000 ML IV ONE ×2 (13:03→15:21)
[2019-03-09 13:30] LABS: BASOPHILS # (AUTO) 0.1 X10^3/uL (0.0-0.1); BASOPHILS % (AUTO) 1.3 % (0.2-1.0); EOSINOPHILS # (AUTO) 0.2 x10^3/uL (0.0-0.2); EOSINOPHILS % (AUTO) 3.9 % (0.9-2.9); HEMATOCRIT 34.4 % (36.0-47.0); HEMOGLOBIN 11.7 g/dL (12.0-16.0); LYMPHOCYTES % (AUTO) 34.4 % (21.0-51.0); MEAN CORPUSCULAR HEMOGLOBIN 32.5 pg (27.0-34.0); MEAN CORPUSCULAR VOLUME 95.7 fL (80.0-100.0); MEAN PLATELET VOLUME 9.5 fL (7.4-11.0); MONOCYTES # (AUTO) 0.7 x10^3/uL (0.3-0.8); MONOCYTES % (AUTO) 12.7 % (0.0-13.0); NEUTROPHILS # (AUTO) 2.7 x10^3/uL (2.2-4.8); NEUTROPHILS % (AUTO) 47.7 % (42.0-75.0); PLATELET COUNT 236 X10^3/uL (150.0-450.0); RED CELL DISTRIBUTION WIDTH 13.5 % (11.6-16.5); WHITE BLOOD COUNT 5.7 X10^3/uL (3.6-10.0)
[2019-03-09 13:42] LABS: BLOOD UREA NITROGEN 18 mg/dL (7-18); CARBON DIOXIDE 26.6 mmol/L (21-32); CHLORIDE 105 mmol/L (98-107); CREATININE 1.06 mg/dL (0.55-1.02); SODIUM 141 mmol/L (136-145); TROPONIN I < 0.02 ng/mL (0-1.5); eGFR NON BLACK RACES 55 (>60)
[2019-03-09 13:46] LABS: ALANINE AMINOTRANSFERASE 22 Units/L (12-78); ALBUMIN 3.6 g/dL (3.4-5.0); ALKALINE PHOSPHATASE 106 Units/L (46-116); ASPARTATE AMINO TRANSFERASE 13 Units/L (15-37); CKMB % 1.6 % (<4); CREATINE KINASE 112 Units/L (26-192); CREATINE KINASE MB 1.8 ng/mL (0-4.0); TOTAL PROTEIN 7.1 g/dL (6.4-8.2)
--- NOTE | 2019-03-09 14:06 | RAD ---
HISTORYSOB, hypertensionSTUDYPortable AP [id number]/17/2018FINDINGSNormal heart size and contour with clear lungs and pleural spaces.IMPRESSIONNo interval change or acute chest abnormality demonstrated.Electronically signed by: BRISSA MUNGUIA (Mar 09, 2019 14:05:44)
--- NOTE | 2019-03-09 14:17 | CT ---
HISTORYHEADACHESSTUDYBRAIN W/O CONCOMPARISONJanuary 2019TECHNIQUESerial axial images were obtained from the skull base to the vertex without infusion of IV contrast. Coronal and sagittal images were also submitted. Dose reduction techniques including Automated Exposure Control (AEC) and adjustment of mA and kV were utilized.FINDINGSNo definite evidence of acute intracranial hemorrhage or mass is identified. The ventricles, sulci, and cisterns demonstrate an appearance consistent with a mild degree of generalized atrophy. Patchy areas of decreased attenuation within the periventricular, subcortical, and subinsular white matter suggest changes of chronic small vessel ischemic disease. Mild mucosal thickening is seen within the visualized maxillary sinuses. A tiny air-fluid level within the left maxillary sinus cannot be excluded.. No evidence of significant midline shift is identified. No definite abnormal extra axial fluid collections are appreciated. The if symptoms or clinical concerns persist recommend continued follow up for further evaluation.IMPRESSIONNo CT evidence of acute intracranial abnormality is appreciated.Mild generalized atrophy with findings consistent with changes of chronic small vessel ischemic disease.Electronically signed by: BK MACIEL (Mar 09, 2019 14:16:39)
[2019-03-09] MEDS ORDERED: ZOSYN VIAL 3.375 GRAMS 3.375 G in NS 100 ML IV + SPIKE MINIBAG* 100 ML IV ONE (15:25)
[2019-03-09] MEDS ORDERED: ZOSYN VIAL 3.375 GRAMS IV ONE (15:27)
[2019-03-09] MEDS ORDERED: NS 100 ML IV + SPIKE MINIBAG* 100 ML IV ONE (15:27)
[2019-03-09 16:45] LABS: BILIRUBIN,URINE NEGATIVE (NEGATIVE); BLOOD/HEMOGLOBIN,URINE NEGATIVE (NEGATIVE); GLUCOSE, URINE NEGATIVE (NEGATIVE); KETONES,URINE NEGATIVE (NEGATIVE); LEUKOCYTE ESTERASE ,URINE NEGATIVE (NEGATIVE); NITRITES,URINE NEGATIVE (NEGATIVE); PROTEIN,URINE NEGATIVE (NEGATIVE); UROBILINOGEN,URINE NORMAL (NORMAL)
[2019-03-09 16:47] LABS: APPEARANCE,URINE CLEAR (CLEAR); COLOR,URINE PALE YELLOW (YELLOW)
[2019-03-09] MEDS ORDERED: NARCAN INJ ONE (17:36)
[2019-03-09] MEDS ORDERED: NARCAN INJ IVP ONE (18:58)
[2019-03-09 19:40] LABS: ABG BASE EXCESS 1.8 mmol/L (-2.0-2.0); ABG HCO3 27.7 mmol/L (22-26)
[2019-03-09] MEDS ORDERED: QUETIAPINE 50 MG PO SCH (21:27)
[2019-03-09] MEDS ORDERED: BUTALBITAL ACETAMINOPHEN CAFF PO PRN (21:27)
[2019-03-09] MEDS: INVANZ INJ 1 GM VIAL 1 GM in NS 100 ML IV + SPIKE MINIBAG* 100 ML IV SCH (21:28)
[2019-03-09 22:18] LABS: CKMB % 1.6 % (<4); CREATINE KINASE 77 Units/L (26-192); CREATINE KINASE MB 1.2 ng/mL (0-4.0); TROPONIN I < 0.02 ng/mL (0-1.5)
[2019-03-09] MEDS: SEROquel TAB 25 mg PO SCH (22:21)
[2019-03-09] MEDS: CRESTOR TAB 10 MG PO SCH (22:21)
[2019-03-09] MEDS: ELAVIL PO SCH (22:21)
[2019-03-09] MEDS: ZOSYN VIAL 2.25 GRAMS 2.25 G in NS 100 ML IV + SPIKE MINIBAG* 100 ML IV SCH ×2 (22:51→22:52)
[2019-03-10 00:25] VITALS: BMI 26.3
[2019-03-10] MEDS: ZOSYN VIAL 2.25 GRAMS 2.25 G in NS 100 ML IV + SPIKE MINIBAG* 100 ML IV SCH ×3 (05:20→21:00)
[2019-03-10 05:46] LABS: BASOPHILS # (AUTO) 0.1 X10^3/uL (0.0-0.1); BASOPHILS % (AUTO) 1.2 % (0.2-1.0); EOSINOPHILS # (AUTO) 0.2 x10^3/uL (0.0-0.2); EOSINOPHILS % (AUTO) 2.9 % (0.9-2.9); HEMATOCRIT 35.4 % (36.0-47.0); LYMPHOCYTES # (AUTO) 1.5 X10^3/uL (1.3-2.9); LYMPHOCYTES % (AUTO) 28.4 % (21.0-51.0); MEAN CORPUSCULAR HEMOGLOBIN 32.5 pg (27.0-34.0); MEAN CORPUSCULAR HGB CONC 33.9 g/dL (33.0-35.0); MEAN CORPUSCULAR VOLUME 95.7 fL (80.0-100.0); MEAN PLATELET VOLUME 8.9 fL (7.4-11.0); MONOCYTES # (AUTO) 0.6 x10^3/uL (0.3-0.8); MONOCYTES % (AUTO) 10.4 % (0.0-13.0); NEUTROPHILS % (AUTO) 57.1 % (42.0-75.0); PLATELET COUNT 233 X10^3/uL (150.0-450.0); RED BLOOD COUNT 3.69 X10^6/uL (3.5-5.4); RED CELL DISTRIBUTION WIDTH 13.2 % (11.6-16.5); WHITE BLOOD COUNT 5.3 X10^3/uL (3.6-10.0)
[2019-03-10 06:15] LABS: ALANINE AMINOTRANSFERASE 19 Units/L (12-78); ALBUMIN 3.2 g/dL (3.4-5.0); ALKALINE PHOSPHATASE 92 Units/L (46-116); ASPARTATE AMINO TRANSFERASE 15 Units/L (15-37); BLOOD UREA NITROGEN 13 mg/dL (7-18); CALCIUM 8.3 mg/dL (8.5-10.1); CARBON DIOXIDE 28.2 mmol/L (21-32); CHLORIDE 111 mmol/L (98-107); CHOL/HDL RATIO 5.5 (0.0-5.0); CHOLESTEROL 187 mg/dL (0-200); CKMB % 1.6 % (<4); COR CA(FOR HYPOALB) 8.9 mg/dL (8.5-10.1); CREATINE KINASE 64 Units/L (26-192); CREATINE KINASE MB < 1.0 ng/mL (0-4.0); CREATININE 1.11 mg/dL (0.55-1.02); HDL CHOLESTEROL 34 mg/dL (40-60); MAGNESIUM 2.1 mg/dL (1.7-2.9); SODIUM 146 mmol/L (136-145); TOTAL PROTEIN 6.6 g/dL (6.4-8.2); TRIGLYCERIDES 123 mg/dL (0-150); TROPONIN I < 0.02 ng/mL (0-1.5); eGFR NON BLACK RACES 52 (>60)
[2019-03-10] MEDS: INVANZ INJ 1 GM VIAL 1 GM in NS 100 ML IV + SPIKE MINIBAG* 100 ML IV SCH (08:42)
[2019-03-10] MEDS: XARELTO PO SCH (08:43)
[2019-03-10] MEDS: CYMBALTA PO SCH (08:43)
[2019-03-10 10:07] LABS: CKMB % 1.5 % (<4); CREATINE KINASE MB < 1.0 ng/mL (0-4.0); TROPONIN I < 0.02 ng/mL (0-1.5)
[2019-03-10 10:40] LABS: CREATINE KINASE 68 Units/L (26-192)
[2019-03-10] MEDS ORDERED: NS 1/2 1000 ML IV 1,000 ML IV ONE (11:12)
[2019-03-10] MEDS: NS 1/2 1000 ML IV 1,000 ML IV SCH (11:18)
[2019-03-10] MEDS: FIORICET TAB PO PRN (15:08)
--- NOTE | 2019-03-10 15:45 | DR.H&P ---
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 PT HAS PMH OF MIGRAINES. CT HEAD IN ER WITHOUT ACUTE FINDINGS. PT WAS GIVEN NARCAN IN ER FOR POSSIBLE OVER SEDATION. PT HAD ELEVATED LACTIC ACID. PT WAS ADMITTED FOR R/O SEPSIS ON IV ZOSYN AND INVANZ. BLOOD CULTURES OBTAINED ON ADMISSION. - Past Medical History Past Medical History: Hypertension, Dyslipidemia, Depression, CVA, Migraines Additional Medical History: Multiple Sclerosis, Fibromyalgia - Past Surgical History Surgical History: Appendectomy, Cholecystectomy, Hysterectomy, Tonsillectomy Additional Surgical History: Back surgery x 3 - Family History Family Medical History: denies: Diabetes Mellitus, Cancer, [place], Coronary Artery Disease, Heart Failure, Sudden Cardiac , Hypertension - Social History Does patient currently use any type of tobacco product: No Have you used tobacco products in the last 12 months: No Type of Tobacco Use: None Does any household member use tobacco: No Alcohol Use: None Drug Use: None - Medications Home Medications: No Known Drug Allergies Allergy (Verified 03/09/19 12:44) CONTINUE taking the following medications [id number] 1 cap PO Q4H PRN 03/09/19 [History] - Review of Systems Constitutional: denies: Fever Eyes: No Symptoms Reported ENT: No Symptoms Reported Respiratory: No Symptoms Reported Cardiovascular: No Symptoms Reported Gastrointestinal: Nausea Genitourinary: No Symptoms Reported Musculoskeletal: No Symptoms Reported Skin: No Symptoms Reported Neurological: Other (HEADACHE) - Physical Exam Vital Signs: Temperature 98.8 F Pulse Rate [Left] 50 Pulse Rate 63 Respiratory Rate 11 Blood Pressure [Right Arm] 149/71 Blood Pressure [Left Arm] 117/57 Blood Pressure 199/88 O2 Sat by Pulse Oximetry 96 Oriented: Normal Eyes: Normal Ear: Normal Nose: Normal Throat: Normal Respiratory: RLL Diminished, LLL Diminished Cardiovascular: Normal. negative: Edema : Normal Auscultation: Bowel Sounds: Normal Palpation: Normal Tenderness: Normal Skin: Normal Musculoskeletal: Normal Psychiatric: Normal Mood Description: Calm Speech Pattern: Clear - Assessment/Plan (1) Lactic acidemia Status: Acute Plan: ADMIT, BLOOD CULTURE ON ADMISSION. IV HYDRATION, SERIAL CE AND EKG MONITORING. BP CONTROL. IV ZOSYN AND INVANZ, VERIFY HOME MEDICATION. CT HEAD OBTAINED IN ER, SUPPLEMENTAL O2 (2) History of CVA (cerebrovascular accident) Status: Acute (3) Intractable migraine Qualifiers: Migraine type: unspecified Status migrainosus presence: with status migrainosus Qualified Code(s): G43.911 - Migraine, unspecified, intractable, with status migrainosus Status: Acute (4) Fibromyalgia Status: Chronic (5) Hypertension Qualifiers: Hypertension type: essential hypertension Qualified Code(s): I10 - Essential (primary) hypertension Status: Chronic - Allergies Allergies/Adverse Reactions: Allergies Allergy/AdvReac Type Severity Reaction Status Date / Time No Known Drug Allergies Allergy Verified 03/09/19 12:44
--- NOTE | 2019-03-10 15:53 | PCM.PROG ---
Progress Note - Progress Note for Day of Date of Exam: 03/10/19 - Subjective Subjective: PT IS 68 WF ER ADMISSION WITH CO INTRACTABLE MIGRAINE. PT HAD CT HEAD IN ER WITHOUT ACUTE FINDINGS. PT HAD ELEVATED LACTIC ACID LEVEL, BLOOD CULTURES OBTAINED ON ADMISSION TO R/O SEPSIS. PT WBC STABLE THIS AM. PT AWAKE AND ALERT ON ASSESSMENT THIS MORNING WITH SPOUSE AWAKE AT BEDSIDE. PT SPEECH WAS CLEAR AND SHE SAT UP IN BED MOVING UPPER A LOWER EXTREMITIES WITHOUT DIFFICULTY. PT STATED SHE "WAS FROM [place] AND KNEW DR TURNER AND ABEL AND SHE LIKE THE [employer] TOO" NO DISTRESS NOTED. PT BP ELEVATED, WILL START ON LISINORIL 5MG PO DAILY WITH CONTINUED BP CONTROL, REVIEWED LABS AND TEST WITH PT AND SPOUSE. PT ENCOURAGED FOR ORAL HYDRATION, REPEAT LACTIC ACID O.6, CULTURES PENDING. - Past Medical Family Social History Past Med/Fam/Surg Hx: No changes since H&P Allergies: Allergies No Known Drug Allergies Allergy (Verified 03/09/19 12:44) - Review of Systems ROS: No change since H&P - Vital Signs and I&O's Vital Signs: Temperature 98.8 F Pulse Rate [Left] 50 Pulse Rate 63 Respiratory Rate 11 Blood Pressure [Right Arm] 149/71 Blood Pressure [Left Arm] 117/57 Blood Pressure 199/88 O2 Sat by Pulse Oximetry 96 Intake and Output: Intake & Output 03/08/19 03/09/19 03/10/19 03/11/19 11:59 11:59 11:59 11:59 Intake Total 416 / 416 591 / 591 Output Total 800 / 800 1000 / 1000 Balance -384 / -384 -409 / -409 - Physical Exam Oriented: Normal Eyes: Normal Ear: Normal Nose: Normal Throat: Normal Respiratory: Normal Cardiovascular: Normal. negative: Edema : Normal Auscultation: Bowel Sounds: Normal Tenderness: Normal Skin: Normal Musculoskeletal: Normal Psychiatric: Normal Mood Description: Calm Speech Pattern: Clear, Appropriate - Laboratory and Diagnostics Result Diagrams: 03/10/19 04:04 03/10/19 04:04 Labs: Laboratory WBC 5.3 X10^3/uL (3.6-10.0) 03/10/19 04:04 RBC 3.69 X10^6/uL (3.5-5.4) 03/10/19 04:04 Hgb 12.0 g/dL (12.0-16.0) 03/10/19 04:04 Hct 35.4 % (36.0-47.0) L 03/10/19 04:04 MCV 95.7 fL (80.0-100.0) 03/10/19 04:04 MCH 32.5 pg (27.0-34.0) 03/10/19 04:04 MCHC 33.9 g/dL (33.0-35.0) 03/10/19 04:04 RDW 13.2 % (11.6-16.5) 03/10/19 04:04 Plt Count 233 X10^3/uL (150.0-450.0) 03/10/19 04:04 MPV 8.9 fL (7.4-11.0) 03/10/19 04:04 Neut % (Auto) 57.1 % (42.0-75.0) 03/10/19 04:04 Lymph % (Auto) 28.4 % (21.0-51.0) 03/10/19 04:04 [place] % (Auto) 10.4 % (0.0-13.0) 03/10/19 04:04 Eos % (Auto) 2.9 % (0.9-2.9) 03/10/19 04:04 Baso % (Auto) 1.2 % (0.2-1.0) H 03/10/19 04:04 Neut # (Auto) 3.0 x10^3/uL (2.2-4.8) 03/10/19 04:04 Lymph # (Auto) 1.5 X10^3/uL (1.3-2.9) 03/10/19 04:04 [place] # (Auto) 0.6 x10^3/uL (0.3-0.8) 03/10/19 04:04 Eos # (Auto) 0.2 x10^3/uL (0.0-0.2) 03/10/19 04:04 Baso # (Auto) 0.1 X10^3/uL (0.0-0.1) 03/10/19 04:04 Absolute Nucleated RBC 0.0 /100WBC 03/10/19 04:04 Sample Site Lb 03/09/19 19:32 ABG pH 7.370 (7.35-7.45) 03/09/19 19:32 ABG pCO2 48.0 mmHg (35.0-45.0) H 03/09/19 19:32 ABG pO2 77.0 mmHg (80.0-100.0) L 03/09/19 19:32 ABG HCO3 27.7 mmol/L (22-26) H 03/09/19 19:32 ABG O2 Saturation 95.0 % (90-100) 03/09/19 19:32 ABG Base Excess 1.8 mmol/L (-2.0-2.0) 03/09/19 19:32 Fadi Test N/a 03/09/19 19:32 A-a Gradient 13.0 mmHg 03/09/19 19:32 FiO2 21.0 03/09/19 19:32 Blood Gas Comments Pt tosha well elj 03/09/19 19:32 Sodium 146 mmol/L (136-145) H 03/10/19 04:04 Corrected Sodium TNP 03/10/19 04:04 Potassium 3.9 mmol/L (3.5-5.1) 03/10/19 04:04 Chloride 111 mmol/L (98-107) H 03/10/19 04:04 Carbon Dioxide 28.2 mmol/L (21-32) 03/10/19 04:04 BUN 13 mg/dL (7-18) 03/10/19 04:04 Creatinine 1.11 mg/dL (0.55-1.02) H 03/10/19 04:04 Est GFR (MDRD) Af Amer > 60 (>60) 03/10/19 04:04 Est GFR (MDRD) Non-Af 52 (>60) L 03/10/19 04:04 Glucose 95 mg/dL (65-99) 03/10/19 04:04 Lactic Acid 0.6 mmol/L (0.4-2.0) 03/09/19 22:50 Calcium 8.3 mg/dL (8.5-10.1) L 03/10/19 04:04 Corrected Calcium 8.9 mg/dL (8.5-10.1) 03/10/19 04:04 Magnesium 2.1 mg/dL (1.7-2.9) 03/10/19 04:04 Total Bilirubin 0.20 mg/dL (0.2-1.0) 03/10/19 04:04 AST 15 Units/L (15-37) 03/10/19 04:04 ALT 19 Units/L (12-78) 03/10/19 04:04 Alkaline Phosphatase 92 Units/L (46-116) 03/10/19 04:04 Creatine Kinase 68 Units/L (26-192) 03/10/19 09:27 CK-MB (CK-2) < 1.0 ng/mL (0-4.0) 03/10/19 09:27 CK/CKMB % Calc 1.5 % (<4) 03/10/19 09:27 Troponin I < 0.02 ng/mL (0-1.5) 03/10/19 09:27 Total Protein 6.6 g/dL (6.4-8.2) 03/10/19 04:04 Albumin 3.2 g/dL (3.4-5.0) L 03/10/19 04:04 Globulin 3.4 g/dL (2.5-4.5) 03/10/19 04:04 Albumin/Globulin Ratio 0.9 Ratio (1.1-2.1) L 03/10/19 04:04 Triglycerides 123 mg/dL (0-150) 03/10/19 04:04 Cholesterol 187 mg/dL (0-200) 03/10/19 04:04 LDL Cholesterol, Calc 128 mg/dL (0-100) H 03/10/19 04:04 HDL Cholesterol 34 mg/dL (40-60) L 03/10/19 04:04 Cholesterol/HDL Ratio 5.5 (0.0-5.0) H 03/10/19 04:04 Specimen Type Random urine 03/09/19 16:13 Urine Color Pale yellow (YELLOW) 03/09/19 16:13 Urine Appearance Clear (CLEAR) 03/09/19 16:13 Urine pH 6.0 (5.0 - 8.0) 03/09/19 16:13 Ur Specific [place] 1.010 (1.000-1.030) 03/09/19 16:13 Urine Protein Negative (NEGATIVE) 03/09/19 16:13 Urine Glucose (UA) Negative (NEGATIVE) 03/09/19 16:13 Urine Ketones Negative (NEGATIVE) 03/09/19 16:13 Urine Occult Blood Negative (NEGATIVE) 03/09/19 16:13 Urine Nitrite Negative (NEGATIVE) 03/09/19 16:13 Urine Bilirubin Negative (NEGATIVE) 03/09/19 16:13 Urine Urobilinogen Normal (NORMAL) 03/09/19 16:13 Ur Leukocyte Esterase Negative (NEGATIVE) 03/09/19 16:13 Urine Opiates Screen Negative (NEG=<300) 03/09/19 16:13 Urine Methadone Screen Negative (NEG=<300) 03/09/19 16:13 Ur Barbiturates Screen Positive (NEG=<200) A 03/09/19 16:13 Ur Phencyclidine Scrn Negative (NEG=<25) 03/09/19 16:13 Ur Amphetamines Screen Negative (NEG=<1000) 03/09/19 16:13 U Benzodiazepines Scrn Negative (NEG=<200) 03/09/19 16:13 Urine Cocaine Screen Negative (NEG=<300) 03/09/19 16:13 U Marijuana (THC) Screen Negative (NEG=<50) 03/09/19 16:13 - Plan (1) Lactic acidemia Status: Acute Plan: BLOOD CULTURE ON ADMISSION. IV HYDRATION, SERIAL CE AND EKG MONITORING. BP CONTROL. IV ZOSYN AND INVANZ, VERIFY HOME MEDICATION. CT HEAD OBTAINED IN ER, SUPPLEMENTAL O2 (2) History of CVA (cerebrovascular accident) Status: Acute (3) Intractable migraine Status: Acute Qualifiers: Migraine type: unspecified Status migrainosus presence: with status migrainosus Qualified Code(s): G43.911 - Migraine, unspecified, intractable, with status migrainosus (4) Fibromyalgia Status: Chronic (5) Hypertension Status: Chronic Qualifiers: Hypertension type: essential hypertension Qualified Code(s): I10 - Essential (primary) hypertension Plan: LISINOPRIL 5MG PO DAILY. MONITOR
[2019-03-10] MEDS ORDERED: ZESTRIL TAB 10 MG ONE (16:12)
[2019-03-10] MEDS: ZESTRIL TAB 5 MG PO SCH (16:30)
[2019-03-10] MEDS: CRESTOR TAB 10 MG PO SCH (20:50)
[2019-03-10] MEDS: ELAVIL PO SCH (20:50)
[2019-03-10] MEDS: SEROquel TAB 25 mg PO SCH (20:50)
[2019-03-11] MEDS ORDERED: NS 1/2 1000 ML IV 1,000 ML IV ONE (00:25)
[2019-03-11] MEDS: NS 1/2 1000 ML IV 1,000 ML IV SCH ×3 (05:38→14:29)
[2019-03-11] MEDS: ZOSYN VIAL 2.25 GRAMS 2.25 G in NS 100 ML IV + SPIKE MINIBAG* 100 ML IV SCH ×2 (05:39→14:30)
[2019-03-11 06:15] LABS: BASOPHILS # (AUTO) 0.1 X10^3/uL (0.0-0.1); BASOPHILS % (AUTO) 1.3 % (0.2-1.0); EOSINOPHILS # (AUTO) 0.2 x10^3/uL (0.0-0.2); EOSINOPHILS % (AUTO) 2.5 % (0.9-2.9); HEMATOCRIT 37.1 % (36.0-47.0); HEMOGLOBIN 12.6 g/dL (12.0-16.0); LYMPHOCYTES # (AUTO) 2.2 X10^3/uL (1.3-2.9); MEAN CORPUSCULAR HEMOGLOBIN 32.9 pg (27.0-34.0); MEAN CORPUSCULAR HGB CONC 34.1 g/dL (33.0-35.0); MEAN CORPUSCULAR VOLUME 96.4 fL (80.0-100.0); MONOCYTES # (AUTO) 0.9 x10^3/uL (0.3-0.8); MONOCYTES % (AUTO) 13.2 % (0.0-13.0); NEUTROPHILS # (AUTO) 3.5 x10^3/uL (2.2-4.8); PLATELET COUNT 249 X10^3/uL (150.0-450.0); RED BLOOD COUNT 3.84 X10^6/uL (3.5-5.4); RED CELL DISTRIBUTION WIDTH 13.4 % (11.6-16.5); WHITE BLOOD COUNT 6.9 X10^3/uL (3.6-10.0)
[2019-03-11 06:36] LABS: ALANINE AMINOTRANSFERASE 20 Units/L (12-78); ALBUMIN 3.4 g/dL (3.4-5.0); ALKALINE PHOSPHATASE 95 Units/L (46-116); ASPARTATE AMINO TRANSFERASE 16 Units/L (15-37); BLOOD UREA NITROGEN 10 mg/dL (7-18); CALCIUM 9.1 mg/dL (8.5-10.1); CARBON DIOXIDE 30.9 mmol/L (21-32); CHLORIDE 107 mmol/L (98-107); CREATININE 0.99 mg/dL (0.55-1.02); SODIUM 143 mmol/L (136-145); eGFR NON BLACK RACES 60 (>60)
[2019-03-11] MEDS: FIORICET TAB PO PRN (07:15)
[2019-03-11] MEDS: CYMBALTA PO SCH (08:35)
[2019-03-11] MEDS: XARELTO PO SCH (08:35)
[2019-03-11] MEDS: INVANZ INJ 1 GM VIAL 1 GM in NS 100 ML IV + SPIKE MINIBAG* 100 ML IV SCH (08:35)
[2019-03-11] MEDS: ZESTRIL TAB 5 MG PO SCH (08:37)
[2019-03-11 16:32] VITALS: BP 132/60
== END 2019-03-11 16:15 | disposition home or self-care (01) ==
LOC: ICU 12:43 → ER 12:43 → ICU 20:50 → MED/SURG 03-10 15:44
PROVIDERS: ADMIT Internal Medicine; ATTEND Internal Medicine
DX: R06.2 Wheezing; E87.2 Acidosis; M79.7 Fibromyalgia; G43.911 Migraine, unspecified, intractable, with status migrainosus; F15.90 Other stimulant use, unspecified, uncomplicated; I10 Essential (primary) hypertension; R41.82 Altered mental status, unspecified; E78.49 Other hyperlipidemia; I95.89 Other hypotension; Z86.73 Personal history of transient ischemic attack (TIA), and cerebral infarction without residual deficits
CPT/HCPCS: 36415; 36600; 70450; 71010; 71045; 80053; 80061; 80307; 81003; 82550; 82553; 82803; 83605; 83735; 84484; 85025; 87040; 92523; 92610; 93005; 96360; 96361; 96365; 96367; 96374; 96375; 97162; 97166; 99284; A4222; G0378; J1335; J2310; J2543; J7030; J7050

== ENCOUNTER 2019-04-18 15:55 | Observation (INO) ==
--- NOTE | 2019-04-18 16:53 | DR.HEADACH ---
HPI Time Seen Time Seen by Provider: 04/18/19 16:40 Primary Care Physician Primary Care Physician: YUE MARCUS HPI Comment HPI Comment: PATIENT IS 68YR OLD WHITE FEMALE IN ER WITH SEVERE MIGRAINE HEADACHE, SPEECH DISTURBANCES AND AMS TIMES ONE DAY. PATIENT SAID SHE HAVE HAD CVA IN THE PAST WITH RIGHT SIDEED RESIDUAL WEAKNESS. THIS WEAKNESS IS WORSE SI NCE YESTERDAY AND TODAY HAVING PROBLEMS WITH HER SPEECH AND HER STAGING FICUS. CANNOT GET HER THOUGHT TOGETHER. ALSO SEVERE HEADACHE WITH NAUSEA SINCE YESTERDAY. MEDS AT HOME NOT RELIEVING HEADACHE. NO FEVER OR TRAUMA. Complaint/Symptoms Chief Complaint Doctors Comments: SEVERE HEADACHE, INCREASING RIGHT SIDED WEAKNESS AND SLOW SLURED SPEECH TIMES ONE DAY. Chief Complaint:: PT C/O HAVING A HARD TIME FINDING WORDS, MIGRAINE, AND STAGGERING , PT STATES " I CAN'T GET IT TOGETHER " . Pertinent History: Dizziness/Weakness, Headache and Nausea/Vomitting; denies Fever Self Treatment fo Chief Complaint: PT STATES " I CALLED MANDY AND SHE TOLD ME TO COME TO ER AND HAVE A SCAN AND SEE IF I HAS ANOTHER BRAIN BLEED ,BR Reviewed Nurses Notes Reviewed: Yes Source History Provided: Patient Mode of Arrival Mode of Arrival: Ambulatory Timing Onset of Chief Complaint: 04/17/19 Duration Since Onset: Constant Duration: Days Location Headache Location: Frontal Quality Quality: Throbbing Severity Headache Severity: Moderate Context Headache Onset Circumstances: Spontaneous History of: Hypertension Prior Work Up: CT, MRI and Neurologist Modifying Factors Improves With: Analgesics and Rest Worsens: Light and Other (EXERTION.) Associated Signs and Symptoms Associated Symptoms: Nausea, Weakness and Photophobia Aura: Visual Other History Other History: PREVIOUS CVA. HISTORY MIGRAINE HEADACHE. PMH PMH Past Medical History: Yes Past Medical History: CVA, Depression, Dyslipidemia, Migraines and Hypertension Past Surgical History: Yes Surgical History: Appendectomy, Cholecystectomy, Hysterectomy and Tonsillectomy Family History History of Family Medical Conditions: No Social History Does patient currently use any type of tobacco product: No Have you used tobacco products in the last 12 months: No Type of Tobacco Use: None Does any household member use tobacco: No Alcohol Use: None Do you use any recreational Drugs:: No Lives With: Family Lives Where: Home infectious screening In the last 2 months have you had wt loss of >10#?: NO Have you had fever, night sweats or hemotysis?: No Have you traveled outside the country in the last 6 months?: No Isolation: Standard ROS Review of Systems Constitutional: No Symptoms Reported, See HPI, Weakness and Fatigue; negative Fever Eyes: See HPI and Photophobia ENTM: No Symptoms Reported and See HPI; negative Ear Pain, Nose Discharge, Nose Congestion and Throat Pain Respiratoy: No Symptoms Reported and See HPI; negative Short of Breath and Wheezing Cardiovascular: No Symptoms Reported and See HPI; negative Chest Pain, Edema and Palpitations Gastrointestinal/Abdominal: See HPI and Nausea; negative Abdominal Pain and Diarrhea Genitourinary: No Symptoms Reported and See HPI; negative Dysuria, Frequency and Hematuria Neurological: See HPI, Headache, Pre-existing Deficit, Weakness, Dizziness, Problems Walking and Speech Problem Musculoskeletal: See HPI, Back Pain and Muscle Pain Integumentary: No Symptoms Reported and See HPI Hematologic/Lymphatic: See HPI and Easy Bruising; negative Swollen Glands Endocrine: See HPI and Decreased Appetite; negative Increased Thirst and Increased Urine Psychiatric: See HPI and Other (AMS.) All Other Systems: Reviewed and Negative PE Vital Signs Vitals: Temperature 98.0 F Pulse Rate 70 Respiratory Rate 20 Blood Pressure [Right Arm] 149/71 Blood Pressure [Left Arm] 132/60 Blood Pressure 165/81 O2 Sat by Pulse Oximetry 95 General Limitations: No Limitations General Appearance: Alert and In No Apparent Distress Head Head Exam: Normal Inspection and Atraumatic Eyes Eye exam: Normal Appearance and PERRL; negative Scleral Icterus and Conjunctival Injection Eyelids: Normal Inspection: Bilateral Pupils: Regular, Round: Bilateral Sclera/Conjunctival: Normal Inspection: Bilateral ENT ENT Exam: Normal Exam, Normal Oropharynx, Normal External Ear Exam and TM's Normal Bilaterally External Ear Exam: Normal External Inspection; negative Mastoid Tenderness TM/Canal Exam: Bilateral: Normal Nose Exam: Normal Nose Exam; negative Sinus Tenderness Mouth Exam: Normal Inspection Teeth Exam: Dental Caries; negative Dental Tenderness # and Gingival Swelling Throat Exam: Normal Inspection; negative Tonsillar Erythema, Tonsillomegaly and Tonsillar Exudate Neck Neck Exam: Normal Inspection and Trachea Midline; negative Tenderness and Lymphadenopathy Chest Chest Inspection: Normal Inspection and Symmetric Chest Wall Rise; negative Tenderness Respiratory Respiratory Exam: Normal Lung Sounds Bilat; negative Accessory Muscle Use, Chest Wall Tenderness and Respiratory Distress Respiratory Exam: Bilateral: Clear to Auscultation and Bilateral: Rhonchi Cardiovascular Cardiovascular Exam: Regular Rate and Normal Rhythm; negative Normal Heart Sounds Abdominal Exam Abdominal Exam: Normal Inspection, Normal Bowel Sounds and Soft; negative Tenderness Extremities Extremities Exam: Normal Capillary Refill; negative Calf Tenderness Back Back Exam: Normal Inspection and Paraspinal Tenderness (LOWER BACK.); negative (R) CVA Tenderness and (L) CVA Tenderness Neurologic Neurological Exam: Alert, Oriented X3, Motor Sensory Deficit (RIGHT SIDED WEAKNESS.) and Other; negative Normal Gait Psychiatric Psychiatric Exam: Normal Affect and Anxious Skin Skin Exam: Warm, Dry, Intact and Normal Color COURSE Treatment Treatment: SEE ORDERS. Consultation Consultation Comments: DISCUSSED PATIENT WITH DR. BANKS. HE WILL ADMIT PATIENT. Education/Counseling Education/Counseling: Patient and Family Educated On: Diagnosis ROR Labs Reviewed Laboratory Results Reviewed?: Yes Result Diagrams: 04/19/19 05:23 04/19/19 05:23 Laboratory: WBC 5.2 X10^3/uL (3.6-10.0) 04/18/19 17:00 RBC 4.02 X10^6/uL (3.5-5.4) 04/18/19 17:00 Hgb 12.9 g/dL (12.0-16.0) 04/18/19 17:00 Hct 37.9 % (36.0-47.0) 04/18/19 17:00 MCV 94.3 fL (80.0-100.0) 04/18/19 17:00 MCH 32.1 pg (27.0-34.0) 04/18/19 17:00 MCHC 34.1 g/dL (33.0-35.0) 04/18/19 17:00 RDW 13.1 % (11.6-16.5) 04/18/19 17:00 Plt Count 269 X10^3/uL (150.0-450.0) 04/18/19 17:00 MPV 8.3 fL (7.4-11.0) 04/18/19 17:00 Neut % (Auto) 50.9 % (42.0-75.0) 04/18/19 17:00 Lymph % (Auto) 33.2 % (21.0-51.0) 04/18/19 17:00 [place] % (Auto) 11.8 % (0.0-13.0) 04/18/19 17:00 Eos % (Auto) 2.7 % (0.9-2.9) 04/18/19 17:00 Baso % (Auto) 1.4 % (0.2-1.0) H 04/18/19 17:00 Neut # (Auto) 2.7 x10^3/uL (2.2-4.8) 04/18/19 17:00 Lymph # (Auto) 1.7 X10^3/uL (1.3-2.9) 04/18/19 17:00 [place] # (Auto) 0.6 x10^3/uL (0.3-0.8) 04/18/19 17:00 Eos # (Auto) 0.1 x10^3/uL (0.0-0.2) 04/18/19 17:00 Baso # (Auto) 0.1 X10^3/uL (0.0-0.1) 04/18/19 17:00 Absolute Nucleated RBC 0.0 /100WBC 04/18/19 17:00 Sodium 142 mmol/L (136-145) 04/18/19 17:00 Corrected Sodium TNP 04/18/19 17:00 Potassium 3.6 mmol/L (3.5-5.1) 04/18/19 17:00 Chloride 105 mmol/L (98-107) 04/18/19 17:00 Carbon Dioxide 28.7 mmol/L (21-32) 04/18/19 17:00 BUN 12 mg/dL (7-18) 04/18/19 17:00 Creatinine 0.98 mg/dL (0.55-1.02) 04/18/19 17:00 Est GFR (MDRD) Af Amer > 60 (>60) 04/18/19 17:00 Est GFR (MDRD) Non-Af > 60 (>60) 04/18/19 17:00 Glucose 103 mg/dL (65-99) H 04/18/19 17:00 Calcium 9.7 mg/dL (8.5-10.1) 04/18/19 17:00 Corrected Calcium TNP 04/18/19 17:00 Total Bilirubin 0.30 mg/dL (0.2-1.0) 04/18/19 17:00 AST 18 Units/L (15-37) 04/18/19 17:00 ALT 16 Units/L (12-78) 04/18/19 17:00 Alkaline Phosphatase 100 Units/L (46-116) 04/18/19 17:00 Creatine Kinase 109 Units/L (26-192) 04/18/19 17:00 CK-MB (CK-2) 1.0 ng/mL (0-4.0) 04/18/19 17:00 CK/CKMB % Calc 0.9 % (<4) 04/18/19 17:00 Troponin I < 0.02 ng/mL (0-1.5) 04/18/19 17:00 Total Protein 8.4 g/dL (6.4-8.2) H 04/18/19 17:00 Albumin 4.2 g/dL (3.4-5.0) 04/18/19 17:00 Globulin 4.2 g/dL (2.5-4.5) 04/18/19 17:00 Albumin/Globulin Ratio 1.0 Ratio (1.1-2.1) L 04/18/19 17:00 Specimen Type Clean catch urine 04/18/19 19:07 Urine Color Pale yellow (YELLOW) 04/18/19 19:07 Urine Appearance Clear (CLEAR) 04/18/19 19:07 Urine pH 7.0 (5.0 - 8.0) 04/18/19 19:07 Ur Specific [place] 1.015 (1.000-1.030) 04/18/19 19:07 Urine Protein Negative (NEGATIVE) 04/18/19 19:07 Urine Glucose (UA) Negative (NEGATIVE) 04/18/19 19:07 Urine Ketones Negative (NEGATIVE) 04/18/19 19:07 Urine Occult Blood 1+ (NEGATIVE) 04/18/19 19:07 Urine Nitrite Negative (NEGATIVE) 04/18/19 19:07 Urine Bilirubin Negative (NEGATIVE) 04/18/19 19:07 Urine Urobilinogen Normal (NORMAL) 04/18/19 19:07 Ur Leukocyte Esterase Negative (NEGATIVE) 04/18/19 19:07 Urine RBC 0-2 /HPF (0-3) 04/18/19 19:07 Urine WBC None seen /HPF (0-5) 04/18/19 19:07 Ur Squamous Epith Cells Negative /HPF (NEGATIVE) 04/18/19 19:07 Urine Bacteria Negative /HPF (NEGATIVE) 04/18/19 19:07 Ur Culture Indicated? No/not indicated 04/18/19 19:07 EKG Rate: 69 Orange: Normal (REPORT NOTED AND [id number] WITH PATIENT AND FAMILY.) Rhythm: NSR Block: None Hypertrophy: LAE ST: Old, Ant and Infarct Opioid Opioid Risk Tool Age (Flo box if 16-45): No History of Preadolescent Sexual Abuse: No Total: 0 Total Score Risk Category: Low Risk Copyright: [facility] predicting aberrant behaviors Diagnosis Discharge Problem: Acute right-sided weakness, Dysarthria, TIA (transient ischemic attack), Migraine Instructions Instructions: Coping with Quitting Smoking Smoking Tobacco Information, Adult Dehydration, Adult, [id number] Health Risks of Smoking Secondhand Smoke Tobacco Use Disorder Steps to Quit Smoking Migraine Headache
[2019-04-18 17:10] LABS: BASOPHILS # (AUTO) 0.1 X10^3/uL (0.0-0.1); BASOPHILS % (AUTO) 1.4 % (0.2-1.0); EOSINOPHILS # (AUTO) 0.1 x10^3/uL (0.0-0.2); EOSINOPHILS % (AUTO) 2.7 % (0.9-2.9); HEMATOCRIT 37.9 % (36.0-47.0); HEMOGLOBIN 12.9 g/dL (12.0-16.0); LYMPHOCYTES # (AUTO) 1.7 X10^3/uL (1.3-2.9); LYMPHOCYTES % (AUTO) 33.2 % (21.0-51.0); MEAN CORPUSCULAR HEMOGLOBIN 32.1 pg (27.0-34.0); MEAN CORPUSCULAR HGB CONC 34.1 g/dL (33.0-35.0); MEAN CORPUSCULAR VOLUME 94.3 fL (80.0-100.0); MEAN PLATELET VOLUME 8.3 fL (7.4-11.0); MONOCYTES # (AUTO) 0.6 x10^3/uL (0.3-0.8); MONOCYTES % (AUTO) 11.8 % (0.0-13.0); NEUTROPHILS # (AUTO) 2.7 x10^3/uL (2.2-4.8); NEUTROPHILS % (AUTO) 50.9 % (42.0-75.0); PLATELET COUNT 269 X10^3/uL (150.0-450.0); RED BLOOD COUNT 4.02 X10^6/uL (3.5-5.4); RED CELL DISTRIBUTION WIDTH 13.1 % (11.6-16.5); WHITE BLOOD COUNT 5.2 X10^3/uL (3.6-10.0)
[2019-04-18 17:30] LABS: BLOOD UREA NITROGEN 12 mg/dL (7-18); CALCIUM 9.7 mg/dL (8.5-10.1); CARBON DIOXIDE 28.7 mmol/L (21-32); CHLORIDE 105 mmol/L (98-107); CREATININE 0.98 mg/dL (0.55-1.02); SODIUM 142 mmol/L (136-145); TROPONIN I < 0.02 ng/mL (0-1.5); eGFR NON BLACK RACES > 60 (>60)
--- NOTE | 2019-04-18 17:30 | CT ---
BRAIN W/O CONCLINICAL INDICATION: AMS, HEADACHETECHNIQUE: Images were obtained through the head per standard CT protocol. Multiplanar reformatted images were generated from the CT dataset. Dose reduction techniques including Automated Exposure Control (AEC) and adjustment of mA and kV were utlized.COMPARISON:None.FINDINGS:Diffuse patchy and confluent periventricular and subcortical hypoattenuation with associated volume loss . There is no evidence of acute infarction, intracranial hemorrhage, mass or mass effect, or abnormal extra-axial collection . The density of the larger dural venous sinuses is normal . Age-related, ex-vacuo dilatation of the ventricles and sulci . The skull base and calvarium are normal .The included paranasal sinuses and mastoid air cells are predominantly clear .IMPRESSION:1. No acute intracranial abnormality. Chronic microangiopathic changes and ex vacuo dilatation of the ventricles and sulci.Electronically signed by: BAR ORTIZ (Apr 18, 2019 17:29:22)
--- NOTE | 2019-04-18 17:30 | RAD ---
CHEST, 1 VIEWHISTORY: COUGH, SOBStudy: Single view of the chest.Comparison:NoneFindings:The cardiomediastinal silhouette is normal.No focal consolidations, pleural effusions or pneumothorax. Osseous structures demonstrate no acute abnormality.IMPRESSION:1. No acute cardiopulmonary process.Electronically signed by: BAR ORTIZ (Apr 18, 2019 17:29:58)
[2019-04-18 17:32] LABS: ALANINE AMINOTRANSFERASE 16 Units/L (12-78); ALBUMIN 4.2 g/dL (3.4-5.0); ALKALINE PHOSPHATASE 100 Units/L (46-116); ASPARTATE AMINO TRANSFERASE 18 Units/L (15-37); CKMB % 0.9 % (<4); CREATINE KINASE 109 Units/L (26-192); TOTAL PROTEIN 8.4 g/dL (6.4-8.2)
[2019-04-18] MEDS ORDERED: ZOFRAN INJ 4 MG VIAL IVP ONE (18:15)
[2019-04-18] MEDS ORDERED: DEMEROL INJ IVP ONE (18:15)
[2019-04-18] MEDS ORDERED: ZOFRAN INJ 4 MG VIAL ONE (18:24)
[2019-04-18] MEDS ORDERED: DEMEROL INJ ONE ×2 (18:24→22:29)
[2019-04-18 19:18] LABS: BILIRUBIN,URINE NEGATIVE (NEGATIVE); BLOOD/HEMOGLOBIN,URINE 1+ (NEGATIVE); GLUCOSE, URINE NEGATIVE (NEGATIVE); KETONES,URINE NEGATIVE (NEGATIVE); LEUKOCYTE ESTERASE ,URINE NEGATIVE (NEGATIVE); NITRITES,URINE NEGATIVE (NEGATIVE); PROTEIN,URINE NEGATIVE (NEGATIVE); UROBILINOGEN,URINE NORMAL (NORMAL)
[2019-04-18 19:22] LABS: APPEARANCE,URINE CLEAR (CLEAR); COLOR,URINE PALE YELLOW (YELLOW); RBC,URINE 0-2 /HPF (0-3); SQUAMOUS EPITHELIAL CELL,UR NEGATIVE /HPF (NEGATIVE)
[2019-04-18 19:23] LABS: BACTERIA,URINE NEGATIVE /HPF (NEGATIVE)
[2019-04-18] MEDS ORDERED: ZOFRAN INJ 4 MG VIAL IVP PRN (21:46)
[2019-04-18] MEDS: DEMEROL INJ IVP PRN (22:50)
[2019-04-18 23:19] VITALS: BMI 24.9
[2019-04-19 00:16] LABS: CKMB % 1.2 % (<4); CREATINE KINASE 91 Units/L (26-192); CREATINE KINASE MB 1.1 ng/mL (0-4.0); TROPONIN I < 0.02 ng/mL (0-1.5)
[2019-04-19] MEDS ORDERED: DEMEROL INJ ONE (04:34)
[2019-04-19] MEDS: DEMEROL INJ IVP PRN ×2 (04:40→11:57)
[2019-04-19 06:10] LABS: BASOPHILS # (AUTO) 0.1 X10^3/uL (0.0-0.1); BASOPHILS % (AUTO) 1.3 % (0.2-1.0); EOSINOPHILS # (AUTO) 0.1 x10^3/uL (0.0-0.2); EOSINOPHILS % (AUTO) 2.2 % (0.9-2.9); HEMATOCRIT 38.8 % (36.0-47.0); HEMOGLOBIN 13.2 g/dL (12.0-16.0); LYMPHOCYTES # (AUTO) 1.6 X10^3/uL (1.3-2.9); LYMPHOCYTES % (AUTO) 27.6 % (21.0-51.0); MEAN CORPUSCULAR HEMOGLOBIN 32.2 pg (27.0-34.0); MEAN CORPUSCULAR HGB CONC 33.9 g/dL (33.0-35.0); MEAN CORPUSCULAR VOLUME 94.9 fL (80.0-100.0); MEAN PLATELET VOLUME 8.6 fL (7.4-11.0); MONOCYTES # (AUTO) 0.8 x10^3/uL (0.3-0.8); MONOCYTES % (AUTO) 12.8 % (0.0-13.0); NEUTROPHILS # (AUTO) 3.3 x10^3/uL (2.2-4.8); NEUTROPHILS % (AUTO) 56.1 % (42.0-75.0); PLATELET COUNT 257 X10^3/uL (150.0-450.0); RED BLOOD COUNT 4.08 X10^6/uL (3.5-5.4); WHITE BLOOD COUNT 5.9 X10^3/uL (3.6-10.0)
[2019-04-19 06:13] LABS: ALANINE AMINOTRANSFERASE 18 Units/L (12-78); ALBUMIN 3.8 g/dL (3.4-5.0); ALKALINE PHOSPHATASE 86 Units/L (46-116); ASPARTATE AMINO TRANSFERASE 17 Units/L (15-37); BLOOD UREA NITROGEN 12 mg/dL (7-18); CALCIUM 9.3 mg/dL (8.5-10.1); CARBON DIOXIDE 29.7 mmol/L (21-32); CHLORIDE 105 mmol/L (98-107); CKMB % 1.3 % (<4); CREATINE KINASE 75 Units/L (26-192); CREATINE KINASE MB < 1.0 ng/mL (0-4.0); MAGNESIUM 2.4 mg/dL (1.7-2.9); SODIUM 142 mmol/L (136-145); TOTAL PROTEIN 7.8 g/dL (6.4-8.2); TROPONIN I < 0.02 ng/mL (0-1.5); eGFR NON BLACK RACES 59 (>60)
[2019-04-19] MEDS ORDERED: FIORICET TAB PO PRN (10:13)
[2019-04-19] MEDS: NEURONTIN CAP 300 MG PO SCH ×2 (10:41→14:06)
[2019-04-19] MEDS ORDERED: INDERAL TAB 10 MG PO SCH (11:00)
[2019-04-19 16:22] VITALS: BP 149/71
--- NOTE | 2019-04-27 20:43 | DR.CARTERS ---
Short Stay Summary - Admission Date Date of Admission: 04/18/19 - Discharge Date Discharge Date: 04/19/19 - Admission Diagnoses (1) Intractable migraine Status: Acute (2) Acute right-sided weakness Status: Acute (3) Dysarthria Status: Acute - Hospital Course Hospital Course: IS A 68 YEAR OLD PATIENT OF OURS WHO PRESENTED TO THE ER WITH COMPLAINTS OF A SEVERE HEADACHE, CHANGES IN SPEECH, AND ALTERED MENTAL STATUS. SYMPTOMS STARTED ON DAY PRIOR. SHE REPORTED BEING UNABLE TO GET HER THOUGHTS TOGETHER. SHE HAS A HISTORY OF CVA WITH RIGHT SIDED RESIDUAL WEAKNESS AND MIGRAINES. SHE RECENTLY SAW HER NEUROLOGIST, NATANAEL TURNER MD. NO CHANGES WERE MADE TO HER MEDICATIONS, BUT THEY DID SUGGEST STARTING THERAPEUTIC BOTOX INJECTIONS IF SYMPTOMS PERSISTED. ON ARRIVAL TO THE ER, VITALS WERE 98.0-70-20-95%-165/81. LABS WERE OBTAINED. ABNORMAL LAB VALUES INCLUDE THE FOLLOWING: INR 1.36, GLUCOSE 103, TOTAL PROTEIN 8.4. CARDIAC ENZYMES WERE WITHIN NORMAL LIMITS. URINALYSIS WAS UNREMARKABLE. A BRAIN CT WAS OBTAINED AND REVEALED: No acute intracranial abnormality. Chronic microangiopathic changes and ex vacuo dilatation of the ventricles and sulci. EKG REVEALED: SINUS RHYTHM WITH HR 69. A CHEST XRAY WAS OBTAINED AND REVEALED: NO ACUTE CARDIOPULMONARY PROCESS. SHE WAS GIVEN DEMEROL 25MG IV X 1 AND ZOFRAN 4MG IV X 1 IN THE ER WITHOUT IMPROVEMENT IN SYMPTOMS. SHE WAS ADMITTED FOR FURTHER EVALUATION AND TREATMENT OF INCREASING RIGHT SIDED WEAKNESS, DYSARTHRIA, AND MIGRAINE. SHE WAS STARTED ON DEMEROL 25MG IV Q6H PRN, ZOFRAN 4MG IV FQ6H PRN, GABAPENTIN 300MG AT 0800 AND 1400 AND 600MG AT 2100, FIORICET 1 TAB PO Q6H PRN, SEROQUEL 100MG PO HS, AND PROPRANOLOL 40MG PO BID. WE PLANNED TO FOLLOW UP WITH AM LABS AND CONTINUE TO MONITOR. ON MORNING ROUNDS, PATIENT REPORTED SLIGHT IMPROVEMENT IN SYMPTOMS. ON EXAMINATION, PUPILS PERRLA. HEART IS REGULAR IN RATE AND RHYTHM. BILATERAL LUNGS ARE CLEAR TO AUSCULTATION. ABDOMEN IS ROUND, SOFT, AND NON-TENDER WITH NORMAL BOWEL SOUNDS NOTED IN ALL QUADRANTS. HER VITALS THIS MORNING ARE: 98.1-74-18-96%-140/63. LABS WERE OBTAINED. SHE IS HEMODYNAMICALLY STABLE. CARDIAC ENZYMES NORMAL AND NO CHANGES ARE NOTED TO EKGS. WE PLANNED FOR DISCHARGE. INSTRUCTIONS FOR MEDICATIONS AND FOLLOW-UP WERE DISCUSSED WITH PATIENT AND FAMILY. THEY VERBALIZED UNDERSTANDING OF ALL ORDERS. SHE WAS DISCHARGED HOME WITH NEW PRESCRIPTIONS FOR GABAPENTIN 300MG PO TID, PROPRANOLOL 80MG PO DAILY, AND SEROQUEL 100MG PO HS. SHE IS INSTRUCTED TO FOLLOW UP WITH HER NEUROLOGIST AND ME IN THE OFFICE NEXT WEEK. SHE WAS DISCHARGED HOME WITH SPOUSE IN STABLE CONDITION. - Discharge Medications Discharge Medications: Home Medication List amitriptyline 20 mg PO QHS 04/18/19 [History] clopidogrel 75 mg PO DAILY 04/18/19 [History] famotidine [Pepcid] 20 mg PO DAILY 04/18/19 [History] gabapentin 600 mg PO HS 04/18/19 [History] lisinopril 10 mg PO DAILY 04/18/19 [History] propranolol 60 mg PO DAILY 04/18/19 [History] tapentadol [Nucynta] 75 mg PO QID MDD 4 04/18/19 [History] gabapentin 300 mg PO TID #120 cap 04/19/19 [Rx] propranolol 80 mg PO DAILY #30 cap 04/19/19 [Rx] quetiapine 100 mg PO QHS #30 tab 04/19/19 [Rx] Prescriptions: gabapentin Reuben Turner propranolol Reuben Turner quetiapine Reuben Turner - Discharge Plan Disposition: 01 HOME, SELF-CARE Condition: Stable Prescriptions: gabapentin 300 mg PO TID #120 cap propranolol 80 mg PO DAILY #30 cap quetiapine 100 mg PO QHS #30 tab - Follow up/Referrals Follow up/Referrals: CORINA DUARTE [Nurse Practitioner] - 04/26/19 1:30 pm (04/26/19@1330) Reuben Turner [Primary Care Provider] - 1 WEEK NATANAEL TURNER [REFERRING] - 05/18/19 1:15 pm - Instructions Instructions: Coping with Quitting Smoking, Smoking Tobacco Information, Adult, Dehydration, Adult, [id number], Health Risks of Smoking, Secondhand Smoke, Tobacco Use Disorder, Steps to Quit Smoking, Migraine Headache Additional Instructions: DIET TOLERATED. ACTIVITY TOLERATED.
== END 2019-04-19 16:30 | disposition home or self-care (01) ==
LOC: ER 16:02 → OBS 16:02
PROVIDERS: ADMIT Family Medicine; ATTEND Internal Medicine
DX: R41.82 Altered mental status, unspecified; R79.1 Abnormal coagulation profile; R47.1 Dysarthria and anarthria; G43.819 Other migraine, intractable, without status migrainosus; Z79.899 Other long term (current) drug therapy; E78.2 Mixed hyperlipidemia; R94.31 Abnormal electrocardiogram [ECG] [EKG]; R53.1 Weakness; I10 Essential (primary) hypertension
CPT/HCPCS: 36415; 70450; 71010; 71045; 80053; 81001; 82550; 82553; 83735; 84484; 85025; 85610; 85730; 93005; 94760; 96365; 96374; 96375; 99284; A4216; A4222; G0378; J2175; J2405

== ENCOUNTER 2019-06-04 07:49 | Observation (INO) ==
--- NOTE | 2019-06-04 08:00 | DR.AMS ---
HPI - Time Seen Time seen: 07:57 - HPI Comment HPI Comment: patient awoke this am confused, slurred speech. She has a history of CVA 2 years ago. - COVID-19 Coronavirus risk:travel/contact w/high risk person: No Has patient experienced Coronavirus symptoms: No - Reviewed Nurses Notes Reviewed: Yes - Source History Provided: Family Member ( gave history) - Mode of Arrival Mode of Arrival: Wheelchair - Timing Came On: Suddenly, On Awakening Symptoms: Unchanged - Duration Duration: Constant How lon (on awakening ) Duration: Hours - Quality Quality: Decreased Alertness, Confusion - Severity Severity: Moderate - Context Recent: None History Of: CVA - Associated Signs and Symptoms Associated Signs and Symptoms: None, Headache, Slurred Speech, Confusion PMH - PMH Past Medical History: Hypertension, Dyslipidemia, Depression, CVA, Migraines Past Surgical History: Yes Surgical History: Appendectomy, Cholecystectomy, Hysterectomy, Tonsillectomy - Family History Family Medical History: denies: Diabetes Mellitus, Cancer, [place], Coronary Artery Disease, Heart Failure, Sudden Cardiac , Hypertension - Social History Do you use any recreational Drugs:: No - Travel Risk Coronavirus risk:travel/contact w/high risk person: No Has patient experienced Coronavirus symptoms: No ROS - Review of Systems Constitutional: No Symptoms Reported Eyes: No Symptoms Reported ENTM: No Symptoms Reported Respiratoy: No Symptoms Reported Cardiovascular: No Symptoms Reported Gastrointestinal/Abdominal: No Symptoms Reported Genitourinary: No Symptoms Reported Neurological: Headache, Speech Problem, Other (confused) Musculoskeletal: No Symptoms Reported Integumentary: No Symptoms Reported Hematologic/Lymphatic: No Symptoms Reported Endocrine: No Symptoms Reported Psychiatric: Depression All Other Systems: Reviewed and Negative PE - General Limitations: Altered Mental Status General Appearance: Lethargic - Head Head Exam: Normal Inspection - Eyes Eye exam: Normal Appearance, EOMI - ENT ENT Exam: Normal Exam External Ear Exam: Normal External Inspection Nose Exam: Normal Nose Exam - Neck Neck Exam: Normal Inspection, Full ROM, Trachea Midline - Chest Chest Inspection: Normal Inspection - Respiratory Respiratory Exam: Normal Lung Sounds Bilat Respiratory Exam: Bilateral Clear to Auscultation - Cardiovascular Cardiovascular Exam: Regular Rate - Abdominal Exam Abdominal Exam: Normal Inspection, Normal Bowel Sounds, Soft - Extremities Extremities Exam: Normal Inspection, Full ROM - Back Back Exam: Normal Inspection - Neurological Neurological Exam: Other (unable to assess) Speech: Expressive Aphasia - Psychological Psychiatric Exam: Depressed - Skin Skin Exam: Intact, Normal Color - Vitals Vital Signs: BP 04/19/19 16:00 149/71 Course - Treatment Treatment: [address] Fadi HANEY - Labs Reviewed Result Diagrams: 06/06/19 04:28 06/06/19 04:28 Opioid - Opioid Risk Tool Age (Flo box if 16-45): No History of Preadolescent Sexual Abuse: No Total: 0 Total Score Risk Category: Low Risk - Diagnosis Discharge Problem: Acute dehydration, Abnormal cardiac enzyme level AMS (altered mental status) Qualifiers: Altered mental status type: transient alteration of awareness Qualified Code(s): R40.4 - Transient alteration of awareness - Discharge Plan Disposition: ADMITTED INPATIENT Condition: Stable
--- NOTE | 2019-06-04 08:22 | CT ---
HISTORYamsSTUDYBRAIN W/O CONCOMPARISONCT head dated April 18, 2019.TECHNIQUEMultiple axial images of the head without contrast. Dose reduction techniques including Automated Exposure Control (AEC) and adjustment of mA and kV were utilized.FINDINGSAge related cortical atrophy and chronic small vessel ischemic changes [no acute intraparenchymal hemorrhage or mass can be identified.] [No extra-axial fluid collections are seen.] [No alteration in the attenuation of the brain parenchyma can be identified to suggest acute or subacute ischemic change.] [The ventricular system is symmetric and nondilated.] [The extracranial structures are grossly unremarkable.]IMPRESSIONNo acute intracranial pathology. If clinically concerned for acute ischemia/infarction, MRI of the brain is more sensitive.Electronically signed by: GUS PARKER (Jun 04, 2019 08:20:45)
[2019-06-04 08:44] LABS: BASOPHILS # (AUTO) 0.1 X10^3/uL (0.0-0.1); BASOPHILS % (AUTO) 0.7 % (0.2-1.0); EOSINOPHILS % (AUTO) 0.3 % (0.9-2.9); HEMATOCRIT 36.3 % (36.0-47.0); HEMOGLOBIN 12.3 g/dL (12.0-16.0); LYMPHOCYTES # (AUTO) 0.8 X10^3/uL (1.3-2.9); LYMPHOCYTES % (AUTO) 10.4 % (21.0-51.0); MEAN CORPUSCULAR HEMOGLOBIN 31.5 pg (27.0-34.0); MEAN CORPUSCULAR HGB CONC 33.8 g/dL (33.0-35.0); MEAN CORPUSCULAR VOLUME 93.2 fL (80.0-100.0); MEAN PLATELET VOLUME 7.9 fL (7.4-11.0); MONOCYTES # (AUTO) 0.7 x10^3/uL (0.3-0.8); MONOCYTES % (AUTO) 9.1 % (0.0-13.0); NEUTROPHILS # (AUTO) 6.4 x10^3/uL (2.2-4.8); NEUTROPHILS % (AUTO) 79.5 % (42.0-75.0); PLATELET COUNT 259 X10^3/uL (150.0-450.0); RED CELL DISTRIBUTION WIDTH 12.8 % (11.6-16.5)
[2019-06-04 08:54] LABS: ALANINE AMINOTRANSFERASE 29 Units/L (12-78); ALBUMIN 3.7 g/dL (3.4-5.0); ALKALINE PHOSPHATASE 94 Units/L (46-116); ASPARTATE AMINO TRANSFERASE 27 Units/L (15-37); BLOOD UREA NITROGEN 14 mg/dL (7-18); CALCIUM 9.2 mg/dL (8.5-10.1); CARBON DIOXIDE 29.7 mmol/L (21-32); CHLORIDE 101 mmol/L (98-107); COR NA(FOR HYPERGLY) 138 mmol/L (136-145); CREATININE 1.58 mg/dL (0.55-1.02); SODIUM 138 mmol/L (136-145); TOTAL PROTEIN 7.8 g/dL (6.4-8.2); eGFR NON BLACK RACES 35 (>60)
[2019-06-04 09:04] LABS: LACTIC ACID 2.1 mmol/L (0.4-2.0)
--- NOTE | 2019-06-04 09:05 | RAD ---
HISTORYamsSTUDYCHEST, [facility] April [facility], 2019.FINDINGSThe patient is rotated. The cardiac silhouette is unremarkable. Chronic emphysematous changes. The lungs are clear without focal infiltrate, pneumothorax, or effusion. The bony thorax is unremarkable.IMPRESSIONNo acute cardiopulmonary disease.Electronically signed by: GUS PARKER (Jun 04, 2019 09:04:14)
--- NOTE | 2019-06-04 09:34 | DR.AMS ---
HPI Time Seen Time Seen by Provider: 06/04/19 07:51 PCP Primary Care Physician: YUE Complaint Cheif Complaint Doctors Comments: H&P PER DR. TRAYLOR. 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 PT. SEEMED CONFUSED TO HER WELL DROWSY AND SHE HAD SOME SLURRED SPEECH. HE STATES SHE WAS ALSO COUGHING A LOT. UPON ARRIVAL TO THE ER, PT. IS WEAK WITH AN UNSTEADY GAIT AND DOES HAVE SLURRED SPEECH. PT. HAS HER EYES CLOSED. PT. DENIES PAIN BUT STATES SHE HAS HAD TIA'S IN THE PAST. COVID-19 Coronavirus risk:travel/contact w/high risk person: No Has patient experienced Coronavirus symptoms: No Source History Provided: Family Member ( gave history) Mode of Arrival Mode of Arrival: Wheelchair Timing Onset of Chief Complaint: 06/04/19 PMH PMH Past Medical History: Yes Past Medical History: CVA, Depression, Dyslipidemia, Migraines, Headaches and Hypertension Past Medical History Comment: TIA Past Surgical History: Yes Surgical History: Appendectomy, Cholecystectomy, Hysterectomy and Tonsillectomy Family History History of Family Medical Conditions: No Social History Does patient currently use any type of tobacco product: Yes Have you used tobacco products in the last 12 months: Yes Type of Tobacco Use: Cigarettes Does any household member use tobacco: No Alcohol Use: None Do you use any recreational Drugs:: No Lives With: Spouse Lives Where: Home Travel Risk Coronavirus risk:travel/contact w/high risk person: No Has patient experienced Coronavirus symptoms: No Infectious screening In the last 2 months have you had wt loss of >10#?: NO Have you had fever, night sweats or hemotysis?: No Have you traveled outside the country in the last 6 months?: No Isolation: Standard PE Vitals Vital Signs: Temp Pulse Resp BP BP Pulse Ox 06/04/19 11:00 122/57 06/04/19 10:45 72 135/63 100 06/04/19 10:30 77 12 113/58 98 06/04/19 10:15 77 21 102/53 95 06/04/19 10:00 78 16 101/54 94 L 06/04/19 09:45 80 9 L 102/55 94 L 06/04/19 09:30 86 13 114/53 94 L 06/04/19 09:15 79 9 L 97/55 94 L 06/04/19 09:00 88 12 111/53 95 06/04/19 08:47 86 10 L 113/58 94 L 06/04/19 08:45 88 13 96 06/04/19 08:30 92 H 105/55 93 L 06/04/19 08:24 93 H 21 94 L 06/04/19 07:54 97.9 F 98 H 17 120/58 95 04/19/19 16:00 149/71 COURSE Treatment Treatment: SEE ORDERS. PATIENT SIGN OUT TO DR. PATRICIO 08:05AM. Consultation Consultation Comments: DISCUSSED PATIENT WITH DR. TAYLOR. HE WILL ADMIT PATIENT. Education/Counseling Education/Counseling: Family Educated On: Diagnosis ROR Labs Reviewed Laboratory Results Reviewed?: Yes Result Diagrams: 06/04/19 08:25 06/04/19 08:25 Laboratory: WBC 8.0 X10^3/uL (3.6-10.0) 06/04/19 08:25 RBC 3.90 X10^6/uL (3.5-5.4) 06/04/19 08:25 Hgb 12.3 g/dL (12.0-16.0) 06/04/19 08:25 Hct 36.3 % (36.0-47.0) 06/04/19 08:25 MCV 93.2 fL (80.0-100.0) 06/04/19 08:25 MCH 31.5 pg (27.0-34.0) 06/04/19 08:25 MCHC 33.8 g/dL (33.0-35.0) 06/04/19 08:25 RDW 12.8 % (11.6-16.5) 06/04/19 08:25 Plt Count 259 X10^3/uL (150.0-450.0) 06/04/19 08:25 MPV 7.9 fL (7.4-11.0) 06/04/19 08:25 Neut % (Auto) 79.5 % (42.0-75.0) H 06/04/19 08:25 Lymph % (Auto) 10.4 % (21.0-51.0) L 06/04/19 08:25 [place] % (Auto) 9.1 % (0.0-13.0) 06/04/19 08:25 Eos % (Auto) 0.3 % (0.9-2.9) L 06/04/19 08:25 Baso % (Auto) 0.7 % (0.2-1.0) 06/04/19 08:25 Neut # (Auto) 6.4 x10^3/uL (2.2-4.8) H 06/04/19 08:25 Lymph # (Auto) 0.8 X10^3/uL (1.3-2.9) L 06/04/19 08:25 [place] # (Auto) 0.7 x10^3/uL (0.3-0.8) 06/04/19 08:25 Eos # (Auto) 0.0 x10^3/uL (0.0-0.2) 06/04/19 08:25 Baso # (Auto) 0.1 X10^3/uL (0.0-0.1) 06/04/19 08:25 Absolute Nucleated RBC 0.1 /100WBC 06/04/19 08:25 Sample Site Rb 06/04/19 10:26 ABG pH 7.310 (7.35-7.45) L 06/04/19 10:26 ABG pCO2 57.0 mmHg (35.0-45.0) H* 06/04/19 10:26 ABG pO2 58.0 mmHg (80.0-100.0) L 06/04/19 10:26 ABG HCO3 28.7 mmol/L (22-26) H 06/04/19 10:26 ABG O2 Saturation 87.0 % (90-100) L 06/04/19 10:26 ABG Base Excess 1.3 mmol/L (-2.0-2.0) 06/04/19 10:26 Fadi Test Na 06/04/19 10:26 A-a Gradient 20.0 mmHg 06/04/19 10:26 FiO2 21.0 06/04/19 10:26 Blood Gas Comments Monica well cb 06/04/19 10:26 Sodium 138 mmol/L (136-145) 06/04/19 08:25 Corrected Sodium 138 mmol/L (136-145) 06/04/19 08:25 Potassium 4.1 mmol/L (3.5-5.1) 06/04/19 08:25 Chloride 101 mmol/L (98-107) 06/04/19 08:25 Carbon Dioxide 29.7 mmol/L (21-32) 06/04/19 08:25 BUN 14 mg/dL (7-18) 06/04/19 08:25 Creatinine 1.58 mg/dL (0.55-1.02) H 06/04/19 08:25 Est GFR (MDRD) Af Amer 42 (>60) L 06/04/19 08:25 Est GFR (MDRD) Non-Af 35 (>60) L 06/04/19 08:25 Glucose 119 mg/dL (65-99) H 06/04/19 08:25 Lactic Acid 2.1 mmol/L (0.4-2.0) H 06/04/19 08:25 Calcium 9.2 mg/dL (8.5-10.1) 06/04/19 08:25 Corrected Calcium TNP 06/04/19 08:25 Total Bilirubin 0.30 mg/dL (0.2-1.0) 06/04/19 08:25 AST 27 Units/L (15-37) 06/04/19 08:25 ALT 29 Units/L (12-78) 06/04/19 08:25 Alkaline Phosphatase 94 Units/L (46-116) 06/04/19 08:25 Creatine Kinase 410 Units/L (26-192) H 06/04/19 08:25 CK-MB (CK-2) 10.2 ng/mL (0-4.0) H* 06/04/19 08:25 CK/CKMB % Calc 2.5 % (<4) 06/04/19 08:25 Troponin I < 0.02 ng/mL (0-1.5) 06/04/19 08:25 Total Protein 7.8 g/dL (6.4-8.2) 06/04/19 08:25 Albumin 3.7 g/dL (3.4-5.0) 06/04/19 08:25 Globulin 4.1 g/dL (2.5-4.5) 06/04/19 08:25 Albumin/Globulin Ratio 0.9 Ratio (1.1-2.1) L 06/04/19 08:25 Specimen Type Catherized urine 06/04/19 10:43 Urine Color Yellow (YELLOW) 06/04/19 10:43 Urine Appearance Clear (CLEAR) 06/04/19 10:43 Urine pH 5.0 (5.0 - 8.0) 06/04/19 10:43 Ur Specific [place] 1.025 (1.000-1.030) 06/04/19 10:43 Urine Protein 2+ (NEGATIVE) 06/04/19 10:43 Urine Glucose (UA) Negative (NEGATIVE) 06/04/19 10:43 Urine Ketones 1+ (NEGATIVE) 06/04/19 10:43 Urine Occult Blood 4+ (NEGATIVE) 06/04/19 10:43 Urine Nitrite Negative (NEGATIVE) 06/04/19 10:43 Urine Bilirubin Negative (NEGATIVE) 06/04/19 10:43 Urine Urobilinogen Normal (NORMAL) 06/04/19 10:43 Ur Leukocyte Esterase Negative (NEGATIVE) 06/04/19 10:43 Urine RBC 3-5 /HPF (0-3) A 06/04/19 10:43 Urine WBC 3-5 /HPF (0-5) 06/04/19 10:43 Ur Squamous Epith Cells Few /HPF (NEGATIVE) 06/04/19 10:43 Ur Transition Epith Cell Few /HPF (NEGATIVE) 06/04/19 10:43 Amorphous Sediment Trace /HPF (NEGATIVE) 06/04/19 10:43 Urine Bacteria Trace /HPF (NEGATIVE) 06/04/19 10:43 Hyaline Casts Rare /LPF (NEGATIVE) 06/04/19 10:43 Urine Mucus Moderate /HPF (NEGATIVE) 06/04/19 10:43 Ur Culture Indicated? No/not indicated 06/04/19 10:43 Urine Opiates Screen Positive (NEG=<300) A 06/04/19 10:43 Urine Methadone Screen Negative (NEG=<300) 06/04/19 10:43 Ur Barbiturates Screen Positive (NEG=<200) A 06/04/19 10:43 Ur Phencyclidine Scrn Negative (NEG=<25) 06/04/19 10:43 Ur Amphetamines Screen Negative (NEG=<1000) 06/04/19 10:43 U Benzodiazepines Scrn Negative (NEG=<200) 06/04/19 10:43 Urine Cocaine Screen Negative (NEG=<300) 06/04/19 10:43 U Marijuana (THC) Screen Negative (NEG=<50) 06/04/19 10:43 Acetone, Semi-Quant Negative (NEGATIVE) 06/04/19 08:25 XRAY XRAY Interpreted by: Radiologist (REPORTS NOTED AND DISCUSSED WITH FAMILY.) EKG Rate: 93 [place]: Normal Rhythm: NSR Block: None Hypertrophy: None (LOW VOLTAGE.) ST: Normal Opioid Opioid Risk Tool Age (Flo box if 16-45): No History of Preadolescent Sexual Abuse: No Total: 0 Total Score Risk Category: Low Risk Copyright: [facility] predicting aberrant behaviors Diagnosis Discharge Problem: Acute dehydration, Abnormal cardiac enzyme level AMS (altered mental status) Qualifiers: Altered mental status type: transient alteration of awareness Qualified Code(s ): R40.4 - Transient alteration of awareness Instructions Forms: Excuse From Work Precautions for COVID19 Patient Portal Social Distancing
[2019-06-04] MEDS ORDERED: NS 1000 ML 1,000 ML IV ONE (09:43)
[2019-06-04] MEDS ORDERED: NS 1000 ML 1,000 ML ONE (09:44)
[2019-06-04 09:53] LABS: CKMB % 2.5 % (<4); CREATINE KINASE 410 Units/L (26-192); TROPONIN I < 0.02 ng/mL (0-1.5)
[2019-06-04 09:57] LABS: CREATINE KINASE MB 10.2 ng/mL (0-4.0)
[2019-06-04] MEDS ORDERED: NARCAN INJ IVP ONE (10:16)
[2019-06-04] MEDS ORDERED: NARCAN INJ ONE (10:18)
[2019-06-04 10:29] LABS: ABG BASE EXCESS 1.3 mmol/L (-2.0-2.0); ABG HCO3 28.7 mmol/L (22-26)
--- NOTE | 2019-06-04 10:43 | DR.H&P ---
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 PT. SEEMED CONFUSED TO HER WELL DROWSY AND SHE HAD SOME SLURRED SPEECH. HE STATES SHE WAS ALSO COUGHING A LOT. UPON ARRIVAL TO THE ER, PT. IS WEAK WITH AN UNSTEADY GAIT AND DOES HAVE SLURRED SPEECH. PT. HAS HER EYES CLOSED. PT. DENIES PAIN BUT STATES SHE HAS HAD TIA'S IN THE PAST. - Past Medical History Past Medical History: Hypertension, Dyslipidemia, Depression, CVA, Migraines, Headaches Additional Medical History: Multiple Sclerosis, Fibromyalgia - Past Surgical History Surgical History: Appendectomy, Cholecystectomy, Hysterectomy, Tonsillectomy Additional Surgical History: Back surgery x 3 - Family History Family Medical History: denies: Diabetes Mellitus, Cancer, [place], Coronary Artery Disease, Heart Failure, Sudden Cardiac , Hypertension - Social History Does patient currently use any type of tobacco product: Yes Have you used tobacco products in the last 12 months: Yes Type of Tobacco Use: Cigarettes Does any household member use tobacco: No Alcohol Use: None - Medications Home Medications: No Known Drug Allergies Allergy (Verified 06/04/19 07:57) - Review of Systems Constitutional: Weakness Eyes: No Symptoms Reported ENT: No Symptoms Reported Respiratory: No Symptoms Reported Cardiovascular: No Symptoms Reported Gastrointestinal: No Symptoms Reported Genitourinary: No Symptoms Reported Musculoskeletal: No Symptoms Reported Skin: No Symptoms Reported Neurological: Weakness - Physical Exam Vital Signs: Temperature 97.9 F Pulse Rate 77 Respiratory Rate 21 Blood Pressure [Right Arm] 149/71 Blood Pressure 102/53 O2 Sat by Pulse Oximetry 95 Oriented: Person Eyes: Normal Ear: Normal Nose: Normal Throat: Normal, Dry Respiratory: RLL Diminished, LLL Diminished Cardiovascular: Normal : Normal Auscultation: Bowel Sounds: Normal Palpation: Normal Tenderness: Normal Skin: Decreased [place] Musculoskeletal: Normal Psychiatric: Depression Mood Description: Depressed Speech Pattern: Delayed - Assessment/Plan (1) AMS (altered mental status) Status: Acute Plan: ADMIT, CT HEAD ON ADMISSION. NEURO CHECKS, HOLD SEDATIVE MEDICATION. BP CONTROL, CXR ON ADMISSION. SUPPLEMENTAL O2, VERIFY HOME MEDICATIONS (2) Acute hypotension Status: Acute (3) Depression Status: Acute (4) History of CVA (cerebrovascular accident) Status: Acute (5) Hypertension Qualifiers: Status: Chronic - Allergies Allergies/Adverse Reactions: Allergies Allergy/AdvReac Type Severity Reaction Status Date / Time No Known Drug Allergies Allergy Verified 06/04/19 07:57
[2019-06-04 10:58] LABS: BILIRUBIN,URINE NEGATIVE (NEGATIVE); BLOOD/HEMOGLOBIN,URINE 4+ (NEGATIVE); GLUCOSE, URINE NEGATIVE (NEGATIVE); KETONES,URINE 1+ (NEGATIVE); LEUKOCYTE ESTERASE ,URINE NEGATIVE (NEGATIVE); NITRITES,URINE NEGATIVE (NEGATIVE); PROTEIN,URINE 2+ (NEGATIVE); UROBILINOGEN,URINE NORMAL (NORMAL)
[2019-06-04 11:16] LABS: APPEARANCE,URINE CLEAR (CLEAR); COLOR,URINE YELLOW (YELLOW)
[2019-06-04 11:17] LABS: BACTERIA,URINE TRACE /HPF (NEGATIVE); SQUAMOUS EPITHELIAL CELL,UR FEW /HPF (NEGATIVE); TRANSITIONAL EPI CELLS,URINE FEW /HPF (NEGATIVE)
[2019-06-04 11:18] LABS: AMORPHOUS SEDIMENT,UR TRACE /HPF (NEGATIVE); HYALINE CASTS, URINE RARE /LPF (NEGATIVE); MUCUS,URINE MODERATE /HPF (NEGATIVE)
[2019-06-04] MEDS: NS 1000 ML 1,000 ML IV SCH (13:13)
[2019-06-04 15:46] VITALS: BMI 30.9
[2019-06-04 16:17] LABS: CKMB % 2.6 % (<4); CREATINE KINASE 610 Units/L (26-192); TROPONIN I < 0.02 ng/mL (0-1.5)
[2019-06-04 16:22] LABS: CREATINE KINASE MB 15.9 ng/mL (0-4.0)
[2019-06-04 21:56] LABS: CKMB % 1.9 % (<4); CREATINE KINASE 828 Units/L (26-192); TROPONIN I < 0.02 ng/mL (0-1.5)
[2019-06-04 22:03] LABS: CREATINE KINASE MB 16.1 ng/mL (0-4.0)
[2019-06-05] MEDS: NS 1000 ML 1,000 ML IV SCH ×2 (01:46→18:48)
[2019-06-05 06:30] LABS: BASOPHILS # (AUTO) 0.1 X10^3/uL (0.0-0.1); BASOPHILS % (AUTO) 0.9 % (0.2-1.0); EOSINOPHILS # (AUTO) 0.2 x10^3/uL (0.0-0.2); EOSINOPHILS % (AUTO) 2.9 % (0.9-2.9); HEMATOCRIT 33.7 % (36.0-47.0); HEMOGLOBIN 11.6 g/dL (12.0-16.0); LYMPHOCYTES # (AUTO) 1.6 X10^3/uL (1.3-2.9); LYMPHOCYTES % (AUTO) 25.6 % (21.0-51.0); MEAN CORPUSCULAR HEMOGLOBIN 32.2 pg (27.0-34.0); MEAN CORPUSCULAR HGB CONC 34.3 g/dL (33.0-35.0); MEAN CORPUSCULAR VOLUME 93.8 fL (80.0-100.0); MEAN PLATELET VOLUME 8.3 fL (7.4-11.0); MONOCYTES # (AUTO) 0.6 x10^3/uL (0.3-0.8); MONOCYTES % (AUTO) 10.1 % (0.0-13.0); NEUTROPHILS # (AUTO) 3.8 x10^3/uL (2.2-4.8); NEUTROPHILS % (AUTO) 60.5 % (42.0-75.0); PLATELET COUNT 229 X10^3/uL (150.0-450.0); RED BLOOD COUNT 3.59 X10^6/uL (3.5-5.4); WHITE BLOOD COUNT 6.3 X10^3/uL (3.6-10.0)
[2019-06-05 06:56] LABS: ALANINE AMINOTRANSFERASE 30 Units/L (12-78); ALBUMIN 3.2 g/dL (3.4-5.0); ALKALINE PHOSPHATASE 95 Units/L (46-116); ASPARTATE AMINO TRANSFERASE 52 Units/L (15-37); BLOOD UREA NITROGEN 16 mg/dL (7-18); CALCIUM 8.8 mg/dL (8.5-10.1); CARBON DIOXIDE 27.2 mmol/L (21-32); CHLORIDE 107 mmol/L (98-107); COR CA(FOR HYPOALB) 9.4 mg/dL (8.5-10.1); CREATININE 1.21 mg/dL (0.55-1.02); MAGNESIUM 2.1 mg/dL (1.7-2.9); SODIUM 143 mmol/L (136-145); eGFR NON BLACK RACES 47 (>60)
--- NOTE | 2019-06-05 15:37 | MRI ---
HISTORYAMS, WEAKNESSSTUDYBRAIN W/O [id number]/2020TECHNIQUEMultiplanar multi-sequence MRI of the brain was obtained utilizing [facility] departmental protocol.FINDINGSNo suggestion of recent infarct or intracranial hemorrhage. No v entriculomegaly or midline shift. Mild supratentorial volume loss. Expected flow voids present in lin or intracranial arteries and dural venous sinuses. Globes intact. Minor mucosal thickening paranasal sinuses without fluid levels. Mastoid air cells aerated. No focal parenchymal signal abnormality. No visible mass or mass effect. Basal cisterns appear patent. Remote lacunar infarct or dilated perivasc ular space in left thalamus.IMPRESSIONNo acute intracranial finding. Possible remote lacunar infarct in left thalamus versus dilated perivascular space.Electronically signed by: Tim Jj (Jun 04 020 15:36:32)
--- NOTE | 2019-06-05 20:16 | PCM.PROG ---
Progress Note - Progress Note for Day of Date of Exam: 06/05/19 - Subjective Subjective: WAS ADMITTED FOR AMS AND DEHYDRATION. TODAY, SHE IS ALERT, LYING IN BED ON MORNING ROUNDS. SHE CONTINUES WITH COMPLAINTS OF WEAKNESS. SHE ALSO REPORTS A SORE THROAT AND COUGH. ON EXAMINATION, HEART IS REGULAR IN RATE AND RHYTHM. BILATERAL LUNGS ARE NOTED WITH DIMINISHED LUNG SOUNDS THROUGHOUT. ABDOMEN IS ROUND, SOFT, AND NON-TENDER WITH NORMAL BOWEL SOUNDS IN ALL QUADRANTS. THERE IS 4/5 POWER TO UPPER AND LOWER EXTREMITIES. HER VITALS THIS MORNING ARE: 97.9-67-18-99%-102/50. LABS WERE OBTAINED. ABNORMAL LAB VALUES INCLUDE THE FOLLOWING: HGB 11.6, HCT 33.7, CREATININE 1.21, AST 52, ALBUMIN 3.2. BLOOD CULTURES ARE PENDING. SHE IS CURRENTLY RECEIVING NS AT 75 ML/HR. WE WILL OBTAIN A BRAIN MRI TODAY AND A STREP SWAB. OTHERWISE, WE WILL FOLLOW UP WITH AM LABS AND CONTINUE TO MONITOR. - Past Medical Family Social History Past Med/Fam/Surg Hx: No changes since H&P Allergies: Allergies No Known Drug Allergies Allergy (Verified 06/04/19 07:57) - Review of Systems ROS: No change since H&P - Vital Signs and I&O's Vital Signs: Temperature 99.8 F Pulse Rate [Right Brachial] 71 Pulse Rate [Left Brachial] 69 Pulse Rate 66 Respiratory Rate 20 Blood Pressure [Left Arm] 96/55 Blood Pressure [Right Arm] 133/61 Blood Pressure 110/56 O2 Sat by Pulse Oximetry 100 Intake and Output: Intake & Output 06/03/19 06/04/19 06/05/19 06/06/19 11:59 11:59 11:59 11:59 Intake Total 1044 / 1044 480 / 480 Balance 1044 / 1044 480 / 480 - Physical Exam Oriented: Person Eyes: Normal Ear: Normal Nose: Normal Throat: Normal, Dry Respiratory: Generalized, Diminished Cardiovascular: Normal : Normal Auscultation: Bowel Sounds: Normal Tenderness: Normal Skin: Decreased [place]urg[place] Musculoskeletal: Normal Psychiatric: Depression Mood Description: Calm Speech Pattern: Clear, Appropriate - Laboratory and Diagnostics Result Diagrams: 06/05/19 04:21 06/05/19 04:21 Labs: Laboratory WBC 6.3 X10^3/uL (3.6-10.0) 06/05/19 04:21 RBC 3.59 X10^6/uL (3.5-5.4) 06/05/19 04:21 Hgb 11.6 g/dL (12.0-16.0) L 06/05/19 04:21 Hct 33.7 % (36.0-47.0) L 06/05/19 04:21 MCV 93.8 fL (80.0-100.0) 06/05/19 04:21 MCH 32.2 pg (27.0-34.0) 06/05/19 04:21 MCHC 34.3 g/dL (33.0-35.0) 06/05/19 04:21 RDW 13.0 % (11.6-16.5) 06/05/19 04:21 Plt Count 229 X10^3/uL (150.0-450.0) 06/05/19 04:21 MPV 8.3 fL (7.4-11.0) 06/05/19 04:21 Neut % (Auto) 60.5 % (42.0-75.0) 06/05/19 04:21 Lymph % (Auto) 25.6 % (21.0-51.0) 06/05/19 04:21 [place] % (Auto) 10.1 % (0.0-13.0) 06/05/19 04:21 Eos % (Auto) 2.9 % (0.9-2.9) 06/05/19 04:21 Baso % (Auto) 0.9 % (0.2-1.0) 06/05/19 04:21 Neut # (Auto) 3.8 x10^3/uL (2.2-4.8) 06/05/19 04:21 Lymph # (Auto) 1.6 X10^3/uL (1.3-2.9) 06/05/19 04:21 [place] # (Auto) 0.6 x10^3/uL (0.3-0.8) 06/05/19 04:21 Eos # (Auto) 0.2 x10^3/uL (0.0-0.2) 06/05/19 04:21 Baso # (Auto) 0.1 X10^3/uL (0.0-0.1) 06/05/19 04:21 Absolute Nucleated RBC 0.0 /100WBC 06/05/19 04:21 Sample Site Rb 06/04/19 10:26 ABG pH 7.310 (7.35-7.45) L 06/04/19 10:26 ABG pCO2 57.0 mmHg (35.0-45.0) H* 06/04/19 10:26 ABG pO2 58.0 mmHg (80.0-100.0) L 06/04/19 10:26 ABG HCO3 28.7 mmol/L (22-26) H 06/04/19 10:26 ABG O2 Saturation 87.0 % (90-100) L 06/04/19 10:26 ABG Base Excess 1.3 mmol/L (-2.0-2.0) 06/04/19 10:26 Fadi Test Na 06/04/19 10:26 A-a Gradient 20.0 mmHg 06/04/19 10:26 FiO2 21.0 06/04/19 10:26 Blood Gas Comments Monica well cb 06/04/19 10:26 Sodium 143 mmol/L (136-145) 06/05/19 04:21 Corrected Sodium TNP 06/05/19 04:21 Potassium 3.7 mmol/L (3.5-5.1) 06/05/19 04:21 Chloride 107 mmol/L (98-107) 06/05/19 04:21 Carbon Dioxide 27.2 mmol/L (21-32) 06/05/19 04:21 BUN 16 mg/dL (7-18) 06/05/19 04:21 Creatinine 1.21 mg/dL (0.55-1.02) H 06/05/19 04:21 Est GFR (MDRD) Af Amer 57 (>60) L 06/05/19 04:21 Est GFR (MDRD) Non-Af 47 (>60) L 06/05/19 04:21 Glucose 94 mg/dL (65-99) 06/05/19 04:21 POC Glucose (mg/dL) 178 mg/dL (65-99) H 06/04/19 07:49 Lactic Acid 1.7 mmol/L (0.4-2.0) 06/04/19 20:50 Calcium 8.8 mg/dL (8.5-10.1) 06/05/19 04:21 Corrected Calcium 9.4 mg/dL (8.5-10.1) 06/05/19 04:21 Magnesium 2.1 mg/dL (1.7-2.9) 06/05/19 04:21 Total Bilirubin 0.30 mg/dL (0.2-1.0) 06/05/19 04:21 AST 52 Units/L (15-37) H 06/05/19 04:21 ALT 30 Units/L (12-78) 06/05/19 04:21 Alkaline Phosphatase 95 Units/L (46-116) 06/05/19 04:21 Creatine Kinase 828 Units/L (26-192) H 06/04/19 20:50 CK-MB (CK-2) 16.1 ng/mL (0-4.0) H* 06/04/19 20:50 CK/CKMB % Calc 1.9 % (<4) 06/04/19 20:50 Troponin I < 0.02 ng/mL (0-1.5) 06/04/19 20:50 Total Protein 7.0 g/dL (6.4-8.2) 06/05/19 04:21 Albumin 3.2 g/dL (3.4-5.0) L 06/05/19 04:21 Globulin 3.8 g/dL (2.5-4.5) 06/05/19 04:21 Albumin/Globulin Ratio 0.8 Ratio (1.1-2.1) L 06/05/19 04:21 Specimen Type Catherized urine 06/04/19 10:43 Urine Color Yellow (YELLOW) 06/04/19 10:43 Urine Appearance Clear (CLEAR) 06/04/19 10:43 Urine pH 5.0 (5.0 - 8.0) 06/04/19 10:43 Ur Specific [place] 1.025 (1.000-1.030) 06/04/19 10:43 Urine Protein 2+ (NEGATIVE) 06/04/19 10:43 Urine Glucose (UA) Negative (NEGATIVE) 06/04/19 10:43 Urine Ketones 1+ (NEGATIVE) 06/04/19 10:43 Urine Occult Blood 4+ (NEGATIVE) 06/04/19 10:43 Urine Nitrite Negative (NEGATIVE) 06/04/19 10:43 Urine Bilirubin Negative (NEGATIVE) 06/04/19 10:43 Urine Urobilinogen Normal (NORMAL) 06/04/19 10:43 Ur Leukocyte Esterase Negative (NEGATIVE) 06/04/19 10:43 Urine RBC 3-5 /HPF (0-3) A 06/04/19 10:43 Urine WBC 3-5 /HPF (0-5) 06/04/19 10:43 Ur Squamous Epith Cells Few /HPF (NEGATIVE) 06/04/19 10:43 Ur Transition Epith Cell Few /HPF (NEGATIVE) 06/04/19 10:43 Amorphous Sediment Trace /HPF (NEGATIVE) 06/04/19 10:43 Urine Bacteria Trace /HPF (NEGATIVE) 06/04/19 10:43 Hyaline Casts Rare /LPF (NEGATIVE) 06/04/19 10:43 Urine Mucus Moderate /HPF (NEGATIVE) 06/04/19 10:43 Ur Culture Indicated? No/not indicated 06/04/19 10:43 Urine Opiates Screen Positive (NEG=<300) A 06/04/19 10:43 Urine Methadone Screen Negative (NEG=<300) 06/04/19 10:43 Ur Barbiturates Screen Positive (NEG=<200) A 06/04/19 10:43 Ur Phencyclidine Scrn Negative (NEG=<25) 06/04/19 10:43 Ur Amphetamines Screen Negative (NEG=<1000) 06/04/19 10:43 U Benzodiazepines Scrn Negative (NEG=<200) 06/04/19 10:43 Urine Cocaine Screen Negative (NEG=<300) 06/04/19 10:43 U Marijuana (THC) Screen Negative (NEG=<50) 06/04/19 10:43 Acetone, Semi-Quant Negative (NEGATIVE) 06/04/19 08:25 S. pyogenes (TEM-PCR) Not detected (NOT DETECT) 06/05/19 13:45 - Plan (1) AMS (altered mental status) Status: Acute Qualifiers: Altered mental status type: transient alteration of awareness Qualified Code(s): R40.4 - Transient alteration of awareness Plan: OBTAIN BRAIN MRI, CONTINUE TO MONITOR (2) Dehydration Status: Acute Plan: NS AT 75 ML/HR, CONTINUE TO MONITOR (3) Abnormal cardiac enzyme level Status: Acute
[2019-06-06] MEDS: NS 1000 ML 1,000 ML IV SCH (03:44)
[2019-06-06 05:47] LABS: BASOPHILS # (AUTO) 0.1 X10^3/uL (0.0-0.1); EOSINOPHILS # (AUTO) 0.2 x10^3/uL (0.0-0.2); EOSINOPHILS % (AUTO) 3.1 % (0.9-2.9); HEMATOCRIT 32.3 % (36.0-47.0); HEMOGLOBIN 11.1 g/dL (12.0-16.0); LYMPHOCYTES # (AUTO) 2.1 X10^3/uL (1.3-2.9); LYMPHOCYTES % (AUTO) 27.2 % (21.0-51.0); MEAN CORPUSCULAR HEMOGLOBIN 32.3 pg (27.0-34.0); MEAN CORPUSCULAR HGB CONC 34.5 g/dL (33.0-35.0); MEAN CORPUSCULAR VOLUME 93.5 fL (80.0-100.0); MEAN PLATELET VOLUME 9.3 fL (7.4-11.0); MONOCYTES # (AUTO) 1.1 x10^3/uL (0.3-0.8); MONOCYTES % (AUTO) 14.6 % (0.0-13.0); NEUTROPHILS # (AUTO) 4.1 x10^3/uL (2.2-4.8); NEUTROPHILS % (AUTO) 54.1 % (42.0-75.0); PLATELET COUNT 198 X10^3/uL (150.0-450.0); RED BLOOD COUNT 3.45 X10^6/uL (3.5-5.4); RED CELL DISTRIBUTION WIDTH 12.9 % (11.6-16.5); WHITE BLOOD COUNT 7.6 X10^3/uL (3.6-10.0)
[2019-06-06 05:58] LABS: ALANINE AMINOTRANSFERASE 22 Units/L (12-78); ALBUMIN 2.8 g/dL (3.4-5.0); ALKALINE PHOSPHATASE 85 Units/L (46-116); ASPARTATE AMINO TRANSFERASE 40 Units/L (15-37); BLOOD UREA NITROGEN 14 mg/dL (7-18); CALCIUM 8.5 mg/dL (8.5-10.1); CARBON DIOXIDE 27.8 mmol/L (21-32); CHLORIDE 108 mmol/L (98-107); COR CA(FOR HYPOALB) 9.5 mg/dL (8.5-10.1); CREATININE 0.97 mg/dL (0.55-1.02); SODIUM 143 mmol/L (136-145); TOTAL PROTEIN 6.3 g/dL (6.4-8.2); eGFR NON BLACK RACES > 60 (>60)
[2019-06-06 06:19] LABS: PLATELET MORPHOLOGY COMMENT NORMAL (NORMAL)
[2019-06-06 08:21] VITALS: BP 134/66
== END 2019-06-06 11:55 | disposition home or self-care (01) ==
LOC: MED/SURG 07:49 → ER 07:49 → MED/SURG 11:46
PROVIDERS: ADMIT Internal Medicine; ATTEND Internal Medicine
DX: F15.90 Other stimulant use, unspecified, uncomplicated; E87.2 Acidosis; Z86.73 Personal history of transient ischemic attack (TIA), and cerebral infarction without residual deficits; E86.0 Dehydration; F32.89 Other specified depressive episodes; I95.89 Other hypotension; I10 Essential (primary) hypertension; E78.2 Mixed hyperlipidemia; F11.90 Opioid use, unspecified, uncomplicated; R41.82 Altered mental status, unspecified; R94.30 Abnormal result of cardiovascular function study, unspecified